=== PATIENT | male | born 1950 | race Caucasian/White ===

== ENCOUNTER 2016-07-15 11:25 | Emergency (ER) | payer OTHER ==
[~2016-07-15] VITALS: Ht 175.3 cm; Wt 97.7 kg
[~2016-07-15 11:25] MED LIST: LEVO150T9 PO; MGNO400 PO; MRLP17X PO; RANI150T3 PO
[2016-07-15 11:27] VITALS: TEMP 36.5; Ht 175.3 cm; Wt 97.7 kg
[2016-07-15] MEDS ORDERED: MoRPHine SULFATE 4 MG/ML 1 ML CARP\\VIAL IV STA (11:46)
[2016-07-15] MEDS ORDERED: ONDANSETRON INJ 2 MG/ML 2 ML VIAL IV STA (11:46)
[2016-07-15 12:10] LABS: BASO % 0.4 %; BASO ABS # 0.02 K/uL (0-0.2); COMPLETE YES; EOS % 1.4 %; HEMATOCRIT 49.3 % (42-52); IG% 0.2 %; LYMPH % 17.8 %; MEAN CELL VOLUME 82.9 fL (80-100); MEAN CORPUSCULAR HEMOGLOBIN 28.4 pg (25-34); MEAN CORPUSCULAR HGB CONC 34.3 g/dl (32-36); MEAN PLATELET VOLUME 8.9 fL (7.4-10.4); MONO % 12.7 %; NEUT % 67.5 %; PLATELET COUNT 142 K/uL (130-400); RED BLOOD COUNT 5.95 M/uL (4.7-6.1); WHITE BLOOD COUNT 5.05 K/uL (4.8-10.8)
[2016-07-15 12:19] LABS: URINE APPEARANCE CLEAR (CLEAR); URINE BILIRUBIN NEG (NEG); URINE COLOR YELLOW; URINE NITRITE NEG (NEG); URINE PH 5.5 (4.5-7.5); UROBILINOGEN NEG (NEG)
[2016-07-15 12:23] LABS: MANUAL MICROSCOPIC REQUIRED? NO; REVIEW REQ? NO
[2016-07-15 12:30] LABS: BUN/CREATININE RATIO 14.4 (10-20); CALCIUM 9.1 mg/dl (8.5-10.1); CREATININE 1.1 mg/dl (0.60-1.40); POTASSIUM 4.3 mmol/L (3.5-5.1)
--- NOTE | 2016-07-15 12:34 | DIAGNOSTIC IMAGING REPORT ---
ABDOMEN AND PELVIS CT WITHOUT CONTRAST CT DOSE: 1056.49 mGycm HISTORY: Flank pain right flask pain eval for stone TECHNIQUE: Multiaxial CT images of the abdomen and pelvis were performed without the use of intravenous and oral contrast according to the standard department stone protocol. COMPARISON STUDY: 05/22/2015 FINDINGS: Mild bibasilar dependent atelectatic change several left renal cysts as well as several calcifications. These are nonobstructive. Several right renal cysts. Moderate right renal hydronephrosis and hydroureter. 5 mm obstructing calculus mid right ureter. This appears to been present on the prior study within the lower pole right kidney. Liver spleen and pancreas are unremarkable. Pancreas is fatty replaced. Chronic sigmoid and to a lesser extent pain colonic diverticulosis unchanged in the prior study. Several prostatic calcifications. Bowel pattern again is nonobstructive. IMPRESSION: 1. 5 mm obstructing calculus mid right ureter.. 2. Right hydroureteronephrosis considered moderate. 3. Multiple bilateral renal cysts stable from the prior study. 4. Chronic colonic diverticulosis with no evidence for acute diverticulitis. Electronically signed by: Rahul Mckeon M.D. 07/15/2016 12:33 PM Dictated Date/Time: 07/15/2016 12:27 PM
--- NOTE | 2016-07-15 13:04 | DIAGNOSTIC IMAGING REPORT ---
LEFT KNEE 2 VIEWS CLINICAL HISTORY: Left knee pain. FINDINGS: AP and crosstable lateral views of the left knee are obtained. No prior studies are available for comparison at the time of dictation. The skeletal structures are osteopenic. There is moderate tricompartmental degenerative joint space narrowing. This is greatest in the medial and patellofemoral compartments. There is near complete loss of the medial joint space with associated bony sclerosis. There are marginal osteophytes and patellar enthesophytes. No joint effusion is identified. The overlying soft tissues are within normal limits. IMPRESSION: Osteopenia and arthritic change as above. No acute bony abnormality is identified. Electronically signed by: Shaan Tamayo M.D. 07/15/2016 1:03 PM Dictated Date/Time: 07/15/2016 1:02 PM
[2016-07-15] MEDS ORDERED: OXYC1TAB3 PO (13:23)
[2016-07-15 13:44] VITALS: BP 94/68; PULSE 62; O2SAT 91
--- NOTE | 2016-07-15 14:36 | EMERGENCY ROOM VISIT NOTE ---
History Report prepared by Enmanuel: Jaime Lawson Under the Supervision of: Dr. Manpreet Ravi M.D. First contact with patient: 11:38 Chief Complaint: FLANK PAIN Stated Complaint: KIDNEY STONE, RIGHT SIDED PAIN History of Present Illness The patient is a 66 year old male who presents to the Emergency Room with complaints of constant pain in the right flank that began at 0900 this morning, 3 hours prior to arrival. The patient describes the pain as "excruciating." He is feeling nauseous secondary to the pain, but has not had any vomiting episodes yet today. The patient went to a Walk-in clinic in [place] where he was told he had a temperature of 99.5 degrees. The patient has had "many" kidney stones in the past and states that these symptoms are similar to those he has experienced previously. 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 A total of 10 systems reviewed and were otherwise negative. Past Medical & Surgical Medical Problems: (1) Diverticulosis (2) H/O hemorrhoids (3) Hypothyroid (4) Irritable bowel syndrome (IBS) (5) Prediabetes Surgical Problems: (1) H/O colonoscopy (2) H/O esophagogastroduodenoscopy (3) H/O hernia repair Family History FH: CAD (coronary artery disease) FATHER ( at 56 ) MOTHER FH: cancer BROTHER FHx: diabetes mellitus MOTHER BROTHER Hypertension BROTHER Kidney disease BROTHER Social History Smoking Status: Never Smoker Alcohol Use: none Drug Use: none Marital Status: Housing Status: lives with family Occupation Status: retired Current/Historical Medications Scheduled Levothyroxine Sodium (Levothyroxine Sodium), 1 TAB PO DAILY Scheduled PRN Oxycodone Ir (Roxicodone Ir), 5 MG PO Q4H PRN for Pain Allergies Coded Allergies: No Known Allergies (Unverified , 07/15/16) Physical Exam Vital Signs Date Time Temp Pulse Resp B/P Pulse Ox O2 Delivery O2 Flow Rate FiO2 07/15/16 13:44 62 16 94/68 91 Room Air 07/15/16 12:22 60 16 114/72 95 Room Air 07/15/16 11:27 36.5 68 20 139/75 97 Room Air Physical Exam Constitutional: Vital signs reviewed. Eyes: Pupils are equal round reactive to light. Conjunctiva are noninjected. ENT: Pharynx is clear without erythema or exudate. Mucous membranes are moist. Neck supple without meningeal signs. Respiratory: Clear to auscultation bilaterally. Breath sounds are equal bilaterally. Cardiovascular: Regular rate and rhythm. No rubs or gallops. GI: Soft, nondistended and nontender. Bowel sounds are present. Musculoskeletal: No peripheral edema. No CVA tenderness. Integumentary: No cyanosis. Neurological: The patient is awake and alert. No focal deficits. Psychiatric: Normal affect. Medical Decision & Procedures ER Provider Diagnostic Interpretation: X-ray results as stated below per interpretation by me and the radiologist: LEFT KNEE 2 VIEWS CLINICAL HISTORY: Left knee pain. FINDINGS: AP and crosstable lateral views of the left knee are obtained. No prior studies are available for comparison at the time of dictation. The skeletal structures are osteopenic. There is moderate tricompartmental degenerative joint space narrowing. This is greatest in the medial and patellofemoral compartments. There is near complete loss of the medial joint space with associated bony sclerosis. There are marginal osteophytes and patellar enthesophytes. No joint effusion is identified. The overlying soft tissues are within normal limits. IMPRESSION: Osteopenia and arthritic change as above. No acute bony abnormality is identified. Electronically signed by: Shaan Tamayo M.D. 07/15/2016 1:03 PM Dictated Date/Time: 07/15/2016 1:02 PM Other radiology results as stated below per my review and the radiologist's interpretation: ABDOMEN AND PELVIS CT WITHOUT CONTRAST CT DOSE: 1056.49 mGycm HISTORY: Flank pain right flask pain eval for stone TECHNIQUE: Multiaxial CT images of the abdomen and pelvis were performed without the use of intravenous and oral contrast according to the standard department stone protocol. COMPARISON STUDY: 05/22/2015 FINDINGS: Mild bibasilar dependent atelectatic change several left renal cysts as well as several calcifications. These are nonobstructive. Several right renal cysts. Moderate right renal hydronephrosis and hydroureter. 5 mm obstructing calculus mid right ureter. This appears to been present on the prior study within the lower pole right kidney. Liver spleen and pancreas are unremarkable. Pancreas is fatty replaced. Chronic sigmoid and to a lesser extent pain colonic diverticulosis unchanged in the prior study. Several prostatic calcifications. Bowel pattern again is nonobstructive. IMPRESSION: 1. 5 mm obstructing calculus mid right ureter.. 2. Right hydroureteronephrosis considered moderate. 3. Multiple bilateral renal cysts stable from the prior study. 4. Chronic colonic diverticulosis with no evidence for acute diverticulitis. Electronically signed by: Rahul Mckeon M.D. 07/15/2016 12:33 PM Dictated Date/Time: 07/15/2016 12:27 PM Laboratory Results 07/15/16 11:58 Red Blood Count 5.95, Mean Corpuscular Volume 82.9, Mean Corpuscular Hemoglobin 28.4, Mean Corpuscular Hemoglobin Concent 34.3, Mean Platelet Volume 8.9, Neutrophils (%) (Auto) 67.5, Lymphocytes (%) (Auto) 17.8, Monocytes (%) (Auto) 12.7, Eosinophils (%) (Auto) 1.4, Basophils (%) (Auto) 0.4, Neutrophils # (Auto ) 3.41, Lymphocytes # (Auto) 0.90, Monocytes # (Auto) 0.64, Eosinophils # (Auto ) 0.07, Basophils # (Auto) 0.02 07/15/16 11:58 Test 07/15/16 11:50 07/15/16 11:58 Urine Color YELLOW Urine Appearance CLEAR (CLEAR) Urine pH 5.5 (4.5-7.5) Urine Specific [place] 1.020 (1.000-1.030) Urine Protein NEG (NEG) Urine Glucose (UA) NEG (NEG) Urine Ketones NEG (NEG) Urine Occult Blood 2+ (NEG) Urine Nitrite NEG (NEG) Urine Bilirubin NEG (NEG) Urine Urobilinogen NEG (NEG) Urine Leukocyte Esterase NEG (NEG) Urine WBC (Auto) 1-5 /hpf (0-5) Urine RBC (Auto) 10-30 /hpf (0-4) Urine Hyaline Casts (Auto) 1-5 /lpf (0-5) Urine Epithelial Cells (Auto) 5-10 /lpf (0-5) Urine Bacteria (Auto) NEG (NEG) White Blood Count 5.05 K/uL (4.8-10.8) Red Blood Count 5.95 M/uL (4.7-6.1) Hemoglobin 16.9 g/dL (14.0-18.0) Hematocrit 49.3 % (42-52) Mean Corpuscular Volume 82.9 fL (80-100) Mean Corpuscular Hemoglobin 28.4 pg (25-34) Mean Corpuscular Hemoglobin Concent 34.3 g/dl (32-36) Platelet Count 142 K/uL (130-400) Mean Platelet Volume 8.9 fL (7.4-10.4) Neutrophils (%) (Auto) 67.5 % Lymphocytes (%) (Auto) 17.8 % Monocytes (%) (Auto) 12.7 % Eosinophils (%) (Auto) 1.4 % Basophils (%) (Auto) 0.4 % Neutrophils # (Auto) 3.41 K/uL (1.4-6.5) Lymphocytes # (Auto) 0.90 K/uL (1.2-3.4) Monocytes # (Auto) 0.64 K/uL (0.11-0.59) Eosinophils # (Auto) 0.07 K/uL (0-0.5) Basophils # (Auto) 0.02 K/uL (0-0.2) RDW Standard Deviation 40.0 fL (36.4-46.3) RDW Coefficient of Variation 13.2 % (11.5-14.5) Immature Granulocyte % (Auto) 0.2 % Immature Granulocyte # (Auto) 0.01 K/uL (0.00-0.02) Anion Gap 7.0 mmol/L (3-11) Est Creatinine Clear Calc Drug Dose 74.1 ml/min Estimated GFR () 79.5 Estimated GFR (Non- 68.6 BUN/Creatinine Ratio 14.4 (10-20) Calcium Level 9.1 mg/dl (8.5-10.1) Total Bilirubin 0.6 mg/dl (0.2-1) Direct Bilirubin 0.2 mg/dl (0-0.2) Aspartate Amino Transf (AST/SGOT) 38 U/L (15-37) Alanine Aminotransferase (ALT/SGPT) 63 U/L (12-78) Alkaline Phosphatase 97 U/L (45-117) Total Protein 8.0 gm/dl (6.4-8.2) Albumin 3.7 gm/dl (3.4-5.0) Lipase 237 U/L (73-393) Laboratory results as reviewed by me. Medications Administered Medications (Trade) Dose Ordered Sig/Hema Route Start Time Stop Time Status Last Admin Dose Admin Morphine Sulfate (MoRPHine SULFATE INJ) 4 mg ONE STAT IV 07/15/16 11:46 07/15/16 11:51 DC 07/15/16 11:59 4 MG Ondansetron HCl (Zofran Inj) 4 mg NOW STAT IV 07/15/16 11:46 07/15/16 11:51 DC 07/15/16 11:59 4 MG ED Course 1142: The patient was evaluated in room B12. A complete history and physical exam was performed. 1146: Ordered Zofran 4 mg IV, Morphine Sulfate 4 mg IV. 1233: I checked on the patient at this time, he is feeling better and his pain is subsiding. 1322: I spoke about the test results with the patient at this time, he is feeling better and will follow up us urology. The patient will be discharged home at this time. Medical Decision This is a 66-year-old male presents with flank pain. Differential diagnosis includes renal colic, hydronephrosis, UTI, strain, appendicitis. I did perform a limited focused review of portions of the patient's old chart on the electronic medical record. The patient has had no recent pertinent visits to this hospital. I did evaluate the patient as noted above. The patient is presenting with right flank pain similar to his previous episodes of renal colic. IV access was established. I did treat the patient with IV morphine and Zofran. I did order and personally review the patient's urinalysis as described above. He does have hematuria. I did order and review the patient's blood work as noted in the electronic medical record. I did order a CT of the abdomen and pelvis. I did review the images myself as well as the radiology report as described above. He does have a right mid ureteral stone measuring 5 mm. The patient also complained of knee pain which is chronic. He stated that his doctor wanted an x-ray of the knee and so I did order an x-ray as described above. I did reassess patient. He is feeling better. He does feel well enough for discharge. I did discuss the test results with him. He was discharged with a prescription for OxyIR and advised follow up with Dr. Tomas of urology. He was given return instructions as outlined below. Impression Primary Impression: Renal colic Additional Impression: Chronic pain of left knee Scribe Attestation The scribe's documentation has been prepared under my direct and personally reviewed by me in its entirety. I confirm that the note above accurately reflects all work, treatment, procedures, and medical decision making performed by me. Departure Information Dispostion Home / Self-Care Prescriptions Oxycodone Ir (Roxicodone Ir) 5 Mg Tab 5 MG PO Q4H Y for Pain, #20 TAB Prov: Manpreet Ravi M.D. 07/15/16 Referrals Balwinder Duran D.OTimo (PCP) Forms HOME CARE DOCUMENTATION FORM, IMPORTANT VISIT INFORMATION Patient Instructions My [facility] Additional Instructions You have been examined and treated today on an emergency basis only. This is not a substitute for, or an effort to provide, complete comprehensive medical care. It is impossible to recognize and treat all injuries or illnesses in a single emergency department visit. It is therefore important that you follow up closely with your physician and Dr. Tomas of urology. Call as soon as possible for an appointment. Return for worsening symptoms or if you develop fever, vomiting, or any other concerning symptoms. Problem Qualifiers
== END 2016-07-15 13:51 | disposition home or self-care (01) ==
LOC: C.EDB 11:27
DX: N23 Unspecified renal colic (principal); G89.29 Other chronic pain; M25.562 Pain in left knee; N20.1 Calculus of ureter; E03.9 Hypothyroidism, unspecified; Z98.890 Other specified postprocedural states; Z82.49 Family history of ischemic heart disease and other diseases of the circulatory system; Z83.3 Family history of diabetes mellitus; Z79.899 Other long term (current) drug therapy

== ENCOUNTER → 2016-08-05 | Outpatient (CLI) | payer OTHER ==
[~2016-08-05] MED LIST changes: -MGNO400 PO; -MRLP17X PO; +OXYC1TAB3 PO; -RANI150T3 PO
[2016-08-05 13:52] LABS: PROSTATE SPECIFIC ANTIGEN 5.03 ng/ml (0.000-4.000); THYROID STIMULATING HORMONE 1.56 uIu/ml (0.300-4.500)
--- NOTE | 2016-08-12 06:48 | CODING QUERY MEDICAL NECESSITY ---
SUPPORTING DIAGNOSIS NEEDED A supporting diagnosis is required for the test/procedure performed on this patient in order for us to be reimbursed by the patient's insurance. Please provide a supporting diagnosis for the following test/procedure listed below next to the test name along with your signature. *If there is no additional diagnosis for this patient that would support the following test/procedure please document that below next to the test/procedure. Test(s)/Procedure(s) that require a supporting diagnosis: * VITAMIN D 25-HYDROXY DIAGNOSIS: * PSA DIAGNOSIS: * DOS: 08/05/16 Provider Signature: Date: Thank you Malissa Lynn Health Information Management Once completed, please kindly fax back to [phone] For questions please call [phone]
== END | disposition home or self-care (01) ==
LOC: C.LABPBG 10:36
PROVIDERS: ATTEND Neuromusculoskeletal Medicine & OMM
DX: Z00.00 Encounter for general adult medical examination without abnormal findings (principal); M19.90 Unspecified osteoarthritis, unspecified site; M25.562 Pain in left knee; M85.859 Other specified disorders of bone density and structure, unspecified thigh; R97.20 Elevated prostate specific antigen [PSA]

== ENCOUNTER → 2016-08-19 | Outpatient (CLI) | payer OTHER | END | disposition home or self-care (01) | LOC: C.MAMM 15:09 | PROVIDERS: ATTEND Neuromusculoskeletal Medicine & OMM | DX: M19.90 Unspecified osteoarthritis, unspecified site (principal); M25.562 Pain in left knee; M85.88 Other specified disorders of bone density and structure, other site ==

== ENCOUNTER 2017-01-26 16:19 | Emergency (ER) | payer OTHER ==
[~2017-01-26] VITALS: Ht 174 cm; Wt 102.0 kg
[~2017-01-26 16:19] MED LIST changes: -OXYC1TAB3 PO
[2017-01-26 16:28] VITALS: TEMP 36.4; Ht 174 cm; Wt 102.0 kg
[2017-01-26] MEDS ORDERED: SODIUM CHLORIDE 0.9% 1000ML 1,000 ML IV STA (17:15)
[2017-01-26] MEDS ORDERED: HYDROmorphone INJ 1 MG/ML SYR IV STA (17:15)
[2017-01-26] MEDS ORDERED: ONDANSETRON INJ 2 MG/ML 2 ML VIAL IV STA (17:15)
[2017-01-26] MEDS ORDERED: KETOROLAC TROMETHAMINE 30 MG/ML VIAL IV STA (17:15)
--- NOTE | 2017-01-26 17:22 | EMERGENCY ROOM VISIT NOTE ---
History Report prepared by Enmanuel: Ramana Vasquez Under the Supervision of: Dr. Shahid Norris M.D. First contact with patient: 17:14 Chief Complaint: KIDNEY STONE Stated Complaint: INTENSE PAIN ON LF SIDE History of Present Illness The patient is a 66 year old male who presents to the Emergency Room with complaints of left sided flank pain that began 3 hours ago. He rates his pain a 9/10 in severity. The patient has a history of a 5 mm kidney stone on the right side in July. He states that his symptoms feel like his previous kidney stone, just on the other side. He is nauseated and had one episode of vomiting. He denies any fevers. Source of History: patient Onset: 3 hours ago Position: other (left flank) Symptom Intensity: 9/10 Quality: sharp Timing: constant Associated Symptoms: + nausea, + vomiting, No fevers Review of Systems See HPI for pertinent positives & negatives. A total of 10 systems reviewed and were otherwise negative. Past Medical & Surgical Medical Problems: (1) Diverticulosis (2) H/O hemorrhoids (3) Hypothyroid (4) Irritable bowel syndrome (IBS) (5) Prediabetes Surgical Problems: (1) H/O colonoscopy (2) H/O esophagogastroduodenoscopy (3) H/O hernia repair Family History FH: CAD (coronary artery disease) FATHER ( at 56 ) MOTHER FH: cancer BROTHER FHx: diabetes mellitus MOTHER BROTHER Hypertension BROTHER Kidney disease BROTHER Social History Smoking Status: Never Smoker Alcohol Use: none Drug Use: none Marital Status: Housing Status: lives with family Occupation Status: retired Current/Historical Medications Scheduled Levothyroxine Sodium (Levothyroxine Sodium), 1 TAB PO DAILY Scheduled PRN Oxycodone Immediate Rel Tab (Roxicodone Ir), 1-2 TAB PO Q4H PRN for Severe Pain Allergies Coded Allergies: No Known Allergies (Unverified , 01/26/17) Physical Exam Vital Signs Date Time Temp Pulse Resp B/P (MAP) Pulse Ox O2 Delivery O2 Flow Rate FiO2 01/26/17 20:01 63 16 136/86 95 01/26/17 17:53 46 01/26/17 17:50 96 Nasal Cannula 3.0 01/26/17 17:36 50 24 162/83 97 Room Air 8/28/17 16:28 36.4 54 20 157/90 94 Room Air Physical Exam GENERAL: Patient is a healthy-appearing well-nourished male HEAD: Normocephalic atraumatic EYES: Ocular movements intact pupils equal and react to light OROPHARYNX mucous membranes are moist no exudates present no erythema or edema present NECK: Supple no nuchal rigidity CHEST: Good equal expansion LUNGS: Clear and equal to auscultation CARDIAC: Normal S1 and S2 ABDOMEN: Soft nontender no guarding BACK: No CVA tenderness EXTREMITIES: No pain upon palpation normal muscle strength in all groups no clubbing cyanosis or edema NEURO: Patient is following commands and answering questions appropriately. Alert and oriented x3 Cranial Nerves 2-12 grossly intact Medical Decision & Procedures ER Provider Diagnostic Interpretation: Radiology results as stated below per my review and radiologist interpretation: KUB CLINICAL HISTORY: Left flank pain. History of kidney stones. COMPARISON STUDY: KUB June 20, [address] of the abdomen and pelvis July 05, 2016. FINDINGS: A 3 mm left pelvic calcification likely reflects a distal left ureteral calculus. A right pelvic calcification represents a phlebolith. No additional urinary calculi are present. Bowel gas pattern is normal. IMPRESSION: 3 mm distal left ureteral calculus. Electronically signed by: Alan Russell M.D. 01/26/2017 7:13 PM Dictated Date/Time: 01/26/2017 6:58 PM RENAL ULTRASOUND CLINICAL HISTORY: Left flank pain. COMPARISON STUDY: CT of the abdomen and pelvis July 15, 2016. TECHNIQUE: Sonography of the kidneys and the urinary bladder was performed. FINDINGS: The right kidney measures 13.5 x 5.6 x 7.1 cm and the left measures 13.9 x 8 x 8.5 cm. Note is made of a 5.2 cm anechoic right renal lesion consistent with a cyst. 2 left renal cysts are noted. The larger cyst measures 6.5 cm. No hydronephrosis is identified. Study is mildly compromised by suboptimal penetration. Neither ureteral jet was identified. IMPRESSION: 1. No hydronephrosis. 2. Bilateral renal cysts. Electronically signed by: Alan Russell M.D. 01/26/2017 7:23 PM Dictated Date/Time: 01/26/2017 7:22 PM Laboratory Results 01/26/17 17:36 Red Blood Count 6.02, Mean Corpuscular Volume 81.4, Mean Corpuscular Hemoglobin 29.1, Mean Corpuscular Hemoglobin Concent 35.7, Mean Platelet Volume 9.0, Neutrophils (%) (Auto) 84.8, Lymphocytes (%) (Auto) 9.6, Monocytes (%) (Auto) 4.7, Eosinophils (%) (Auto) 0.3, Basophils (%) (Auto) 0.2, Neutrophils # (Auto) 10.02, Lymphocytes # (Auto) 1.13, Monocytes # (Auto) 0.56, Eosinophils # (Auto) 0.03, Basophils # (Auto) 0.02 01/26/17 17:36 Test 01/26/17 17:36 01/26/17 18:30 White Blood Count 11.81 K/uL (4.8-10.8) Red Blood Count 6.02 M/uL (4.7-6.1) Hemoglobin 17.5 g/dL (14.0-18.0) Hematocrit 49.0 % (42-52) Mean Corpuscular Volume 81.4 fL (80-100) Mean Corpuscular Hemoglobin 29.1 pg (25-34) Mean Corpuscular Hemoglobin Concent 35.7 g/dl (32-36) Platelet Count 202 K/uL (130-400) Mean Platelet Volume 9.0 fL (7.4-10.4) Neutrophils (%) (Auto) 84.8 % Lymphocytes (%) (Auto) 9.6 % Monocytes (%) (Auto) 4.7 % Eosinophils (%) (Auto) 0.3 % Basophils (%) (Auto) 0.2 % Neutrophils # (Auto) 10.02 K/uL (1.4-6.5) Lymphocytes # (Auto) 1.13 K/uL (1.2-3.4) Monocytes # (Auto) 0.56 K/uL (0.11-0.59) Eosinophils # (Auto) 0.03 K/uL (0-0.5) Basophils # (Auto) 0.02 K/uL (0-0.2) RDW Standard Deviation 38.4 fL (36.4-46.3) RDW Coefficient of Variation 12.9 % (11.5-14.5) Immature Granulocyte % (Auto) 0.4 % Immature Granulocyte # (Auto) 0.05 K/uL (0.00-0.02) Anion Gap 9.0 mmol/L (3-11) Est Creatinine Clear Calc Drug Dose 63.5 ml/min Estimated GFR () 65.0 Estimated GFR (Non- 56.1 BUN/Creatinine Ratio 14.4 (10-20) Calcium Level 9.8 mg/dl (8.5-10.1) Total Bilirubin 0.7 mg/dl (0.2-1) Direct Bilirubin 0.2 mg/dl (0-0.2) Aspartate Amino Transf (AST/SGOT) 33 U/L (15-37) Alanine Aminotransferase (ALT/SGPT) 42 U/L (12-78) Alkaline Phosphatase 105 U/L (45-117) Total Protein 8.0 gm/dl (6.4-8.2) Albumin 3.8 gm/dl (3.4-5.0) Lipase 200 U/L (73-393) Urine Color YELLOW Urine Appearance CLEAR (CLEAR) Urine pH >= 9.0 (4.5-7.5) Urine Specific [place] 1.018 (1.000-1.030) Urine Protein NEG (NEG) Urine Glucose (UA) NEG (NEG) Urine Ketones TRACE (NEG) Urine Occult Blood NEG (NEG) Urine Nitrite NEG (NEG) Urine Bilirubin NEG (NEG) Urine Urobilinogen NEG (NEG) Urine Leukocyte Esterase NEG (NEG) Labs reviewed by ED physician. Medications Administered Medications (Trade) Dose Ordered Sig/Hema Route Start Time Stop Time Status Last Admin Dose Admin Sodium Chloride 1,000 ml @ 999 mls/hr Q1H1M STAT IV 01/26/17 17:15 01/26/17 18:15 DC 01/26/17 17:39 999 MLS/HR Hydromorphone HCl (Dilaudid Inj) 1 mg NOW STAT IV 01/26/17 17:15 01/26/17 17:17 DC 01/26/17 17:41 1 MG Ketorolac Tromethamine (Toradol Inj) 30 mg NOW STAT IV 01/26/17 17:15 01/26/17 17:17 DC 01/26/17 17:40 30 MG Ondansetron HCl (Zofran Inj) 4 mg NOW STAT IV 01/26/17 17:15 01/26/17 17:17 DC 01/26/17 17:39 4 MG Oxycodone HCl (Roxicodone Immediate Rel 5MG Home Pack) 1 homepack UD ONCE PO 01/26/17 19:45 01/26/17 19:46 DC 01/26/17 19:53 1 HOMEPACK ED Course 1713: Past medical records reviewed. The patient was evaluated in room C1B. A complete history and physical examination was performed. 1714: Ordered Zofran Inj 4 mg IV, Toradol Inj 30 mg IV, Dilaudid Inj 1 mg IV, Sodium Chloride 1000 ml @ 999 mls/hr IV 1944: Ordered Oxycodone HCl 1 homepack PO 1999: Upon reexamination the patient is resting. I discussed results and treatment plan with the patient. He verbalizes agreement and understanding. The patient is ready for discharge. Medical Decision Differential diagnosis: Etiologies such as appendicitis, diverticulitis, PUD, biliary pathology, UTI, pancreatitis, obstruction, mesenteric ischemia, aortic pathology, infections, inflammatory bowel disease, renal colic, as well as others were entertained. This is a 58-year-old male who presents emergency department complaining was signed flank pain. I will note that the patient recently had a CAT scan performed in July. This was reviewed with the patient and old of that there were several stones present in the left kidney at that time. An IV was established, patient given normal saline bolus, Toradol, Dilaudid. Repeat examination revealed improvement patient's symptoms. Serial abdominal examinations were performed on the patient in the emergency department and at no tender the patient exhibited a surgical abdomen. I do feel that the patient as well as to be discharged home as he appears to have a 3 mm left kidney stone. The patient was pain-free at the time of discharge. He is afebrile here in the emergency department and does not have any evidence of infection and his urine. Patient will follow-up with his urologist or will return if he develops fevers or his pain is out of control. Patient was in agreement with the treatment plan. Medication Reconcilliation Current Medication List: was personally reviewed by me Blood Pressure Screening Patient's blood pressure: Elevated blood pressure Blood pressure disposition: Referred to PCP Impression Primary Impression: Kidney stone Scribe Attestation The scribe's documentation has been prepared under my direction and personally reviewed by me in its entirety. I confirm that the note above accurately reflects all work, treatment, procedures, and medical decision making performed by me. Departure Information Dispostion Home / Self-Care Prescriptions Oxycodone Immediate Rel Tab (ROXICODONE IR) 5 Mg Tab 1-2 TAB PO Q4H Y for Severe Pain, #24 TAB Prov: Shahid Norris MD 01/26/17 Referrals Balwinder Duran D.O. (PCP) Forms HOME CARE DOCUMENTATION FORM, IMPORTANT VISIT INFORMATION, School Instructions, Work Instructions Patient Instructions Kidney Stones Expectant Therapy, Kidney Stones Identify, Kidney Stones Prevent, Kidney Stones Risk, My [facility] [address] Additional Instructions Take 1000 mg Tylenol every 6 hours Take oxy IR for breakthrough pain Follow up with DR Jiang's office Return if pain is out of control or you develop fevers You were found to have an elevated blood pressure today (>120 sytolic or >90 diastolic). Per medicare guidelines, you need to follow up with this blood pressure screening with your Primary Care Physician (PCP). For a new PCP call [phone]. You received narcotic or benzodiazepene medication while in the emergency room today. This is an addictive medication that may cause drowziness as well as constipation. Do not drive, operate heavy machinery, or drink alcohol under the influence of this medication. You have been examined and treated today on an emergency basis only. This is not a substitute for, or an effort to provide, complete comprehensive medical care. It is impossible to recognize and treat all injuries or illnesses in a single emergency department visit. It is therefore important that you follow up closely with Dr Duran. Call as soon as possible for an appointment. Thank you for your time and consideration. I look forward to speaking with you again soon. Please don't hesitate to call us if you have any questions.
[2017-01-26 17:49] LABS: BASO % 0.2 %; BASO ABS # 0.02 K/uL (0-0.2); COMPLETE YES; EOS % 0.3 %; IG% 0.4 %; LYMPH % 9.6 %; LYMPH ABS # 1.13 K/uL (1.2-3.4); MEAN CELL VOLUME 81.4 fL (80-100); MEAN CORPUSCULAR HEMOGLOBIN 29.1 pg (25-34); MEAN CORPUSCULAR HGB CONC 35.7 g/dl (32-36); MONO % 4.7 %; NEUT % 84.8 %; PLATELET COUNT 202 K/uL (130-400); RED BLOOD COUNT 6.02 M/uL (4.7-6.1); WHITE BLOOD COUNT 11.81 K/uL (4.8-10.8)
[2017-01-26 17:50] VITALS: O2SAT 96
[2017-01-26 18:08] LABS: BUN/CREATININE RATIO 14.4 (10-20); CALCIUM 9.8 mg/dl (8.5-10.1); CREATININE 1.3 mg/dl (0.60-1.40)
[2017-01-26 18:51] LABS: URINE APPEARANCE CLEAR (CLEAR); URINE BILIRUBIN NEG (NEG); URINE COLOR YELLOW; URINE NITRITE NEG (NEG); URINE PH >= 9.0 (4.5-7.5); URINE SPECIFIC GRAVITY 1.018 (1.000-1.030); UROBILINOGEN NEG (NEG)
[2017-01-26 19:06] LABS: MANUAL MICROSCOPIC REQUIRED? NO; REVIEW REQ? NO
--- NOTE | 2017-01-26 19:14 | DIAGNOSTIC IMAGING REPORT ---
KUB CLINICAL HISTORY: Left flank pain. History of kidney stones. COMPARISON STUDY: KUB June 20, [address] of the abdomen and pelvis July 05, 2016. FINDINGS: A 3 mm left pelvic calcification likely reflects a distal left ureteral calculus. A right pelvic calcification represents a phlebolith. No additional urinary calculi are present. Bowel gas pattern is normal. IMPRESSION: 3 mm distal left ureteral calculus. Electronically signed by: Alan Russell M.D. 01/26/2017 7:13 PM Dictated Date/Time: 01/26/2017 6:58 PM
--- NOTE | 2017-01-26 19:24 | DIAGNOSTIC IMAGING REPORT ---
RENAL ULTRASOUND CLINICAL HISTORY: Left flank pain. COMPARISON STUDY: CT of the abdomen and pelvis July 15, 2016. TECHNIQUE: Sonography of the kidneys and the urinary bladder was performed. FINDINGS: The right kidney measures 13.5 x 5.6 x 7.1 cm and the left measures 13.9 x 8 x 8.5 cm. Note is made of a 5.2 cm anechoic right renal lesion consistent with a cyst. 2 left renal cysts are noted. The larger cyst measures 6.5 cm. No hydronephrosis is identified. Study is mildly compromised by suboptimal penetration. Neither ureteral jet was identified. IMPRESSION: 1. No hydronephrosis. 2. Bilateral renal cysts. Electronically signed by: Alan Russell M.D. 01/26/2017 7:23 PM Dictated Date/Time: 01/26/2017 7:22 PM
[2017-01-26] MEDS ORDERED: OXYC1TAB3 PO (19:37)
[2017-01-26] MEDS ORDERED: OXYCODONE IR HOME PACK PO ONE (19:45)
[2017-01-26 20:01] VITALS: BP 136/86; PULSE 63; O2SAT 95
== END 2017-01-26 20:02 | disposition home or self-care (01) ==
LOC: C.EDB 16:19 → C.EDC 20:02
DX: N20.0 Calculus of kidney (principal); K57.90 Diverticulosis of intestine, part unspecified, without perforation or abscess without bleeding; E03.9 Hypothyroidism, unspecified; K58.9 Irritable bowel syndrome, unspecified; R73.03 Prediabetes; Z87.442 Personal history of urinary calculi; Z82.49 Family history of ischemic heart disease and other diseases of the circulatory system; Z83.3 Family history of diabetes mellitus

== ENCOUNTER 2017-06-06 21:51 | Inpatient (IN) | payer OTHER ==
[~2017-06-06] VITALS: Ht 177.8 cm; Wt 103.0 kg
[~2017-06-06 21:51] MED LIST changes: +ESOM1CAP34 PO; +FLM4 PO
[2017-06-06] MEDS ORDERED: ZNTT/150 PO (22:04)
[2017-06-06] MEDS ORDERED: SODIUM CHLORIDE 0.9% 1000ML 1,000 ML IV STA (22:13)
[2017-06-06] MEDS ORDERED: ONDANSETRON INJ 2 MG/ML 2 ML VIAL IV STA (22:13)
[2017-06-06] MEDS ORDERED: MoRPHine SULFATE 4 MG/ML 1 ML CARP\\VIAL IV STA (22:41)
--- NOTE | 2017-06-06 22:43 | DIAGNOSTIC IMAGING REPORT ---
CT SCAN OF THE ABDOMEN AND PELVIS WITHOUT CONTRAST CLINICAL HISTORY: Analyzed abdominal pain, nausea, vomiting, dizziness. COMPARISON STUDY: 04/09/2017 TECHNIQUE: CT scan of the abdomen and pelvis was performed from the lung bases to the proximal femurs. Images are reviewed in the axial, sagittal, and coronal planes. IV contrast was not administered for this examination. A dose lowering technique was utilized adhering to the principles of ALARA. CT DOSE: 1480.05 mGy.cm FINDINGS: Lower chest: There are persistent bibasilar opacities, likely atelectatic. Liver: The unenhanced liver is normal in size, contour, and attenuation. There is no intrahepatic biliary ductal dilatation. Gallbladder: Unremarkable. Spleen: Normal in size and attenuation. Pancreas: Unremarkable. Adrenal glands: Unremarkable. Kidneys: No renal, ureteral, or bladder calculi are visualized. There are bilateral renal masses, likely representing cysts. The largest in the right measures 56 mm. The largest in the left 63 mm. Bowel: There is extensive colonic diverticulosis. No acute peridiverticular inflammatory changes are visualized. 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 There is no acute diverticulitis. There are mildly dilated fluid-filled small bowel loops with normal caliber distal ileum. There is a distal ileal transition zone occipital to a mildly thickened small bowel loop. The findings are consistent with a partial small bowel obstruction Peritoneum: There is no intraperitoneal free air or abdominal ascites. Vasculature: The abdominal aorta is normal in course and caliber. Adenopathy: There are mildly prominent ileocolic lymph nodes, likely reactive Pelvic viscera: There is mild prostamegaly there is a small fat-containing right inguinal hernia Skeletal structures: No destructive osseous lesions are seen. IMPRESSION: 1. Distal small bowel obstruction, likely secondary to a thick walled distal small bowel loop. This raises the possibility of a focal enteritis or inflammatory bowel disease. 2. Extensive colonic diverticulosis. No evidence of acute peridiverticular inflammatory change 3. 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 Bilateral renal cysts. No renal or ureteral calculi identified. Electronically signed by: Adams Owens M.D. 06/06/2017 10:42 PM Dictated Date/Time: 06/06/2017 10:32 PM
[2017-06-06 22:45] LABS: PTT PATIENT 23.2 SECONDS (21.0-31.0)
--- NOTE | 2017-06-06 22:56 | DIAGNOSTIC IMAGING REPORT ---
CHEST ONE VIEW PORTABLE CLINICAL HISTORY: Pain, radiating to the abdomen. Nausea, vomiting. COMPARISON STUDY: June 19, 2015 FINDINGS: The heart remains enlarged with aortic tortuosity/ectasia. There is no failure. There is no focal pulmonary consolidation. There are low lung volumes with mild basilar atelectatic change. There are no significant pleural effusions. There is no free intraperitoneal air.[ IMPRESSION: Mild cardiomegaly. Bibasilar atelectasis. No acute findings. Electronically signed by: Adams Owens M.D. 06/06/2017 10:55 PM Dictated Date/Time: 06/06/2017 10:54 PM
[2017-06-06 23:29] LABS: ISTAT CREATININE 1.3 mg/dl (0.6-1.3); ISTAT IONIZED CALCIUM 1.18 mmol/l (1.12-1.32); ISTAT POTASSIUM 3.9 mEq/L (3.3-5.0)
[2017-06-06 23:48] LABS: BASO % 0.3 %; BASO ABS # 0.04 K/uL (0-0.2); EOS % 0.7 %; EOS ABS # 0.09 K/uL (0-0.5); HEMATOCRIT 52.1 % (42-52); HEMOGLOBIN 18.6 g/dL (14.0-18.0); IG# 0.03 K/uL (0.00-0.02); LYMPH % 13.9 %; LYMPH ABS # 1.87 K/uL (1.2-3.4); MEAN CELL VOLUME 84.4 fL (80-100); MEAN CORPUSCULAR HEMOGLOBIN 30.1 pg (25-34); MEAN CORPUSCULAR HGB CONC 35.7 g/dl (32-36); MEAN PLATELET VOLUME 9.4 fL (7.4-10.4); MONO % 6.3 %; MONO ABS # 0.84 K/uL (0.11-0.59); NEUT % 78.6 %; NEUT ABS # 10.57 K/uL (1.4-6.5); PLATELET COUNT 228 K/uL (130-400); RED CELL DISTRIBUTION WIDTH CV 13.1 % (11.5-14.5); RED CELL DISTRIBUTION WIDTH SD 39.8 fL (36.4-46.3); WHITE BLOOD COUNT 13.44 K/uL (4.8-10.8)
[2017-06-06 23:49] LABS: ALT/SGPT 46 U/L (12-78); BLOOD UREA NITROGEN 17 mg/dl (7-18); CALCIUM 9.5 mg/dl (8.5-10.1); CARBON DIOXIDE 24 mmol/L (21-32); CREATININE 1.37 mg/dl (0.60-1.40); GLUCOSE 124 mg/dl (70-99); LIPASE 224 U/L (73-393); POTASSIUM 3.9 mmol/L (3.5-5.1); SODIUM 137 mmol/L (136-145)
[2017-06-06 23:52] LABS: ALKALINE PHOSPHATASE 107 U/L (45-117); AST/SGOT 33 U/L (15-37); TOTAL PROTEIN 8.6 gm/dl (6.4-8.2)
[2017-06-07] VITALS (8 sets, daily range): BP systolic 104–128; BP diastolic 67–80; PULSE 63–87; TEMP 36.4–36.8; O2SAT 89–94; Ht 177.8 cm; Wt 103.0 kg
[2017-06-07] MEDS ORDERED: KETOROLAC TROMETHAMINE 30 MG/ML VIAL IV STA (00:21)
[2017-06-07] MEDS ORDERED: PROCHLORPERAZINE 5 MG/ML 2 ML VIAL IV STA (00:25)
--- NOTE | 2017-06-07 00:33 | EMERGENCY ROOM VISIT NOTE ---
History Report prepared by Herbertibtabitha: Manpreet De Jesus Under the Supervision of: Dr. Shahid Ramos D.O. First contact with patient: 22:00 Chief Complaint: ABDOMINAL PAIN Stated Complaint: SEVERE STOMACH PAIN, DIZZY, NAUSEA, VOMITING History of Present Illness The patient is a 67 year old male who presents to the Emergency Room with complaints of waxing and waning abdominal pain that began 10 hours ago. He is present with his [id number] and . Patient describes the pain as "intense " but varying in its intensity. Patient states that the pain does not go into his back. He has associated symptoms of vomiting, dizziness, and nausea. He denies having chest pain or shortness of breath. He states he had similar symptoms 2 months ago for a bowel infection. Patient's [id number] states he has a history of chronic stomach problems. He denies having a history of cardiac problems or abdominal surgeries. Patient adds he was able to eat and drink today. Source of History: patient Onset: 10 hours ago Position: abdomen Symptom Intensity: Intense Timing: waxes/wanes Associated Symptoms: + nausea, + vomiting, No chest pain Note: Patient has dizziness. He denies trouble breathing. Review of Systems See HPI for pertinent positives & negatives. A total of 10 systems reviewed and were otherwise negative. Past Medical & Surgical Medical Problems: (1) Diverticulosis (2) H/O hemorrhoids (3) Hypothyroid (4) Irritable bowel syndrome (IBS) (5) Prediabetes (6) SBO (small bowel obstruction) Surgical Problems: (1) H/O colonoscopy (2) H/O esophagogastroduodenoscopy (3) H/O hernia repair Family History FH: CAD (coronary artery disease) FATHER ( at 56 ) MOTHER FH: cancer BROTHER FHx: diabetes mellitus MOTHER BROTHER Hypertension BROTHER Kidney disease BROTHER Social History Smoking Status: Never Smoker Alcohol Use: none Drug Use: none Marital Status: Housing Status: lives with family Occupation Status: retired Current/Historical Medications Scheduled Levothyroxine Sodium (Levothyroxine Sodium), 150 MCG PO QAM Ranitidine (Zantac), 150 MG PO BID Tamsulosin HCl (Tamsulosin HCl), 0.4 MG PO HS Allergies Coded Allergies: No Known Allergies (Unverified , 06/06/17) Physical Exam Vital Signs Date Time Temp Pulse Resp B/P (MAP) Pulse Ox O2 Delivery O2 Flow Rate FiO2 06/07/17 00:46 89 20 92 06/07/17 00:41 124/84 06/07/17 00:36 87 22 06/07/17 00:31 126/79 06/07/17 00:26 86 20 92 06/07/17 00:21 129/85 06/07/17 00:16 85 16 94 06/07/17 00:11 145/85 06/07/17 00:01 125/86 06/07/17 00:00 82 18 94 06/06/17 23:51 142/82 06/06/17 23:45 86 39 94 06/06/17 23:42 104 20 105/65 94 Room Air 06/06/17 23:37 121/87 06/06/17 23:31 88/62 06/06/17 23:30 71 18 90 06/06/17 23:23 67 20 79/60 94 Nasal Cannula 2.0 06/06/17 23:21 85/59 06/06/17 23:15 78 17 94 06/06/17 23:11 108/72 06/06/17 23:01 114/72 06/06/17 23:00 75 15 96 06/06/17 22:43 36.5 06/06/17 22:15 79 24 107/69 92 Nasal Cannula 2.0 06/06/17 22:10 91 Room Air 2.0 06/06/17 22:07 77 06/06/17 21:55 69 22 54/42 89 Room Air Physical Exam CONSTITUTIONAL/VITAL SIGNS: Reviewed / noted above. GENERAL: Non-toxic in appearance. INTEGUMENTARY: Skin is warm, dry, and pale. HEAD: Normocephalic. EYES: without scleral icterus or trauma. ENT/OROPHARYNX: clear and moist. LYMPHADENOPATHY/NECK: Is supple without lymphadenopathy or meningismus. RESPIRATORY: Lungs clear and equal. CARDIOVASCULAR: Regular rate and rhythm. GI/ABDOMEN: Tenderness to palpitation in the upper abdomen greater than the mid upper abdomen. EXTREMITIES: Warm and well perfused. BACK: No CVA tenderness. NEUROLOGICAL: Intact without focal deficits. PSYCHIATRIC: normal affect. MUSCULOSKELETAL: Normally developed with good muscle tone. Medical Decision & Procedures ER Provider Diagnostic Interpretation: Radiology results as stated below per my review and radiologist interpretation: CT SCAN OF THE ABDOMEN AND PELVIS WITHOUT CONTRAST CLINICAL HISTORY: Analyzed abdominal pain, nausea, vomiting, dizziness. COMPARISON STUDY: 04/09/2017 TECHNIQUE: CT scan of the abdomen and pelvis was performed from the lung bases to the proximal femurs. Images are reviewed in the axial, sagittal, and coronal planes. IV contrast was not administered for this examination. A dose lowering technique was utilized adhering to the principles of ALARA. CT DOSE: 1480.05 mGy.cm FINDINGS: Lower chest: There are persistent bibasilar opacities, likely atelectatic. Liver: The unenhanced liver is normal in size, contour, and attenuation. There is no intrahepatic biliary ductal dilatation. Gallbladder: Unremarkable. Spleen: Normal in size and attenuation. Pancreas: Unremarkable. Adrenal glands: Unremarkable. Kidneys: No renal, ureteral, or bladder calculi are visualized. There are bilateral renal masses, likely representing cysts. The largest in the right measures 56 mm. The largest in the left 63 mm. Bowel: There is extensive colonic diverticulosis. No acute peridiverticular inflammatory changes are visualized. 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 There is no acute diverticulitis. There are mildly dilated fluid-filled small bowel loops with normal caliber distal ileum. There is a distal ileal transition zone occipital to a mildly thickened small bowel loop. The findings are consistent with a partial small bowel obstruction Peritoneum: There is no intraperitoneal free air or abdominal ascites. Vasculature: The abdominal aorta is normal in course and caliber. Adenopathy: There are mildly prominent ileocolic lymph nodes, likely reactive Pelvic viscera: There is mild prostamegaly there is a small fat-containing right inguinal hernia Skeletal structures: No destructive osseous lesions are seen. IMPRESSION: 1. Distal small bowel obstruction, likely secondary to a thick walled distal small bowel loop. This raises the possibility of a focal enteritis or inflammatory bowel disease. 2. Extensive colonic diverticulosis. No evidence of acute peridiverticular inflammatory change 3. 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 Bilateral renal cysts. No renal or ureteral calculi identified. Electronically signed by: Adams Owens M.D. 06/06/2017 10:42 PM CHEST ONE VIEW PORTABLE CLINICAL HISTORY: Pain, radiating to the abdomen. Nausea, vomiting. COMPARISON STUDY: June 19, 2015 FINDINGS: The heart remains enlarged with aortic tortuosity/ectasia. There is no failure. There is no focal pulmonary consolidation. There are low lung volumes with mild basilar atelectatic change. There are no significant pleural effusions. There is no free intraperitoneal air.[ IMPRESSION: Mild cardiomegaly. Bibasilar atelectasis. No acute findings. Electronically signed by: Adams Owens M.D. 06/06/2017 10:55 PM Laboratory Results 06/06/17 22:10 Red Blood Count 6.17, Mean Corpuscular Volume 84.4, Mean Corpuscular Hemoglobin 30.1, Mean Corpuscular Hemoglobin Concent 35.7, Mean Platelet Volume 9.4, Neutrophils (%) (Auto) 78.6, Lymphocytes (%) (Auto) 13.9, Monocytes (%) (Auto) 6.3, Eosinophils (%) (Auto) 0.7, Basophils (%) (Auto) 0.3, Neutrophils # (Auto) 10.57, Lymphocytes # (Auto) 1.87, Monocytes # (Auto) 0.84, Eosinophils # (Auto) 0.09, Basophils # (Auto) 0.04 06/06/17 22:10 Test 06/06/17 21:58 06/06/17 22:10 06/06/17 22:17 06/06/17 22:23 Bedside Glucose 106 mg/dl (70-99) White Blood Count 13.44 K/uL (4.8-10.8) Red Blood Count 6.17 M/uL (4.7-6.1) Hemoglobin 18.6 g/dL (14.0-18.0) Hematocrit 52.1 % (42-52) Mean Corpuscular Volume 84.4 fL (80-100) Mean Corpuscular Hemoglobin 30.1 pg (25-34) Mean Corpuscular Hemoglobin Concent 35.7 g/dl (32-36) Platelet Count 228 K/uL (130-400) Mean Platelet Volume 9.4 fL (7.4-10.4) Neutrophils (%) (Auto) 78.6 % Lymphocytes (%) (Auto) 13.9 % Monocytes (%) (Auto) 6.3 % Eosinophils (%) (Auto) 0.7 % Basophils (%) (Auto) 0.3 % Neutrophils # (Auto) 10.57 K/uL (1.4-6.5) Lymphocytes # (Auto) 1.87 K/uL (1.2-3.4) Monocytes # (Auto) 0.84 K/uL (0.11-0.59) Eosinophils # (Auto) 0.09 K/uL (0-0.5) Basophils # (Auto) 0.04 K/uL (0-0.2) RDW Standard Deviation 39.8 fL (36.4-46.3) RDW Coefficient of Variation 13.1 % (11.5-14.5) Immature Granulocyte % (Auto) 0.2 % Immature Granulocyte # (Auto) 0.03 K/uL (0.00-0.02) Prothrombin Time 10.4 SECONDS (9.0-12.0) Prothromb Time International Ratio 1.0 (0.9-1.1) Activated Partial Thromboplast Time 23.2 SECONDS (21.0-31.0) Partial Thromboplastin Ratio 0.9 Estimated GFR () 60.6 Estimated GFR (Non- 52.3 BUN/Creatinine Ratio 12.6 (10-20) Calcium Level 9.5 mg/dl (8.5-10.1) Total Bilirubin 0.6 mg/dl (0.2-1) Direct Bilirubin 0.1 mg/dl (0-0.2) Aspartate Amino Transf (AST/SGOT) 33 U/L (15-37) Alanine Aminotransferase (ALT/SGPT) 46 U/L (12-78) Alkaline Phosphatase 107 U/L (45-117) Total Protein 8.6 gm/dl (6.4-8.2) Albumin 4.0 gm/dl (3.4-5.0) Lipase 224 U/L (73-393) Bedside Lactic Acid Venous 3.16 mmol/L (0.90-1.70) Bedside Hemoglobin 18.0 g/dl (14.0-18.0) Bedside Hematocrit 53 % (42-52) Bedside Sodium 142 mEq/L (135-144) Bedside Potassium 3.9 mEq/L (3.3-5.0) Bedside Chloride 106 mEq/L (101-112) Bedside Total CO2 23 mEq/l (24-31) Anion Gap 18.0 mmol/L (16-25) Bedside Blood Urea Nitrogen 18 mg/dl (7-18) Bedside Creatinine 1.3 mg/dl (0.6-1.3) Bedside Glucose (other) 124 mg/dl (70-99) Bedside Ionized Calcium (Pedro) 1.18 mmol/l (1.12-1.32) Test 06/07/17 00:10 Urine Color DK YELLOW Urine Appearance CLOUDY (CLEAR) Urine pH 5.0 (4.5-7.5) Urine Specific [place] 1.019 (1.000-1.030) Urine Protein 1+ (NEG) Urine Glucose (UA) NEG (NEG) Urine Ketones TRACE (NEG) Urine Occult Blood NEG (NEG) Urine Nitrite NEG (NEG) Urine Bilirubin NEG (NEG) Urine Urobilinogen NEG (NEG) Urine Leukocyte Esterase NEG (NEG) Urine WBC (Auto) 1-5 /hpf (0-5) Urine RBC (Auto) 0-4 /hpf (0-4) Urine Hyaline Casts (Auto) 10-30 /lpf (0-5) Urine Epithelial Cells (Auto) >30 /lpf (0-5) Urine Bacteria (Auto) NEG (NEG) Urine Renal Epithelial Cells /lpf (0-5) Urine Pathogenic Casts 5-10 GRANULAR CASTS /lpf (0) Laboratory results as stated above per my review. Medications Administered Medications (Trade) Dose Ordered Sig/Hema Route Start Time Stop Time Status Last Admin Dose Admin Sodium Chloride 1,000 ml @ 999 mls/hr Q1H1M STAT IV 06/06/17 22:13 06/06/17 23:13 DC 06/06/17 22:38 999 MLS/HR Ondansetron HCl (Zofran Inj) 4 mg NOW STAT IV 06/06/17 22:13 06/06/17 22:16 DC 06/06/17 22:37 4 MG Morphine Sulfate (MoRPHine SULFATE INJ) 4 mg NOW STAT IV 06/06/17 22:41 06/06/17 22:42 DC 06/06/17 22:41 4 MG Ketorolac Tromethamine (Toradol Inj) 30 mg NOW STAT IV 06/07/17 00:21 06/07/17 00:22 DC 06/07/17 00:28 30 MG Prochlorperazine Edisylate (Compazine Inj) 10 mg NOW STAT IV 06/07/17 00:25 06/07/17 00:26 DC 06/07/17 00:34 10 MG ECG Indication: abdominal pain Rate (beats per minute): 80 Rhythm: normal sinus Findings: no acute ischemic change, no ectopy ED Course 2199: Previous medical records were reviewed. The patient was evaluated in room B1. A complete history and physical examination was performed. 2213: Zofran Inj 4mg IV, Sodium Chloride 1000 ml @ 999 mls/hr IV 2241: Morphine Sulfate 4mg IV 2320: I reassessed the patient who is resting comfortably. 0021: Toradol Inj 30mg IV 0025: Compazine Inj 10mg IV 0100: On reevaluation, the patient will be further evaluated. I discussed the results and findings with him. He verbalized agreement of the treatment plan. I spoke with Dr. Sarah of the [facility] Hospitalist Service. The patient will be evaluated for further management and care. Medical Decision Differential considered: pancreatitis, hepatitis, or acute cholecystitis, AAA, UTI, pyelonephritis, kidney stones, appendicitis, diverticulitis, shingles, bowel obstruction mesenteric ischemia, intussusception,hernia, testicular torsion. This is a 67-year-old male who presents to the ED with a chief complaint of abdominal pain. He came through triage and was found to be hypotensive. The patient reports a rather continuous abdominal pain that waxes and wanes at times. It started earlier today. The patient reports some associated vomiting. He states that he has had similar symptoms about 3 months ago when he was told that he had a bowel obstruction. Denies any chest pains or shortness of breath. His initial blood pressure was low. A bedside ultrasound was performed by myself to evaluate for ruptured AAA because of his hypotension. Aorta did not appear to be enlarged. His physical exam revealed some tenderness diffusely but more so in the upper midabdomen. A CT scan of the abdomen and pelvis reveals a distal small bowel obstruction with some thickened wall in the distal small bowel that could be related to a focal enteritis. Chest x-ray did not show acute process. White blood cell count was 13. Hemoglobin is 18. Lipase was negative. Urine did not show infection. The patient was given 2 L normal saline IV as he was somewhat hypotensive. He was reassessed numerous times. I spoke with his family about the results of the tests and his condition. He was given IV morphine and IV Zofran as well as IV Toradol and IV Compazine. An NG tube was also placed. I spoke with the hospitalist, who will see the patient for further evaluation and care. Medication Reconcilliation Current Medication List: was personally reviewed by me Blood Pressure Screening Patient's blood pressure: Elevated blood pressure Blood pressure disposition: Referred to PCP Consults Time Called: 44 Consulting Physician: Dr. Keara SHEA Hospitalist Returned Call: [phone] Discussed the patient's case. The patient will be evaluated for further treatment and disposition. Impression Primary Impression: Small bowel obstruction Critical Care I have personally spent 30 minutes of critical care time in the direct management of this patient. This includes bedside care, interpretation of diagnostic studies, and testing, discussion with consultants, patient, and family members, and other required patient management activities. This 30 minutes is in excess of all separately billable procedures. Scribe Attestation The scribe's documentation has been prepared under my direction and personally reviewed by me in its entirety. I confirm that the note above accurately reflects all work, treatment, procedures, and medical decision making performed by me. Departure Information Dispostion Being Evaluated By Hospitalist Referrals No Doctor, Assigned (PCP) Forms Call Back Authorization, HOME CARE DOCUMENTATION FORM, IMPORTANT VISIT INFORMATION Patient Instructions [facility]
[2017-06-07] MEDS ORDERED: HEPARIN SOD 5000 UNIT/0.5 ML CARP SQ SCH (00:45)
[2017-06-07] MEDS ORDERED: ONDANSETRON INJ 2 MG/ML 2 ML VIAL IV PRN (00:45)
[2017-06-07] MEDS ORDERED: HYDROmorphone INJ 1 MG/ML SYR IV PRN (01:00)
[2017-06-07] MEDS ORDERED: SODIUM CHLORIDE 0.9% 1000ML 1,000 ML IV ONE (01:05)
[2017-06-07] MEDS ORDERED: NURSING VERBAL MED ORDER ONE ×2 (01:15→20:30)
--- NOTE | 2017-06-07 02:29 | History and Physical ---
History & Physical Date & Time of Service: Jun 07, 2017 at 02:13 Chief Complaint: SBO Primary Care Physician: No Doctor, Assigned History of Present Illness Source: patient 67 y/o M Hx SBO, ileal ulcers, BPH, GERD, hypothyroidism. The pt developed abdominal pain, nausea and vomiting which has persisted throughout the day. On arrival to the ER a CT of the abdomen was consistent with an SBO. The pt had similar symptoms in 2016. Review of records state that the presumed diagnosis when he left the hospital was an ileus. He reports that he then followed up at [facility] for persistent symptoms and it was discovered that he had ulcers in his ileum, leading to inflammation and obstruction. This was attributed to NSAID use at the time. 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 5) Hypothyroidism 6) BPH 7) GERD Family History FH: CAD (coronary artery disease) FATHER ( at 56 ) MOTHER FH: cancer BROTHER FHx: diabetes mellitus MOTHER BROTHER Hypertension BROTHER Kidney disease BROTHER Social History Smoking Status: Never Smoker Drug Use: none Marital Status: Housing status: lives with family Occupational Status: retired Allergies Coded Allergies: No Known Allergies (Unverified , 06/06/17) Home Medications Scheduled Levothyroxine Sodium (Levothyroxine Sodium), 150 MCG PO QAM Ranitidine (Zantac), 150 MG PO BID Tamsulosin HCl (Tamsulosin HCl), 0.4 MG PO HS Review of Systems Constitutional: No fever, No chills, No sweats Eyes: No worsening of vision ENT: No hearing loss, No unusual epistaxis, No nasal symptoms Respiratory: No cough, No sputum, No wheezing Cardiovascular: No chest pain, No orthopnea, No PND Abdomen: + pain, + nausea, + vomiting Musculoskeletal: No joint pain Genitourinary - Male: No hematuria, No dysuria, No urinary frequency Neurologic: No memory loss, No paralysis, No weakness Psychiatric: No depression symptoms Endocrine: No fatigue Hematologic / Lymphatic: No abnormal bleeding/bruising Integumentary: No rash Allergic / Immunologic: No environmental allergies Physical Exam Vital Signs Date Time Temp Pulse Resp B/P (MAP) Pulse Ox O2 Delivery O2 Flow Rate FiO2 06/07/17 01:41 89 18 108/81 91 06/07/17 01:31 90 21 107/79 91 06/07/17 01:26 93 17 90 06/07/17 01:24 Nasal Cannula 3.0 06/07/17 01:21 117/83 06/07/17 01:16 91 17 91 06/07/17 01:11 101/77 06/07/17 01:06 92 17 91 Nasal Cannula 2.0 06/07/17 01:01 115/82 06/07/17 00:56 100 24 89 Room Air 06/07/17 00:51 114/77 06/07/17 00:46 89 20 92 06/07/17 00:41 124/84 06/07/17 00:36 87 22 06/07/17 00:31 126/79 06/07/17 00:26 86 20 92 06/07/17 00:21 129/85 06/07/17 00:16 85 16 94 06/07/17 00:11 145/85 06/07/17 00:01 125/86 06/07/17 00:00 82 18 94 06/06/17 23:51 142/82 06/06/17 23:45 86 39 94 06/06/17 23:42 104 20 105/65 94 Room Air 06/06/17 23:37 121/87 06/06/17 23:31 88/62 06/06/17 23:30 71 18 90 06/06/17 23:23 67 20 79/60 94 Nasal Cannula 2.0 06/06/17 23:21 85/59 06/06/17 23:15 78 17 94 06/06/17 23:11 108/72 06/06/17 23:01 114/72 06/06/17 23:00 75 15 96 06/06/17 22:43 36.5 06/06/17 22:15 79 24 107/69 92 Nasal Cannula 2.0 06/06/17 22:10 91 Room Air 2.0 06/06/17 22:07 77 06/06/17 21:55 69 22 54/42 89 Room Air General Appearance: WD/WN, no apparent distress Head: normocephalic Eyes: normal inspection ENT: normal ENT inspection, pharynx normal Neck: supple, no JVD Respiratory/Chest: chest non-tender, lungs clear, normal breath sounds Cardiovascular: regular rate, rhythm, no edema, no gallop Abdomen/GI: + pertinent finding (Abdomen is distended - no tenderness to palpation, hypoactive bowel sounds) Back: normal inspection, no CVA tenderness Extremities/Musculoskelatal: normal inspection, no calf tenderness, normal capillary refill 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, no motor/sensory deficits, alert, normal mood/affect, oriented x 3 Skin: normal color, warm/dry, no rash Diagnostics Laboratory Results Results Past 24 Hours Test 06/06/17 21:58 06/06/17 22:10 06/06/17 22:17 06/06/17 22:23 Range/Units Bedside Glucose 106 70-99 mg/dl White Blood Count 13.44 4.8-10.8 K/uL Red Blood Count 6.17 4.7-6.1 M/uL Hemoglobin 18.6 14.0-18.0 g/dL Hematocrit 52.1 42-52 % Mean Corpuscular Volume 84.4 80-100 fL Mean Corpuscular Hemoglobin 30.1 25-34 pg Mean Corpuscular Hemoglobin Concent 35.7 32-36 g/dl Platelet Count 228 130-400 K/uL Mean Platelet Volume 9.4 7.4-10.4 fL Neutrophils (%) (Auto) 78.6 % Lymphocytes (%) (Auto) 13.9 % Monocytes (%) (Auto) 6.3 % Eosinophils (%) (Auto) 0.7 % Basophils (%) (Auto) 0.3 % Neutrophils # (Auto) 10.57 1.4-6.5 K/uL Lymphocytes # (Auto) 1.87 1.2-3.4 K/uL Monocytes # (Auto) 0.84 0.11-0.59 K/uL Eosinophils # (Auto) 0.09 0-0.5 K/uL Basophils # (Auto) 0.04 0-0.2 K/uL RDW Standard Deviation 39.8 36.4-46.3 fL RDW Coefficient of Variation 13.1 11.5-14.5 % Immature Granulocyte % (Auto) 0.2 % Immature Granulocyte # (Auto) 0.03 0.00-0.02 K/uL Prothrombin Time 10.4 9.0-12.0 SECONDS Prothromb Time International Ratio 1.0 0.9-1.1 Activated Partial Thromboplast Time 23.2 21.0-31.0 SECONDS Partial Thromboplastin Ratio 0.9 Sodium Level 137 136-145 mmol/L Potassium Level 3.9 3.5-5.1 mmol/L Chloride Level 104 98-107 mmol/L Carbon Dioxide Level 24 21-32 mmol/L Anion Gap 9.0 18.0 16-25 mmol/L Blood Urea Nitrogen 17 7-18 mg/dl Creatinine 1.37 0.60-1.40 mg/dl Estimated GFR () 60.6 Estimated GFR (Non- 52.3 BUN/Creatinine Ratio 12.6 10-20 Random Glucose 124 70-99 mg/dl Calcium Level 9.5 8.5-10.1 mg/dl Total Bilirubin 0.6 0.2-1 mg/dl Direct Bilirubin 0.1 0-0.2 mg/dl Aspartate Amino Transf (AST/SGOT) 33 15-37 U/L Alanine Aminotransferase (ALT/SGPT) 46 12-78 U/L Alkaline Phosphatase 107 45-117 U/L Total Protein 8.6 6.4-8.2 gm/dl Albumin 4.0 3.4-5.0 gm/dl Lipase 224 73-393 U/L Bedside Lactic Acid Venous 3.16 0.90-1.70 mmol/L Bedside Hemoglobin 18.0 14.0-18.0 g/dl Bedside Hematocrit 53 42-52 % Bedside Sodium 142 135-144 mEq/L Bedside Potassium 3.9 3.3-5.0 mEq/L Bedside Chloride 106 101-112 mEq/L Bedside Total CO2 23 24-31 mEq/l Bedside Blood Urea Nitrogen 18 7-18 mg/dl Bedside Creatinine 1.3 0.6-1.3 mg/dl Bedside Glucose (other) 124 70-99 mg/dl Bedside Ionized Calcium (Pedro) 1.18 1.12-1.32 mmol/l Test 06/07/17 00:10 06/07/17 01:18 Range/Units Urine Color DK YELLOW Urine Appearance CLOUDY CLEAR Urine pH 5.0 4.5-7.5 Urine Specific [place] 1.019 1.000-1.030 Urine Protein 1+ NEG Urine Glucose (UA) NEG NEG Urine Ketones TRACE NEG Urine Occult Blood NEG NEG Urine Nitrite NEG NEG Urine Bilirubin NEG NEG Urine Urobilinogen NEG NEG Urine Leukocyte Esterase NEG NEG Urine WBC (Auto) 1-5 0-5 /hpf Urine RBC (Auto) 0-4 0-4 /hpf Urine Hyaline Casts (Auto) 10-30 0-5 /lpf Urine Epithelial Cells (Auto) >30 0-5 /lpf Urine Bacteria (Auto) NEG NEG Urine Renal Epithelial Cells 0-5 /lpf Urine Pathogenic Casts 5-10 GRANULAR CASTS 0 /lpf Lactic Acid Level 1.8 0.4-2.0 mmol/L Impression Assessment and Plan 67 y/o M Hx SBO, ileal ulcers, BPH, GERD, hypothyroidism. The pt developed abdominal pain, nausea and vomiting which has persisted throughout the day. On arrival to the ER a CT of the abdomen was consistent with an SBO. The pt had similar symptoms in 2016. Review of records state that the presumed diagnosis when he left the hospital was an ileus. He reports that he then followed up at [facility] for persistent symptoms and it was discovered that he had ulcers in his ileum, leading to inflammation and obstruction. This was attributed to NSAID use at the time. 1) SBO - NGT placed, IVF, pain control, antiemetics as needed - GI and surgery consults requested. We may need to contact his MD at [facility] to obtain more detail regarding his underlying condition. 2) Hypothyroidism - cont Synthroid - converted to IV 3) BPH - resume Flomax when tolerating PO Full code - SCDs due to history of ulcers Total time fot this admit including review of labs, meds, imaging, records - discussion with pt and ER attending - 36 min Level of Care Med/Surg Advanced Directives Existing Living Will: Yes Existing Power of Aoc Director Intelligence Officer: Yes Resuscitation Status FULL RESUSCITATION VTE Prophylaxis VTE Risk Assessment Done? Y/N: Yes Risk Level: Low Given or contraindicated: SCD's
[2017-06-07] MEDS ORDERED: LORAZEPAM INJ 0.5 MG in SYRINGE 0.25 ML IV PRN (02:30)
[2017-06-07] MEDS: D5NSS + 20MEQ KCL 1,000 ML IV SCH ×3 (02:56→20:39)
[2017-06-07 05:38] LABS: HEMATOCRIT 51.7 % (42-52); HEMOGLOBIN 17.7 g/dL (14.0-18.0); MEAN CELL VOLUME 85.2 fL (80-100); MEAN CORPUSCULAR HEMOGLOBIN 29.2 pg (25-34); MEAN CORPUSCULAR HGB CONC 34.2 g/dl (32-36); MEAN PLATELET VOLUME 9.1 fL (7.4-10.4); PLATELET COUNT 180 K/uL (130-400); RED CELL DISTRIBUTION WIDTH CV 13.3 % (11.5-14.5); RED CELL DISTRIBUTION WIDTH SD 40.9 fL (36.4-46.3); WHITE BLOOD COUNT 6.49 K/uL (4.8-10.8)
[2017-06-07 06:13] LABS: CALCIUM 9.1 mg/dl (8.5-10.1); CREATININE 1.23 mg/dl (0.60-1.40); POTASSIUM 4.7 mmol/L (3.5-5.1)
--- NOTE | 2017-06-07 06:43 | Medical Consult ---
Consultation Date of Consultation: Jun 07, 2017. Attending Physician: Ruddy Sarah M.D. Reason for Consultation: Partial SBO History of Present Illness Patient presented to the ED yesterday afternoon due to persistent abdominal pain , nausea and vomiting. States he was able to eat some food yesterday and he did have a good BM before he came to the ED. CT abd/pelvis revealed a partial SBO with possible focal enteritis or IBD. Patient states that he has had 4 SBO in the past with his most recent being May 2016. States his symptoms feel similar to his other episodes in the past. Patient also has diagnosed ulcers in his ileum which were found due to persistent symptoms. His last colonoscopy was in 2015 where they found these ulcers per patient. PMH significant for GERD, Diverticulosis. Past Medical/Surgical History Medical Problems: (1) Abdominal pain Status: Acute (2) Epigastric abdominal pain Status: Acute (3) Kidney stone Status: Acute (4) Partial small bowel obstruction Status: Acute (5) Small bowel obstruction Status: Acute (6) Terminal ileitis Status: Acute Family History FH: CAD (coronary artery disease) FATHER ( at 56 ) MOTHER FH: cancer BROTHER FHx: diabetes mellitus MOTHER BROTHER Hypertension BROTHER Kidney disease BROTHER Social History Smoking Status: Never Smoker Drug Use: none Marital Status: Housing Status: lives with family Occupation Status: retired Allergies Coded Allergies: No Known Allergies (Unverified , 06/06/17) Current Inpatient Medications Current Inpatient Medications Medications (Trade) Dose Ordered Sig/Hema Route Start Time Stop Time Status Last Admin Dose Admin Ondansetron HCl (Zofran Inj) 4 mg Q6H PRN IV 06/07/17 00:45 07/07/17 00:44 Potassium Chloride/Dextrose/ Sod Cl 1,000 ml @ 125 mls/hr Q8H IV 06/07/17 02:45 06/07/17 18:44 06/07/17 02:56 125 MLS/HR Levothyroxine Sodium 75 mcg/ Syringe 3.75 ml @ 2 mls/min DAILY@09 IV 06/07/17 09:00 07/07/17 08:59 Famotidine 20 mg/ Dextrose 102 ml @ 200 mls/hr HS IV 06/07/17 21:00 07/07/17 20:59 Hydromorphone HCl (Dilaudid Inj) 0.5 mg Q3H PRN IV 06/07/17 01:00 06/21/17 00:59 Lorazepam 0.5 mg/ Syringe 0.5 ml @ 0.5 mls/min HS PRN IV 06/07/17 02:30 07/07/17 02:29 Review of Systems Constitutional: No fever, No chills Respiratory: No shortness of breath Abdomen: + pain, + nausea (not since NGT), + problem reported (Denies blood in stool), No vomiting (not since NGT), No diarrhea, No constipation Physical Exam Date Time Temp Pulse Resp B/P (MAP) Pulse Ox O2 Delivery O2 Flow Rate FiO2 06/07/17 01:50 93 Nasal Cannula 3.0 06/07/17 01:41 89 18 108/81 91 06/07/17 01:31 90 21 107/79 91 06/07/17 01:26 93 17 90 06/07/17 01:24 36.8 87 16 123/76 93 Nasal Cannula 3.0 06/07/17 01:21 117/83 06/07/17 01:16 91 17 91 06/07/17 01:11 101/77 06/07/17 01:06 92 17 91 Nasal Cannula 2.0 06/07/17 01:01 115/82 06/07/17 00:56 100 24 89 Room Air 06/07/17 00:51 114/77 06/07/17 00:46 89 20 92 06/07/17 00:41 124/84 06/07/17 00:36 87 22 06/07/17 00:31 126/79 06/07/17 00:26 86 20 92 06/07/17 00:21 129/85 06/07/17 00:16 85 16 94 06/07/17 00:11 145/85 06/07/17 00:01 125/86 06/07/17 00:00 82 18 94 06/06/17 23:51 142/82 06/06/17 23:45 86 39 94 06/06/17 23:42 104 20 105/65 94 Room Air 06/06/17 23:37 121/87 06/06/17 23:31 88/62 06/06/17 23:30 71 18 90 06/06/17 23:23 67 20 79/60 94 Nasal Cannula 2.0 06/06/17 23:21 85/59 06/06/17 23:15 78 17 94 06/06/17 23:11 108/72 06/06/17 23:01 114/72 06/06/17 23:00 75 15 96 06/06/17 22:43 36.5 06/06/17 22:15 79 24 107/69 92 Nasal Cannula 2.0 06/06/17 22:10 91 Room Air 2.0 06/06/17 22:07 77 06/06/17 21:55 69 22 54/42 89 Room Air General Appearance: WD/WN, no apparent distress Head: normocephalic, atraumatic ENT: + nasal drainage (NGT in place, 1400ml drainage so far this AM) Respiratory/Chest: no respiratory distress, no accessory muscle use Abdomen/GI: non tender, soft, no organomegaly, no pulsatile mass, + abnormal bowel sounds (Hyperactive) Neurologic/Psych: alert, oriented x 3 Skin: normal color, warm/dry, no rash Laboratory Results Last 24 Hours Test 06/06/17 21:58 06/06/17 22:10 06/06/17 22:17 06/06/17 22:23 Bedside Glucose 106 mg/dl White Blood Count 13.44 K/uL Red Blood Count 6.17 M/uL Hemoglobin 18.6 g/dL Hematocrit 52.1 % Mean Corpuscular Volume 84.4 fL Mean Corpuscular Hemoglobin 30.1 pg Mean Corpuscular Hemoglobin Concent 35.7 g/dl Platelet Count 228 K/uL Mean Platelet Volume 9.4 fL Neutrophils (%) (Auto) 78.6 % Lymphocytes (%) (Auto) 13.9 % Monocytes (%) (Auto) 6.3 % Eosinophils (%) (Auto) 0.7 % Basophils (%) (Auto) 0.3 % Neutrophils # (Auto) 10.57 K/uL Lymphocytes # (Auto) 1.87 K/uL Monocytes # (Auto) 0.84 K/uL Eosinophils # (Auto) 0.09 K/uL Basophils # (Auto) 0.04 K/uL RDW Standard Deviation 39.8 fL RDW Coefficient of Variation 13.1 % Immature Granulocyte % (Auto) 0.2 % Immature Granulocyte # (Auto) 0.03 K/uL Prothrombin Time 10.4 SECONDS Prothromb Time International Ratio 1.0 Activated Partial Thromboplast Time 23.2 SECONDS Partial Thromboplastin Ratio 0.9 Sodium Level 137 mmol/L Potassium Level 3.9 mmol/L Chloride Level 104 mmol/L Carbon Dioxide Level 24 mmol/L Anion Gap 9.0 mmol/L 18.0 mmol/L Blood Urea Nitrogen 17 mg/dl Creatinine 1.37 mg/dl Estimated GFR () 60.6 Estimated GFR (Non- 52.3 BUN/Creatinine Ratio 12.6 Random Glucose 124 mg/dl Calcium Level 9.5 mg/dl Total Bilirubin 0.6 mg/dl Direct Bilirubin 0.1 mg/dl Aspartate Amino Transf (AST/SGOT) 33 U/L Alanine Aminotransferase (ALT/SGPT) 46 U/L Alkaline Phosphatase 107 U/L Total Protein 8.6 gm/dl Albumin 4.0 gm/dl Lipase 224 U/L Bedside Lactic Acid Venous 3.16 mmol/L Bedside Hemoglobin 18.0 g/dl Bedside Hematocrit 53 % Bedside Sodium 142 mEq/L Bedside Potassium 3.9 mEq/L Bedside Chloride 106 mEq/L Bedside Total CO2 23 mEq/l Bedside Blood Urea Nitrogen 18 mg/dl Bedside Creatinine 1.3 mg/dl Bedside Glucose (other) 124 mg/dl Bedside Ionized Calcium (Pedro) 1.18 mmol/l Test 06/07/17 00:10 06/07/17 01:18 06/07/17 05:29 Urine Color DK YELLOW Urine Appearance CLOUDY Urine pH 5.0 Urine Specific [place] 1.019 Urine Protein 1+ Urine Glucose (UA) NEG Urine Ketones TRACE Urine Occult Blood NEG Urine Nitrite NEG Urine Bilirubin NEG Urine Urobilinogen NEG Urine Leukocyte Esterase NEG Urine WBC (Auto) 1-5 /hpf Urine RBC (Auto) 0-4 /hpf Urine Hyaline Casts (Auto) 10-30 /lpf Urine Epithelial Cells (Auto) >30 /lpf Urine Bacteria (Auto) NEG Urine Renal Epithelial Cells /lpf Urine Pathogenic Casts 5-10 GRANULAR CASTS /lpf Lactic Acid Level 1.8 mmol/L 2.1 mmol/L White Blood Count 6.49 K/uL Red Blood Count 6.07 M/uL Hemoglobin 17.7 g/dL Hematocrit 51.7 % Mean Corpuscular Volume 85.2 fL Mean Corpuscular Hemoglobin 29.2 pg Mean Corpuscular Hemoglobin Concent 34.2 g/dl RDW Standard Deviation 40.9 fL RDW Coefficient of Variation 13.3 % Platelet Count 180 K/uL Mean Platelet Volume 9.1 fL Sodium Level 138 mmol/L Potassium Level 4.7 mmol/L Chloride Level 108 mmol/L Carbon Dioxide Level 25 mmol/L Anion Gap 5.0 mmol/L Blood Urea Nitrogen 21 mg/dl Creatinine 1.23 mg/dl Est Creatinine Clear Calc Drug Dose 68.1 ml/min Estimated GFR () 69.0 Estimated GFR (Non- 59.5 BUN/Creatinine Ratio 17.2 Random Glucose 153 mg/dl Calcium Level 9.1 mg/dl Magnesium Level 2.1 mg/dl Assessment & Plan Partial small bowel obstruction Pain controlled, No N/V, No BM yet, +flatus. NPO, NGT in place 1400ml this AM -keep for now. Continue conservative SBO management per medicine. Lactic Acid 2.1 - up from 1.[address] showed thickened distal small bowel loop concerning for inflammatory process vs enteritis with history of ulcers in ileum - GI consulted, appreciate recommendations. Will discuss findings with Dr. Mendez. Will continue to follow. Please contact with questions or concerns.
[2017-06-07] MEDS: LEVOTHYROXINE SODIUM INJ 75 MCG in SYRINGE 0 ML IV SCH (09:00)
--- NOTE | 2017-06-07 11:19 | GASTROINTESTINAL CONSULTATION ---
DATE OF CONSULTATION: 06/07/2017 REASON FOR EVALUATION: Small-bowel obstruction. HISTORY OF PRESENT ILLNESS: The patient is a 67-year-old with about 4 episodes over the last 2 years of bowel obstructive symptoms. The patient had a colonoscopy in March of 2015 and was found to have a lipoma at the hepatic flexure and some diverticulosis, but no other signs of inflammatory bowel disease or other pathology. The terminal ileum was not entered at that time. He was here in April and had a CAT scan of the abdomen for abdominal pain and at that point, the report was read as no signs of bowel obstruction; however, in reviewing the films, it appears that he does have some thickening of the terminal ileum. During this hospitalization, he presented with a 1-day history of abdominal pain. CAT scan reveals about a 30-cm segment of significantly narrowed terminal ileum. NG tube has been placed and the patient has been placed on bowel rest. GI consultation has been requested. PAST MEDICAL HISTORY: Remarkable for episodes of bowel obstruction, diverticulosis, hepatic lipoma, hypothyroidism, benign prostatic hypertrophy, and esophageal reflux. MEDICATIONS: Levothyroxine, ranitidine and tamsulosin. ALLERGIES: None. FAMILY HISTORY: Father of coronary artery disease. Brother with cancer. Mother and brother both had diabetes. Brother has hypertension. Brother has kidney disease. SOCIAL HISTORY: The patient is and lives with his family. He does not smoke. He is retired. REVIEW OF SYSTEMS: Positive for some nausea and discomfort from the nasogastric tube. Otherwise, his review of systems is negative. PHYSICAL EXAMINATION: GENERAL: The patient appears in no acute distress. VITAL SIGNS: Normal. He is afebrile. ABDOMEN: Slightly distended and tympanitic. Abdomen is actually soft. There are no masses or tenderness localized. Liver and spleen were normal. HEART: Showed normal S1 and S2, regular rate and rhythm without murmurs, rubs, or gallops. LUNGS: Clear. LABORATORY DATA: Shows a white count of 13.44, hemoglobin of 18.6, platelets 228,000. BUN 17, creatinine 1.37. Liver profile is normal. Albumin is normal at 4. IMPRESSION: The patient has symptoms of partial small-bowel obstruction with a CT scan showing a long segment of distal ileal narrowing. This is highly suggestive of Crohn's disease and in retrospect, this may have been present for at least the past 2 years. The patient has never been diagnosed with Crohn's or treated for Crohn's. At this point, I plan on starting him on some IV Solu-Medrol 20 mg 3 times a day. I am concerned that due to the chronicity that this may not respond. It may actually need to be resected, but we will try him on steroids first. We will get a sedimentation rate and CRP and get anti-Saccharomyces cerevisiae antibodies. If these are positive, that would help establish a diagnosis of Crohn's disease, but not rule it out if it is negative. We will continue to follow the patient during his hospital stay.
--- NOTE | 2017-06-07 12:26 | Progress Note ---
Subjective Date of Service: Jun 07, 2017. Subjective Pt evaluation today including: conversation w/ patient, physical exam, chart review, lab review, review of studies, review of inpatient medication list Resting in bed comfortably NGT in place and actively draining No abd pain at this time No issues overnight Problem List Medical Problems: (1) Abdominal pain Status: Acute (2) Epigastric abdominal pain Status: Acute (3) Kidney stone Status: Acute (4) Partial small bowel obstruction Status: Acute (5) Small bowel obstruction Status: Acute (6) Terminal ileitis Status: Acute Review of Systems Constitutional: No fever, No chills, No sweats, No weight loss, No weakness Eyes: No worsening of vision, No eye pain, No redness, No discharge Respiratory: No cough, No sputum, No wheezing, No shortness of breath, No dyspnea on exertion Cardiac: No chest pain, No orthopnea, No PND, No edema, No claudication Abdomen: No pain, No nausea, No vomiting, No diarrhea, No constipation Musculoskeletal: No joint pain, No muscle pain, No swelling, No calf pain Male : No dysuria, No urinary frequency, No incontinence, No slowing stream Neurologic: No memory loss, No paralysis, No weakness, No numbness/tingling Psychiatric: No depression symptoms, No anhedonism, No anxiety, No insomnia Skin: No rash, No itch Objective Vital Signs Date Time Temp Pulse Resp B/P (MAP) Pulse Ox O2 Delivery O2 Flow Rate FiO2 06/07/17 08:20 Room Air 06/07/17 07:13 36.7 77 16 104/67 (79) 93 Nasal Cannula 2.0 06/07/17 01:50 93 Nasal Cannula 3.0 06/07/17 01:41 89 18 108/81 91 06/07/17 01:31 90 21 107/79 91 06/07/17 01:26 93 17 90 06/07/17 01:24 36.8 87 16 123/76 93 Nasal Cannula 3.0 06/07/17 01:21 117/83 06/07/17 01:16 91 17 91 06/07/17 01:11 101/77 06/07/17 01:06 92 17 91 Nasal Cannula 2.0 06/07/17 01:01 115/82 06/07/17 00:56 100 24 89 Room Air 06/07/17 00:51 114/77 06/07/17 00:46 89 20 92 06/07/17 00:41 124/84 06/07/17 00:36 87 22 06/07/17 00:31 126/79 06/07/17 00:26 86 20 92 06/07/17 00:21 129/85 06/07/17 00:16 85 16 94 06/07/17 00:11 145/85 06/07/17 00:01 125/86 06/07/17 00:00 82 18 94 06/06/17 23:51 142/82 06/06/17 23:45 86 39 94 06/06/17 23:42 104 20 105/65 94 Room Air 06/06/17 23:37 121/87 06/06/17 23:31 88/62 06/06/17 23:30 71 18 90 06/06/17 23:23 67 20 79/60 94 Nasal Cannula 2.0 06/06/17 23:21 85/59 06/06/17 23:15 78 17 94 06/06/17 23:11 108/72 06/06/17 23:01 114/72 06/06/17 23:00 75 15 96 06/06/17 22:43 36.5 06/06/17 22:15 79 24 107/69 92 Nasal Cannula 2.0 06/06/17 22:10 91 Room Air 2.0 06/06/17 22:07 77 06/06/17 21:55 69 22 54/42 89 Room Air Physical Exam General Appearance: WD/WN, no apparent distress Eyes: normal inspection, PERRL, EOMI Neck: supple, no adenopathy, thyroid normal, no JVD Respiratory/Chest: chest non-tender, lungs clear, normal breath sounds, no respiratory distress Cardiovascular: regular rate, rhythm, no edema, no gallop, no JVD Abdomen: normal bowel sounds, non tender, soft, no organomegaly Extremities: normal range of motion, non-tender, normal inspection, no pedal edema Neurologic/Psychiatric: no motor/sensory deficits, alert, normal mood/affect, oriented x 3 Skin: normal color, warm/dry, no rash Lymphatic: no adenopathy Laboratory Results Last 24 Hours Test 06/06/17 21:58 06/06/17 22:10 1/6/18 22:17 06/06/17 22:23 Bedside Glucose 106 mg/dl White Blood Count 13.44 K/uL Red Blood Count 6.17 M/uL Hemoglobin 18.6 g/dL Hematocrit 52.1 % Mean Corpuscular Volume 84.4 fL Mean Corpuscular Hemoglobin 30.1 pg Mean Corpuscular Hemoglobin Concent 35.7 g/dl Platelet Count 228 K/uL Mean Platelet Volume 9.4 fL Neutrophils (%) (Auto) 78.6 % Lymphocytes (%) (Auto) 13.9 % Monocytes (%) (Auto) 6.3 % Eosinophils (%) (Auto) 0.7 % Basophils (%) (Auto) 0.3 % Neutrophils # (Auto) 10.57 K/uL Lymphocytes # (Auto) 1.87 K/uL Monocytes # (Auto) 0.84 K/uL Eosinophils # (Auto) 0.09 K/uL Basophils # (Auto) 0.04 K/uL RDW Standard Deviation 39.8 fL RDW Coefficient of Variation 13.1 % Immature Granulocyte % (Auto) 0.2 % Immature Granulocyte # (Auto) 0.03 K/uL Prothrombin Time 10.4 SECONDS Prothromb Time International Ratio 1.0 Activated Partial Thromboplast Time 23.2 SECONDS Partial Thromboplastin Ratio 0.9 Sodium Level 137 mmol/L Potassium Level 3.9 mmol/L Chloride Level 104 mmol/L Carbon Dioxide Level 24 mmol/L Anion Gap 9.0 mmol/L 18.0 mmol/L Blood Urea Nitrogen 17 mg/dl Creatinine 1.37 mg/dl Estimated GFR () 60.6 Estimated GFR (Non- 52.3 BUN/Creatinine Ratio 12.6 Random Glucose 124 mg/dl Calcium Level 9.5 mg/dl Total Bilirubin 0.6 mg/dl Direct Bilirubin 0.1 mg/dl Aspartate Amino Transf (AST/SGOT) 33 U/L Alanine Aminotransferase (ALT/SGPT) 46 U/L Alkaline Phosphatase 107 U/L Total Protein 8.6 gm/dl Albumin 4.0 gm/dl Lipase 224 U/L Bedside Lactic Acid Venous 3.16 mmol/L Bedside Hemoglobin 18.0 g/dl Bedside Hematocrit 53 % Bedside Sodium 142 mEq/L Bedside Potassium 3.9 mEq/L Bedside Chloride 106 mEq/L Bedside Total CO2 23 mEq/l Bedside Blood Urea Nitrogen 18 mg/dl Bedside Creatinine 1.3 mg/dl Bedside Glucose (other) 124 mg/dl Bedside Ionized Calcium (Pedro) 1.18 mmol/l Test 06/07/17 00:10 06/07/17 01:18 06/07/17 05:29 06/07/17 09:11 Urine Color DK YELLOW Urine Appearance CLOUDY Urine pH 5.0 Urine Specific [place] 1.019 Urine Protein 1+ Urine Glucose (UA) NEG Urine Ketones TRACE Urine Occult Blood NEG Urine Nitrite NEG Urine Bilirubin NEG Urine Urobilinogen NEG Urine Leukocyte Esterase NEG Urine WBC (Auto) 1-5 /hpf Urine RBC (Auto) 0-4 /hpf Urine Hyaline Casts (Auto) 10-30 /lpf Urine Epithelial Cells (Auto) >30 /lpf Urine Bacteria (Auto) NEG Urine Renal Epithelial Cells /lpf Urine Pathogenic Casts 5-10 GRANULAR CASTS /lpf Lactic Acid Level 1.8 mmol/L 2.1 mmol/L 1.7 mmol/L White Blood Count 6.49 K/uL Red Blood Count 6.07 M/uL Hemoglobin 17.7 g/dL Hematocrit 51.7 % Mean Corpuscular Volume 85.2 fL Mean Corpuscular Hemoglobin 29.2 pg Mean Corpuscular Hemoglobin Concent 34.2 g/dl RDW Standard Deviation 40.9 fL RDW Coefficient of Variation 13.3 % Platelet Count 180 K/uL Mean Platelet Volume 9.1 fL Sodium Level 138 mmol/L Potassium Level 4.7 mmol/L Chloride Level 108 mmol/L Carbon Dioxide Level 25 mmol/L Anion Gap 5.0 mmol/L Blood Urea Nitrogen 21 mg/dl Creatinine 1.23 mg/dl Est Creatinine Clear Calc Drug Dose 68.1 ml/min Estimated GFR () 69.0 Estimated GFR (Non- 59.5 BUN/Creatinine Ratio 17.2 Random Glucose 153 mg/dl Calcium Level 9.1 mg/dl Magnesium Level 2.1 mg/dl Test 06/07/17 10:48 Erythrocyte Sedimentation Rate 27 mm/hr C-Reactive Protein 6.12 mg/dl Assessment and Plan 67 y/o M Hx SBO, ileal ulcers, BPH, GERD, hypothyroidism. The pt developed abdominal pain, nausea and vomiting which has persisted throughout the day. On arrival to the ER a CT of the abdomen was consistent with an SBO. The pt had similar symptoms in 2015. Review of records state that the presumed diagnosis when he left the hospital was an ileus. He reports that he then followed up at [place] for persistent symptoms and it was discovered that he had ulcers in his ileum, leading to inflammation and obstruction. This was attributed to NSAID use at the time. SBO - NGT placed and draining actively, pt reports no pain at this time General surgery recommends conservative measures at this time GI consulted, noted distal ileal narrowing on CT suggestive of Crohn's. Started on solu medrol 20 mg IV TID, will also obtain a ESR, CRP, and anti-Saccharomyces cerevisiae antibodies. Hypothyroidism - cont Synthroid - converted to IV BPH - resume Flomax when tolerating PO Full code - SCDs due to history of ulcers Pt is FULL
[2017-06-07] MEDS: METHYLPREDNISOLONE IV 20 MG in SYRINGE 0 ML IV SCH ×2 (13:10→20:33)
[2017-06-07] MEDS: METRONIDAZOLE / NSS 500 MG in PREMIXED NSS 100 ML IV SCH (18:13)
[2017-06-07] MEDS ORDERED: FAMOTIDINE IV INJ 20 MG in DEXTROSE 5% 100ML 100 ML IV SCH (21:00)
[2017-06-07] MEDS ORDERED: FAMOTIDINE IV INJ 20 MG in SYRINGE 3 ML IV SCH (21:00)
[2017-06-08] MEDS: METRONIDAZOLE / NSS 500 MG in PREMIXED NSS 100 ML IV SCH ×3 (01:28→18:00)
[2017-06-08] MEDS: D5NSS + 20MEQ KCL 1,000 ML IV SCH ×2 (03:58→12:32)
[2017-06-08] MEDS: METHYLPREDNISOLONE IV 20 MG in SYRINGE 0 ML IV SCH ×3 (03:58→20:10)
[2017-06-08 07:37] VITALS: BP 120/76; PULSE 60; TEMP 36.4; O2SAT 94
[2017-06-08 07:53] VITALS: O2SAT 94
[2017-06-08] MEDS: LEVOTHYROXINE SODIUM INJ 75 MCG in SYRINGE 0 ML IV SCH (09:07)
--- NOTE | 2017-06-08 10:53 | Surgery Progress Note ---
Surgery Progress Note Date of Service Jun 08, 2017. Subjective + feeling well, + ambulating, + bowel movement, + flatus, + pain controlled, No nausea, No vomiting +C. diff Objective Vital Signs: Date Time Temp Pulse Resp B/P (MAP) Pulse Ox O2 Delivery O2 Flow Rate FiO2 06/08/17 07:53 94 Room Air 06/08/17 07:37 36.4 60 18 120/76 (91) 94 Room Air 06/08/17 07:15 Room Air 06/07/17 23:30 92 Room Air 06/07/17 23:15 36.5 63 16 128/80 (96) 94 Nasal Cannula 2.0 06/07/17 15:50 Nasal Cannula 2.0 06/07/17 15:04 36.4 70 16 116/73 (87) 92 Nasal Cannula 2.0 06/07/17 13:13 94 Nasal Cannula 2.0 06/07/17 12:30 89 Room Air General Appearance: WD/WN, no apparent distress Abdomen: soft, + pertinent finding (mild, generalized tenderness in abdomen. ) Laboratory Results: Results Past 24 Hours Test 06/07/17 10:48 Range/Units Erythrocyte Sedimentation Rate 27 0-14 mm/hr C-Reactive Protein 6.12 0-0.29 mg/dl Microbiology Results 06/07/17 C.difficile Toxin B Gene (PCR) - Final, Complete Assessment & Plan 06/08/2017 Partial Small Bowel Obstruction? Ileus? Patient seen and examined with Dr. Mendez. Reviewed GI consultation- questioning Crohn's Disease, appropriate labs drawn , started on Solu-Medrol. +C. diff, second infection in last 2 months- management per hospitalist team. NG tube in place- will clamp for 4 hours- call with residual amount. Can hopefully remove NG and start on clears later today. Will continue to follow. 06/07/2017 Partial small bowel obstruction Pain controlled, No N/V, No BM yet, +flatus. NPO, NGT in place 1400ml this AM -keep for now. Continue conservative SBO management per medicine. Lactic Acid 2.1 - up from 1.[address] showed thickened distal small bowel loop concerning for inflammatory process vs enteritis with history of ulcers in ileum - GI consulted, appreciate recommendations. Will discuss findings with Dr. Mendez. Will continue to follow. Please contact with questions or concerns.
[2017-06-08 12:31] VITALS: BP 137/82; PULSE 56; TEMP 36.4; O2SAT 93
--- NOTE | 2017-06-08 12:37 | Hospitalist Progress Note ---
Hospitalist Progress Note Date of Service Jun 08, 2017. (Lisa Ivey ., PA-C) Subjective Pt evaluation today including: conversation w/ patient, conversation w/ family (brother at bedside), physical exam, lab review, review of studies, review of inpatient medication list Voiding: no voiding problems Patient resting in bed. Denies any complaints. Currently NPO. +flatus/BMs. BMs loose. NG tube in place- possible removal today w/ advancement in diet as per surgery. Patient denies any fever, chills, sweats, lightheadedness, dizziness, vision changes, CP, palpitations, edema, SOB, wheezing, cough, abdominal pain, nausea, vomiting, urinary symptoms, melena, numbness/tingling, weakness, muscle/joint pain, anxiety/depression, active bleeding, or new skin discoloration/changes. (Lisa Ivey ., PA-C) Medications Current Inpatient Medications Medications (Trade) Dose Ordered Sig/Hema Route Start Time Stop Time Status Last Admin Dose Admin Ondansetron HCl (Zofran Inj) 4 mg Q6H PRN IV 06/07/17 00:45 07/07/17 00:44 Levothyroxine Sodium 75 mcg/ Syringe 3.75 ml @ 2 mls/min DAILY@09 IV 06/07/17 09:00 07/07/17 08:59 06/08/17 09:07 2 MLS/MIN Hydromorphone HCl (Dilaudid Inj) 0.5 mg Q3H PRN IV 06/07/17 01:00 06/21/17 00:59 Lorazepam 0.5 mg/ Syringe 0.5 ml @ 0.5 mls/min HS PRN IV 06/07/17 02:30 07/07/17 02:29 Methylprednisolone Sodium Succinate 20 mg/Syringe 0.32 ml @ 1.5 mls/min Q8H IV 06/07/17 12:00 07/07/17 11:59 06/08/17 03:58 1.5 MLS/MIN Famotidine 20 mg/ Syringe 5 ml @ 2.5 mls/min HS IV 06/07/17 21:00 07/07/17 20:59 06/07/17 20:40 2.5 MLS/MIN Metronidazole 500 mg/Prmx 100 ml @ 100 mls/hr Q8H IV 06/07/17 18:00 06/21/17 17:59 06/08/17 09:07 100 MLS/HR Potassium Chloride/Dextrose/ Sod Cl 1,000 ml @ 125 mls/hr Q8H IV 06/07/17 20:30 07/07/17 20:29 06/08/17 03:58 125 MLS/HR (Lisa Ivey ., PA-C) Objective Vital Signs Date Time Temp Pulse Resp B/P (MAP) Pulse Ox O2 Delivery O2 Flow Rate FiO2 06/08/17 07:53 94 Room Air 06/08/17 07:37 36.4 60 18 120/76 (91) 94 Room Air 06/08/17 07:15 Room Air 06/07/17 23:30 92 Room Air 06/07/17 23:15 36.5 63 16 128/80 (96) 94 Nasal Cannula 2.0 06/07/17 15:50 Nasal Cannula 2.0 06/07/17 15:04 36.4 70 16 116/73 (87) 92 Nasal Cannula 2.0 06/07/17 13:13 94 Nasal Cannula 2.0 06/07/17 12:30 89 Room Air (Lisa Ivey ., PA-C) Physical Exam General Appearance: no apparent distress Eyes: normal inspection, PERRL ENT: hearing grossly normal, + pertinent finding (NGT) Neck: supple Respiratory/Chest: lungs clear, no respiratory distress, no accessory muscle use Cardiovascular: regular rate, rhythm Abdomen: normal bowel sounds, non tender, soft Extremities: no pedal edema, no calf tenderness Neurologic/Psychiatric: alert, normal mood/affect, oriented x 3 Skin: normal color, warm/dry, no rash (Lisa Ivey ., PA-C) Assessment and Plan 67 y/o M Hx SBO, ileal ulcers, BPH, GERD, hypothyroidism. The pt developed abdominal pain, nausea and vomiting which has persisted throughout the day. On arrival to the ER a CT of the abdomen was consistent with an SBO. The pt had similar symptoms in 2016. Review of records state that the presumed diagnosis when he left the hospital was an ileus. He reports that he then followed up at [facility] for persistent symptoms and it was discovered that he had ulcers in his ileum, leading to inflammation and obstruction. This was attributed to NSAID use at the time. ?Partial SBO vs ileus, +c.diff, ?Crohn's disease: - Admitted to med/surg - NGT placed- management as per general surgery - Currently NPO- advancement as per surgery/GI - IV Flagyl TID- started on 06/07 - IVF + KCL supplement @ 125 ml/hr while NPO - IV Dilaudid PRN for pain management - Lactic acidosis- RESOLVED - GI consulted -- CT w/ distal ileal narrowing suggestive of Crohn's disease- IV Solu- Medrol 20 mg TID -- Elevated ESR/CRP, anti-saccharomyces cerevisiae antibodies pending - General surgery following Hypothyroidism: Synthroid 150 mcg PO converted to IV 75 mcg daily while NPO BPH: Will resume Flomax 0.4 mg daily when tolerating PO GI prophylaxis: IV Pepcid DVT prophylaxis: SCDs; chemical anticoagulation held due to h/o ulcers Code Status: LEVEL I, FULL Dispo: Discharge to home once medically stable (Lisa Ivey, DEAN) Reviewed: Pt Seen/Exam by Me (Mechelle Metcalf MD) 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 Discussed with PRASAD Ivey and agree with findings and plan as documented in the note. Any exceptions or clarifications are listed here: Pt feeling better. NGT removed and tolerated clears for dinner. No abd pain, no N/V. He had 4-5 loose BMs today, nonbloody. No heartburn. Discussed case with Dr. Lopez of GI. No CP or SOB Vitals reviewed NAD AAOx3 RRR no mgr Abd +BS, soft, ND NT Ext no edema 67 yo male with a h/o hypothyroidism, ileum ulcers, here with SBO, possible Crohn's disease. -continue IV Solu Medrol for now, but GI today suggested possibly Entocort for less systemic side effects given ongoing C. diff infection. WIll d/w Dr. 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 diff infection with antacids and pt denies any problems with GERD, had normal EGD recently. -restart po Flomax -dc IVFs as is gracy po -advance diet as tolerated in AM to low residue and remain on low residue diet upon discharge due to severe TI stricture -DIspo-likely to home tomorrow Documented By: Mechelle Metcalf (Mechelle Metcalf MD)
[2017-06-08 15:18] VITALS: BP 132/78; PULSE 55; TEMP 36.3; O2SAT 92
--- NOTE | 2017-06-08 17:28 | GASTROENTEROLOGY PROGRESS NOTE ---
DATE: 06/08/2017 Chart reviewed, patient examined. Mr. Johnson is a 67-year-old male with features of inflammatory changes in the distal ileum. The patient has had intermittent episodes of partial small bowel obstructions since 2014, requiring either fluids in the ER or hospitalization with gastric decompression and maintenance of a low residue diet. The patient has used NSAIDs and aspirin in the past, although does not currently take any of these. The patient described a history of evaluation at [facility] at Dr. Navarro's request for a retrograde balloon-assisted endoscopy, for which patient reports that ulcerations and narrowing was encountered. The details of this are not known, or whether biopsies were taken. The patient has not had any surgery for this or balloon dilation. The patient's NG tube was removed today. The patient was started on IV steroids yesterday and is on 20 mg every 8 hours IV along with Flagyl, famotidine, potassium supplements, Ativan, Dilaudid p.r.n., Zofran, and levothyroxine. The patient's imaging were reviewed. REVIEW OF SYSTEMS: Otherwise noncontributory based on 13-point exam.. PHYSICAL EXAMINATION: VITAL SIGNS: Today, he is currently afebrile 36.3, heart rate 55, respirations 18, blood pressure 132/78, room air 92%. The patient denies any weight loss, night sweats. GENERAL: The patient is accompanied by a friend in the room. HEENT: Sclerae anicteric. Conjunctivae moist. Oral mucosa moist. HEART: Normal S1, S2. LUNGS: Clear to auscultation. ABDOMEN: Soft, flat, nontender, nondistended with positive bowel sounds. There is no rebound or guarding. EXTREMITIES: Without clubbing, cyanosis or edema. RECTAL: Deferred. ABDOMEN: There is no evidence of ascites, distended abdomen or significant tympany. LABORATORY STUDIES: Reviewed and reveal a hemoglobin that was 18.6 on admission with a white count of 13.4. Yesterday his hemoglobin was 17.7. White count down to 6.49, sed rate is 27 and elevated. CRP is elevated at 6.12. Lactate level was initially normal and then had a slight rebound yesterday. Liver tests are normal on admission including total bilirubin, alkaline phosphatase, transaminases. BUN and creatinine 17 and 1.37. ASCA antibodies are pending at this time. IMPRESSION AND PLAN: The patient with a 2-year history features of intermittent bowel obstruction with changes seen on prior evaluation of small bowel thickening, possible ulceration and narrowing. No therapeutic intervention or surgery was performed on the area. The most likely cause of this is Crohn disease of the small bowel. However, NSAID-induced chronic inflammation and ulceration may be a culprit. The absence of weight loss, other constitutional symptoms, sweating would make a small bowel lymphoma less likely. I made the following recommendations: The patient's NG tube is out, he is continuing clear liquids and would continue the IV steroids as you are doing. This may be converted to prednsione or perhaps Entocort 9 mg daily x 4 weeks with taper afterwards. At some point therapy aimed at maintenance will be needed and this can be arranged as an outpatient. Additionally, once the obstruction is resolving and patient could tolerate bowel preparation, it may be reasonable to repeat this with intubation of the TI sampling any areas in question and assess for features consistent with small bowel Crohn. We will follow with you. If patient is discharged before tomorrow afternoon, then we would ask for patient to have an outpatient followup visit with Dr. Navarro who has seen patient previously for this issue. PAULINO
[2017-06-08] MEDS: RASPBERRY SYRUP 5 ML UDP PO SCH ×2 (20:09→23:44)
[2017-06-08] MEDS: VANCOMYCIN HCL 125 MG/2.5ML SOLN PO SCH ×2 (20:10→23:44)
[2017-06-08] MEDS ORDERED: TAMSULOSIN HCL 0.4 MG CAP PO SCH (21:00)
[2017-06-08 23:40] VITALS: BP 136/79; PULSE 57; TEMP 36.6; O2SAT 91
[2017-06-09] MEDS: METHYLPREDNISOLONE IV 20 MG in SYRINGE 0 ML IV SCH ×2 (03:27→11:35)
[2017-06-09] MEDS: VANCOMYCIN HCL 125 MG/2.5ML SOLN PO SCH ×2 (05:44→11:35)
[2017-06-09] MEDS: RASPBERRY SYRUP 5 ML UDP PO SCH ×2 (05:44→11:35)
[2017-06-09] MEDS ORDERED: LEVOTHYROXINE 150 MCG TAB PO SCH (06:00)
[2017-06-09 07:27] VITALS: BP 149/80; PULSE 59; TEMP 36.6; O2SAT 91
[2017-06-09 07:37] LABS: CALCIUM 9.5 mg/dl (8.5-10.1); CREATININE 0.89 mg/dl (0.60-1.40); POTASSIUM 4.1 mmol/L (3.5-5.1)
--- NOTE | 2017-06-09 11:54 | Surgery Progress Note ---
Surgery Progress Note Date of Service Jun 09, 2017. Subjective + feeling well, + bowel movement, + diet (regular breakfast), No nausea Objective Vital Signs: Date Time Temp Pulse Resp B/P (MAP) Pulse Ox O2 Delivery O2 Flow Rate FiO2 06/09/17 07:27 36.6 59 16 149/80 (103) 91 Room Air 06/09/17 07:25 Room Air 06/08/17 23:45 Room Air 06/08/17 23:40 36.6 57 18 136/79 (98) 91 Room Air 06/08/17 16:15 Room Air 06/08/17 15:18 36.3 55 18 132/78 (96) 92 Room Air 06/08/17 12:31 36.4 56 19 137/82 (100) 93 Room Air Abdomen: non tender, non distended, soft Laboratory Results: Results Past 24 Hours Test 06/09/17 05:58 Range/Units Sodium Level 138 136-145 mmol/L Potassium Level 4.1 3.5-5.1 mmol/L Chloride Level 106 98-107 mmol/L Carbon Dioxide Level 24 21-32 mmol/L Anion Gap 8.0 3-11 mmol/L Blood Urea Nitrogen 16 7-18 mg/dl Creatinine 0.89 0.60-1.40 mg/dl Est Creatinine Clear Calc Drug Dose 94.2 ml/min Estimated GFR () 101.1 Estimated GFR (Non- 87.2 BUN/Creatinine Ratio 18.2 10-20 Random Glucose 116 70-99 mg/dl Calcium Level 9.5 8.5-10.1 mg/dl Assessment & Plan PSBO resolved on po vanco for c. diff on IV steroid for possible IBD no acute surgical issues, will sign off
--- NOTE | 2017-06-09 12:04 | PROGRESS NOTE ---
DATE: 06/09/2017 The patient reports that he had a low fiber diet for breakfast and is tolerating it well. He has moved his bowels earlier this morning, it was kind of semi-formed but no obvious blood. He is not having any abdominal pain. He remains afebrile. Laboratory anderson, his white count has dropped down to 6.49. His hemoglobin 17.7, platelet count 180,000. His sed rate is elevated at 27 and a C-reactive protein also elevated at 6.12. The SC antibodies for Crohn's disease are pending at this time. IMPRESSION: The patient appears to have ileal Crohn's disease at least this is working diagnosis. He is tolerating solid food and I think we can probably discharge him on 40 mg of prednisone and a low fiber diet with outpatient followup in my office in the next 1-2 weeks. We will continue to follow patient as an outpatient.
[2017-06-09] MEDS ORDERED: VANC5CAP PO ×2 (13:22→14:44)
[2017-06-09] MEDS ORDERED: PRD20 PO (13:22)
--- NOTE | 2017-06-09 14:14 | Discharge Summary ---
Discharge Summary Date of Service Jun 09, 2017. Discharge Summary Admission Date: Jun 07, 2017 at 00:46 Discharge Date: Jun 09, 2017 Discharge Disposition: Home Principal Diagnosis: Partial SBO Problems/Secondary Diagnoses: Clostridium difficile diarrhea Suspected ileum Crohn's disease Lactic acidosis Hypothyroidism BPH GERD h/o ileum ulcers due NSAID use diverticulosis hepatic lipoma Bilateral renal cysts Procedures: CT SCAN OF THE ABDOMEN AND PELVIS WITHOUT CONTRAST CLINICAL HISTORY: Analyzed abdominal pain, nausea, vomiting, dizziness. COMPARISON STUDY: 04/09/2017 TECHNIQUE: CT scan of the abdomen and pelvis was performed from the lung bases to the proximal femurs. Images are reviewed in the axial, sagittal, and coronal planes. IV contrast was not administered for this examination. A dose lowering technique was utilized adhering to the principles of ALARA. CT DOSE: 1480.05 mGy.cm FINDINGS: Lower chest: There are persistent bibasilar opacities, likely atelectatic. Liver: The unenhanced liver is normal in size, contour, and attenuation. There is no intrahepatic biliary ductal dilatation. Gallbladder: Unremarkable. Spleen: Normal in size and attenuation. Pancreas: Unremarkable. Adrenal glands: Unremarkable. Kidneys: No renal, ureteral, or bladder calculi are visualized. There are bilateral renal masses, likely representing cysts. The largest in the right measures 56 mm. The largest in the left 63 mm. Bowel: There is extensive colonic diverticulosis. No acute peridiverticular inflammatory changes are visualized. 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 There is no acute diverticulitis. There are mildly dilated fluid-filled small bowel loops with normal caliber distal ileum. There is a distal ileal transition zone occipital to a mildly thickened small bowel loop. The findings are consistent with a partial small bowel obstruction Peritoneum: There is no intraperitoneal free air or abdominal ascites. Vasculature: The abdominal aorta is normal in course and caliber. Adenopathy: There are mildly prominent ileocolic lymph nodes, likely reactive Pelvic viscera: There is mild prostamegaly there is a small fat-containing right inguinal hernia Skeletal structures: No destructive osseous lesions are seen. IMPRESSION: 1. Distal small bowel obstruction, likely secondary to a thick walled distal small bowel loop. This raises the possibility of a focal enteritis or inflammatory bowel disease. 2. Extensive colonic diverticulosis. No evidence of acute peridiverticular inflammatory change 3. 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 Bilateral renal cysts. No renal or ureteral calculi identified. Electronically signed by: Adams Owens M.D. 06/06/2017 10:42 PM Dictated Date/Time: 06/06/2017 10:32 PM The status of this report is Signed. Draft = Not yet reviewed or approved by Radiologist. Signed = Reviewed and approved by Radiologist. CHEST ONE VIEW PORTABLE CLINICAL HISTORY: Pain, radiating to the abdomen. Nausea, vomiting. COMPARISON STUDY: June 19, 2015 FINDINGS: The heart remains enlarged with aortic tortuosity/ectasia. There is no failure. There is no focal pulmonary consolidation. There are low lung volumes with mild basilar atelectatic change. There are no significant pleural effusions. There is no free intraperitoneal air.[ IMPRESSION: Mild cardiomegaly. Bibasilar atelectasis. No acute findings. Electronically signed by: Adams Owens M.D. 06/06/2017 10:55 PM Dictated Date/Time: 06/06/2017 10:54 PM The status of this report is Signed. Draft = Not yet reviewed or approved by Radiologist. Signed = Reviewed and approved by Radiologist. Consultations: General surgery GI Medication Reconciliation New Medications: Prednisone (Prednisone) 20 Mg Tab 40 MG PO DAILY for 14 Days, #28 TAB Vancomycin Hcl (Vancomycin) 125 Mg Cap 125 MG PO UD for 30 Days QID x2 weeks, TID x1 week, BID x1 week Continued Medications: Levothyroxine Sodium (Levothyroxine Sodium) 150 Mcg Tab 150 MCG PO QAM, TAB Tamsulosin HCl (Tamsulosin HCl) 0.4 Mg Cap 0.4 MG PO HS Discontinued Medications: Ranitidine (Zantac) 150 Mg Tab 150 MG PO BID, TAB Discharge Exam Review of Systems: Constitutional: No fever, No chills, No sweats, No weakness, No fatigue Eyes: No worsening of vision ENT: No hearing loss Respiratory: No cough, No shortness of breath, No hemoptysis Cardiovascular: No chest pain, No edema, No palpitations Abdomen: + diarrhea, No pain, No nausea, No vomiting, No constipation, No GI bleeding Musculoskeletal: No joint pain, No muscle pain, No swelling, No calf pain Genitourinary - Male: No hematuria, No dysuria Neurologic: No weakness Psychiatric: No depression symptoms, No anxiety Endocrine: No fatigue Hematologic / Lymphatic: No abnormal bleeding/bruising Integumentary: No rash, No itch, No new/changing skin lesions Physical Exam: General Appearance: no apparent distress Eyes: normal inspection, PERRL ENT: hearing grossly normal Neck: supple Respiratory/Chest: lungs clear, no respiratory distress, no accessory muscle use Cardiovascular: regular rate, rhythm Abdomen / GI: normal bowel sounds, non tender, soft Extremities: no calf tenderness, no pedal edema Neurologic/Psychiatric: alert, normal mood/affect, oriented x 3 Skin: normal color, warm/dry, no rash Hospital Course Admission H&P: 67 y/o M Hx SBO, ileal ulcers, BPH, GERD, hypothyroidism. The pt developed abdominal pain, nausea and vomiting which has persisted throughout the day. On arrival to the ER a CT of the abdomen was consistent with an SBO. The pt had similar symptoms in 2016. Review of records state that the presumed diagnosis when he left the hospital was an ileus. He reports that he then followed up at [facility] for persistent symptoms and it was discovered that he had ulcers in his ileum, leading to inflammation and obstruction. This was attributed to NSAID use at the time. Physical Exam Vital Signs Date Time Temp Pulse Resp B/P (MAP) Pulse Ox O2 Delivery O2 Flow Rate FiO2 06/07/17 01:41 89 18 108/81 91 06/07/17 01:31 90 21 107/79 91 06/07/17 01:26 93 17 90 06/07/17 01:24 Nasal Cannula 3.0 06/07/17 01:21 117/83 06/07/17 01:16 91 17 91 06/07/17 01:11 101/77 06/07/17 01:06 92 17 91 Nasal Cannula 2.0 06/07/17 01:01 115/82 06/07/17 00:56 100 24 89 Room Air 06/07/17 00:51 114/77 06/07/17 00:46 89 20 92 06/07/17 00:41 124/84 06/07/17 00:36 87 22 06/07/17 00:31 126/79 06/07/17 00:26 86 20 92 06/07/17 00:21 129/85 06/07/17 00:16 85 16 94 06/07/17 00:11 145/85 06/07/17 00:01 125/86 06/07/17 00:00 82 18 94 06/06/17 23:51 142/82 06/06/17 23:45 86 39 94 06/06/17 23:42 104 20 105/65 94 Room Air 06/06/17 23:37 121/87 06/06/17 23:31 88/62 06/06/17 23:30 71 18 90 06/06/17 23:23 67 20 79/60 94 Nasal Cannula 2.0 06/06/17 23:21 85/59 06/06/17 23:15 78 17 94 06/06/17 23:11 108/72 06/06/17 23:01 114/72 06/06/17 23:00 75 15 96 06/06/17 22:43 36.5 06/06/17 22:15 79 24 107/69 92 Nasal Cannula 2.0 06/06/17 22:10 91 Room Air 2.0 06/06/17 22:07 77 06/06/17 21:55 69 22 54/42 89 Room Air General Appearance: WD/WN, no apparent distress Head: normocephalic Eyes: normal inspection ENT: normal ENT inspection, pharynx normal Neck: supple, no JVD Respiratory/Chest: chest non-tender, lungs clear, normal breath sounds Cardiovascular: regular rate, rhythm, no edema, no gallop Abdomen/GI: + pertinent finding (Abdomen is distended - no tenderness to palpation, hypoactive bowel sounds) Back: normal inspection, no CVA tenderness Extremities/Musculoskelatal: normal inspection, no calf tenderness, normal capillary refill Neurologic/Psych: coil placer II-XII nml as tested, no motor/sensory deficits, alert, normal mood/affect, oriented x 3 Skin: normal color, warm/dry, no rash Hospital Course: ?Partial SBO vs ileus, +c.diff, ?Crohn's disease: - Admitted to med/surg - NGT placed and removed on 06/08 - Advanced diet to low fiber- tolerating well - IV Flagyl TID- started on 06/07- transition to PO Vancomycin on 06/08 -- Due to reoccurrence, will do 30 day taper and further treatment can be determined by Dr. Navarro - IVF + KCL supplement @ 125 ml/hr while NPO - IV Dilaudid PRN for pain management - Lactic acidosis- RESOLVED - GI consulted -- CT w/ distal ileal narrowing suggestive of Crohn's disease- IV Solu- Medrol 20 mg TID- transition to PO Prednisone 40 mg daily at discharge -- Elevated ESR/CRP, anti-saccharomyces cerevisiae antibodies pending -- f/u scheduled for - General surgery following Hypothyroidism: Synthroid 150 mcg PO converted to IV 75 mcg daily while NPO BPH: Flomax 0.4 mg daily held while NPO- resumed GI prophylaxis: IV Pepcid d/c'ed due to c.diff- instructed to stop Zantac at discharge DVT prophylaxis: SCDs; chemical anticoagulation held due to h/o ulcers Code Status: LEVEL I, FULL Dispo: Discharge to home Total Time Spent: Greater than 30 minutes This includes examination of the patient, discharge planning, medication reconciliation, and communication with other providers. Discharge Instructions Please refer to the electronic Patient Visit Report (Discharge Instructions) for additional information. Follow-Up Please follow-up with your PCP within 5-7 days Please follow-up with GI, Dr. Navarro as scheduled for Please follow-up/keep all of your subspecialty appointments Additional Copies To Fly Navarro M.D.; Balwindre Duran D.O. 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 Discussed with PRASAD Ivey and agree with findings and plan as documented in the note. Any exceptions or clarifications are listed here: Doing very well today. Only had 1 BM this AM that was semi-formed, nonbloody. No abdominal pain. Ate low fiber diet for breakfast and lunch, no N/V. Vitals reviewed NAD AAOx3 RRR no mgr Abd +BS, soft, ND NT Ext no edema 67 yo male with a h/o hypothyroidism, ileum ulcers, BPH, here with PSBO, possible Crohn's disease, recurrent C. diff diarrhea -received IV Solu Medrol and will switch to prednisone 40mg daily until seen by GI as outpatient -continue po Vanco and give prolonged course and taper down over one month given recurrence of infection and will be on steroids for IBD -likely needs colonoscopy in near future to further evaluate the distal ileum -dc H2 yohannes given increased incidence of C. diff infection with antacids and pt denies any problems with GERD, had normal EGD recently. -Stable for dc to home Documented By: Mechelle Metcalf
--- NOTE | 2017-06-09 14:14 | Discharge Instructions ---
Discharge Instructions Date of Service Jun 09, 2017. Admission Reason for Admission: SBO Discharge Discharge Diagnosis / Problem: partial small bowel obstruction; c.diff; questionable Crohn's disease Discharge Goals Goal(s): Decrease discomfort, Improve function, Increase independence, Improve disease control, Learn about illness, Diagnostic testing, Therapeutic intervention, Prevent Disease Progression Activity Recommendations Activity Limitations: resume your previous activity . Instructions / Follow-Up Instructions / Follow-Up C.diff Vancomycin 125 mg by mouth 4 times daily x2 weeks, then three times daily x1 week, then two times daily x1 week Further antibiotic course after completion of above will be determined by Dr. Navarro STOP Zantac- heartburn drugs can increase risk of reoccurrence with c.diff- resuming medication can be discussed with Dr. Navarro at follow-up Possible Crohn's disease: Prednisone 40 mg daily Further workup/management will be discussed with Dr. Navarro at follow-up Resume all other regular home medications FOLLOW-UPS: Please follow-up with your PCP within 5-7 days Please follow-up with GI, Dr. Navarro as scheduled on June 12 Please follow-up/keep all of your subspecialty appointments Current Hospital Diet Patient's current hospital diet: Low Fiber Diet Discharge Diet Recommended Diet: Low Fiber Diet Pending Studies Studies pending at discharge: yes List of pending studies: anti-saccharomyces cerevisiae antibodies Medical Emergencies . Who to Call and When: Medical Emergencies: If at any time you feel your situation is an emergency, please call 911 immediately. . Non-Emergent Contact Non-Emergency issues call your: Primary Care Provider, Food Consultant Call Non-Emergent contact if: you have a fever, your pain is not controlled, your pain is worsening, your pain is unusual for you, your pain is concerning you, you have any medication questions . . "Provider Documentation" section prepared by Lisa Ivey. . VTE Core Measure Inpt VTE Proph given/why not?: SCD's
[2017-06-09 14:17] VITALS: BP 149/80; PULSE 59; TEMP 36.6; O2SAT 91
== END 2017-06-09 16:00 | disposition home or self-care (01) | DRG 389 ==
LOC: C.EDB 21:53 → C.3E 06-07 00:46 → ENRESERV 06-07 01:08
PROVIDERS: ADMIT Internal Medicine; ATTEND Family Medicine
DX: K56.600 Partial intestinal obstruction, unspecified as to cause (principal); K50.00 Crohn's disease of small intestine without complications; A04.72 Enterocolitis due to Clostridium difficile, not specified as recurrent; E87.2 Acidosis; Z82.49 Family history of ischemic heart disease and other diseases of the circulatory system; Z83.3 Family history of diabetes mellitus; E03.9 Hypothyroidism, unspecified; N40.0 Benign prostatic hyperplasia without lower urinary tract symptoms; K21.9 Gastro-esophageal reflux disease without esophagitis; D17.5 Benign lipomatous neoplasm of intra-abdominal organs; N28.1 Cyst of kidney, acquired

== ENCOUNTER 2018-08-17 17:55 | Inpatient (IN) ==
[2018-08-17] MEDS ORDERED: ONDANSETRON INJ 2 MG/ML 2 ML VIAL IV STA (18:20)
[2018-08-17] MEDS ORDERED: MoRPHine SULFATE 4 MG/ML 1 ML CARP\\VIAL IV STA (18:20)
[2018-08-17] MEDS ORDERED: SODIUM CHLORIDE 0.9% 1000ML 1,000 ML IV SCH ×2 (18:30→20:30)
[2018-08-17 18:32] LABS: Basophils # (auto) 0.03 K/uL (0-0.2); Basophils % (auto) 0.2 %; Eosinophils # (auto) 0.13 K/uL (0-0.5); Eosinophils % (auto) 1.1 %; Hematocrit (blood only) 52.4 % (42-52); Hemoglobin 18.4 g/dL (14.0-18.0); Immature Granulocytes # (auto) 0.04 K/uL (0.00-0.02); Immature Granulocytes % (auto) 0.3 %; Lymphocytes # (auto) 1.61 K/uL (1.2-3.4); Lymphocytes % (auto) 13.3 %; Mean Corpuscular Hgb Conc 35.1 g/dL (32-36); Mean Corpuscular Volume 84.5 fL (80-100); Mean Platelet Volume 9.3 fL (7.4-10.4); Monocytes # (auto) 0.75 K/uL (0.11-0.59); Monocytes % (auto) 6.2 %; Neutrophils # (auto) 9.53 K/uL (1.4-6.5); Neutrophils % (auto) 78.9 %; Platelet Count 190 K/uL (130-400); RDW Standard Deviation 39.8 fL (36.4-46.3); White Blood Count 12.09 K/uL (4.8-10.8)
[2018-08-17 18:42] LABS: Prothrombin Time 10.6 Seconds (9.0-12.0)
[2018-08-17 18:50] LABS: Alanine Aminotransferase 47 U/L (12-78); Albumin Level 4.1 gm/dl (3.4-5.0); Aspartate Aminotransferase 26 U/L (15-37); BUN Creatinine Ratio 15.7 (10-20); Blood Urea Nitrogen 18 mg/dl (7-18); Calcium 9.7 mg/dl (8.5-10.1); Carbon Dioxide 29 mmol/L (21-32); Chloride 106 mmol/L (98-107); Creatinine Clr Calc Pharmacy 72.2 ml/min; Est GFR (African American) 76.7; Est GFR (Non-African American) 66.2; Glucose 90 mg/dl (70-99); Potassium 3.8 mmol/L (3.5-5.1); Sodium 140 mmol/L (136-145)
[2018-08-17 18:53] LABS: Alkaline Phosphatase 112 U/L (45-117); Bilirubin,Total 0.8 mg/dl (0.2-1); Globulin 4.1 gm/dl (2.5-4.0); Total Protein 8.2 gm/dl (6.4-8.2)
[2018-08-17 19:06] LABS: Troponin I < 0.015 ng/ml (0-0.045)
[2018-08-17 19:54] LABS: Appearance Urine Clear (Clear); Bilirubin Urine Negative (Negative); Blood Urine Negative (Negative); Color Urine Yellow; Glucose Urine UA Negative (Negative); Ketones Urine 1+ (Negative); Leukocyte Esterase Urine Negative (Negative); Nitrite Urine Negative (Negative); Protein Urine Negative (Negative); Specific Gravity Urine 1.022 (1.000-1.030); Urobilinogen Urine Negative (Negative); pH Urine 6.5 (4.5-7.5)
[2018-08-17] MEDS ORDERED: IOVERSOL 100ml IV PRN (19:56)
--- NOTE | 2018-08-17 20:15 | CT Scan Report ---
CT SCAN OF THE ABDOMEN AND PELVIS WITH IV CONTRAST CLINICAL HISTORY: Generalized abdominal pain. COMPARISON STUDY: Abdominal CT dated 06/06/2017. TECHNIQUE: Following the IV administration of 91 cc of Optiray 320, CT scan of the abdomen and pelvi s is performed from the lung bases to the proximal femora. Images are reviewed in the axial, sagittal , and coronal planes. IV contrast was administered without complication. A dose lowering technique wa s utilized adhering to the principles of ALARA. CT DOSE: 1184.76 mGy.cm FINDINGS: Lung bases: The heart is normal in size and without pericardial effusion. There are coronary artery c alcifications. A tiny hiatal hernia is noted. Emphysematous change is suspected. There is dependent a telectasis. No airspace consolidation or pleural effusion is identified. A calcified granuloma is see n at the left lung base. Liver: The contrast-enhanced liver is normal in size, contour, and attenuation. There is no intrahepa tic biliary ductal dilatation. The hepatic veins and portal veins are patent. Gallbladder: Unremarkable. Spleen: Normal in size and attenuation. Pancreas: Unremarkable. Adrenal glands: Unremarkable. Kidneys: The contrast enhanced kidneys demonstrate cortical atrophy and are without hydronephrosis. T he kidneys enhance symmetrically. Bilateral renal cysts measure up to 6.5 cm. Additional subcentimete r cortical hypodensities also likely represent cysts but are too small for definitive characterizatio n. Abdominal vasculature: The abdominal aorta is normal in course and caliber noting mild atheroscleroti c calcification. Bowel: The proximal small bowel loops are distended and fluid-filled, measuring up to 4.[address] There is focal wall thickening and hyperemia identified involving the distal ileum on image #361 , and the ileum distal to this site in the colon are decompressed. This is the transition point for s mall bowel obstruction. There is no pneumatosis intestinalis or portal venous gas. There is advanced colonic diverticulosis without CT evidence of acute diverticulitis. A lipoma is incidentally noted in the ascending colon image #213. The appendix is well-visualized and normal. Peritoneum: There is no intraperitoneal free air. Trace free fluid is seen in the pelvis. Lymphadenopathy: None. Pelvic viscera: The prostate gland is enlarged and heterogeneous, measuring 5.7 cm in transverse diam eter. The bladder is normal as imaged. Skeletal structures: The skeletal structures are osteopenic. There is mild lumbar sacral spondylosis and scoliosis. No lytic or blastic lesions are seen. IMPRESSION: 1. Findings are consistent with a small bowel obstruction. The transition point is located in the dis willie ileum in the right lower quadrant. 2. There is focal wall thickening and hyperemia identified involving the distal ileum at the transiti on point. This may related to inflammatory bowel disease and mucosal edema or possibly stricture. Thi s was also likely the transition point seen on the 06/06/2017 examination. Clinical correlation will be required. 3. No intraperitoneal free air is seen. There is no pneumatosis intestinalis or portal venous gas. 4. Trace free fluid is seen in the pelvis. 5. Advanced colonic diverticulosis without CT evidence of acute diverticulitis. 6. Additional findings as above. Electronically signed by: Shaan Tamayo M.D. 08/17/2018 8:13 PM
[2018-08-17] MEDS ORDERED: ONDANSETRON INJ 2 MG/ML 2 ML VIAL IV PRN (20:44)
[2018-08-17] MEDS ORDERED: PIPERACILL/TAZOBAC CONSULT ACTIVE PRN (20:44)
[2018-08-17] MEDS ORDERED: MoRPHine SULFATE 4 MG/ML 1 ML CARP\\VIAL IV PRN (20:44)
[2018-08-17] MEDS ORDERED: PIPERACILLIN/TAZOBACTAM 4.5 GM in DEXTROSE 5% 100 ML IV STA (20:44)
[2018-08-17] MEDS ORDERED: ONDANSETRON INJ 2 MG/ML 2 ML VIAL ONE (20:46)
--- NOTE | 2018-08-17 20:46 | History & Physical Report ---
Date of Service August 17, 2018 Assessment & Plan (1) Admitted to intensive care unit: Septic shock/recurrent small bowel obstruction/admission to ICU-- Patient's blood pressure did acutely drop to the low 60s, and at the same time became hypoxic, lethargic and altered mentation briefly. The patient had received 1 L of normal saline prior to this acute event. He was given 2 L of normal saline wide open, and systolic blood pressure ultimately returned to 100-110 range, and his mentation did improve. ABG did show a PO2 of 72. Will place on Xopenex and Atrovent nebulizers. Stat chest x-ray showed atelectasis, decreased lung volumes, with no signs of aspiration. Patient did have improvement with 6-8 L oxygen mask, which will be continued. He will be monitored closely in the ICU for signs of aspiration, CHF, and hypotension. Continue IV fluid replacement with NSS + KCl 20 mEq at 100 mils per hour. Present on Admission?: Yes (2) Septic shock: As above. Present on Admission?: Yes (3) Small bowel obstruction: Discussed with patient the likelihood that he would heal more quickly and without surgery by having NG tube placed, which he agreed to. NG tube to low intermittent suction. Zosyn 4.5 g IV every 8 hours. Pantoprazole 40 mg IV every 12 hours. Add Flagyl 500 mg IV every 8 hours for history of C. difficile. Morphine sulfate 4 mg IV every 4 hours as needed. Zofran 4 mg IV every 6 hours as needed. Patient will be followed by general surgery Dr. Monty Hoyos. Present on Admission?: Yes (4) GERD (gastroesophageal reflux disease): On ranitidine 150 mg p.o. twice daily as outpatient. Place on pantoprazole 40 mg IV every 12 hours. Present on Admission?: Yes (5) BPH (benign prostatic hyperplasia): With a Mejia catheter in place to monitor I/O's closely. Present on Admission?: Yes (6) History of Clostridium difficile colitis: Monitor stools closely. Add Flagyl 500 mg IV every 8 hours. Present on Admission?: Yes (7) Hypothyroid: Change levothyroxine from 150 mcg p.o. daily to 75 mcg IV daily Present on Admission?: Yes History of Present Illness Chief Complaint: The patient presented to the emergency department with abdominal pain, nausea and vomiting. Primary Care Provider: MOSSE Reyes The patient is a 68-year-old male who presented to the emergency department with abdominal pain, nausea and vomiting similar to his last presentation of small bowel obstruction that required admission from 06/07-06/09/17. CT scan of the abdomen and pelvis this time again suggested a small bowel obstruction with transition point in the distal ileum of the right lower quadrant, in the same area as 06/06/17. While in the ED, the patient became acutely hypotensive and hypoxic, systolic blood pressure into the low 60s, they did respond to aggressive fluid hydration of 2 L of normal saline wide open. The patient is being admitted to the ICU with diagnosis of small bowel obstruction and septic shock. Allergies Allergy/AdvReac Type Severity Reaction Status Date / Time No Known Allergies Allergy Unverified 07/22/18 09:05 Home Medications Home Medications Medication Instructions Recorded Confirmed Type levothyroxine [Synthroid] 150 mcg PO DAILY 08/17/18 08/17/18 History multivitamin 1 tab PO DAILY 08/17/18 08/17/18 History ranitidine HCl 150 mg PO UD 08/17/18 08/17/18 History tamsulosin [Flomax] 0.4 mg PO DAILY 08/17/18 08/17/18 History Past Med/Surg History Medical History Irritable bowel syndrome (IBS) (Chronic) Diabetes (Acute) SBO (small bowel obstruction) Arthritis (Acute) Asthma (Acute) GERD (gastroesophageal reflux disease) (Acute) H/O nephrolithotomy with removal of calculi (Acute) Hx of Clostridium difficile infection (Acute) Hx of gastric ulcer (Acute) Hx of renal calculi (Acute) Hx of small bowel obstruction (Acute) Hypothyroidism (Acute) Low back pain (Acute) Malignant neoplasm of prostate (Acute) Right nephrolithiasis (Acute) Surgical History H/O hernia repair (Chronic) History of left inguinal hernia repair (Acute) Family History Father , afe 56 Heart attack Mother , age 76 Heart attack Brother , [place] at age 60 Prostate cancer Brother Age: 72 No problems noted. Daughter Age: 46 No problems noted. Uncle , of prostate cancer at 78. Diagnosed at 70. Had a seed implant. No problems noted. Social History Preferred Language: Lithuanian Communication Ability: Effective Claims Coordinator Required: No Beliefs That Will Affect Care: None Current Living Situation: Spouse Other Information That Helps Us Care for You: No Feels Safe at Home: Yes Safety Concerns: Feels Safe At This Time Smoking Status: Never smoker Hx Alcohol Use: No Hx Substance Use: No Review of Systems The patient denies chest pain, palpitations, shortness of breath, dyspnea on exertion, cough, lower extremity swelling, sore throat, blood in urine or stool, dysuria, urinary frequency or urgency, headache, memory loss, loss of consciousness, rash, abnormal bruising or bleeding, imbalance, focal or generalized weakness, numbness or tingling in arms or legs, generalized arthralgias or myalgias, back or neck pain, or night sweats. The review of systems is otherwise negative other than for that already noted above, and at least 10 systems have been reviewed. Physical Exam Vital Signs (Past 24 Hours): Last Vital Signs Temp 36.7 C 08/17/18 17:56 Pulse 93 H 08/17/18 20:28 Resp 14 08/17/18 20:28 BP 108/93 08/17/18 20:28 Pulse Ox 91 08/17/18 20:28 Physical Exam: The patient is awake, alert and oriented �3, normocephalic and atraumatic, lying in bed and developed acute distress with rigors, shortness of breath and hypoxia HEENT--PERRL, EOMI, mucous membranes and oropharynx dry. Neck--supple. No JVD. No bruits. Thyroid normal, trachea midline, no adenopathy. Heart--normal S1 and S2. No murmurs, rubs or gallops. Lungs--diminished throughout Abdomen--decreased bowel sounds. Soft, generalized tenderness, nondistended. Extremities--no cyanosis or clubbing. No edema. There are good distal pulses b/l. Dermatologic--normal skin turgor, normal color, no abnormal lymph nodes, no rash. Neurologic--cranial nerves II through XII grossly intact. Rheumatologic--normal range of motion. Psychiatric--normal affect. Results & Data Laboratory Results Laboratory Results WBC 12.09 K/uL (4.8-10.8) H 08/17/18 18:23 RBC 6.20 M/uL (4.7-6.1) H 08/17/18 18:23 Hgb 18.4 g/dL (14.0-18.0) H 08/17/18 18: Hct 52.4 % (42-52) H 08/17/18 18: MCV 84.5 fL (80-100) 08/17/18 18: MCH 29.7 pg (25-34) 08/17/18 18: MCHC 35.1 g/dL (32-36) 08/17/18 18: RDW Std Deviation 39.8 fL (36.4-46.3) 08/17/18 18: RDW Coeff of Bryan 13.0 % (11.5-14.5) 08/17/18 18: Plt Count 190 K/uL (130-400) 08/17/18 18: MPV 9.3 fL (7.4-10.4) 08/17/18 18: Immature Gran % (Auto) 0.3 % 08/17/18 18: Neut % (Auto) 78.9 % 08/17/18 18: Lymph % (Auto) 13.3 % 08/17/18 18: Fannin % (Auto) 6.2 % 08/17/18 18: Eos % (Auto) 1.1 % 08/17/18 18: Baso % (Auto) 0.2 % 08/17/18 18: Immature Gran # (Auto) 0.04 K/uL (0.00-0.02) H 08/17/18 18:23 Neut # (Auto) 9.53 K/uL (1.4-6.5) H 08/17/18 18: Lymph # (Auto) 1.61 K/uL (1.2-3.4) 08/17/18 18:23 Fannin # (Auto) 0.75 K/uL (0.11-0.59) H 08/17/18 18:23 Eos # (Auto) 0.13 K/uL (0-0.5) 08/17/18 18: Baso # (Auto) 0.03 K/uL (0-0.2) 08/17/18 18: PT 10.6 Seconds (9.0-12.0) 08/17/18 18: INR 1.0 (0.9-1.1) 08/17/18 18:23 POC pH 7.38 (7.35-7.45) 08/17/18 21:11 POC pCO2 35 mmHg (35-46) 08/17/18 21:11 POC pO2 74 mmHg (80-95) L 08/17/18 21:11 POC HCO3 21 haylee/L (19-24) 08/17/18 21:11 POC Total CO2 22 mEq/l (24-31) L 08/17/18 21:11 POC Base Excess -4.0 haylee/L (-9-1.8) 08/17/18 21:11 POC ABG O2 Sat 94.0 % (90-95) 08/17/18 21:11 Sodium 140 mmol/L (136-145) 08/17/18 18:23 Potassium 3.8 mmol/L (3.5-5.1) 08/17/18 18:23 Chloride 106 mmol/L (98-107) 08/17/18 18:23 Carbon Dioxide 29 mmol/L (21-32) 08/17/18 18:23 Anion Gap 5.0 (3-11) 08/17/18 18:23 BUN 18 mg/dl (7-18) 08/17/18 18:23 Creatinine 1.12 mg/dl (0.6-1.4) 08/17/18 18:23 Est Cr Clr Drug Dosing 72.2 ml/min 08/17/18 18:23 Est GFR ( Amer) 76.7 08/17/18 18:23 Est GFR (Non-Af Amer) 66.2 08/17/18 18:23 BUN/Creatinine Ratio 15.7 (10-20) 08/17/18 18:23 Glucose 90 mg/dl (70-99) 08/17/18 18:23 POC Glucose 121 (70-99) H 08/18/18 00:10 Calcium 9.7 mg/dl (8.5-10.1) 08/17/18 18:23 Total Bilirubin 0.8 mg/dl (0.2-1) 08/17/18 18:23 AST 26 U/L (15-37) 08/17/18 18:23 ALT 47 U/L (12-78) 08/17/18 18:23 Alkaline Phosphatase 112 U/L (45-117) 08/17/18 18:23 Troponin I < 0.015 ng/ml (0-0.045) 08/17/18 18:23 Total Protein 8.2 gm/dl (6.4-8.2) 08/17/18 18:23 Albumin 4.1 gm/dl (3.4-5.0) 08/17/18 18:23 Globulin 4.1 gm/dl (2.5-4.0) H 08/17/18 18:23 Albumin/Globulin Ratio 1.0 (0.9-2) 08/17/18 18:23 Lipase 180 U/L (73-393) 08/17/18 18:23 Urine Color Yellow 08/17/18 19:40 Urine Appearance Clear (Clear) 08/17/18 19:40 Urine pH 6.5 (4.5-7.5) 08/17/18 19:40 Ur Specific Sun 1.022 (1.000-1.030) 08/17/18 19:40 Urine Protein Negative (Negative) 08/17/18 19:40 Urine Glucose (UA) Negative (Negative) 08/17/18 19:40 Urine Ketones 1+ (Negative) H 08/17/18 19:40 Urine Blood Negative (Negative) 08/17/18 19:40 Urine Nitrite Negative (Negative) 08/17/18 19:40 Urine Bilirubin Negative (Negative) 08/17/18 19:40 Urine Urobilinogen Negative (Negative) 08/17/18 19:40 Ur Leukocyte Esterase Negative (Negative) 08/17/18 19:40 Nasal Screen MRSA (PCR) Negative (Negative) 08/17/18 21:45 Stl C. diff Tox B Gene Negative Cdiff Gene (Neg) 08/17/18 Unknown Diagnostic Findings [place], [place] [phone] CT Scan Report [facility]: 08[facility]17[facility]18 MR#: [id number]: [address] [facility] Acct ID:[id number]: Date: 1950City Zip: [place] [address] Age: 68Location: ED Sex: M Room/Bed: Att Phy: Diagnosis: ABDOMINAL PAIN AND VOMITING Belinda Phy: Robin Cazares CRNPService Date: 08/17/18 Fam Phy: Fly Navarro M.D.Interpreting Phy: Shaan Tamayo MD Admit Phy: Ordering Phy: Darrell Brice M.D. cc: ~ CT SCAN OF THE ABDOMEN AND PELVIS WITH IV CONTRAST CLINICAL HISTORY: Generalized abdominal pain. COMPARISON STUDY: Abdominal CT dated 06/06/2017. TECHNIQUE: Following the IV administration of 91 cc of Optiray 320, CT scan of the abdomen and pelvis is performed from the lung bases to the proximal femora. Images are reviewed in the axial, sagittal, and coronal planes. IV contrast was administered without complication. A dose lowering technique was utilized adhering to the principles of ALARA. CT DOSE: 1184.76 mGy.cm FINDINGS: Lung bases: The heart is normal in size and without pericardial effusion. There are coronary artery calcifications. A tiny hiatal hernia is noted. Emphysematous change is suspected. There is dependent atelectasis. No airspace consolidation or pleural effusion is identified. A calcified granuloma is seen at the left lung base. Liver: The contrast-enhanced liver is normal in size, contour, and attenuation. There is no intrahepatic biliary ductal dilatation. The hepatic veins and portal veins are patent. Gallbladder: Unremarkable. Spleen: Normal in size and attenuation. Pancreas: Unremarkable. Adrenal glands: Unremarkable. Kidneys: The contrast enhanced kidneys demonstrate cortical atrophy and are without hydronephrosis. The kidneys enhance symmetrically. Bilateral renal cysts measure up to 6.5 cm. Additional subcentimeter cortical hypodensities also likely represent cysts but are too small for definitive characterization. Abdominal vasculature: The abdominal aorta is normal in course and caliber noting mild atherosclerotic calcification. Bowel: The proximal small bowel loops are distended and fluid-filled, measuring up to 4.3 cm in diameter. There is focal wall thickening and hyperemia identified involving the distal ileum on image #361, and the ileum distal to this site in the colon are decompressed. This is the transition point for small bowel obstruction. There is no pneumatosis intestinalis or portal venous gas. There is advanced colonic diverticulosis without CT evidence of acute diverticulitis. A lipoma is incidentally noted in the ascending colon image #213. The appendix is well-visualized and normal. Peritoneum: There is no intraperitoneal free air. Trace free fluid is seen in the pelvis. Lymphadenopathy: None. Pelvic viscera: The prostate gland is enlarged and heterogeneous, measuring 5.7 cm in transverse diameter. The bladder is normal as imaged. Skeletal structures: The skeletal structures are osteopenic. There is mild lumbar sacral spondylosis and scoliosis. No lytic or blastic lesions are seen. IMPRESSION: 1. Findings are consistent with a small bowel obstruction. The transition point is located in the distal ileum in the right lower quadrant. 2. There is focal wall thickening and hyperemia identified involving the distal ileum at the transition point. This may related to inflammatory bowel disease and mucosal edema or possibly stricture. This was also likely the transition point seen on the 06/06/2017 examination. Clinical correlation will be required. 3. No intraperitoneal free air is seen. There is no pneumatosis intestinalis or portal venous gas. 4. Trace free fluid is seen in the pelvis. 5. Advanced colonic diverticulosis without CT evidence of acute diverticulitis. 6. Additional findings as above. Electronically signed by: Shaan Tamayo M.D. 08/17/2018 8:13 PM Dictated: 08/17/182002 Transcribed: 08/17/[address] [place] [address] XRay Report Patient: FRANCISCO VALENCIA Date: 08/17/18 MR#: [id number]: [address] [place] [address] Acct ID:[id number]: Date: 1950[facility] Zip: [place] [address] Age: 68Location: ED Sex: M Room/Bed: Att Phy: Diagnosis: ABDOMINAL PAIN AND VOMITING Belinda Phy: Robin Cazares CRNPService Date: 08/17/18 Fam Phy: Fly Navarro M.D.Interpreting Phy: Shaan Tamayo MD Admit Phy: Ordering Phy: Migel Florez M.D. cc: ~ SINGLE VIEW CHEST CLINICAL HISTORY: Hypoxia. FINDINGS: An AP, portable, upright chest radiograph is compared to study dated 06/06/2017. The examination is degraded by portable technique and patient rotation. The heart is top normal for projection. There is prominence of the pulmonary vasculature. There are low lung volumes with bibasilar atelectasis. No airspace consolidation or large pleural effusion is identified. No pneumothorax is seen. The skeletal structures are osteopenic. The bony thorax is grossly intact. IMPRESSION: 1. There is prominence of the central pulmonary vasculature. Correlate clinically for evidence of mild congestive failure. 2. Low lung volumes and bibasilar atelectasis. Electronically signed by: Shaan Tamayo M.D. 08/17/2018 9:32 PM Dictated: 08/17/182129 Transcribed: 08/17/182129 ECG Additional Comments: FRANCISCO VALENCIA ID:[id number] 17-AUG-2018 18:25:43 [facility] Normal sinus rhythm Left axis deviation Inferior infarct (cited on or before 06-JUN-2017) Abnormal ECG When compared with ECG of 06-JUN-2017 22:03, No significant change was found Confirmed by BELLE RAMIRES ([id number]) on 08/17/2018 10:17:24 PM 25mm/s 10mm/mV 150Hz 8.0 SP2 12SL 241 PADILLA: 13 Referred by: Confirmed By: BELLE RAMIRES Vent. rate 76 BPM VA interval 202 ms QRS duration 94 ms QT/QTc 370/416 ms P-R-T axes 7 -78 9 1950 (68 yr) Male 6in 1lb Room: Loc:15 Payroll Specialist:Maritza Alegre Code Status & VTE Plan Code Status Full code VTE Prophylaxis Plan VTE Prophylaxis will be ordered: Yes Critical Care Time Total critical care time was 50 minutes Critical Care Time: Yes Total Critical Care Time: 50
--- NOTE | 2018-08-17 20:53 | Surgery Consultation ---
Date of Consultation August 17, 2018 Assessment & Plan (1) SBO (small bowel obstruction): Patient will be admitted with partial small bowel obstruction possibly in the area of the ileum. Because he is now vomiting I have ordered an NG tube to low intermittent suction. I do not think he requires urgent surgical intervention and this may resolve with medical management. We will continue to monitor him closely. History of Present Illness Reason for Consultation: Small bowel obstruction History of Present Illness Patient is 68-year-old male presenting the emergency room with abdominal pain bloating and nausea which she has had in the past associated with partial small bowel obstruction. He had not had any vomiting until he came to the emergency room and is currently throwing up a small amount of normal gastric contents. It does not appear bilious or feculent. His CAT scan does show some mildly dilated small bowel with transition in the ileum to more decompressed bowel. There may be some thickening of the ileum. He has had this before on a CAT scan in June 2017 which showed a long segment of narrowed ileum. He was see him back then by gastroenterology and was treated for possible Crohn's disease but this has since been ruled out. He has not been in the hospital since 06/2017 His white blood cell count is 12,000 electrolytes are normal his pulse is normal Allergies Allergy/AdvReac Type Severity Reaction Status Date / Time No Known Allergies Allergy Unverified 07/22/18 09:05 Home Medications Home Medications Medication Instructions Recorded Confirmed Type LEVOTHYROXINE SODIUM 150 mcg PO QAM #0 tab 04/19/15 07/22/18 History Tamsulosin HCl 0.4 mg PO HS #0 04/09/17 07/22/18 History acetaminophen 325 mg tablet 325 mg PO Q6H PRN 07/22/18 07/22/18 History multivitamin tablet 1 tab PO DAILY 07/22/18 07/22/18 History Patient History Medical History Irritable bowel syndrome (IBS) (Chronic) Diabetes (Acute) SBO (small bowel obstruction) Arthritis (Acute) Asthma (Acute) GERD (gastroesophageal reflux disease) (Acute) H/O nephrolithotomy with removal of calculi (Acute) Hx of Clostridium difficile infection (Acute) Hx of gastric ulcer (Acute) Hx of renal calculi (Acute) Hx of small bowel obstruction (Acute) Hypothyroidism (Acute) Low back pain (Acute) Malignant neoplasm of prostate (Acute) Right nephrolithiasis (Acute) Surgical History H/O hernia repair (Chronic) History of left inguinal hernia repair (Acute) Family History Father , afe 56 Heart attack Mother , age 76 Heart attack Brother , [place] at age 60 Prostate cancer Brother Age: 72 No problems noted. Daughter Age: 46 No problems noted. Uncle , of prostate cancer at 78. Diagnosed at 70. Had a seed implant. No problems noted. Social History Preferred Language: [place] Beliefs That Will Affect Care: None Feels Safe at Home: Yes Smoking Status: Never smoker Review of Systems See HPI for positive review of systems other systems negative Physical Exam Vital Signs (Past 24 Hours): Last Vital Signs Temp 36.7 C 08/17/18 17:56 Pulse 93 H 08/17/18 20:28 Resp 14 08/17/18 20:28 BP 108/93 08/17/18 20:28 Pulse Ox 91 08/17/18 20:28 Results & Data Diagnostic Findings I have reviewed his CAT scan
[2018-08-17 21:23] LABS: iSTAT Arterial Blood Gas HCO3 21 meg/L (19-24); iSTAT Arterial Blood Gas pCO2 35 mmHg (35-46); iSTAT Arterial Blood Gas pH 7.38 (7.35-7.45); iSTAT Carbon Dioxide 22 mEq/l (24-31)
--- NOTE | 2018-08-17 21:33 | XRay Report ---
SINGLE VIEW CHEST CLINICAL HISTORY: Hypoxia. FINDINGS: An AP, portable, upright chest radiograph is compared to study dated 06/06/2017. The examinat ion is degraded by portable technique and patient rotation. The heart is top normal for projection. There is prominence of the pulmonary vasculature. There are low lung volumes with bibasilar atelectas is. No airspace consolidation or large pleural effusion is identified. No pneumothorax is seen. The s keletal structures are osteopenic. The bony thorax is grossly intact. IMPRESSION: 1. There is prominence of the central pulmonary vasculature. Correlate clinically for evidence of mil d congestive failure. 2. Low lung volumes and bibasilar atelectasis. Electronically signed by: Shaan Tamayo M.D. 08/17/2018 9:32 PM
[2018-08-17] MEDS ORDERED: ACETAMINOPHEN 1,000 MG/100 ML VIAL IV PRN (22:22)
[2018-08-17] MEDS ORDERED: ICU PROTOCOL FOR HYPERGLYCEMIA PRN (22:22)
[2018-08-17] MEDS ORDERED: LEVALBUTEROL HCL 0.63 MG/3 ML NEB INH PRN (22:22)
[2018-08-17] MEDS ORDERED: IPRATROPIUM BROMIDE NEB SOLN 0.02% 2.5 ML VIAL INH PRN (22:22)
[2018-08-17] MEDS: PANTOprazole 40 MG in SYRINGE 0 ML IV SCH (22:30)
[2018-08-17] MEDS: NSS + 20MEQ KCL 20 MEQ/1,000 ML BAG IV SCH (23:10)
--- NOTE | 2018-08-18 00:56 | Emergency Department Note ---
Entered by Ratna Gary acting as a scribe for Darrell Brice MD History of Present Illness General Chief complaint: Abdominal Pain Stated complaint: ABDOMINAL PAIN AND VOMITING Time Seen by Provider: 08/17/18 18:00 Source: patient History of Present Illness Onset (ago): hour(s) 6 Location: abdomen Severity: similar to prior episodes Pain Consistency: + other (persistent) Maximum Pain Intensity: 9 Relieved By: + none Exacerbated By: + none Associated symptoms: + nausea/vomiting (positive nausea; negative vomiting) and + other (positive increased burping; negative blood in urine or stool); no chest pain, no fever/chills and no shortness of breath Treatments prior to arrival: other (antacids) The patient is a 68 year old white male w/ PMHx of SBO, Hypertension, Diabetes, Prostate Cancer, and a hernia repair who presents to the ED w/ CC of persistent abdominal pain beginning at 12 this morning, 6 hours prior to arrival. The patient states that this is similar to prior episodes. He states that nothing relieves or exacerbates his pain. The patient states that he has been nauseous and has had increased burping during this time. The patient denies fevers, chills, blood in urine or stool, chest pain, and shortness of breath. The patient states that he took antacids prior to arrival, but states that they did not relieve his symptoms. The patient states that he has not received treatment for his prostate cancer yet, and states that this cancer is in the early stages. Home Medications Home Medications Medication Instructions Recorded Confirmed Type levothyroxine [Synthroid] 150 mcg PO DAILY 08/17/18 08/17/18 History multivitamin 1 tab PO DAILY 08/17/18 08/17/18 History ranitidine HCl 150 mg PO UD 08/17/18 08/17/18 History tamsulosin [Flomax] 0.4 mg PO DAILY 08/17/18 08/17/18 History Allergies Allergy/AdvReac Type Severity Reaction Status Date / Time No Known Allergies Allergy Unverified 07/22/18 09:05 Past Med/Surg History Medical History Irritable bowel syndrome (IBS) (Chronic) Diabetes (Acute) SBO (small bowel obstruction) Arthritis (Acute) Asthma (Acute) GERD (gastroesophageal reflux disease) (Acute) H/O nephrolithotomy with removal of calculi (Acute) Hx of Clostridium difficile infection (Acute) Hx of gastric ulcer (Acute) Hx of renal calculi (Acute) Hx of small bowel obstruction (Acute) Hypothyroidism (Acute) Low back pain (Acute) Malignant neoplasm of prostate (Acute) Right nephrolithiasis (Acute) Surgical History H/O hernia repair (Chronic) History of left inguinal hernia repair (Acute) Family History Father , afe 56 Heart attack Mother , age 76 Heart attack Brother , [place] at age 60 Prostate cancer Brother Age: 72 No problems noted. Daughter Age: 46 No problems noted. Uncle , of prostate cancer at 78. Diagnosed at 70. Had a seed implant. No problems noted. Social History Preferred Language: Malawian Communication Ability: Effective Supply Tech Required: No Beliefs That Will Affect Care: None Current Living Situation: Spouse Other Information That Helps Us Care for You: No Feels Safe at Home: Yes Safety Concerns: Feels Safe At This Time Smoking Status: Never smoker Hx Alcohol Use: No Hx Substance Use: No Review of Systems See HPI for pertinent positives & negatives. and A total of 10 systems reviewed and were otherwise negative Physical Exam Vital Signs Vital Signs - 24 hr 08/17/18 17:56 08/17/18 18:48 08/17/18 18:50 Temperature 36.7 C Temperature Source Oral Sepsis Recent Fever Within 48 Hours No Sepsis New/Unexplained Change in Mental Status No Sepsis Action Taken by Nursing No Action Required Pulse Rate 78 66 71 Pulse Rate [Finger] Pulse Rate from SpO2 Sensor Pulse Rhythm [Finger] Pulse Strength [Finger] Respiratory Rate 19 15 16 Respiratory Effort / Characteristics Non-Labored Respiratory Depth Normal Respiratory Pattern Regular Blood Pressure 176/97 H Blood Pressure [Right Arm] Blood Pressure Mean 123 Blood Pressure Mean [Right Arm] Blood Pressure Position Sitting Blood Pressure Position [Right Arm] Pulse Oximetry 95 Oxygen Delivery Method Room Air Oxygen Flow Rate 08/17/18 19:00 08/17/18 19:10 08/17/18 19:20 Temperature Temperature Source Sepsis Recent Fever Within 48 Hours Sepsis New/Unexplained Change in Mental Status Sepsis Action Taken by Nursing Pulse Rate 74 78 80 Pulse Rate [Finger] Pulse Rate from SpO2 Sensor Pulse Rhythm [Finger] Pulse Strength [Finger] Respiratory Rate 11 L 21 12 Respiratory Effort / Characteristics Respiratory Depth Respiratory Pattern Blood Pressure Blood Pressure [Right Arm] Blood Pressure Mean Blood Pressure Mean [Right Arm] Blood Pressure Position Blood Pressure Position [Right Arm] Pulse Oximetry Oxygen Delivery Method Oxygen Flow Rate 08/17/18 19:30 08/17/18 20:01 08/17/18 20:10 Temperature Temperature Source Sepsis Recent Fever Within 48 Hours Sepsis New/Unexplained Change in Mental Status Sepsis Action Taken by Nursing Pulse Rate 83 90 92 H Pulse Rate [Finger] Pulse Rate from SpO2 Sensor 92 H Pulse Rhythm [Finger] Pulse Strength [Finger] Respiratory Rate 18 19 Respiratory Effort / Characteristics Respiratory Depth Respiratory Pattern Blood Pressure Blood Pressure [Right Arm] Blood Pressure Mean Blood Pressure Mean [Right Arm] Blood Pressure Position Blood Pressure Position [Right Arm] Pulse Oximetry 91 Oxygen Delivery Method Oxygen Flow Rate 08/17/18 20:20 08/17/18 20:28 08/17/18 20:30 Temperature Temperature Source Sepsis Recent Fever Within 48 Hours Sepsis New/Unexplained Change in Mental Status Sepsis Action Taken by Nursing Pulse Rate 96 H 95 H 92 H Pulse Rate [Finger] 93 H Pulse Rate from SpO2 Sensor 96 H 95 H 93 H Pulse Rhythm [Finger] Pulse Strength [Finger] Respiratory Rate 21 18 21 Respiratory Effort / Characteristics Respiratory Depth Respiratory Pattern Blood Pressure 108/93 Blood Pressure [Right Arm] 108/93 Blood Pressure Mean 98 Blood Pressure Mean [Right Arm] 98 Blood Pressure Position Blood Pressure Position [Right Arm] Pulse Oximetry 89 L 91 90 Oxygen Delivery Method Room Air Oxygen Flow Rate 08/17/18 20:31 08/17/18 20:40 08/17/18 20:50 Temperature Temperature Source Sepsis Recent Fever Within 48 Hours Sepsis New/Unexplained Change in Mental Status Sepsis Action Taken by Nursing Pulse Rate 90 66 63 Pulse Rate [Finger] Pulse Rate from SpO2 Sensor 93 H 66 Pulse Rhythm [Finger] Pulse Strength [Finger] Respiratory Rate 28 H 19 17 Respiratory Effort / Characteristics Respiratory Depth Respiratory Pattern Blood Pressure 110/90 Blood Pressure [Right Arm] Blood Pressure Mean 96 Blood Pressure Mean [Right Arm] Blood Pressure Position Blood Pressure Position [Right Arm] Pulse Oximetry 90 85 L Oxygen Delivery Method Oxygen Flow Rate 08/17/18 20:51 08/17/18 20:54 08/17/18 20:55 Temperature Temperature Source Sepsis Recent Fever Within 48 Hours Sepsis New/Unexplained Change in Mental Status Sepsis Action Taken by Nursing Pulse Rate 62 66 68 Pulse Rate [Finger] Pulse Rate from SpO2 Sensor 63 66 69 Pulse Rhythm [Finger] Pulse Strength [Finger] Respiratory Rate 19 26 H 16 Respiratory Effort / Characteristics Respiratory Depth Respiratory Pattern Blood Pressure 68/46 L 75/52 L 82/57 L Blood Pressure [Right Arm] Blood Pressure Mean 53 59 65 Blood Pressure Mean [Right Arm] Blood Pressure Position Blood Pressure Position [Right Arm] Pulse Oximetry 89 L 89 L 88 L Oxygen Delivery Method Oxygen Flow Rate 08/17/18 20:56 08/17/18 20:58 08/17/18 21:00 Temperature Temperature Source Sepsis Recent Fever Within 48 Hours Sepsis New/Unexplained Change in Mental Status Sepsis Action Taken by Nursing Pulse Rate 71 75 83 Pulse Rate [Finger] Pulse Rate from SpO2 Sensor 70 75 86 Pulse Rhythm [Finger] Pulse Strength [Finger] Respiratory Rate 24 21 31 H Respiratory Effort / Characteristics Respiratory Depth Respiratory Pattern Blood Pressure 85/62 L 111/69 Blood Pressure [Right Arm] Blood Pressure Mean 69 83 Blood Pressure Mean [Right Arm] Blood Pressure Position Blood Pressure Position [Right Arm] Pulse Oximetry 86 L 95 97 Oxygen Delivery Method Oxygen Flow Rate 08/17/18 21:01 08/17/18 21:06 08/17/18 21:07 Temperature 36.7 C Temperature Source Oral Sepsis Recent Fever Within 48 Hours Sepsis New/Unexplained Change in Mental Status Sepsis Action Taken by Nursing Pulse Rate 90 92 H Pulse Rate [Finger] Pulse Rate from SpO2 Sensor 91 H 92 H Pulse Rhythm [Finger] Pulse Strength [Finger] Respiratory Rate 39 H 30 H Respiratory Effort / Characteristics Respiratory Depth Respiratory Pattern Blood Pressure 128/85 129/81 Blood Pressure [Right Arm] Blood Pressure Mean 99 97 Blood Pressure Mean [Right Arm] Blood Pressure Position Blood Pressure Position [Right Arm] Pulse Oximetry 96 98 Oxygen Delivery Method Oxygen Flow Rate 08/17/18 21:08 08/17/18 21:10 08/17/18 21:11 Temperature Temperature Source Sepsis Recent Fever Within 48 Hours Sepsis New/Unexplained Change in Mental Status Sepsis Action Taken by Nursing Pulse Rate 80 82 Pulse Rate [Finger] 82 Pulse Rate from SpO2 Sensor 80 82 Pulse Rhythm [Finger] Pulse Strength [Finger] Respiratory Rate 25 H 24 24 Respiratory Effort / Characteristics Respiratory Depth Respiratory Pattern Blood Pressure 128/86 Blood Pressure [Right Arm] 129/81 Blood Pressure Mean 100 Blood Pressure Mean [Right Arm] 97 Blood Pressure Position Blood Pressure Position [Right Arm] Pulse Oximetry 97 99 98 Oxygen Delivery Method Oxymask Oxygen Flow Rate 8 08/17/18 21:15 08/17/18 21:29 08/17/18 21:40 Temperature 36.7 C Temperature Source Oral Sepsis Recent Fever Within 48 Hours Sepsis New/Unexplained Change in Mental Status Sepsis Action Taken by Nursing Pulse Rate 84 84 Pulse Rate [Finger] 95 H Pulse Rate from SpO2 Sensor 83 Pulse Rhythm [Finger] Regular Pulse Strength [Finger] Normal Respiratory Rate 22 22 22 Respiratory Effort / Characteristics Non-Labored Spontaneous Respiratory Depth Normal Respiratory Pattern Regular Blood Pressure 139/96 139/96 Blood Pressure [Right Arm] 139/88 Blood Pressure Mean 110 Blood Pressure Mean [Right Arm] 105 Blood Pressure Position Blood Pressure Position [Right Arm] Lying Pulse Oximetry 96 96 94 Oxygen Delivery Method Nasal Cannula Oxymask Oxygen Flow Rate 4 8 08/17/18 21:45 08/17/18 22:00 08/17/18 22:01 Temperature 36.7 C Temperature Source Sepsis Recent Fever Within 48 Hours Sepsis New/Unexplained Change in Mental Status Sepsis Action Taken by Nursing Pulse Rate 95 H 103 H 101 H Pulse Rate [Finger] Pulse Rate from SpO2 Sensor 94 H 101 H 102 H Pulse Rhythm [Finger] Pulse Strength [Finger] Respiratory Rate 19 18 17 Respiratory Effort / Characteristics Respiratory Depth Respiratory Pattern Blood Pressure 139/88 137/92 Blood Pressure [Right Arm] Blood Pressure Mean 105 107 Blood Pressure Mean [Right Arm] Blood Pressure Position Blood Pressure Position [Right Arm] Pulse Oximetry 93 93 95 Oxygen Delivery Method Oxygen Flow Rate 08/17/18 23:00 08/18/18 00:00 08/18/18 00:02 Temperature 36.7 C Temperature Source Sepsis Recent Fever Within 48 Hours Sepsis New/Unexplained Change in Mental Status Sepsis Action Taken by Nursing Pulse Rate 97 H 79 79 Pulse Rate [Finger] Pulse Rate from SpO2 Sensor 97 H 79 79 Pulse Rhythm [Finger] Pulse Strength [Finger] Respiratory Rate 18 17 16 Respiratory Effort / Characteristics Respiratory Depth Respiratory Pattern Blood Pressure 113/76 104/68 104/68 Blood Pressure [Right Arm] Blood Pressure Mean 88 80 80 Blood Pressure Mean [Right Arm] Blood Pressure Position Blood Pressure Position [Right Arm] Pulse Oximetry 89 L 96 96 Oxygen Delivery Method Oxygen Flow Rate 08/18/18 00:30 Temperature Temperature Source Sepsis Recent Fever Within 48 Hours Sepsis New/Unexplained Change in Mental Status Sepsis Action Taken by Nursing Pulse Rate 77 Pulse Rate [Finger] Pulse Rate from SpO2 Sensor 77 Pulse Rhythm [Finger] Pulse Strength [Finger] Respiratory Rate 16 Respiratory Effort / Characteristics Respiratory Depth Respiratory Pattern Blood Pressure 109/70 Blood Pressure [Right Arm] Blood Pressure Mean 83 Blood Pressure Mean [Right Arm] Blood Pressure Position Blood Pressure Position [Right Arm] Pulse Oximetry 96 Oxygen Delivery Method Oxygen Flow Rate GENERAL: Non-toxic. Mildly uncomfortable in appearance. EYE EXAM: Normal conjunctiva. PERRL, no anisocoria and EOM's grossly intact w/o pain. OROPHARYNX: Moist MM. NECK: Supple, no nuchal rigidity, no adenopathy, non-tender. No signs of meningismus. LUNGS: Clear to auscultation. Normal chest wall mechanics. HEART: NSR, no MRG. ABDOMEN: Abdomen soft, normo-active bowel sounds, no masses, no rebound or guarding. Mild diffuse abdominal pain, worse in epigastrium. Negative Obturator and Psoas sign. BACK: No CVA TTP. SKIN: No rashes and no bruising. UPPER EXTREMITIES: Upper extremities are grossly normal. LOWER EXTREMITIES: No pitting edema. No calf pain. NEURO EXAM: A and O x3. GCS 15. Moves all 4 extremities on command w/o issue. Course 1802: Past medical records reviewed. The patient was evaluated in room C3, and a complete history and physical examination were performed. 1928: I checked on and updated the patient. He states that he is feeling better. 2019: I [facility] who will further evaluate the patient. 2025: I checked on and updated the patient. 2058: I checked on the patient. He is currently on an oxygen mask. There is 2L normal saline hanging. The patient's blood pressure has approved, and he is not tachycardic. The patient has rigors. The hospitalist is ordering antibiotics and putting in additional orders for the patient. The patient will go to the ICU. Consultations Consultation #1: I discussed the [facility] who will further evaluate the patient. Time: 20:19 Administered Medications Pantoprazole Sodium 40 mg/ (Syringe) 10 mls @ 5 mls/min IV BID KAREEM Stop: 09/16/18 21:14 Last Admin: 08/17/18 22:30 Dose: 5 mls/min Documented by: [id number] Potassium Chloride/Sodium Chloride (Normal Saline W/20 Meq Kcl) 20 meq in 1,000 mls @ 100 mls/hr IV .Q10H KAREEM Stop: 09/16/18 22:21 Last Admin: 08/17/18 23:10 Dose: 100 mls/hr Documented by: [id number] Ioversol (Optiray 320 100ml) 91 ml IV ONCE PRN PRN Reason: Interaction Checking Stop: 08/21/18 19:55 Last Admin: 08/17/18 19:57 Dose: 91 ml Documented by: [id number] Discontinued Medications Sodium Chloride (Nss 1000ml) 1,000 mls @ 999 mls/hr IV .Q1H1M KAREEM Stop: 08/17/18 19:30 Last Infusion: 08/17/18 19:39 Dose: 0 mls/hr Documented by: [id number] Admin: 08/17/18 18:30 Dose: 999 mls/hr Documented by: [id number] Sodium Chloride (Nss 1000ml) 1,000 mls @ 125 mls/hr IV .Q8H KAREEM Stop: 09/16/18 20:29 Last Admin: 08/17/18 23:52 Dose: Not Given Documented by: [id number] Piperacillin Sod/Tazobactam (Sod 4.5 gm/ Dextrose) 120 mls @ 30 mls/hr IV Q8H STA Stop: 08/18/18 00:43 Last Admin: 08/17/18 21:20 Dose: 30 mls/hr Documented by: [id number] Morphine Sulfate (Morphine Sulfate) 4 mg IV NOW STA Stop: 08/17/18 18:21 Last Admin: 08/17/18 18:30 Dose: 4 mg Documented by: [id number] Ondansetron HCl (Zofran) 4 mg IV NOW STA Stop: 08/17/18 18:21 Last Admin: 08/17/18 18:30 Dose: 4 mg Documented by: [id number] Ondansetron HCl (Zofran) Confirm Administered Dose 4 mg .ROUTE .STK-MED ONE Stop: 08/17/18 20:47 Last Admin: 08/17/18 23:52 Dose: Not Given Documented by: [id number] Medical Decision Making Medical Records Attestation: I reviewed the patient's medical records. Home Medications Current Medication List: was personally reviewed by me Laboratory Data Attestation: I reviewed the patient's lab results. Result diagrams: 08/17/18 18:23 08/17/18 18:23 Lab Results 08/17/18 08/17/18 08/17/18 Range/Units 18:23 18:23 18:23 WBC 12.09 H (4.8-10.8) K/uL RBC 6.20 H (4.7-6.1) M/uL Hgb 18.4 H (14.0-18.0) g/dL Hct 52.4 H (42-52) % MCV 84.5 (80-100) fL MCH 29.7 (25-34) pg MCHC 35.1 (32-36) g/dL RDW Std Deviation 39.8 (36.4-46.3) fL RDW Coeff of Bryan 13.0 (11.5-14.5) % Plt Count 190 (130-400) K/uL MPV 9.3 (7.4-10.4) fL Immature Gran % (Auto) 0.3 % Neut % (Auto) 78.9 % Lymph % (Auto) 13.3 % [place] % (Auto) 6.2 % Eos % (Auto) 1.1 % Baso % (Auto) 0.2 % Immature Gran # (Auto) 0.04 H (0.00-0.02) K/uL Neut # (Auto) 9.53 H (1.4-6.5) K/uL Lymph # (Auto) 1.61 (1.2-3.4) K/uL Montgomery # (Auto) 0.75 H (0.11-0.59) K/uL Eos # (Auto) 0.13 (0-0.5) K/uL Baso # (Auto) 0.03 (0-0.2) K/uL PT 10.6 (9.0-12.0) Seconds INR 1.0 (0.9-1.1) POC pH (7.35-7.45) POC pCO2 (35-46) mmHg POC pO2 (80-95) mmHg POC HCO3 (19-24) haylee/L POC Total CO2 (24-31) mEq/l POC Base Excess (-9-1.8) haylee/L POC ABG O2 Sat (90-95) % Sodium (136-145) mmol/L Potassium (3.5-5.1) mmol/L Chloride (98-107) mmol/L Carbon Dioxide (21-32) mmol/L Anion Gap (3-11) BUN (7-18) mg/dl Creatinine (0.6-1.4) mg/dl Est Cr Clr Drug Dosing ml/min Est GFR ( Amer) Est GFR (Non-Af Amer) BUN/Creatinine Ratio (10-20) Glucose (70-99) mg/dl POC Glucose (70-99) Calcium (8.5-10.1) mg/dl Total Bilirubin (0.2-1) mg/dl AST (15-37) U/L ALT (12-78) U/L Alkaline Phosphatase (45-117) U/L Troponin I Cancelled Total Protein (6.4-8.2) gm/dl Albumin (3.4-5.0) gm/dl Globulin (2.5-4.0) gm/dl Albumin/Globulin Ratio (0.9-2) Lipase (73-393) U/L Urine Color Urine Appearance (Clear) Urine pH (4.5-7.5) Ur Specific [place] (1.000-1.030) Urine Protein (Negative) Urine Glucose (UA) (Negative) Urine Ketones (Negative) Urine Blood (Negative) Urine Nitrite (Negative) Urine Bilirubin (Negative) Urine Urobilinogen (Negative) Ur Leukocyte Esterase (Negative) Nasal Screen MRSA (PCR) (Negative) Stl C. diff Tox B Gene (Neg) 08/17/18 08/17/18 08/17/18 Range/Units 18:23 19:40 21:11 WBC (4.8-10.8) K/uL RBC (4.7-6.1) M/uL Hgb (14.0-18.0) g/dL Hct (42-52) % MCV (80-100) fL MCH (25-34) pg MCHC (32-36) g/dL RDW Std Deviation (36.4-46.3) fL RDW Coeff of Bryan (11.5-14.5) % Plt Count (130-400) K/uL MPV (7.4-10.4) fL Immature Gran % (Auto) % Neut % (Auto) % Lymph % (Auto) % [place] % (Auto) % Eos % (Auto) % Baso % (Auto) % Immature Gran # (Auto) (0.00-0.02) K/uL Neut # (Auto) (1.4-6.5) K/uL Lymph # (Auto) (1.2-3.4) K/uL [place] # (Auto) (0.11-0.59) K/uL Eos # (Auto) (0-0.5) K/uL Baso # (Auto) (0-0.2) K/uL PT (9.0-12.0) Seconds INR (0.9-1.1) POC pH 7.38 (7.35-7.45) POC pCO2 35 (35-46) mmHg POC pO2 74 L (80-95) mmHg POC HCO3 21 (19-24) haylee/L POC Total CO2 22 L (24-31) mEq/l POC Base Excess -4.0 (-9-1.8) haylee/L POC ABG O2 Sat 94.0 (90-95) % Sodium 140 (136-145) mmol/L Potassium 3.8 (3.5-5.1) mmol/L Chloride 106 (98-107) mmol/L Carbon Dioxide 29 (21-32) mmol/L Anion Gap 5.0 (3-11) BUN 18 (7-18) mg/dl Creatinine 1.12 (0.6-1.4) mg/dl Est Cr Clr Drug Dosing 72.2 ml/min Est GFR ( Amer) 76.7 Est GFR (Non-Af Amer) 66.2 BUN/Creatinine Ratio 15.7 (10-20) Glucose 90 (70-99) mg/dl POC Glucose (70-99) Calcium 9.7 (8.5-10.1) mg/dl Total Bilirubin 0.8 (0.2-1) mg/dl AST 26 (15-37) U/L ALT 47 (12-78) U/L Alkaline Phosphatase 112 (45-117) U/L Troponin I < 0.015 Total Protein 8.2 (6.4-8.2) gm/dl Albumin 4.1 (3.4-5.0) gm/dl Globulin 4.1 H (2.5-4.0) gm/dl Albumin/Globulin Ratio 1.0 (0.9-2) Lipase 180 (73-393) U/L Urine Color Yellow Urine Appearance Clear (Clear) Urine pH 6.5 (4.5-7.5) Ur Specific [place] 1.022 (1.000-1.030) Urine Protein Negative (Negative) Urine Glucose (UA) Negative (Negative) Urine Ketones 1+ H (Negative) Urine Blood Negative (Negative) Urine Nitrite Negative (Negative) Urine Bilirubin Negative (Negative) Urine Urobilinogen Negative (Negative) Ur Leukocyte Esterase Negative (Negative) Nasal Screen MRSA (PCR) (Negative) Stl C. diff Tox B Gene (Neg) 08/17/18 08/17/18 08/18/18 Range/Units 21:45 Unknown 00:10 WBC (4.8-10.8) K/uL RBC (4.7-6.1) M/uL Hgb (14.0-18.0) g/dL Hct (42-52) % MCV (80-100) fL MCH (25-34) pg MCHC (32-36) g/dL RDW Std Deviation (36.4-46.3) fL RDW Coeff of Bryan (11.5-14.5) % Plt Count (130-400) K/uL MPV (7.4-10.4) fL Immature Gran % (Auto) % Neut % (Auto) % Lymph % (Auto) % [place] % (Auto) % Eos % (Auto) % Baso % (Auto) % Immature Gran # (Auto) (0.00-0.02) K/uL Neut # (Auto) (1.4-6.5) K/uL Lymph # (Auto) (1.2-3.4) K/uL [place] # (Auto) (0.11-0.59) K/uL Eos # (Auto) (0-0.5) K/uL Baso # (Auto) (0-0.2) K/uL PT (9.0-12.0) Seconds INR (0.9-1.1) POC pH (7.35-7.45) POC pCO2 (35-46) mmHg POC pO2 (80-95) mmHg POC HCO3 (19-24) haylee/L POC Total CO2 (24-31) mEq/l POC Base Excess (-9-1.8) haylee/L POC ABG O2 Sat (90-95) % Sodium (136-145) mmol/L Potassium (3.5-5.1) mmol/L Chloride (98-107) mmol/L Carbon Dioxide (21-32) mmol/L Anion Gap (3-11) BUN (7-18) mg/dl Creatinine (0.6-1.4) mg/dl Est Cr Clr Drug Dosing ml/min Est GFR ( Amer) Est GFR (Non-Af Amer) BUN/Creatinine Ratio (10-20) Glucose (70-99) mg/dl POC Glucose 121 H (70-99) Calcium (8.5-10.1) mg/dl Total Bilirubin (0.2-1) mg/dl AST (15-37) U/L ALT (12-78) U/L Alkaline Phosphatase (45-117) U/L Troponin I Total Protein (6.4-8.2) gm/dl Albumin (3.4-5.0) gm/dl Globulin (2.5-4.0) gm/dl Albumin/Globulin Ratio (0.9-2) Lipase (73-393) U/L Urine Color Urine Appearance (Clear) Urine pH (4.5-7.5) Ur Specific [place] (1.000-1.030) Urine Protein (Negative) Urine Glucose (UA) (Negative) Urine Ketones (Negative) Urine Blood (Negative) Urine Nitrite (Negative) Urine Bilirubin (Negative) Urine Urobilinogen (Negative) Ur Leukocyte Esterase (Negative) Nasal Screen MRSA (PCR) Negative (Negative) Stl C. diff Tox B Gene Negative Cdiff Gene (Neg) Imaging Data Radiologist's Impression: Radiology results as stated below per my review and the radiologist's interpretation: CT SCAN OF THE ABDOMEN AND PELVIS WITH IV CONTRAST CLINICAL HISTORY: Generalized abdominal pain. COMPARISON STUDY: Abdominal CT dated 06/06/2017. TECHNIQUE: Following the IV administration of 91 cc of Optiray 320, CT scan of the abdomen and pelvis is performed from the lung bases to the proximal femora. Images are reviewed in the axial, sagittal, and coronal planes. IV contrast was administered without complication. A dose lowering technique was utilized adhering to the principles of ALARA. CT DOSE: 1184.76 mGy.cm FINDINGS: Lung bases: The heart is normal in size and without pericardial effusion. There are coronary artery calcifications. A tiny hiatal hernia is noted. Emphysematous change is suspected. There is dependent atelectasis. No airspace consolidation or pleural effusion is identified. A calcified granuloma is seen at the left lung base. Liver: The contrast-enhanced liver is normal in size, contour, and attenuation. There is no intrahepatic biliary ductal dilatation. The hepatic veins and portal veins are patent. Gallbladder: Unremarkable. Spleen: Normal in size and attenuation. Pancreas: Unremarkable. Adrenal glands: Unremarkable. Kidneys: The contrast enhanced kidneys demonstrate cortical atrophy and are without hydronephrosis. The kidneys enhance symmetrically. Bilateral renal cysts measure up to 6.5 cm. Additional subcentimeter cortical hypodensities also likely represent cysts but are too small for definitive characterization. Abdominal vasculature: The abdominal aorta is normal in course and caliber noting mild atherosclerotic calcification. Bowel: The proximal small bowel loops are distended and fluid-filled, measuring up to 4.3 cm in diameter. There is focal wall thickening and hyperemia identified involving the distal ileum on image #361, and the ileum distal to this site in the colon are decompressed. This is the transition point for small bowel obstruction. There is no pneumatosis intestinalis or portal venous gas. There is advanced colonic diverticulosis without CT evidence of acute diverticulitis. A lipoma is incidentally noted in the ascending colon image #213. The appendix is well-visualized and normal. Peritoneum: There is no intraperitoneal free air. Trace free fluid is seen in the pelvis. Lymphadenopathy: None. Pelvic viscera: The prostate gland is enlarged and heterogeneous, measuring 5.7 cm in transverse diameter. The bladder is normal as imaged. Skeletal structures: The skeletal structures are osteopenic. There is mild lumbar sacral spondylosis and scoliosis. No lytic or blastic lesions are seen. IMPRESSION: 1. Findings are consistent with a small bowel obstruction. The transition point is located in the distal ileum in the right lower quadrant. 2. There is focal wall thickening and hyperemia identified involving the distal ileum at the transition point. This may related to inflammatory bowel disease and mucosal edema or possibly stricture. This was also likely the transition point seen on the 06/06/2017 examination. Clinical correlation will be required. 3. No intraperitoneal free air is seen. There is no pneumatosis intestinalis or portal venous gas. 4. Trace free fluid is seen in the pelvis. 5. Advanced colonic diverticulosis without CT evidence of acute diverticulitis. 6. Additional findings as above. Electronically signed by: Shaan Tamayo M.D. 08/17/2018 8:13 PM ECG Data Indication: abdominal pain Rate (beats per minute): 76 Rhythm: sinus rhythm Findings: + other (normal QRS duration), + 1st degree AV block, + Q waves (inferiorly), + T-wave inversion (lead III) and + left axis deviation Comparison ECG Date: from (06/06/2017) Change: no significant change (Q waves and TWI are not new findings) Blood Pressure Blood Pressure Findings: Normal blood pressure MDM Narrative The patient is a 68 year old white male w/ PMHx of SBO, Hypertension, Diabetes, Prostate Cancer, and a hernia repair who presents to the ED w/ CC of persistent abdominal pain beginning at 12 this morning, 6 hours prior to arrival. Differential diagnosis: Etiologies such as biliary colic, cholecystitis, hepatitis, pancreatitis, cardiac disease, pancreatitis, gastritis, peptic ulcer disease, appendicitis, cystitis, diverticulitis, mesenteric ischemia, inflammatory bowel disease, ileus, bowel obstruction, testicular torsion, aortic pathology, shingles, as well as others were considered. Patient was seen and evaluated the bedside. The patient does have a known history of hypertension as well as small bowel obstruction the patient does have abdominal pain that he feels consistent with his prior bowel obstruction's. Patient does have nausea but no vomiting. The patient had a bowel movement that was small this morning. Patient did a blood work completed along with EKG troponin CT of the abdomen pelvis. Patient was also given medications to help improve his symptoms. Patient blood work showed a mild white count of 12. The patient's kidney function was unremarkable. LFTs and lipase within normal limits. Urinalysis shows no evidence of blood or infection. Patient CT does show a likely small bowel obstruction with a transition point mild hyperemia of the bowel. I did speak with the on-call surgeon who recommended conservative management no NG tube at this time. I did speak with on-call hospice agreed to further evaluate treat the patient. Prior to the patient's leaving the patient did have an episode of hypotension and concern for cyanosis. The patient was placed on an oxygen mask and 2 L of fluid were hung. The patient likely developed some rigors. After repeat discussion the patient was feeling somewhat improved with the fluids. The patient is maintaining his airway and does not require acute intervention with BiPAP or intubation at this time. Additional blood work and antibiotics were added by the hospitalist and the patient was pending admission to the ICU. The patient was subsequently taken to the ICU. Impression & Plan Small bowel obstruction, Abdominal pain Discharge Plan Visit Data *Final* Discharge Date/Time: 08/17/18 21:29 Chief Complaint: Abdominal Pain Stated Complaint: ABDOMINAL PAIN AND VOMITING ED Provider: Darrell Brice Discharge Problem: Small bowel obstruction, Abdominal pain Patient Disposition: Admitted As Inpatient Discharge Instructions Interventions: ED Discharge Assessment Last Done: 08/17/18 21:29 Discharge Problem: Abdominal pain Qualifiers: Abdominal location: generalized Qualified Code(s): R10.84 - Generalized abdominal pain The scribe's documentation has been prepared under my direction and personally reviewed by me in its entirety. I confirm that the note above accurately reflects all work, treatment, procedures, and medical decision making performed by me.
[2018-08-18] MEDS ORDERED: metroNIDAZOLE 500 MG/100 ML BAG IV SCH (04:00)
[2018-08-18 05:11] LABS: Basophils # (auto) 0.02 K/uL (0-0.2); Basophils % (auto) 0.2 %; Eosinophils # (auto) 0.01 K/uL (0-0.5); Eosinophils % (auto) 0.1 %; Hematocrit (blood only) 47.1 % (42-52); Hemoglobin 16.2 g/dL (14.0-18.0); Immature Granulocytes # (auto) 0.01 K/uL (0.00-0.02); Immature Granulocytes % (auto) 0.1 %; Lymphocytes % (auto) 5.9 %; Mean Corpuscular Hgb Conc 34.4 g/dL (32-36); Mean Corpuscular Volume 85.3 fL (80-100); Mean Platelet Volume 9.6 fL (7.4-10.4); Monocytes # (auto) 0.76 K/uL (0.11-0.59); Neutrophils # (auto) 7.16 K/uL (1.4-6.5); Neutrophils % (auto) 84.7 %; Platelet Count 171 K/uL (130-400); RDW Standard Deviation 40.2 fL (36.4-46.3); Red Blood Count 5.52 M/uL (4.7-6.1); White Blood Count 8.46 K/uL (4.8-10.8)
[2018-08-18 05:21] LABS: INR 1.1 (0.9-1.1); Prothrombin Time 10.9 Seconds (9.0-12.0)
[2018-08-18 06:01] LABS: Albumin Level 3.2 gm/dl (3.4-5.0); BUN Creatinine Ratio 17.9 (10-20); Bilirubin Direct 0.3 mg/dl (0-0.2); Bilirubin,Total 1.1 mg/dl (0.2-1); Calcium 7.9 mg/dl (8.5-10.1); Est GFR (Non-African American) 75.9; Magnesium 1.8 mg/dl (1.8-2.4); Potassium 4.1 mmol/L (3.5-5.1); Total Protein 6.7 gm/dl (6.4-8.2)
--- NOTE | 2018-08-18 06:11 | Progress Note ---
Date of Service August 18, 2018 Assessment & Plan (1) Small bowel obstruction: adm with partial sbo- acute decreased O2 sat and BP in ER last pm responded to IV fluid and O2- dehydration partially responsible. does not require urgent surgical intervention- will monitor progress may consider CT with contrast via NG- assess transit Subjective awake, alert , vitals stable- no abd pain had 850 from NG last pm then none since, had multiple loose bms last pm Physical Exam Vital Signs (Past 24 Hours): Last Vital Signs Temp 36.7 C 08/18/18 00:00 Pulse 76 08/18/18 03:01 Resp 25 H 08/18/18 03:01 BP 104/66 08/18/18 03:01 Pulse Ox 95 08/18/18 03:01 awake, alert, abd soft, nontender, has some bowel sounds
[2018-08-18] MEDS ORDERED: PIPERACILLIN/TAZOBACTAM 3.375 GM in DEXTROSE 5% 100 ML IV ONE (07:30)
--- NOTE | 2018-08-18 08:05 | Hospitalist Progress Note ---
Date of Service August 18, 2018 Assessment & Plan (1) Admitted to intensive care unit: Septic shock/recurrent small bowel obstruction/admission to ICU-- hypotension, hypoxia and altered mentation transiently was volume resusitated with 3 Liters of crystaloid (2) Septic shock: concern source from bowel, responded to fluids (3) Small bowel obstruction: NG tube to low intermittent suction. Zosyn 4.5 g IV every 8 hours. Pantoprazole 40 mg IV every 12 hours. Add Flagyl 500 mg IV every 8 hours for history of C. difficile. Morphine sulfate 4 mg IV every 4 hours as needed. Zofran 4 mg IV every 6 hours as needed. consulted general surgery Dr. Monty Hoyos. (4) GERD (gastroesophageal reflux disease): pantoprazole 40 mg IV every 12 hours. (5) BPH (benign prostatic hyperplasia): With a Mejia catheter in place to monitor I/O's closely. (6) History of Clostridium difficile colitis: Monitor stools closely. Add Flagyl 500 mg IV every 8 hours. (7) Hypothyroid: Changed levothyroxine from 150 mcg p.o. daily to 75 mcg IV daily Subjective Patient is in mild to moderate distress he is most uncomfortable with his NG tube he still having moderate abdominal pain he did have 3 bowel movements last p.m. but none since. He has had no flatus since. He has had some belching. He claims this is a 6 bowel obstruction in 3 years. 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 Navarro is aware of this. Dr. Navarro will see the patient on the hospital. His family and brothers are at the bedside and were updated Review of Systems ROS: well nourished well developed. No double vision blurry vision No problems with speech or swallowing No palpitations, chest pain or pressure No Wheezing or breathing issues Patient has centralized dull abdominal pain he has had no nausea or vomiting since the NG tube was placed the NG tube is put at least 850 overnight No burning urine urine frequency or changes in color No focal joint pain or muscle pain No skin rashes or oral lesions No unusual bruising or bleeding No focused back pain or numbness or loss of strength No changes in memory or confusion Physical Exam Vital Signs (Past 24 Hours): Last Vital Signs Temp 36.8 C 08/18/18 04:00 Pulse 67 08/18/18 06:31 Resp 14 08/18/18 06:31 BP 83/45 L 08/18/18 06:31 Pulse Ox 94 08/18/18 06:31 The patient appeared well nourished and normally developed. Vital signs as documented. Head exam is unremarkable. normocephalic, atraumatic Neck is without jugular venous distension, thyromegaly, or lymphademopathy Lungs are clear to auscultation and percussion. Cardiac exam reveals Rhythm is regular. First and second heart sounds normal. Abdominal exam reveals hypoactive bowel sounds soft mildly tender no masses, no organomegaly Extremities are nonedematous and both pedal pulses are present Neurologic exam is A&Ox3, no focal deficits, strength is equal bilateral Psychologically seems neither anxious or depressed Skin is warm Dry without bruises or lesions
[2018-08-18] MEDS: NSS + 20MEQ KCL 20 MEQ/1,000 ML BAG IV SCH ×2 (08:18→18:02)
[2018-08-18] MEDS: PANTOprazole 40 MG in SYRINGE 0 ML IV SCH (08:18)
[2018-08-18] MEDS: LEVOTHYROXINE SODIUM 75 MCG in SYRINGE 0 ML IV SCH (09:34)
--- NOTE | 2018-08-18 12:16 | Critical Care Consultation ---
Date of Consultation August 18, 2018 Assessment & Plan (1) Small bowel obstruction: Impression: 1. Hypovolemic shock rather than septic shock. Patient responded only to IV fluid. Distal ileum appeared to be inflamed. Etiology is unknown. 2. Small bowel obstruction, abdomen is soft, after placement of NG tube, clinically he is improving. 3. History of IBS, possible adhesions based on previous workup including ex lap at [facility] according to the patient. Plan: 1. I would continue the antibiotics for only 1 more day. 2. Discontinue Flagyl. 3. Appreciate surgical input. 4. The patient has a history of C. difficile colitis, not chronic or ongoing. No need for Flagyl. 5. Continue with PPI. 6. Glucose control. 7. Discussed with the staff on rounds and details. 8. Transfer the patient to regular floor. Critical care time spent with the patient was 35 minutes. History of Present Illness Reason for Consultation: Sepsis Requesting Physician: Dr. Esposito Attending Physician: Manpreet Esposito MD History of Present Illness Dear Dr. Esposito: Thank you for the kind referral of Mr. Johnson to critical care service. This is 68-year-old gentleman with history of recurrence of partial small bowel obstruction, history of diverticulosis in the past, has been evaluated with GI in the past and underwent colonoscopy, he was also evaluated by [facility] with ex lap, found to have adhesions but did not require lysis at that time according to him. The patient presented to the hospital with left upper quadrant pain accompanied also with hypertension and has to be placed on aggressive IV fluid. Initial diagnosis was sepsis and treated the. Workup including abdominal CT showed small bowel obstruction, at the distal ileum with right lower quadrant. With wall thickening in that area. No free air, free fluid in the pelvis only, no pneumobilia. The patient was admitted to the ICU, and kept n.p.o., NG tube was placed with 800 mL of gastric fluid was removed, the patient today in the morning is feeling better, the pain has subsided, denies any nausea or vomiting although he did vomit once before coming to the hospital. He has been feeling sick for 3 days prior to his presentation. He denies any constipation but he did have diarrhea x6 times for the past 24 hours. No fever but he had chills. No swelling in his lower extremities, denies any dizziness or loss of consciousness, no palpitation, no chest pain, no shortness of breath. The rest of his review of system otherwise was unremarkable. The patient was started on antibiotics thought of sepsis as well. Allergies Allergy/AdvReac Type Severity Reaction Status Date / Time No Known Allergies Allergy Unverified 07/22/18 09:05 Home Medications Home Medications Medication Instructions Recorded Confirmed Type levothyroxine [Synthroid] 150 mcg PO DAILY 08/17/18 08/17/18 History multivitamin 1 tab PO DAILY 08/17/18 08/17/18 History ranitidine HCl 150 mg PO UD 08/17/18 08/17/18 History tamsulosin [Flomax] 0.4 mg PO DAILY 08/17/18 08/17/18 History Patient History Medical History Irritable bowel syndrome (IBS) (Chronic) Diabetes (Acute) SBO (small bowel obstruction) Arthritis (Acute) Asthma (Acute) GERD (gastroesophageal reflux disease) (Acute) H/O nephrolithotomy with removal of calculi (Acute) Hx of Clostridium difficile infection (Acute) Hx of gastric ulcer (Acute) Hx of renal calculi (Acute) Hx of small bowel obstruction (Acute) Hypothyroidism (Acute) Low back pain (Acute) Malignant neoplasm of prostate (Acute) Right nephrolithiasis (Acute) Surgical History H/O hernia repair (Chronic) History of left inguinal hernia repair (Acute) Family History Father , afe 56 Heart attack Mother , age 76 Heart attack Brother , [place] at age 60 Prostate cancer Brother Age: 72 No problems noted. Daughter Age: 46 No problems noted. Uncle , of prostate cancer at 78. Diagnosed at 70. Had a seed implant. No problems noted. Social History Communication Ability: Effective Beliefs That Will Affect Care: None Current Living Situation: Spouse Other Information That Helps Us Care for You: No Feels Safe at Home: Yes Safety Concerns: Feels Safe At This Time Smoking Status: Never smoker Hx Alcohol Use: No Hx Substance Use: No Review of Systems Review of system otherwise was unremarkable except for the above. Physical Exam Vital Signs (Past 24 Hours): Last Vital Signs Temp 36.5 C 08/18/18 08:00 Pulse 65 08/18/18 11:01 Resp 16 08/18/18 11:01 BP 125/77 08/18/18 11:01 Pulse Ox 94 08/18/18 11:01 Physical Exam: Vital signs are stable, the patient is not hypotensive today, map is 76, blood pressure 108/66, heart rate is 67, no JVD, S1-S2 regular rate and rhythm, distant breath sounds, abdomen is benign, nontender, no rebound, soft, bowel sounds are positive, no edema, neurologically he is intact, no oral lesions. Results & Data Laboratory Results Labs showed normal CBC, normal ABG, and normal BMP, other labs are within normal limits. Diagnostic Findings CAT scan of the abdomen was noted as mentioned above, distal ileum wall thickening, free fluid in the pelvis, no free air, no pneumobilia.
[2018-08-18] MEDS: PIPERACILLIN/TAZOBACTAM 3.375 GM in DEXTROSE 5% 100 ML IV SCH ×2 (12:31→20:27)
--- NOTE | 2018-08-18 16:03 | Consultation Report ---
DATE OF CONSULTATION: 08/18/2018 GI CONSULT NOTE REASON FOR EVALUATION: Small-bowel obstruction. HISTORY OF PRESENT ILLNESS: The patient is a 68-year-old male who has had intermittent bowel obstructions over the last few years. He reports having up to 6 of these episodes. He has had a colonoscopy at [place] by Dr. Stan Christina and was noted to have some ulcerations in the ileum. It is not clear whether these were related to nonsteroidal medication or possibly Crohn's disease. He is currently not on any medication for Crohn's and for 5 hours prior to coming to the hospital, he was reporting increasing abdominal pain. In the ER, he had an x-ray, a CT scan that showed distal small bowel narrowing with small-bowel obstruction with a transition point in the terminal ileum. He has had a nasogastric tube placed and he is being decompressed at this time. He was a little bit hypotensive when he presented, but it was probably from volume depletion. He did have what he describes as a slushy bowel movement just before coming to the hospital yesterday evening. Since being hospitalized, he has been started on Zosyn and Flagyl and pantoprazole. PAST MEDICAL HISTORY: Remarkable for acid reflux, benign prostatic hypertrophy, recurrent small bowel obstructions and hypothyroidism. MEDICATIONS: Synthroid, multiple vitamin, ranitidine and Flomax. ALLERGIES: None. FAMILY HISTORY: Father of heart attack at 56. Mother at 76 with heart attack. Brother of heart attack at 60, also had prostate cancer. Another brother, 72, living. Daughter, 46, healthy. SOCIAL HISTORY: The patient lives with his spouse. Does not smoke, does not use alcohol. REVIEW OF SYSTEMS: Negative for anything other than what was just described. PHYSICAL EXAMINATION: GENERAL: The patient appears in no acute distress, lying in bed with a nasogastric tube in, draining bilious material. VITAL SIGNS: Blood pressure is 108/93, pulse 93. He is afebrile. Room air saturation is 91%. ABDOMEN: Shows left inguinal scar from a previous hernia repair. Bowel sounds are hypoactive. There is some mild central abdominal tenderness. No mass or rebound. There is some tympany in the upper abdomen. LABORATORY DATA: Show white count of 12.09, hemoglobin 18.4, platelets are 190,000. IMPRESSION: The patient appears to have recurrent distal small-bowel obstruction of unclear etiology. The patient is currently being treated with nasogastric decompression and fluid support. If he does not recover, then obviously he will need to have some kind of surgical intervention, but if he does recover, we will probably try to clean him out and do a colonoscopy either later in this hospital stay or as an outpatient to try to get a more definitive diagnosis. We will continue to follow the patient during his hospital stay.
--- NOTE | 2018-08-18 16:07 | Medical Student Progress Note ---
Date of Service August 18, 2018 Assessment & Plan (1) Small bowel obstruction: 68yo M w/ PMHx of SBO (x6 in past 3 yrs), Hypertension, DM2 (diet controlled), Prostate Cancer (recent low grade dx), and a hernia repair who was admitted for SBO and potential spetic shock (after presenting with abd pain for much of the day consistent with previous pain experienced during SBOs). Pt became acutely hypotensive (sys BP 60s) and hypoxic (O2 sat mid to high 80s), but responded to 2 L of IV fluids and vitals stabilized. Improving partial or complete SBO-- unclear as pt had 3 loose BM yesterday evening. CT abd/pelvis supports SBO. Minimal nausea, no emesis. Initially 850mL of NG suction output, minimal since then. Improving pain. While pt did have a WBC of 12 on 08/17, was 8 on 08/18. Afebrile since arrival. While septic shock was of concern when pt became acutely hypotensive and hy poxic, he responded well to IV fluids. Empiric abx of zosyn was started to cover gram neg and anaerobes (potential GI source given SBO); flagyl was also started for c. diff concern, which has since been d/c (as pt was neg for c. diff). Blood cultures 2/2 show no growth to date. Set Up Machinist believes pt was just volume depleted Subjective 68yo M w/ PMHx of SBO (x6 in past 3 yrs), Hypertension, DM2 (diet controlled), Prostate Cancer (recent low grade dx), and a hernia repair who was admitted for SBO and potential spetic shock (after presenting with abd pain for much of the day consistent with previous pain experienced during SBOs). Pt became acutely hypotensive (sys BP 60s) and hypoxic (O2 sat mid to high 80s), but responded to 2 L of IV fluids and vitals stabilized. mild pain left mid-abd 3 loose BM yesterday evening (6 in past 24hrs) no flatulence 850mL output from NG tube suction; minimal output this AM no n/v/f/c/sob/cp pt is seen by GI (Dr. Navarro)-- there is a stricture in the distal ileum; potentially a result of ulceration from chronic NSAID use. Physical Exam Vital Signs (Past 24 Hours): Last Vital Signs Temp 36.5 C 08/18/18 08:00 Pulse 63 08/18/18 14:01 Resp 15 08/18/18 14:01 BP 126/71 08/18/18 14:01 Pulse Ox 93 08/18/18 14:01 Physical Exam: GENERAL: WD/WN, alter, cooperative, no acute distress HEENT: Head: Atraumatic, normocephalic. Eyes: EOMI Nose: No nasal congestion. Mouth: Moist mucous membranes, no lesions. Neck: Supple, no JVD, Nervous System: Mental status: Alert and oriented x 3 Cranial nerves II�XII grossly intact. Motor: Strength 5/5 in all muscle groups. Chest/Lung: Clear to auscultation bilaterally. No rales, rhonchi, wheezing, or rubs. Heart: Regular rate and rhythm. Normal S1, S2. No murmurs, rubs, or gallops. Abdomen: Soft, tender left mid-abd, hypoactive BS, tympanic, slight distention Extremities: No clubbing, cyanosis, or edema.
[2018-08-19] MEDS: PIPERACILLIN/TAZOBACTAM 3.375 GM in DEXTROSE 5% 100 ML IV SCH ×3 (04:12→19:54)
[2018-08-19 04:29] LABS: Basophils # (auto) 0.03 K/uL (0-0.2); Basophils % (auto) 0.4 %; Eosinophils % (auto) 2.7 %; Hematocrit (blood only) 46.3 % (42-52); Hemoglobin 15.6 g/dL (14.0-18.0); Immature Granulocytes # (auto) 0.01 K/uL (0.00-0.02); Immature Granulocytes % (auto) 0.1 %; Lymphocytes # (auto) 1.54 K/uL (1.2-3.4); Lymphocytes % (auto) 20.6 %; Mean Corpuscular Hgb Conc 33.7 g/dL (32-36); Mean Corpuscular Volume 87.5 fL (80-100); Mean Platelet Volume 9.2 fL (7.4-10.4); Monocytes # (auto) 0.73 K/uL (0.11-0.59); Monocytes % (auto) 9.8 %; Neutrophils # (auto) 4.96 K/uL (1.4-6.5); Neutrophils % (auto) 66.4 %; Platelet Count 148 K/uL (130-400); RDW Coefficient of Variation 13.3 % (11.5-14.5); RDW Standard Deviation 42.3 fL (36.4-46.3); Red Blood Count 5.29 M/uL (4.7-6.1); White Blood Count 7.47 K/uL (4.8-10.8)
[2018-08-19 04:47] LABS: Albumin Level 2.9 gm/dl (3.4-5.0); BUN Creatinine Ratio 15.1 (10-20); Bilirubin Direct 0.3 mg/dl (0-0.2); Calcium 7.9 mg/dl (8.5-10.1); Creatinine Clr Calc Pharmacy 83.3 ml/min; Est GFR (African American) 90.2; Est GFR (Non-African American) 77.8; Magnesium 1.9 mg/dl (1.8-2.4)
[2018-08-19 04:49] LABS: INR 1.1 (0.9-1.1); Partial Thromboplastin Time 26.5 Seconds (21.0-31.0); Prothrombin Time 10.8 Seconds (9.0-12.0)
[2018-08-19 04:50] LABS: Bilirubin,Total 0.8 mg/dl (0.2-1); Total Protein 6.6 gm/dl (6.4-8.2)
--- NOTE | 2018-08-19 08:46 | Surgery Progress Note ---
Date of Service August 19, 2018 Assessment & Plan (1) Small bowel obstruction: 08/19/2018 Pt seen and examined with Dr. Salmeron. Pt doing well, denies abdominal pain. multiple bowel movements, passing flatus. NG tube still in place- will order abdominal series with possible NG tube remova l pending results. Pt to be transferred to 2nd floor. 08/18/2018 adm with partial sbo- acute decreased O2 sat and BP in ER last pm responded to IV fluid and O2- dehydration partially responsible. does not require urgent surgical intervention- will monitor progress may consider CT with contrast via NG- assess transit Subjective no abdominal pain reports multiple bowel movements, passing flatus. NG tube still in place - output 100 cc overnight. Physical Exam Vital Signs (Past 24 Hours): Last Vital Signs Temp 36.5 C 08/19/18 04:00 Pulse 52 L 08/19/18 07:00 Resp 14 08/19/18 07:00 BP 131/78 08/19/18 07:00 Pulse Ox 97 08/19/18 07:00 Gastrointestinal (Abdomen): Inspection/Auscultation: + abdomen distended (distention is improved since admission. ) Percussion/Palpation: abdomen soft; abdomen nontender
[2018-08-19] MEDS: NSS + 20MEQ KCL 20 MEQ/1,000 ML BAG IV SCH ×3 (08:47→23:58)
--- NOTE | 2018-08-19 08:47 | XRay Report ---
XR abdomen min 2V HISTORY: 68 years-old Male eval sbo acute generalized abdominal pain. Follow up study in a patient w ith small bowel obstruction COMPARISON: CT abdomen and pelvis 08/17/2018 TECHNIQUE: 2 views of the abdomen FINDINGS: Enteric tube distal tip projects over the abdominal left upper quadrant within the region of the victor hugo emre cardia. Mildly dilated air-filled loop of small bowel is noted about the abdominal left upper handy drant measuring up to 3.7 cm. Decreased small bowel distention from comparison. Gas-filled large carmen l is noted with right hemicolon air-fluid levels. No pneumatosis or pneumoperitoneum. No urolith iden tified. Right hemidiaphragm elevation with right basilar opacities. Degenerative changes of the spine, pelvis and hips. Infectious scoliosis of the lumbar spine. IMPRESSION: 1. Decreased small bowel distention suggests resolving small bowel obstruction. 2. No pneumatosis or pneumoperitoneum. 3. Enteric tube distal tip projects in the spectrum region of the gastric cardia. 4. Air-fluid levels about the right hemicolon are suggestive of diarrheal illness. The above report was generated using voice recognition software. It may contain grammatical, syntax o r spelling errors. Electronically signed by: Marko Pierre M.D. 08/19/2018 8:45 AM
[2018-08-19] MEDS: PANTOprazole 40 MG in SYRINGE 0 ML IV SCH (09:40)
[2018-08-19] MEDS: LEVOTHYROXINE SODIUM 75 MCG in SYRINGE 0 ML IV SCH (09:40)
--- NOTE | 2018-08-19 13:39 | Medical Student Progress Note ---
Date of Service August 19, 2018 Assessment & Plan (1) Small bowel obstruction: 68yo M w/ PMHx of SBO (x6 in past 3 yrs), Hypertension, DM2 (diet controlled), Prostate Cancer (recent low grade dx), and a hernia repair who was admitted for SBO and potential spetic shock (after presenting with abd pain for much of the day consistent with previous pain experienced during SBOs). Pt became acutely hypotensive (sys BP 60s) and hypoxic (O2 sat mid to high 80s), but responded to 2 L of IV fluids and vitals stabilized. 3-4 loose BM in past 24hrs. No abd pain, just diffuse tenderness. Minimal NG output. KUB on 08/19 shows decreased SB distension suggesting resolving SBO; air fluid levels in right hemicolon suggest diarrheal illness. While pt did have a WBC of 12 on 08/17, was 8 on 08/18. Afebrile since arrival. SBO resolving-- can remove NG tube and advance to clear liquid then soft diet. d/c abx. Diarrhea started once pt was in the ED-- related to Abx or his hx of IBS? Subjective 68yo M w/ PMHx of SBO (x6 in past 3 yrs), Hypertension, DM2 (diet controlled), Prostate Cancer (recent low grade dx), and a hernia repair who was admitted for SBO and potential spetic shock (after presenting with abd pain for much of the day consistent with previous pain experienced during SBOs). Pt became acutely hypotensive (sys BP 60s) and hypoxic (O2 sat mid to high 80s), but responded to 2 L of IV fluids and vitals stabilized. 3-4 loose BM in past 24hr (6 in previous 24hr) no abd pain passing gas no n/v/f/c minimal output from NG this AM; 100mL overnight Physical Exam Vital Signs (Past 24 Hours): Last Vital Signs Temp 36.9 C 08/19/18 09:00 Pulse 60 08/19/18 09:00 Resp 18 08/19/18 09:00 BP 159/89 H 08/19/18 09:00 Pulse Ox 91 08/19/18 09:00 Physical Exam: GENERAL: WD/WN, alter, cooperative, no acute distress HEENT: Head: Atraumatic, normocephalic. Eyes: EOMI Nose: No nasal congestion. Mouth: Moist mucous membranes, no lesions. Neck: Supple, no JVD, Nervous System: Mental status: Alert and oriented x 3 Cranial nerves II�XII grossly intact. Motor: Strength 5/5 in all muscle groups. Chest/Lung: Clear to auscultation bilaterally. No rales, rhonchi, wheezing, or rubs. Heart: Regular rate and rhythm. Normal S1, S2. No murmurs, rubs, or gallops. Abdomen: Soft, diffusely tender, normoactive BS, dullness to percussion, less distended Extremities: No clubbing, cyanosis, or edema. Results & Data Diagnostic Findings XR abdomen min 2V HISTORY: 68 years-old Male eval sbo acute generalized abdominal pain. Follow up study in a patient with small bowel obstruction COMPARISON: CT abdomen and pelvis 08/17/2018 TECHNIQUE: 2 views of the abdomen FINDINGS: Enteric tube distal tip projects over the abdominal left upper quadrant within the region of the gastric cardia. Mildly dilated air-filled loop of small bowel is noted about the abdominal left upper quadrant measuring up to 3.7 cm. Decreased small bowel distention from comparison. Gas-filled large bowel is noted with right hemicolon air-fluid levels. No pneumatosis or pneumoperitoneum. No urolith identified. Right hemidiaphragm elevation with right basilar opacities. Degenerative changes of the spine, pelvis and hips. Infectious scoliosis of the lumbar spine. IMPRESSION: 1. Decreased small bowel distention suggests resolving small bowel obstruction. 2. No pneumatosis or pneumoperitoneum. 3. Enteric tube distal tip projects in the spectrum region of the gastric cardia. 4. Air-fluid levels about the right hemicolon are suggestive of diarrheal illness. The above report was generated using voice recognition software. It may contain grammatical, syntax or spelling errors. Electronically signed by: Marko Pierre M.D. 08/19/2018 8:45 AM
--- NOTE | 2018-08-19 16:09 | Hospitalist Progress Note ---
Date of Service August 19, 2018 Assessment & Plan (1) Admitted to intensive care unit: Septic shock/recurrent small bowel obstruction, initial admission to ICU--transitions to medical floor 08/19 hypotension, hypoxia and altered mentation now resolved was volume resusitated with 3 Liters of crystaloid (2) Septic shock: concern source from bowel, responded to fluids is maintained on Zosyn therapy (3) Small bowel obstruction: NG tube removed 08/19 clear liquid diet initiated Zosyn 4.5 g IV every 8 hours. Pantoprazole 40 mg IV every 12 hours. Add Flagyl 500 mg IV every 8 hours for history of C. difficile. Morphine sulfate 4 mg IV every 4 hours as needed. Zofran 4 mg IV every 6 hours as needed. consulted general surgery Dr. Monty Hoyos. (4) GERD (gastroesophageal reflux disease): pantoprazole 40 mg IV every 12 hours. (5) BPH (benign prostatic hyperplasia): With a Mejia catheter in place to monitor I/O's closely. (6) History of Clostridium difficile colitis: Monitor stools closely. C. difficile negative Flagyl was stopped (7) Hypothyroid: Changed levothyroxine from 150 mcg p.o. daily to 75 mcg IV daily transition back to p.o. when taking p.o. effectively Subjective Feels better today had multiple bowel movements however his x-ray still shows a ileus.. The patient is encouraged to have his NG tube removed and will begin clear liquid diet today Review of Systems ROS: well nourished well developed. No double vision blurry vision No problems with speech or swallowing No palpitations, chest pain or pressure No Wheezing or breathing issues Mild diffuse abdominal pain with no nausea vomiting did have some diarrhea No burning urine urine frequency or changes in color No focal joint pain or muscle pain No skin rashes or oral lesions No unusual bruising or bleeding No focused back pain or numbness or loss of strength No changes in memory or confusion Physical Exam Vital Signs (Past 24 Hours): Last Vital Signs Temp 36.6 C 08/19/18 15:43 Pulse 62 08/19/18 15:43 Resp 18 08/19/18 15:43 BP 150/90 H 08/19/18 15:43 Pulse Ox 91 08/19/18 15:43 The patient appeared well nourished and normally developed. Vital signs as documented. Head exam is unremarkable. normocephalic, atraumatic Neck is without jugular venous distension, thyromegaly, or lymphademopathy Lungs are clear to auscultation and percussion. Cardiac exam reveals Rhythm is regular. First and second heart sounds normal. Abdominal exam soft, hypoactive bowel sounds, no masses, no organomegaly Extremities are nonedematous and both pedal pulses are present Neurologic exam is A&Ox3, no focal deficits, strength is equal bilateral Psychologically seems neither anxious or depressed Skin is warm Dry without bruises or lesions
--- NOTE | 2018-08-19 22:34 | Progress Note ---
DATE: 08/19/2018 SUBJECTIVE: The patient has improved and starting to pass gas and stools as nasogastric tube has been removed and he has been started on liquids, which he is tolerating. PHYSICAL EXAMINATION: GENERAL: The patient appears in no acute distress. ABDOMEN: Less distended than previously. IMPRESSION: The patient is having small-bowel obstruction, which appears to have resolved. The area in question appears to be in the distal ileum. I would recommend that as an outpatient, we arrange for him to come as an outpatient to get a colonoscopy hopefully to include the terminal ileum, so we can try to get a better idea of what is causing the stenosis. Differential diagnosis includes adhesions, lymphoma, Crohn's disease, nonsteroidal-induced ulcerations or extrinsic compression. We will try to arrange for a colonoscopy at [facility] so that if a balloon dilation needs to be performed, it can be done at the same time that this be arranged as an outpatient once the patient is discharged.
[2018-08-20] MEDS: PIPERACILLIN/TAZOBACTAM 3.375 GM in DEXTROSE 5% 100 ML IV SCH ×2 (03:43→11:43)
[2018-08-20 07:32] LABS: Basophils # (auto) 0.02 K/uL (0-0.2); Basophils % (auto) 0.3 %; Eosinophils # (auto) 0.22 K/uL (0-0.5); Eosinophils % (auto) 3.4 %; Hematocrit (blood only) 44.9 % (42-52); Hemoglobin 15.6 g/dL (14.0-18.0); Immature Granulocytes # (auto) 0.01 K/uL (0.00-0.02); Immature Granulocytes % (auto) 0.2 %; Lymphocytes % (auto) 21.7 %; Mean Corpuscular Hgb Conc 34.7 g/dL (32-36); Mean Corpuscular Volume 84.7 fL (80-100); Mean Platelet Volume 9.1 fL (7.4-10.4); Monocytes # (auto) 0.55 K/uL (0.11-0.59); Monocytes % (auto) 8.5 %; Neutrophils # (auto) 4.24 K/uL (1.4-6.5); Neutrophils % (auto) 65.9 %; Platelet Count 157 K/uL (130-400); RDW Coefficient of Variation 12.9 % (11.5-14.5); RDW Standard Deviation 39.2 fL (36.4-46.3); White Blood Count 6.44 K/uL (4.8-10.8)
[2018-08-20 07:44] LABS: INR 1.1 (0.9-1.1); Partial Thromboplastin Time 26.9 Seconds (21.0-31.0)
--- NOTE | 2018-08-20 08:05 | Surgery Progress Note ---
Date of Service August 20, 2018 Assessment & Plan (1) Small bowel obstruction: advance diet as gracy to low fiber, home when tolerating diet seen with Dr. Salmeron outpatient GI f/u Subjective feeling better, no nausea, tolerating liquids Physical Exam Vital Signs (Past 24 Hours): Last Vital Signs Temp 36.8 C 08/20/18 07:26 Pulse 74 08/20/18 07:26 Resp 16 08/20/18 07:26 BP 155/89 H 08/20/18 07:26 Pulse Ox 96 08/20/18 07:26 Gastrointestinal (Abdomen): Inspection/Auscultation: abdomen not distended Percussion/Palpation: abdomen soft; abdomen nontender
[2018-08-20 08:10] LABS: Albumin Level 3.1 gm/dl (3.4-5.0); Bilirubin Direct 0.3 mg/dl (0-0.2); Bilirubin,Total 0.9 mg/dl (0.2-1); Calcium 8.6 mg/dl (8.5-10.1); Creatinine Clr Calc Pharmacy 89.3 ml/min; Est GFR (African American) 98.6; Est GFR (Non-African American) 85.1; Magnesium 1.8 mg/dl (1.8-2.4); Potassium 3.9 mmol/L (3.5-5.1); Total Protein 6.6 gm/dl (6.4-8.2)
[2018-08-20] MEDS: LEVOTHYROXINE SODIUM 75 MCG in SYRINGE 0 ML IV SCH (09:17)
[2018-08-20] MEDS: PANTOprazole 40 MG in SYRINGE 0 ML IV SCH (09:17)
[2018-08-20] MEDS: NSS + 20MEQ KCL 20 MEQ/1,000 ML BAG IV SCH (10:17)
--- NOTE | 2018-08-20 13:20 | Medical Student Progress Note ---
Date of Service August 20, 2018 Assessment & Plan (1) Small bowel obstruction: 68yo M w/ PMHx of SBO (x6 in past 3 yrs), Hypertension, DM2 (diet controlled), Prostate Cancer (recent low grade dx), and a hernia repair who was admitted for SBO and potential spetic shock (after presenting with abd pain for much of the day consistent with previous pain experienced during SBOs). Pt became acutely hypotensive (sys BP 60s) and hypoxic (O2 sat mid to high 80s), but responded to 2 L of IV fluids and vitals stabilized. 08/19 3-4 loose BM in past 24hrs. No abd pain, just diffuse tenderness. Minimal NG output. KUB on 08/19 shows decreased SB distension suggesting resolving SBO; air fluid levels in right hemicolon suggest diarrheal illness. While pt did have a WBC of 12 on 08/17, was 8 on 08/18. Afebrile since arrival. SBO resolving-- can remove NG tube and advance to clear liquid then soft diet. Diarrhea started once pt was in the ED-- related to Abx or his hx of IBS? 08/20 resolving SBO. surgery recommends advancing to low fiber diet. day 4 of pip/tazo in context of initial concern for sepsis; if pt tolerates diet-- transition to po abx, perhaps augmentin for an additional 5-7d for suspected colitis. persistent loose BM. negative for c. diff. may be due to abx, colitis, IBS (in context of stressful hospitalization). pt will f/u with Dr. Navarro to discuss work-up for stenotic distal ileum and treatment options (dilation, ressection). d/c for late today pending how pt tolerates diet or early tomorrow. Subjective 68yo M w/ PMHx of SBO (x6 in past 3 yrs), Hypertension, DM2 (diet controlled), Prostate Cancer (recent low grade dx), and a hernia repair who was admitted for SBO and potential spetic shock (after presenting with abd pain for much of the day consistent with previous pain experienced during SBOs). Pt became acutely hypotensive (sys BP 60s) and hypoxic (O2 sat mid to high 80s), but responded to 2 L of IV fluids and vitals stabilized. NG tube removed on 08/19 continues to have loose BMs (unsure how many in past 24hrs) some abd discomfort with eating passing gas no n/v/f/c Physical Exam Vital Signs (Past 24 Hours): Last Vital Signs Temp 36.8 C 08/20/18 07:26 Pulse 74 08/20/18 07:26 Resp 16 08/20/18 07:26 BP 155/89 H 08/20/18 07:26 Pulse Ox 96 08/20/18 07:26 Physical Exam: GENERAL: WD/WN, alter, cooperative, no acute distress HEENT: Head: Atraumatic, normocephalic. Eyes: EOMI Nose: No nasal congestion. Mouth: Moist mucous membranes, no lesions. Neck: Supple, no JVD, Nervous System: Mental status: Alert and oriented x 3 Cranial nerves II�XII grossly intact. Motor: Strength 5/5 in all muscle groups. Chest/Lung: Clear to auscultation bilaterally. No rales, rhonchi, wheezing, or rubs. Heart: Regular rate and rhythm. Normal S1, S2. No murmurs, rubs, or gallops. Abdomen: Soft, more distended than on 08/19, normoactive BS, resonant to percussion, midline tenderness Extremities: No clubbing, cyanosis, or edema.
--- NOTE | 2018-08-20 16:28 | Discharge Summary ---
Date of Service August 20, 2018 Admission HPI Per Admitting Provider The patient is a 68-year-old male who presented to the emergency department with abdominal pain, nausea and vomiting similar to his last presentation of small bowel obstruction that required admission from 06/07-06/09/17. CT scan of the abdomen and pelvis this time again suggested a small bowel obstruction with transition point in the distal ileum of the right lower quadrant, in the same area as 06/06/17. While in the ED, the patient became acutely hypotensive and hypoxic, systolic blood pressure into the low 60s, they did respond to aggressive fluid hydration of 2 L of normal saline wide open. The patient is being admitted to the ICU with diagnosis of small bowel obstruction and septic shock. Principal Diagnosis small bowel obstruction distal ileum, resolved Discharge Exam Constitutional well developed and average body habitus Eyes no conjunctival abnormality and no scleral abnormality Neck normal visual inspection and trachea midline Respiratory normal respiratory effort; no respiratory distress Auscultation: lungs clear to auscultation bilaterally Cardiovascular RRR, no murmur, no edema Gastrointestinal (Abdomen) normal bowel sounds, soft, nontender, no hepatosplenomegaly Musculoskeletal no cyanosis or clubbing, extremities motor strength 5/5 Discharge Data Allergies Allergy/AdvReac Type Severity Reaction Status Date / Time No Known Allergies Allergy Unverified 07/22/18 09:05 Consultations 08/17/18 20:22 ED Decision to Admit Stat 08/17/18 22:22 Consult Case Management - Discharge Planning Routine Consult Case Management - Discharge Planning Routine Consult General Surgery Routine Consult Transportation Inspector Routine Ordered Studies 08/17/18 18:20 CT abd pelvis IV con only Stat Hospital Course (1) Admitted to intensive care unit: Septic shock/recurrent small bowel obstruction, initial admission to ICU-- transitions to medical floor 08/19--> cultures are negative will be home on 3 additional days of antibiotics, suspect source to be from bowel hypotension, hypoxia and altered mentation resolved was volume resusitated with 3 Liters of crystaloid (2) Septic shock: concern source from bowel, responded to fluids (3) Small bowel obstruction: NG tube removed 08/19 advancing diet tolerated, will have follow up with Dr Navarro for repeat colonoscopy to try to evaluate terminal ileum (4) GERD (gastroesophageal reflux disease): zantac (5) BPH (benign prostatic hyperplasia): no symptoms (6) History of Clostridium difficile colitis: Monitor stools closely. C. difficile negative Flagyl was stopped (7) Hypothyroid: levothyroxine from 150 mcg p.o. daily Total Time Total Time Spent Total Time Spent (In Minutes): greater than 30 minutes were required to prepare discharge Discharge Plan Discharge Items Patient Disposition: Home - Self-Care Reason For Visit: ABDOMINAL PAIN AND VOMITING Discharge Diagnosis: small bowel obstruction Discharge Goals: Decrease discomfort and Diagnostic testing Activity: Resume your previous activity Non-emergency contact: Primary Care Provider Call non-emergency contact if: you have any medication questions Follow-up/Referrals: Robin Cazares CRNP [Primary Care Provider] - 08/30/18 10:20 am (Please, follow up with Robin LOEPS on ThursdayAugust 30 at 10:20 am. *If you need to change this appointment, call the office at [phone].) Fly Navarro [Family Provider] - (Please, follow up at [facility] with Dr. Navarro. *His nurse will call you with the appointment details. This office is located at [address] [place] [address]. If you have any questions, call the office at [phone].) Diet: Regular Addtl Provider Instructions: slowly advance diet Prescriptions: New amoxicillin-pot clavulanate [Augmentin] 875-125 mg tablet 1 tab PO BID Qty: 6 RF: 0 Continued multivitamin Tablet 1 tab PO DAILY RF: 0 tamsulosin [Flomax] 0.4 mg capsule 0.4 mg PO DAILY RF: 0 ranitidine HCl 150 mg Tablet 150 mg PO UD RF: 0 levothyroxine [Synthroid] 150 mcg tablet 150 mcg PO DAILY RF: 0 Stand-Alone Forms: Call Back Authorization, [facility] Discharge Orders: Discharge Order (Routine); Ordered 08/20/18 Ordered By: Manpreet Esposito Admission Data Admit Date/Time: 08/17/18 21:14 Attending Provider: Manpreet Esposito Admit Provider: Migel Florez Primary Care Provider: Robin Cazares Other Providers: Migel Florez ; Monty Hoyos ; Aaron Roldan Service: Medical Other Interventions: Discharge Summary Assessment (RN) Last Done: 08/20/18 13:36 DC Date/Time DO NOT enter until pt leaves facility: 08/20/18 14:29
--- NOTE | 2018-08-24 10:32 | Coding Query ---
To promote full compliance with coding requirements relating to patient care, provider participation is requested in all cases of shear scrapman uncertainty. Please assist us with the question(s) below: Coding Question(s): The diagnosis below was listed in the Progress Notes but there is conflicting documentation in the record. Please indicate if it is still a possible diagnosis or ruled out. Thanks so much for your help! SEPSIS ( xxxx ) Sepsis, POA ( ) Sepsis, ruled out ( ) Other (please specify) MTDD
== END 2018-08-20 14:29 | disposition home or self-care (01) | DRG 871 ==
LOC: ED 17:55 → SUATTDRO 21:14 → 1E 21:14 → 2W 08-19 08:06

== ENCOUNTER 2019-01-27 09:33 | Inpatient (IN) ==
[2019-01-27 10:04] LABS: Basophils # (auto) 0.02 K/uL (0-0.2); Basophils % (auto) 0.2 %; Eosinophils # (auto) 0.04 K/uL (0-0.5); Eosinophils % (auto) 0.3 %; Hematocrit (blood only) 47.2 % (42-52); Hemoglobin 16.4 g/dL (14.0-18.0); Immature Granulocytes # (auto) 0.04 K/uL (0.00-0.02); Immature Granulocytes % (auto) 0.3 %; Lymphocytes # (auto) 0.97 K/uL (1.2-3.4); Lymphocytes % (auto) 8.1 %; Mean Corpuscular Hemoglobin 29.7 pg (25-34); Mean Corpuscular Hgb Conc 34.7 g/dL (32-36); Mean Corpuscular Volume 85.4 fL (80-100); Mean Platelet Volume 9.5 fL (7.4-10.4); Monocytes # (auto) 0.99 K/uL (0.11-0.59); Monocytes % (auto) 8.3 %; Neutrophils # (auto) 9.86 K/uL (1.4-6.5); Neutrophils % (auto) 82.8 %; Platelet Count 143 K/uL (130-400); RDW Coefficient of Variation 13.3 % (11.5-14.5); RDW Standard Deviation 41.7 fL (36.4-46.3); Red Blood Count 5.53 M/uL (4.7-6.1); White Blood Count 11.92 K/uL (4.8-10.8)
[2019-01-27 10:15] LABS: Partial Thromboplastin Ratio 0.9; Partial Thromboplastin Time 23.4 Seconds (21.0-31.0); Prothrombin Time 10.6 Seconds (9.0-12.0)
[2019-01-27 10:20] LABS: Alanine Aminotransferase 39 U/L (12-78); Albumin Level 3.4 gm/dl (3.4-5.0); Aspartate Aminotransferase 19 U/L (15-37); BUN Creatinine Ratio 14.5 (10-20); Blood Urea Nitrogen 17 mg/dl (7-18); C Reactive Protein 2.46 mg/dl (0-0.29); Calcium 8.8 mg/dl (8.5-10.1); Carbon Dioxide 27 mmol/L (21-32); Chloride 107 mmol/L (98-107); Creatinine Clr Calc Pharmacy 71.6 ml/min; Est GFR (Non-African American) 62.2; Glucose 110 mg/dl (70-99); Magnesium 1.8 mg/dl (1.8-2.4); Potassium 3.5 mmol/L (3.5-5.1); Sodium 140 mmol/L (136-145)
[2019-01-27 10:23] LABS: Alkaline Phosphatase 82 U/L (45-117); Globulin 3.4 gm/dl (2.5-4.0); Total Protein 6.8 gm/dl (6.4-8.2); Troponin I < 0.015 ng/ml (0-0.045)
--- NOTE | 2019-01-27 10:35 | XRay Report ---
XR chest 1V portable HISTORY: 68 years-old Male Sepsis acute sepsis COMPARISON: Chest radiograph 08/17/2018 TECHNIQUE: Portable AP view of the chest FINDINGS: Cardiac silhouette is mildly enlarged, unchanged. Calcified plaque of the thoracic aortic arch. No ov ert pulmonary edema. Ill-defined bibasilar opacities with blunting of the left costophrenic angle. No pneumothorax or large pleural effusion. Bones of the chest appear grossly intact. IMPRESSION: 1. Mild cardiomegaly without overt pulmonary edema. 2. Bibasilar opacities suggest probable atelectasis with pneumonitis considered less likely. The above report was generated using voice recognition software. It may contain grammatical, syntax o r spelling errors. Electronically signed by: Marko Pierre M.D. 01/27/2019 10:33 AM
[2019-01-27] MEDS ORDERED: OPTIRAY 320 125ml IV PRN (11:51)
[2019-01-27 12:00] LABS: Appearance Urine Cloudy (Clear); Bacteria Urine Automated 4+ (Negative); Bilirubin Urine Negative (Negative); Blood Urine 2+ (Negative); Color Urine Dark Yellow; Epithelial Cell Urine Auto 0-5 /lpf (0-5); Glucose Urine UA Negative (Negative); Ketones Urine Negative (Negative); Leukocyte Esterase Urine 2+ (Negative); Nitrite Urine Positive (Negative); Protein Urine Trace (Negative); Specific Gravity Urine 1.029 (1.000-1.030); Urobilinogen Urine Negative (Negative); WBC Urine Automated >30 /hpf (0-5)
[2019-01-27 12:09] LABS: Cast Urine Automated >30 /lpf (0-5)
--- NOTE | 2019-01-27 12:11 | CT Scan Report ---
CT abd pelvis IV con only CT DOSE: 1717.14 mGy.cm HISTORY: Pain recent rotstat e biposy TECHNIQUE: Multiaxial CT images of the abdomen and pelvis were performed following the use of intrave nous contrast. A dose lowering technique was utilized adhering to the principles of ALARA. COMPARISON STUDY: 08/17/2018 FINDINGS: Bibasilar parenchymal infiltrative and atelectatic change. The liver spleen and pancreas ap pear unremarkable. Bilateral renal cysts are stable. No evidence for hydronephrosis. Nonobstructive bowel pattern. Findings of chronic distal descending colon as well as proximal to mid sigmoid chronic diverticular-type change. No evidence for acute diverticulitis. No evidence for abscess collection or obstruction. No free flui d within the pelvic cul-de-sac. Prosthetic enlargement. IMPRESSION: 1. No acute process in the abdomen or pelvis. 2. Chronic descending and sigmoid colonic diverticulosis. 3. No evidence for acute diverticulitis. 4. Unchanged bilateral renal cysts. 5. Bibasilar parenchymal infiltrative/atelectatic change. The above report was generated using voice recognition software. It may contain grammatical, syntax or spelling errors. Electronically signed by: Rahul Mckeon M.D. 01/27/2019 12:10 PM
--- NOTE | 2019-01-27 12:24 | CT Scan Report ---
CHEST CTA for PULMONARY ARTERIES CT DOSE: HISTORY: Atypical chest pain. Shortness of breath. TECHNIQUE: Multiaxial CT images of the chest were performed following the intravenous administration of contrast to evaluate the pulmonary arteries. Maximal intensity projection images were also obtaine d. A dose lowering technique was utilized adhering to the principles of ALARA. COMPARISON STUDY: None. FINDINGS: Normal caliber thoracic aorta with no evidence for dissection. No filling defects within th e pulmonary arteries to suggest pulmonary embolus. The heart is normal in size. Low-density nodule al daniele the left side of the proximal trachea which measures 4.6 x 4.6 cm. This favors subsegmental exten robert of a left thyroid nodule/goiter. This results in right deviation of the proximal trachea. No sig nificant tracheal narrowing. No mediastinal or hilar lymphadenopathy. Normal esophagus. The visualize d liver and spleen are unremarkable. Trace bilateral pleural effusions and a trace pericardial effusi on. Old, healed right anterior rib fracture. No suspicious lytic or blastic osseous lesions. No pneum othorax. The central airways are patent. Small biapical blebs are noted. Mild emphysema. Patchy areas of consolidation within the lower lobes posteriorly. IMPRESSION: 1. No evidence for pulmonary embolus. 2. Patchy areas of consolidation within the bilateral lower lobes posteriorly. This may represent a p neumonia. Superimposed atelectasis could also have a similar appearance. 3. Trace pleural effusions and a trace pericardial effusion. 4. A 4.6 x 4.6 cm low density upper left paratracheal nodule. This favors substernal extension of a l eft thyroid nodule/goiter. This results in mild right tracheal deviation. Electronically signed by: Jeff Ching M.D. 01/27/2019 12:23 PM
[2019-01-27] MEDS ORDERED: PIPERACILL/TAZOBAC CONSULT ACTIVE PRN ×2 (12:26→14:45)
[2019-01-27] MEDS ORDERED: SODIUM CHLORIDE 0.9% 1000ML 1,000 ML IV ONE (12:26)
[2019-01-27] MEDS ORDERED: PIPERACILLIN/TAZOBACTAM 4.5 GM/120 ML BAG IV ONE (12:26)
--- NOTE | 2019-01-27 12:46 | History & Physical Report ---
Date of Service January 27, 2019 Assessment & Plan (1) Pneumonia: with hypoxia at rest on RA No hx of other pulm issues Noted on CTA Zosyn started in the ED, will continue Monitor CBC, elevated in the ED (2) Acute UTI: UA noted in the setting of recent bx Cx pending Has been on cipro proph s/p recent prostate bx Will c/s Dr. Jiang given recent bx and now with infection despite cipro use Monitor with zosyn (3) Hypothyroidism: continue home meds (4) GERD (gastroesophageal reflux disease): continue home meds (5) Prostate cancer: As noted above (6) Chronic steroid use: States this is prescribed by Dr. Navarro for inflammation in the ileum that was thought to be the cause of recurrent SBO (6 episodes) Could be cause of elevated WBC Pt with immunosuppression given chronic use (7) Clostridioides difficile infection: Over a year ago with hospitalization for SBO Diarrhea x1 episode last medical officer give cipro use, but no need to check at this time (8) DVT prophylaxis: SCDs History of Present Illness Primary Care Provider: MOSES Reyes 68 y/o M c/o fever, n/d. Pt states he was sleeping and this woke him up last night. He felt lightheaded as well. This continued throughout the night and he was never really able to return to sleep. Pt also had a bit of substernal chest pressure. No SOB. He was having increased urinary frequency last night, but no pain. Pt denies abd pain, v/c, LE pain or swelling. Diarrhea was a single episode in the night, none since. Pt was seen at [facility] in clinic yesterday after an accident with a drill causing a L hand laceration. He had glue applied to a deep laceration and it was wrapped. He was told to return if he felt unwell, so he went there first this AM thinking it might be related to his hand. He states his hand has pain, but it is better than yesterday. He was seen there today and states his hand was unwrapped and it looked improving to them. Pt had a prostate bx this week with Dr Turcios. He was put on cipro prophylactically. He felt fine from this standpoint until he noted increased frequency last night. Allergies Allergy/AdvReac Type Severity Reaction Status Date / Time No Known Drug Allergies Allergy Verified 01/27/19 10:53 Home Medications Home Medications Medication Instructions Recorded Confirmed Type multivitamin 1 tab PO QAM 08/17/18 01/27/19 History ranitidine HCl 150 mg PO HS 08/17/18 01/27/19 History tamsulosin [Flomax] 0.4 mg PO HS 08/17/18 01/27/19 History prednisone 10 mg PO QAM 11/08/18 01/27/19 History levothyroxine 150 mcg tablet 150 mcg PO QAM #90 tab 12/27/18 01/27/19 Rx acetaminophen [Tylenol Extra 500 mg PO Q6H PRN 01/27/19 01/27/19 History Strength] ciprofloxacin HCl 500 mg PO BID 01/27/19 01/27/19 History Past Med/Surg History Medical History Renal insufficiency (Chronic) Arthritis (Chronic) Hypothyroidism (Chronic) GERD (gastroesophageal reflux disease) (Chronic) Prostate cancer (Chronic) diagnosed 06/2018--per pt just monitoring for now History of asthma (Chronic) History of kidney disease (Chronic) Benign prostatic hyperplasia with urinary obstruction (Chronic) Dysmetabolic syndrome X (Chronic) Irritable bowel syndrome (IBS) (Chronic) Diverticulosis (Chronic) Chronic steroid use (Chronic) History of colon polyps (Chronic) Hx of renal calculi (Chronic) Hx of small bowel obstruction (Chronic) Low back pain (Chronic) Acute pain of right foot (Resolved) History of gastric ulcer (Resolved) History of hyperthyroidism (Resolved) History of viral infection (Resolved) Hx of Clostridium difficile infection (Resolved) Ileum ulcer (Resolved) Nausea and vomiting after administration of anesthetic agent (Resolved) Right nephrolithiasis (Resolved) History of gastrointestinal ulcer Need for hepatitis C screening test Surgical History History of colonoscopy History of esophagogastroduodenoscopy (EGD) History of hernia repair 1988 History of left inguinal hernia repair History of lithotripsy x2 History of prostate biopsy x2--1 benign and now 2nd malignant History of tooth extraction Family History Father , afe 56 Myocardial infarction Cardiac disorder Diabetes FHx: cholecystectomy Hypertension Mother , age 76 Family history of diabetes mellitus Cardiac disorder Diabetes FHx: cholecystectomy Brother , CT at age 60 Family history of diabetes mellitus Family hx colonic polyps Cardiac disorder Diabetes Brother Age: 72 FHx: cholecystectomy Hypertension Myocardial infarction Daughter Age: 47 No problems noted. Uncle , of prostate cancer at 78. Diagnosed at 70. Had a seed implant. Prostate cancer Other No family history of adverse response to anesthesia Social History Preferred Language: Pashto Communication Ability: Effective Visual Impairment: No Limitations Hearing Ability: Hard of Hearing Editor Required: No Beliefs That Will Affect Care: None marital status: Current Living Situation: Spouse current occupational status: retired Feels Safe at Home: Yes Smoking Status: Never smoker Second Hand Exposure: Yes (parents smoked) ; Hx Alcohol Use: No Hx Substance Use: No caffeine: Yes Dental Care, Regularly: Yes Physical Activity Frequency Comment: LIMITED BY PHYSICAL CONDITION Seatbelt Use: always Review of Systems Review of Systems: Pertinent positives and negatives reviewed in HPI--all others negative Physical Exam Constitutional: WD/WN, vitals as above Eyes: normal visual vasquez by confrontation and + anicteric sclerae Neck: normal visual inspection and trachea midline Respiratory: normal respiratory effort; no respiratory distress Auscultation: + crackles; no wheezes Cardiovascular: Rate/Rhythm: regular rate and regular rhythm Gastrointestinal (Abdomen): Inspection/Auscultation: abdomen not distended Percussion/Palpation: abdomen soft; abdomen nontender Musculoskeletal: Head/Neck/Chest: normocephalic and head atraumatic negative for edema, peripheral pulses intact Skin: no rashes, warm and dry L hand with bandages that are clean and dry Neurologic: awake; not confused Speech / Cognition: normal speech Psychiatric: A+Ox3, euthymic affect Results & Data Vital Signs (Past 12 Hours) Vital Signs Temp Pulse Pulse Resp BP BP Pulse Ox 01/27/19 12:30 66 19 127/77 89 L 01/27/19 12:04 67 20 117/73 96 01/27/19 11:30 72 20 111/73 96 01/27/19 11:15 73 20 117/74 96 01/27/19 11:00 71 20 101/60 94 01/27/19 10:45 75 16 116/69 90 01/27/19 10:30 74 19 97/67 L 01/27/19 10:15 75 15 97/59 L 91 01/27/19 10:00 72 13 100/65 91 01/27/19 09:53 75 20 107/63 91 01/27/19 09:45 76 19 93 01/27/19 09:43 36.9 C 76 19 115/67 93 Diagnostic Findings CXR: atelectesis vs PNA CTA: 1. No evidence for pulmonary embolus. 2. Patchy areas of consolidation within the bilateral lower lobes posteriorly. This may represent a pneumonia. Superimposed atelectasis could also have a similar appearance. 3. Trace pleural effusions and a trace pericardial effusion. 4. A 4.6 x 4.6 cm low density upper left paratracheal nodule. This favors substernal extension of a left thyroid nodule/goiter. This results in mild right tracheal deviation. CTAP: neg for acute Code Status & VTE Plan Code Status Full code VTE Prophylaxis Plan VTE Prophylaxis will be ordered: Yes PG Care Time/CCT Total # of Minutes Spent Total Time Spent with Patient: Total time spent is greater than 50% in coordination of care (as documented) at patient's floor/unit and/or counseling patient: (1) Pneumonia Laterality: bilateral Lung location: lower lobe of lung Pneumonia type: due to unspecified organism Qualified Code(s): J18.1 - Lobar pneumonia, unspecified organism
--- NOTE | 2019-01-27 12:49 | Emergency Department Note ---
Entered by Monty Ward acting as a scribe for History of Present Illness General Chief complaint: Illness Time Seen by Provider: 01/27/19 09:34 Source: patient and EMS History of Present Illness Provider complaint: Chest pain Onset (ago): hour(s) 6 Location: chest Radiation: non-radiation Pain Consistency: + now resolved Relieved By: + none Exacerbated By: + none Associated symptoms: + fever/chills and + nausea/vomiting (No vomiting); no co ugh and no shortness of breath The patient is a 68 year old male who presents to the Emergency Room with complaints of central chest pain that started about 6 hours ago but has since resolved. Per EMS, the patient woke up at 03:00 with cold sweats, chest discomfort and nausea. The patient also had a headache at this time. He notes that yesterday he was running a fever of 101F yesterday and took Tylenol prior to going to bed. Per EMS the patient's oxygen saturation was 91% on RA but after being put on 4L it increased to 96%. EMS also mentioned that his BSG was 145. En route the patient received 4mg of Zofran, 4 baby Aspirin, and 500mL of fluid. The patient did note that the Zofran he received helped his nausea. Additionally, the patient had a transrectal prostate biopsy done 2 days ago because he had elevated PSA levels and suspicious findings on past evaluations. After the biopsy the patient was put on Cipro and has one day left of the course. The patient notes that after the biopsy he had some hematuria but that has since resolved. The patient does not have a history of heart issues or blood clots but he does have a history of small bowel obstructions. Home Medications Home Medications Medication Instructions Recorded Confirmed Type multivitamin 1 tab PO QAM 08/17/18 01/27/19 History ranitidine HCl 150 mg PO HS 08/17/18 01/27/19 History tamsulosin [Flomax] 0.4 mg PO HS 08/17/18 01/27/19 History prednisone 10 mg PO QAM 11/08/18 01/27/19 History levothyroxine 150 mcg tablet 150 mcg PO QAM #90 tab 12/27/18 01/27/19 Rx acetaminophen [Tylenol Extra 500 mg PO Q6H PRN 01/27/19 01/27/19 History Strength] ciprofloxacin HCl 500 mg PO BID 01/27/19 01/27/19 History Allergies Allergy/AdvReac Type Severity Reaction Status Date / Time No Known Drug Allergies Allergy Verified 01/27/19 10:53 Past Med/Surg History Medical History Renal insufficiency (Chronic) Arthritis (Chronic) Hypothyroidism (Chronic) GERD (gastroesophageal reflux disease) (Chronic) Prostate cancer (Chronic) diagnosed 06/2018--per pt just monitoring for now History of asthma (Chronic) History of kidney disease (Chronic) Benign prostatic hyperplasia with urinary obstruction (Chronic) Dysmetabolic syndrome X (Chronic) Irritable bowel syndrome (IBS) (Chronic) Diverticulosis (Chronic) Chronic steroid use (Chronic) History of colon polyps (Chronic) Hx of renal calculi (Chronic) Hx of small bowel obstruction (Chronic) Low back pain (Chronic) Acute pain of right foot (Resolved) History of gastric ulcer (Resolved) History of hyperthyroidism (Resolved) History of viral infection (Resolved) Hx of Clostridium difficile infection (Resolved) Ileum ulcer (Resolved) Nausea and vomiting after administration of anesthetic agent (Resolved) Right nephrolithiasis (Resolved) History of gastrointestinal ulcer Need for hepatitis C screening test Surgical History History of colonoscopy History of esophagogastroduodenoscopy (EGD) History of hernia repair 1988 History of left inguinal hernia repair History of lithotripsy x2 History of prostate biopsy x2--1 benign and now 2nd malignant History of tooth extraction Family History Father , afe 56 Myocardial infarction Cardiac disorder Diabetes FHx: cholecystectomy Hypertension Mother , age 76 Family history of diabetes mellitus Cardiac disorder Diabetes FHx: cholecystectomy Brother , [place] at age 60 Family history of diabetes mellitus Family hx colonic polyps Cardiac disorder Diabetes Brother Age: 72 FHx: cholecystectomy Hypertension Myocardial infarction Daughter Age: 47 No problems noted. Uncle , of prostate cancer at 78. Diagnosed at 70. Had a seed implant. Prostate cancer Other No family history of adverse response to anesthesia Social History Preferred Language: Ukrainian Communication Ability: Effective Visual Impairment: No Limitations Hearing Ability: Hard of Hearing Detector Car Operator Required: No Beliefs That Will Affect Care: None marital status: Current Living Situation: Spouse current occupational status: retired Other Information That Helps Us Care for You: No Feels Safe at Home: Yes Safety Concerns: Feels Safe At This Time Smoking Status: Never smoker Second Hand Exposure: Yes (parents smoked) ; Hx Alcohol Use: No Hx Substance Use: No caffeine: Yes Dental Care, Regularly: Yes Physical Activity Frequency Comment: LIMITED BY PHYSICAL CONDITION Seatbelt Use: always Review of Systems See HPI for pertinent positives & negatives. and A total of 10 systems reviewed and were otherwise negative Physical Exam Vital Signs Vital Signs - 24 hr 01/27/19 09:43 01/27/19 09:45 01/27/19 09:53 Temperature 36.9 C Temperature Source Oral Sepsis Recent Fever Within 48 Hours Yes Sepsis New/Unexplained Change in Mental Status No Sepsis Action Taken by Nursing No Action Required Pulse Rate 76 76 Pulse Rate [Apical] 75 Pulse Rhythm Regular Regular Pulse Rhythm [Apical] Pulse Strength Normal Pulse Strength [Apical] Respiratory Rate 19 19 20 Respiratory Effort / Characteristics Non-Labored Non-Labored Respiratory Depth Normal Normal Respiratory Pattern Regular Regular Blood Pressure 115/67 Blood Pressure [Right Arm] 107/63 Blood Pressure Mean 83 Blood Pressure Mean [Right Arm] 77 Blood Pressure Position Lying Blood Pressure Position [Right Arm] Sitting Pulse Oximetry 93 93 91 Oxygen Delivery Method Nasal Cannula Nasal Cannula Nasal Cannula Oxygen Flow Rate 2 2 01/27/19 10:00 01/27/19 10:15 01/27/19 10:30 Temperature Temperature Source Sepsis Recent Fever Within 48 Hours Sepsis New/Unexplained Change in Mental Status Sepsis Action Taken by Nursing Pulse Rate Pulse Rate [Apical] 72 75 74 Pulse Rhythm Pulse Rhythm [Apical] Regular Regular Pulse Strength Pulse Strength [Apical] Normal Normal Respiratory Rate 13 15 19 Respiratory Effort / Characteristics Non-Labored Non-Labored Spontaneous Non-Labored Respiratory Depth Normal Normal Normal Respiratory Pattern Regular Regular Regular Blood Pressure Blood Pressure [Right Arm] 100/65 97/59 L 97/67 L Blood Pressure Mean Blood Pressure Mean [Right Arm] 76 71 77 Blood Pressure Position Blood Pressure Position [Right Arm] Sitting Lying Sitting Pulse Oximetry 91 91 Oxygen Delivery Method Nasal Cannula Room Air Oxygen Flow Rate 2 3 01/27/19 10:45 01/27/19 11:00 01/27/19 11:15 Temperature Temperature Source Sepsis Recent Fever Within 48 Hours Sepsis New/Unexplained Change in Mental Status Sepsis Action Taken by Nursing Pulse Rate Pulse Rate [Apical] 75 71 73 Pulse Rhythm Pulse Rhythm [Apical] Regular Regular Regular Pulse Strength Pulse Strength [Apical] Normal Respiratory Rate 16 20 20 Respiratory Effort / Characteristics Non-Labored Non-Labored Spontaneous Respiratory Depth Normal Normal Respiratory Pattern Blood Pressure Blood Pressure [Right Arm] 116/69 101/60 117/74 Blood Pressure Mean Blood Pressure Mean [Right Arm] 84 73 88 Blood Pressure Position Blood Pressure Position [Right Arm] Pulse Oximetry 90 94 96 Oxygen Delivery Method Room Air Nasal Cannula Nasal Cannula Oxygen Flow Rate 3 6 6 01/27/19 11:30 01/27/19 12:04 01/27/19 12:30 Temperature Temperature Source Sepsis Recent Fever Within 48 Hours Sepsis New/Unexplained Change in Mental Status Sepsis Action Taken by Nursing Pulse Rate Pulse Rate [Apical] 72 67 66 Pulse Rhythm Pulse Rhythm [Apical] Regular Regular Regular Pulse Strength Pulse Strength [Apical] Respiratory Rate 20 20 19 Respiratory Effort / Characteristics Spontaneous Respiratory Depth Respiratory Pattern Regular Regular Blood Pressure Blood Pressure [Right Arm] 111/73 117/73 127/77 Blood Pressure Mean Blood Pressure Mean [Right Arm] 85 87 93 Blood Pressure Position Blood Pressure Position [Right Arm] Pulse Oximetry 96 96 89 L Oxygen Delivery Method Nasal Cannula Nasal Cannula Room Air Oxygen Flow Rate 6 6 GENERAL: Patient is awake, alert, and in no acute distress.Patient is resting comfortably and showing no signs of anxiety EYES: The conjunctivae are clear. The pupils are round and reactive. EARS, NOSE, MOUTH AND THROAT: The nose is without any evidence of any deformity. Mucous membranes are moist.Tongue is midline NECK: The neck is nontender and supple. RESPIRATORY: Diminished breath sounds at the left base. Faint rales noted at the right base. No tachypnea or conversational dyspnea. Normal respiratory effort is noted. There is no evidence of wheezing rhonchi to auscultation. CARDIOVASCULAR: Regular rate and rhythm noted. There no murmurs rubs or gallops normal S1 normal S2 GASTROINTESTINAL: The abdomen is soft. Bowel sounds are present in all quadrants. Abdomen is nontender. MUSCULOSKELETAL/EXTREMITIES: There is no evidence of gross deformity. Full range of motion is noted in the hips and shoulders. SKIN: There is no obvious evidence of any rash. There are no petechiae, pallor or cyanosis noted. NEUROLOGIC: Patient is awake alert and oriented x3. Course 0936: Past medical records reviewed. The patient was evaluated in room B09, and a complete history and physical examination were performed. 1225: I reevaluated the patient and updated him on results. We discussed the treatment plan and the patient fully understands and is agreeable with the plan. 1242: I spoke to Dr. Gregorio Mcguire [facility] Hospitalist about the patient's case. She is going to accept the patient for further evaluation. Consultations Consultation #1: I spoke to Dr. Gregorio Mcguire [facility] Hospitalist about the patient's case. She is going to accept the patient for further evaluation. Time: 12:42 Administered Medications Piperacillin Sod/Tazobactam (Sod 4.5 gm/ Dextrose) 120 mls @ 30 mls/hr IV Q8H [facility]; Protocol Stop: 02/03/19 17:59 Last Admin: 01/27/19 17:11 Dose: 30 mls/hr Documented by: [id number] Ioversol (Optiray 320 125ml) 117 ml IV ONCE PRN PRN Reason: Interaction Checking Stop: 01/31/19 11:50 Last Admin: 01/27/19 11:51 Dose: 117 ml Documented by: [id number] Discontinued Medications Sodium Chloride (Nss 1000ml) 1,000 mls @ 999 mls/hr IV .Q1H1M ONE Stop: 01/27/19 13:26 Last Infusion: 01/27/19 14:14 Dose: 0 mls/hr Documented by: [id number] Admin: 01/27/19 12:39 Dose: 999 mls/hr Documented by: [id number] Piperacillin Sod/Tazobactam Sod (Zosyn) 4.5 gm in 120 mls @ 240 mls/hr IV NOW ONE Stop: 01/27/19 12:55 Last Infusion: 01/27/19 14:14 Dose: 0 mls/hr Documented by: [id number] Admin: 01/27/19 12:39 Dose: 240 mls/hr Documented by: [id number] Medical Decision Making Differential Diagnosis Differential diagnoses includes but is not limited to acute coronary syndrome, myocardial infarction, pericarditis, pulmonary embolus, aortic dissection, pneumonia, pneumothorax, musculoskeletal, shingles, esophageal. Medical Records Attestation: I reviewed the patient's medical records. Home Medications Current Medication List: was personally reviewed by md Laboratory Data Attestation: I reviewed the patient's lab results. Result diagrams: 01/27/19 09:09 01/27/19 09:09 Lab Results 01/27/19 01/27/19 01/27/19 Range/Units 09:09 09:09 09:09 WBC 11.92 H (4.8-10.8) K/uL RBC 5.53 (4.7-6.1) M/uL Hgb 16.4 (14.0-18.0) g/dL Hct 47.2 (42-52) % MCV 85.4 (80-100) fL MCH 29.7 (25-34) pg MCHC 34.7 (32-36) g/dL RDW Std Deviation 41.7 (36.4-46.3) fL RDW Coeff of [place] 13.3 (11.5-14.5) % Plt Count 143 (130-400) K/uL MPV 9.5 (7.4-10.4) fL Immature Gran % (Auto) 0.3 % Neut % (Auto) 82.8 % Lymph % (Auto) 8.1 % [place] % (Auto) 8.3 % Eos % (Auto) 0.3 % Baso % (Auto) 0.2 % Immature Gran # (Auto) 0.04 H (0.00-0.02) K/uL Neut # (Auto) 9.86 H (1.4-6.5) K/uL Lymph # (Auto) 0.97 L (1.2-3.4) K/uL [place] # (Auto) 0.99 H (0.11-0.59) K/uL Eos # (Auto) 0.04 (0-0.5) K/uL Baso # (Auto) 0.02 (0-0.2) K/uL ESR (0-14) mm/hr PT 10.6 (9.0-12.0) Seconds INR 1.0 (0.9-1.1) APTT 23.4 (21.0-31.0) Seconds PTT Ratio 0.9 Sodium 140 (136-145) mmol/L Potassium 3.5 (3.5-5.1) mmol/L Chloride 107 (98-107) mmol/L Carbon Dioxide 27 (21-32) mmol/L Anion Gap 6.0 (3-11) BUN 17 (7-18) mg/dl Creatinine 1.18 (0.6-1.4) mg/dl Est Cr Clr Drug Dosing 71.6 ml/min Est GFR ( Amer) 72.0 Est GFR (Non-Af Amer) 62.2 BUN/Creatinine Ratio 14.5 (10-20) Glucose 110 H (70-99) mg/dl Lactate (0.4-2.0) mmol/L Calcium 8.8 (8.5-10.1) mg/dl Magnesium 1.8 (1.8-2.4) mg/dl Total Bilirubin 1.0 (0.2-1) mg/dl AST 19 (15-37) U/L ALT 39 (12-78) U/L Alkaline Phosphatase 82 (45-117) U/L Troponin I < 0.015 (0-0.045) ng/ml C-Reactive Protein 2.46 H (0-0.29) mg/dl Total Protein 6.8 (6.4-8.2) gm/dl Albumin 3.4 (3.4-5.0) gm/dl Globulin 3.4 (2.5-4.0) gm/dl Albumin/Globulin Ratio 1.0 (0.9-2) Procalcitonin (0-0.5) ng/ml Urine Color Urine Appearance (Clear) Urine pH (4.5-7.5) Ur Specific [place] (1.000-1.030) Urine Protein (Negative) Urine Glucose (UA) (Negative) Urine Ketones (Negative) Urine Blood (Negative) Urine Nitrite (Negative) Urine Bilirubin (Negative) Urine Urobilinogen (Negative) Ur Leukocyte Esterase (Negative) Urine WBC (Auto) (0-5) /hpf Urine RBC (Auto) (0-4) /hpf U Hyaline Cast (Auto) (0-5) /lpf U Epithel Cells (Auto) (0-5) /lpf Urine Bacteria (Auto) (Negative) 01/27/19 01/27/19 01/27/19 Range/Units 09:09 09:09 10:16 WBC (4.8-10.8) K/uL RBC (4.7-6.1) M/uL Hgb (14.0-18.0) g/dL Hct (42-52) % MCV (80-100) fL MCH (25-34) pg MCHC (32-36) g/dL RDW Std Deviation (36.4-46.3) fL RDW Coeff of Bryan (11.5-14.5) % Plt Count (130-400) K/uL MPV (7.4-10.4) fL Immature Gran % (Auto) % Neut % (Auto) % Lymph % (Auto) % [place] % (Auto) % Eos % (Auto) % Baso % (Auto) % Immature Gran # (Auto) (0.00-0.02) K/uL Neut # (Auto) (1.4-6.5) K/uL Lymph # (Auto) (1.2-3.4) K/uL [place] # (Auto) (0.11-0.59) K/uL Eos # (Auto) (0-0.5) K/uL Baso # (Auto) (0-0.2) K/uL ESR 25 H (0-14) mm/hr PT (9.0-12.0) Seconds INR (0.9-1.1) APTT (21.0-31.0) Seconds PTT Ratio Sodium (136-145) mmol/L Potassium (3.5-5.1) mmol/L Chloride (98-107) mmol/L Carbon Dioxide (21-32) mmol/L Anion Gap (3-11) BUN (7-18) mg/dl Creatinine (0.6-1.4) mg/dl Est Cr Clr Drug Dosing ml/min Est GFR ( Amer) Est GFR (Non-Af Amer) BUN/Creatinine Ratio (10-20) Glucose (70-99) mg/dl Lactate 1.6 (0.4-2.0) mmol/L Calcium (8.5-10.1) mg/dl Magnesium (1.8-2.4) mg/dl Total Bilirubin (0.2-1) mg/dl AST (15-37) U/L ALT (12-78) U/L Alkaline Phosphatase (45-117) U/L Troponin I (0-0.045) ng/ml C-Reactive Protein (0-0.29) mg/dl Total Protein (6.4-8.2) gm/dl Albumin (3.4-5.0) gm/dl Globulin (2.5-4.0) gm/dl Albumin/Globulin Ratio (0.9-2) Procalcitonin 0.33 (0-0.5) ng/ml Urine Color Urine Appearance (Clear) Urine pH (4.5-7.5) Ur Specific [place] (1.000-1.030) Urine Protein (Negative) Urine Glucose (UA) (Negative) Urine Ketones (Negative) Urine Blood (Negative) Urine Nitrite (Negative) Urine Bilirubin (Negative) Urine Urobilinogen (Negative) Ur Leukocyte Esterase (Negative) Urine WBC (Auto) (0-5) /hpf Urine RBC (Auto) (0-4) /hpf U Hyaline Cast (Auto) (0-5) /lpf U Epithel Cells (Auto) (0-5) /lpf Urine Bacteria (Auto) (Negative) 01/27/19 Range/Units 11:45 WBC (4.8-10.8) K/uL RBC (4.7-6.1) M/uL Hgb (14.0-18.0) g/dL Hct (42-52) % MCV (80-100) fL MCH (25-34) pg MCHC (32-36) g/dL RDW Std Deviation (36.4-46.3) fL RDW Coeff of Bryan (11.5-14.5) % Plt Count (130-400) K/uL MPV (7.4-10.4) fL Immature Gran % (Auto) % Neut % (Auto) % Lymph % (Auto) % [place] % (Auto) % Eos % (Auto) % Baso % (Auto) % Immature Gran # (Auto) (0.00-0.02) K/uL Neut # (Auto) (1.4-6.5) K/uL Lymph # (Auto) (1.2-3.4) K/uL [place] # (Auto) (0.11-0.59) K/uL Eos # (Auto) (0-0.5) K/uL Baso # (Auto) (0-0.2) K/uL ESR (0-14) mm/hr PT (9.0-12.0) Seconds INR (0.9-1.1) APTT (21.0-31.0) Seconds PTT Ratio Sodium (136-145) mmol/L Potassium (3.5-5.1) mmol/L Chloride (98-107) mmol/L Carbon Dioxide (21-32) mmol/L Anion Gap (3-11) BUN (7-18) mg/dl Creatinine (0.6-1.4) mg/dl Est Cr Clr Drug Dosing ml/min Est GFR ( Amer) Est GFR (Non-Af Amer) BUN/Creatinine Ratio (10-20) Glucose (70-99) mg/dl Lactate (0.4-2.0) mmol/L Calcium (8.5-10.1) mg/dl Magnesium (1.8-2.4) mg/dl Total Bilirubin (0.2-1) mg/dl AST (15-37) U/L ALT (12-78) U/L Alkaline Phosphatase (45-117) U/L Troponin I (0-0.045) ng/ml C-Reactive Protein (0-0.29) mg/dl Total Protein (6.4-8.2) gm/dl Albumin (3.4-5.0) gm/dl Globulin (2.5-4.0) gm/dl Albumin/Globulin Ratio (0.9-2) Procalcitonin (0-0.5) ng/ml Urine Color Dark Yellow Urine Appearance Cloudy A (Clear) Urine pH 5.0 (4.5-7.5) Ur Specific [place] 1.029 (1.000-1.030) Urine Protein Trace H (Negative) Urine Glucose (UA) Negative (Negative) Urine Ketones Negative (Negative) Urine Blood 2+ H (Negative) Urine Nitrite Positive A (Negative) Urine Bilirubin Negative (Negative) Urine Urobilinogen Negative (Negative) Ur Leukocyte Esterase 2+ H (Negative) Urine WBC (Auto) >30 H (0-5) /hpf Urine RBC (Auto) 10-30 H (0-4) /hpf U Hyaline Cast (Auto) >30 H (0-5) /lpf U Epithel Cells (Auto) 0-5 (0-5) /lpf Urine Bacteria (Auto) 4+ H (Negative) Imaging Data Radiologist's Impression: Radiology results as stated below per my review and the radiologist's interpretation: XR chest 1V portable HISTORY: 68 years-old Male Sepsis acute sepsis COMPARISON: Chest radiograph 08/17/2018 TECHNIQUE: Portable AP view of the chest FINDINGS: Cardiac silhouette is mildly enlarged, unchanged. Calcified plaque of the thoracic aortic arch. No overt pulmonary edema. Ill-defined bibasilar opacities with blunting of the left costophrenic angle. No pneumothorax or large pleural effusion. Bones of the chest appear grossly intact. IMPRESSION: 1. Mild cardiomegaly without overt pulmonary edema. 2. Bibasilar opacities suggest probable atelectasis with pneumonitis considered less likely. The above report was generated using voice recognition software. It may contain grammatical, syntax or spelling errors. Electronically signed by: Marko Pierre M.D. 01/27/2019 10:33 AM CHEST CTA for PULMONARY ARTERIES CT DOSE: HISTORY: Atypical chest pain. Shortness of breath. TECHNIQUE: Multiaxial CT images of the chest were performed following the intravenous administration of contrast to evaluate the pulmonary arteries. Maximal intensity projection images were also obtained. A dose lowering technique was utilized adhering to the principles of ALARA. COMPARISON STUDY: None. FINDINGS: Normal caliber thoracic aorta with no evidence for dissection. No filling defects within the pulmonary arteries to suggest pulmonary embolus. The heart is normal in size. Low-density nodule along the left side of the proximal trachea which measures 4.6 x 4.6 cm. This favors subsegmental extension of a left thyroid nodule/goiter. This results in right deviation of the proximal trachea. No significant tracheal narrowing. No mediastinal or hilar lymphadenopathy. Normal esophagus. The visualized liver and spleen are unremarkable. Trace bilateral pleural effusions and a trace pericardial effusion. Old, healed right anterior rib fracture. No suspicious lytic or blastic osseous lesions. No pneumothorax. The central airways are patent. Small biapical blebs are noted. Mild emphysema. Patchy areas of consolidation within the lower lobes posteriorly. IMPRESSION: 1. No evidence for pulmonary embolus. 2. Patchy areas of consolidation within the bilateral lower lobes posteriorly. This may represent a pneumonia. Superimposed atelectasis could also have a similar appearance. 3. Trace pleural effusions and a trace pericardial effusion. 4. A 4.6 x 4.6 cm low density upper left paratracheal nodule. This favors substernal extension of a left thyroid nodule/goiter. This results in mild right tracheal deviation. Electronically signed by: Jeff Ching M.D. 01/27/2019 12:[address] abd pelvis IV con only CT DOSE: 1717.14 mGy.cm HISTORY: Pain recent rotstat e biposy TECHNIQUE: Multiaxial CT images of the abdomen and pelvis were performed following the use of intravenous contrast. A dose lowering technique was utilized adhering to the principles of ALARA. COMPARISON STUDY: 08/17/2018 FINDINGS: Bibasilar parenchymal infiltrative and atelectatic change. The liver spleen and pancreas appear unremarkable. Bilateral renal cysts are stable. No evidence for hydronephrosis. Nonobstructive bowel pattern. Findings of chronic distal descending colon as well as proximal to mid sigmoid chronic diverticular-type change. No evidence for acute diverticulitis. No evidence for abscess collection or o bstruction. No free fluid within the pelvic cul-de-sac. Prosthetic enlargement. IMPRESSION: 1. No acute process in the abdomen or pelvis. 2. Chronic descending and sigmoid colonic diverticulosis. 3. No evidence for acute diverticulitis. 4. Unchanged bilateral renal cysts. 5. Bibasilar parenchymal infiltrative/atelectatic change. The above report was generated using voice recognition software. It may contain grammatical, syntax or spelling errors. Electronically signed by: Rahul Mckeon M.D. 01/27/2019 12:10 PM ECG Data Attestation: I personally reviewed and interpreted this ECG as follows: Indication: chest pain Rate (beats per minute): 70 Rhythm: sinus rhythm Findings: + 1st degree AV block; no nonspecific-ST abn, no PAC, no PVC and no ectopy Comparison ECG Date: from (08/17/18) Change: no significant change Blood Pressure Blood Pressure Findings: Elevated blood pressure Blood Pressure Disposition: further management by hospitalist RIAZ Narrative The patient is a 68-year-old male who presented to the emergency department by ambulance for an evaluation of chest pain. The patient is status post transrectal biopsy of his prostate. He reports a fever yesterday. The patient had hypotension on a few readings today. He was also noted to be hypoxic in the emergency department. His laboratory and radiographic studies appear to be co nsistent with an infection. His chest x-ray was not conclusive and given his recent biopsy I was concerned about venous thromboembolic disease or possibly an intra-abdominal process causing his fever and presentation. For this reason CT the chest abdomen and pelvis were obtained. The patient was found no signs of pneumonia on chest x-ray and also has signs of urinary tract infection on urinalysis. He was given IV fluids as well as Zosyn in the emergency department. He was placed on supplement oxygen. He was reevaluated multiple times. I discussed the patient's laboratory and radiographic studies with him. I also discussed his case with the on-call [facility] hospitalist. They have agreed to evaluate the patient in the emergency department for further management disposition. Impression & Plan Pneumonia, Hypoxia, Chest pain, Acute UTI Discharge Plan Visit Data *Final* Discharge Date/Time: 01/27/19 14:18 Chief Complaint: Illness ED Provider: Matthew Hook Discharge Problem: Pneumonia, Hypoxia, Chest pain, Acute UTI Patient Disposition: Admitted As Inpatient Discharge Instructions Interventions: ED Discharge Assessment Last Done: 01/27/19 14:18 Discharge Problem: Pneumonia Qualifiers: Pneumonia type: due to unspecified organism Laterality: bilateral Lung location: lower lobe of lung Qualified Code(s): J18.1 - Lobar pneumonia, unspecified organism Chest pain Qualifiers: Chest pain type: unspecified Qualified Code(s): R07.9 - Chest pain, unspecified The scribe's documentation has been prepared under my direction and personally reviewed by me in its entirety. I confirm that the note above accurately reflects all work, treatment, procedures, and medical decision making performed by me.
[2019-01-27] MEDS ORDERED: ACETAMINOPHEN 500 MG TAB PO PRN (14:45)
[2019-01-27] MEDS ORDERED: ONDANSETRON INJ 2 MG/ML 2 ML VIAL IV PRN (14:45)
[2019-01-27] MEDS ORDERED: MAGNESIUM HYDROXIDE SUSP 30 ML UDC PO PRN (14:45)
[2019-01-27] MEDS ORDERED: ACETAMINOPHEN 325 MG TAB PO PRN (14:45)
[2019-01-27] MEDS: PIPERACILLIN/TAZOBACTAM 4.5 GM in DEXTROSE 5% 100 ML IV SCH (17:11)
[2019-01-27] MEDS: TAMSULOSIN HCL 0.4 MG CAP PO SCH (20:00)
[2019-01-27 22:44] LABS: Cdiff Antigen Positive; Cdiff Toxin A+B Negative Cdiff Toxin (Negative)
[2019-01-28] MEDS: PIPERACILLIN/TAZOBACTAM 4.5 GM in DEXTROSE 5% 100 ML IV SCH ×3 (01:15→18:35)
[2019-01-28] MEDS: LEVOTHYROXINE SODIUM 150 MCG TABLET PO SCH (05:42)
[2019-01-28 07:05] LABS: Basophils # (auto) 0.02 K/uL (0-0.2); Basophils % (auto) 0.2 %; Eosinophils # (auto) 0.05 K/uL (0-0.5); Eosinophils % (auto) 0.6 %; Hematocrit (blood only) 44.7 % (42-52); Hemoglobin 14.9 g/dL (14.0-18.0); Immature Granulocytes # (auto) 0.02 K/uL (0.00-0.02); Immature Granulocytes % (auto) 0.2 %; Lymphocytes # (auto) 0.69 K/uL (1.2-3.4); Lymphocytes % (auto) 7.7 %; Mean Corpuscular Hemoglobin 28.8 pg (25-34); Mean Corpuscular Hgb Conc 33.3 g/dL (32-36); Mean Corpuscular Volume 86.5 fL (80-100); Mean Platelet Volume 9.2 fL (7.4-10.4); Monocytes # (auto) 0.57 K/uL (0.11-0.59); Monocytes % (auto) 6.4 %; Neutrophils # (auto) 7.61 K/uL (1.4-6.5); Neutrophils % (auto) 84.9 %; Platelet Count 105 K/uL (130-400); RDW Coefficient of Variation 13.5 % (11.5-14.5); RDW Standard Deviation 42.6 fL (36.4-46.3); Red Blood Count 5.17 M/uL (4.7-6.1); White Blood Count 8.96 K/uL (4.8-10.8)
--- NOTE | 2019-01-28 07:49 | Urology Consultation ---
Date of Consultation January 28, 2019 Assessment & Plan (1) Acute UTI: (2) Prostate cancer: 68yo M admitted with fever, n/d, urinary urgency s/p prostate biopsy on 01/25 Suspected UTI/prostatitis s/p prostate biopsy and pneumonia, no evidence of prostatic abscess or fluid collection on CT Prelim UC&S gram neg bacilli. Continue IV zosyn while awaiting sensitivities. No need for surgical intervention at this time. We will add bladder scans qshift x24 hours to ensure adequate emptying than can discontinue per order as long as no issues arise. Thank you for allowing us to participate in the acute care of Mr. Johnson. We will continue to follow with primary team. History of Present Illness Reason for Consultation: UTI s/p prostate biopsy, febrile illness Attending Physician: Tram Perkins, History of Present Illness 68yo M admitted through [facility] with c/o fever, nausea, diarrhea, and lighthe adedness. Also acknowledges some substernal chest pressure, and urinary frequency, slight hematuria. Of note, pt is now s/p in office prostate biopsy with Dr. Jiang x3 days (procedure date 01/25), which patient tolerated well. He continued on ciprofloxacin as ordered. Additionally, he suffered a small laceration to left hand on with drill yesterday, which was evaluated by [facility] clinic. CT imaging reveals bilateral parenchymal infiltrates. No sign of prostatic abscess or fluid collection. UA nitrite positive, +2 leuks - consistent with UTI. UC&S and BCx pending Cr 1.18 Mild leukocytosis at 11.9, improved to 8.9 this AM Tmax 38.2 last evening[address] Spoke to dr perkins yesterday. Consult ordered as STAT in error, intended to be routine. Pt alert and oriented, in no distress on evaluation. He denies any LUTS, hematuria resolving. He denies any pelvic, rectal or suprapubic pressure or pain. He also denies cough or congestion. Allergies Allergy/AdvReac Type Severity Reaction Status Date / Time No Known Drug Allergies Allergy Verified 01/27/19 10:53 Home Medications Home Medications Medication Instructions Recorded Confirmed Type multivitamin 1 tab PO QAM 08/17/18 01/27/19 History ranitidine HCl 150 mg PO HS 08/17/18 01/27/19 History tamsulosin [Flomax] 0.4 mg PO HS 08/17/18 01/27/19 History prednisone 10 mg PO QAM 11/08/18 01/27/19 History levothyroxine 150 mcg tablet 150 mcg PO QAM #90 tab 12/27/18 01/27/19 Rx acetaminophen [Tylenol Extra 500 mg PO Q6H PRN 01/27/19 01/27/19 History Strength] ciprofloxacin HCl 500 mg PO BID 01/27/19 01/27/19 History Patient History Medical History Renal insufficiency (Chronic) Arthritis (Chronic) Hypothyroidism (Chronic) GERD (gastroesophageal reflux disease) (Chronic) Prostate cancer (Chronic) diagnosed 06/2018--per pt just monitoring for now History of asthma (Chronic) History of kidney disease (Chronic) Benign prostatic hyperplasia with urinary obstruction (Chronic) Dysmetabolic syndrome X (Chronic) Irritable bowel syndrome (IBS) (Chronic) Diverticulosis (Chronic) Chronic steroid use (Chronic) History of colon polyps (Chronic) Hx of renal calculi (Chronic) Hx of small bowel obstruction (Chronic) Low back pain (Chronic) Acute pain of right foot (Resolved) History of gastric ulcer (Resolved) History of hyperthyroidism (Resolved) History of viral infection (Resolved) Hx of Clostridium difficile infection (Resolved) Ileum ulcer (Resolved) Nausea and vomiting after administration of anesthetic agent (Resolved) Right nephrolithiasis (Resolved) History of gastrointestinal ulcer Need for hepatitis C screening test Surgical History History of colonoscopy History of esophagogastroduodenoscopy (EGD) History of hernia repair 1988 History of left inguinal hernia repair History of lithotripsy x2 History of prostate biopsy x2--1 benign and now 2nd malignant History of tooth extraction Family History Father , afe 56 Myocardial infarction Cardiac disorder Diabetes FHx: cholecystectomy Hypertension Mother , age 76 Family history of diabetes mellitus Cardiac disorder Diabetes FHx: cholecystectomy Brother , [place] at age 60 Family history of diabetes mellitus Family hx colonic polyps Cardiac disorder Diabetes Brother Age: 72 FHx: cholecystectomy Hypertension Myocardial infarction Daughter Age: 47 No problems noted. Uncle , of prostate cancer at 78. Diagnosed at 70. Had a seed implant. Prostate cancer Other No family history of adverse response to anesthesia Social History Preferred Language: Romansh Communication Ability: Effective Visual Impairment: No Limitations Hearing Ability: Hard of Hearing Development Coach Required: No Beliefs That Will Affect Care: None marital status: Current Living Situation: Spouse current occupational status: retired Other Information That Helps Us Care for You: No Feels Safe at Home: Yes Safety Concerns: Feels Safe At This Time Smoking Status: Never smoker Second Hand Exposure: Yes (parents smoked) ; Hx Alcohol Use: No Hx Substance Use: No caffeine: Yes Dental Care, Regularly: Yes Physical Activity Frequency Comment: LIMITED BY PHYSICAL CONDITION Seatbelt Use: always Review of Systems Review of Systems: Constitutional: Denies fever, chills, sweats, malaise Eyes: Denies problem reported ENMT: Denies dizziness Resp: Denies cough, Denies shortness of breath CV: Denies JVD GI: Denies nausea/vomiting : see HPI MS: Denies swelling, stiffness Integ: Denies rash, erythema Neuro: Denies falls, weakness Psych: Denies behavior change Endo: Denies polyphagia, polydipsia Heme: Denies easy bleeding Physical Exam Constitutional: no acute distress and not ill appearing Eyes: no nystagmus ENMT: Ears: no hearing impairment Neck: trachea midline Respiratory: no respiratory distress and no cough Cardiovascular: Vessels: no JVD Chest (Breasts): Chest: normal inspection of chest Gastrointestinal (Abdomen): Inspection/Auscultation: abdomen not distended and no abdominal edema Percussion/Palpation: abdomen soft; abdomen nontender abdomen soft Musculoskeletal: Head/Neck/Chest: normocephalic and head atraumatic Skin: no rashes, warm and dry Neurologic: awake; not confused and not obtunded Psychiatric: Orientation: alert and oriented x 3 Eye Contact: good eye contact Affect: no depressed affect Genitourinary: bladder normal to inspection; no CVA tenderness Lymphatic: no lymphadenopathy and no lymphedema Results & Data Vital Signs (Past 12 Hours) Vital Signs Temp Pulse Pulse Resp BP Pulse Ox 01/28/19 07:13 63 01/28/19 07:02 37.2 C 74 18 130/77 90 01/28/19 03:00 37.1 C 66 20 102/58 L 91 01/28/19 00:29 81 01/27/19 23:00 38.2 C H 76 18 116/63 90 01/27/19 21:01 37.1 C
[2019-01-28] MEDS: predniSONE 10 MG TABLET PO SCH (08:21)
[2019-01-28] MEDS: MULTIVITAMIN TAB PO SCH (08:21)
[2019-01-28 11:51] LABS: Influenza A virus by PCR Neg for Influ A (Neg); Influenza B virus by PCR Neg for Influ B (Neg)
[2019-01-28] MEDS: DOXYCYCLINE HYCLATE 100 MG in DEXTROSE 5% 100 ML IV SCH ×2 (12:04→20:20)
--- NOTE | 2019-01-28 17:09 | Hospitalist Progress Note ---
Date of Service January 28, 2019 Assessment & Plan (1) Pneumonia: - Chest CTA showed patchy areas of consolidation within bilat lower lobes posteriorly, trace pleural effusions and trace pericardial effusion. - Leukocytosis on admission, now improved; low grade fevers now resolved. - Continue Zosyn IV; also added Doxycycline for atypical coverage. - No indication for nebs, etc. (2) Acute UTI: - Suspected UTI/prostatitis s/p prostate biopsy on 01/25/19. On Cipro ppx as outpatient, developed infection on PO abx. - UC positive for gram negative bacilli, will follow sensitivities. - Continue Zosyn for empiric coverage. (3) Hypothyroidism: - Continue home Levothyroxine 150 mcg daily. - TSH was 1.2 in Jun 2018. (4) GERD (gastroesophageal reflux disease): - Zantac 150 mg qhs. (5) Prostate cancer: - S/p prostate biopsy as noted above. Continue Flomax. - Follows with Dr. Jiang. - Bladder scan q24hr to monitor for retention; urology consulted as inpt, appreciate recs. No indication for intervention. (6) Chronic steroid use: - On Prednisone 10 mg daily; pt. reports this was prescribed by Dr. 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 - Immunosuppressed d/t chronic steroid use. - No indication for stress dose steroids -- has been normotensive. (7) Clostridioides difficile infection: - Over a year ago with hospitalization for SBO - C. diff gene positive, toxin negative. (8) DVT prophylaxis: - SCDs; hold pharmacologic ppx and encourage ambulation. Dispo: Med/surg with tele; discharge pending improvement in PNA and UTI. Supervising Physician Co-Signing Physician Notes PA Supervision Note: I did not personally see or examine the patient today, but I verified all hamlin points of PRASAD Diego's assessment and plan with the following exceptions/additions: None Subjective Pt. is doing well overall. He states urinary frequency and hematuria now improving. Denies fever/chills, SOB, cough, chest pain. Diarrhea also now resolved, denies abd pain, N/V. Review of Systems Review of Systems: All systems reviewed & are unremarkable except as noted in HPI & below Constitutional: no fever, no chills, no fatigue, no weakness and no anorexia Respiratory: no cough, no dyspnea, no dyspnea on exertion and no wheezing Cardiovascular: no chest pain, no palpitations and no edema Gastrointestinal: no abdominal pain, no nausea, no vomiting and no diarrhea/loose stools Genitourinary: no dysuria, no difficulty urinating, no urinary frequency and no hematuria Musculoskeletal: no back pain and no joint pain Integumentary: no non-healing lesions Physical Exam Physical Exam: General: Resting comfortably HEENT: NC/AT; PERRLA with EOMI; [place]ane conjunctiva, MMM. No erythema of posterior pharynx Neck: Supple and nontender Cardiac: RRR Lungs: CTA bilaterally Abdomen: Bowel normoactive X 4; Nontender to palpation Extremities: Warm. No edema present Neuro: No focal weakness Skin: No rash Results & Data Vital Signs (Past 12 Hours) Vital Signs Temp Pulse Pulse Resp BP BP Pulse Ox 01/28/19 15:22 68 01/28/19 15:02 36.8 C 68 18 113/72 91 01/28/19 11:26 36.8 C 71 18 121/76 92 01/28/19 07:13 63 01/28/19 07:02 37.2 C 74 18 130/77 90 Laboratory Results 01/28/19 01/28/19 01/27/19 Range/Units 10:50 06:30 21:00 WBC 8.96 (4.8-10.8) K/uL RBC 5.17 (4.7-6.1) M/uL Hgb 14.9 (14.0-18.0) g/dL Hct 44.7 (42-52) % MCV 86.5 (80-100) fL MCH 28.8 (25-34) pg MCHC 33.3 (32-36) g/dL RDW Std Deviation 42.6 (36.4-46.3) fL RDW Coeff of Bryan 13.5 (11.5-14.5) % Plt Count 105 L (130-400) K/uL MPV 9.2 (7.4-10.4) fL Immature Gran % (Auto) 0.2 % Neut % (Auto) 84.9 % Lymph % (Auto) 7.7 % Petroleum % (Auto) 6.4 % Eos % (Auto) 0.6 % Baso % (Auto) 0.2 % Immature Gran # (Auto) 0.02 (0.00-0.02) K/uL Neut # (Auto) 7.61 H (1.4-6.5) K/uL Lymph # (Auto) 0.69 L (1.2-3.4) K/uL Petroleum # (Auto) 0.57 (0.11-0.59) K/uL Eos # (Auto) 0.05 (0-0.5) K/uL Baso # (Auto) 0.02 (0-0.2) K/uL Stl C. diff Tox B Gene Positive Cdiff Gene H (Neg) Stl C.difficile Tox A&B Negative Cdiff Toxin (Negative) Influenza Type A (PCR) Neg for Influ A (Neg) Influenza Type B (PCR) Neg for Influ B (Neg) PG Care Time/CCT Total # of Minutes Spent Total Time Spent with Patient: Total time spent is greater than 50% in coordination of care (as documented) at patient's floor/unit and/or counseling patient: (1) Pneumonia Laterality: bilateral Lung location: lower lobe of lung Pneumonia type: due to unspecified organism Qualified Code(s): J18.1 - Lobar pneumonia, unspecified organism
[2019-01-28] MEDS: TAMSULOSIN HCL 0.4 MG CAP PO SCH (20:09)
[2019-01-29] MEDS: PIPERACILLIN/TAZOBACTAM 4.5 GM in DEXTROSE 5% 100 ML IV SCH ×2 (00:53→10:06)
[2019-01-29] MEDS: LEVOTHYROXINE SODIUM 150 MCG TABLET PO SCH (05:38)
[2019-01-29 06:55] LABS: Calcium 8.8 mg/dl (8.5-10.1); Creatinine Clr Calc Pharmacy 71.8 ml/min; Est GFR (African American) 74.3; Est GFR (Non-African American) 64.1; Potassium 3.7 mmol/L (3.5-5.1)
[2019-01-29] MEDS: predniSONE 10 MG TABLET PO SCH (08:32)
[2019-01-29] MEDS: MULTIVITAMIN TAB PO SCH (08:32)
[2019-01-29] MEDS: DOXYCYCLINE HYCLATE 100 MG in DEXTROSE 5% 100 ML IV SCH (10:06)
--- NOTE | 2019-01-29 11:18 | Urology Progress Note ---
Date of Service January 29, 2019 Assessment & Plan (1) Acute UTI: A/P 68 yo male with prostate cancer, post biopsy UTI. Improving. Complete antibiotics per primary service. DC home today per plan. OP f/u in place with Dr. Jiang to review biopsy results - one core of [place] 3+3 CAP noted. Subjective 68 yo male POD#4 s/p PBx with post procedure UTI and pneumonia. His culture is noted - E. Coli resistant to Bactrim, Gent and Cipro (provided for procedure). Patient reports he is doing better, CT images reviewed, pending DC home today with doxycyline and cephalosporins. He denies ongoing hematuria or bothersome LUTS. Chart reviewed. Review of Systems Eyes: no diplopia Ear, Nose, Mouth, Throat: no ear trauma Respiratory: no hemoptysis Cardiovascular: no chest pain Integumentary: no acne and no boil Neurologic: no paralysis Psychiatric: no hopelessness Allergy / Immunological: no tongue swelling Physical Exam Constitutional: + obese; not ill appearing Eyes: eyes not dysmorphic ENMT: Ears: no external ear abnormality Neck: trachea midline; no anterior neck swelling Respiratory: no respiratory distress and does not use accessory muscles Cardiovascular: Vessels: radial pulses present Gastrointestinal (Abdomen): Inspection/Auscultation: abdomen not distended Percussion/Palpation: abdomen soft; abdomen nontender Musculoskeletal: Head/Neck/Chest: normocephalic and neck supple Skin: normal turgor Neurologic: awake; not obtunded Psychiatric: Orientation: oriented x 3 Lymphatic: no lymphadenopathy Results & Data Vital Signs (Past 12 Hours) Vital Signs Temp Pulse Pulse Pulse Resp BP BP 01/29/19 11:09 37.2 C 66 72 18 116/75 106/62 01/29/19 07:35 73 01/29/19 07:00 37.2 C 72 18 116/75 01/29/19 03:37 37.8 C H 65 20 106/62 Pulse Ox 01/29/19 11:09 91 01/29/19 07:35 01/29/19 07:00 91 01/29/19 03:37 92 Laboratory Results Laboratory Results - last 48 hr 01/27/19 01/27/19 01/28/19 11:45 21:00 06:30 WBC 8.96 RBC 5.17 Hgb 14.9 Hct 44.7 MCV 86.5 MCH 28.8 MCHC 33.3 RDW Std Deviation 42.6 RDW Coeff of Bryan 13.5 Plt Count 105 L MPV 9.2 Immature Gran % (Auto) 0.2 Neut % (Auto) 84.9 Lymph % (Auto) 7.7 Casey % (Auto) 6.4 Eos % (Auto) 0.6 Baso % (Auto) 0.2 Immature Gran # (Auto) 0.02 Neut # (Auto) 7.61 H Lymph # (Auto) 0.69 L Casey # (Auto) 0.57 Eos # (Auto) 0.05 Baso # (Auto) 0.02 Sodium Potassium Chloride Carbon Dioxide Anion Gap BUN Creatinine Est Cr Clr Drug Dosing Est GFR ( Amer) Est GFR (Non-Af Amer) BUN/Creatinine Ratio Glucose Calcium Urine Color Dark Yellow Urine Appearance Cloudy A Urine pH 5.0 Ur Specific [place] 1.029 Urine Protein Trace H Urine Glucose (UA) Negative Urine Ketones Negative Urine Blood 2+ H Urine Nitrite Positive A Urine Bilirubin Negative Urine Urobilinogen Negative Ur Leukocyte Esterase 2+ H Urine WBC (Auto) >30 H Urine RBC (Auto) 10-30 H U Hyaline Cast (Auto) >30 H U Epithel Cells (Auto) 0-5 Urine Bacteria (Auto) 4+ H Stl C. diff Tox B Gene Positive Cdiff Gene H Stl C.difficile Tox A&B Negative Cdiff Toxin Influenza Type A (PCR) Influenza Type B (PCR) 01/28/19 01/29/19 10:50 06:02 WBC RBC Hgb Hct MCV MCH MCHC RDW Std Deviation RDW Coeff of Bryan Plt Count MPV Immature Gran % (Auto) Neut % (Auto) Lymph % (Auto) Casey % (Auto) Eos % (Auto) Baso % (Auto) Immature Gran # (Auto) Neut # (Auto) Lymph # (Auto) Casey # (Auto) Eos # (Auto) Baso # (Auto) Sodium 137 Potassium 3.7 Chloride 103 Carbon Dioxide 28 Anion Gap 6.0 BUN 14 Creatinine 1.15 Est Cr Clr Drug Dosing 71.8 Est GFR ( Amer) 74.3 Est GFR (Non-Af Amer) 64.1 BUN/Creatinine Ratio 12.0 Glucose 98 Calcium 8.8 Urine Color Urine Appearance Urine pH Ur Specific [place] Urine Protein Urine Glucose (UA) Urine Ketones Urine Blood Urine Nitrite Urine Bilirubin Urine Urobilinogen Ur Leukocyte Esterase Urine WBC (Auto) Urine RBC (Auto) U Hyaline Cast (Auto) U Epithel Cells (Auto) Urine Bacteria (Auto) Stl C. diff Tox B Gene Stl C.difficile Tox A&B Influenza Type A (PCR) Neg for Influ A Influenza Type B (PCR) Neg for Influ B PG Care Time/CCT Total # of Minutes Spent Total Time Spent with Patient: Total time spent is greater than 50% in coordination of care (as documented) at patient's floor/unit and/or counseling patient:
--- NOTE | 2019-01-29 13:54 | Discharge Summary ---
Date of Service January 29, 2019 Admission HPI Per Admitting Provider 68 y/o M c/o fever, n/d. Pt states he was sleeping and this woke him up last night. He felt lightheaded as well. This continued throughout the night and he was never really able to return to sleep. Pt also had a bit of substernal chest pressure. No SOB. He was having increased urinary frequency last night, but no pain. Pt denies abd pain, v/c, LE pain or swelling. Diarrhea was a single episode in the night, none since. Pt was seen at [facility] in clinic yesterday after an accident with a drill causing a L hand laceration. He had glue applied to a deep laceration and it was wrapped. He was told to return if he felt unwell, so he went there first this AM thinking it might be related to his hand. He states his hand has pain, but it is better than yesterday. He was seen there today and states his hand was unwrapped and it looked improving to them. Pt had a prostate bx this week with Dr Turcios. He was put on cipro prophylactically. He felt fine from this standpoint until he noted increased frequency last night. Admission Exam Per Admitting Provider Constitutional: WD/WN, vitals as above Eyes: normal visual vasquez by confrontation and + anicteric sclerae Neck: normal visual inspection and trachea midline Respiratory: normal respiratory effort; no respiratory distress Auscultation: + crackles; no wheezes Cardiovascular: Rate/Rhythm: regular rate and regular rhythm Gastrointestinal (Abdomen): Inspection/Auscultation: abdomen not distended Percussion/Palpation: abdomen soft; abdomen nontender Musculoskeletal: Head/Neck/Chest: normocephalic and head atraumatic negative for edema, peripheral pulses intact Skin: no rashes, warm and dry L hand with bandages that are clean and dry Neurologic: awake; not confused Speech / Cognition: normal speech Psychiatric: A+Ox3, euthymic affect Principal Diagnosis PNA/UTI Discharge Exam General: Resting comfortably HEENT: NC/AT; PERRLA with EOMI; [place] conjunctiva, MMM. No erythema of posterior pharynx Neck: Supple and nontender Cardiac: RRR Lungs: CTA bilaterally Abdomen: Bowel normoactive X 4; Nontender to palpation Extremities: Warm. No edema present Neuro: No focal weakness Skin: No rash Discharge Data Allergies Allergy/AdvReac Type Severity Reaction Status Date / Time No Known Drug Allergies Allergy Verified 01/30/19 14:06 Consultations 01/27/19 12:44 ED Decision to Admit Stat 01/27/19 14:45 Consult Case Management - Discharge Planning Routine Consult Urology Stat Ordered Studies 01/27/19 11:23 CT abd pelvis IV con only Stat CT angio chest PE protocol Stat CXR Hospital Course (1) Pneumonia: Chest CTA showed patchy areas of consolidation within bilat lower lobes posteriorly, trace pleural effusions and trace pericardial effusion. Leukocytosis on admission, now WNL. Low grade fevers also resolved. Received Zosyn and Doxycycline; will convert to PO Doxy and Cefdnir at discharge. (2) Acute UTI: Suspected UTI/prostatitis s/p prostate biopsy on 01/25/19. On Cipro ppx as outpatient, developed infection on PO abx. UC positive for E coli, resistant to FQ. Converted Zosyn to Cefdinir at discharge, will need to complete 10 day course and f/u with urology. (3) Hypothyroidism: Continued home Levothyroxine 150 mcg daily. - TSH was 1.2 in Jun 2018. (4) GERD (gastroesophageal reflux disease): Zantac 150 mg qhs. (5) Prostate cancer: S/p prostate biopsy as noted above. Continue Flomax. Follows with Dr. Jiang. Urology consulted as inpt, appreciate recs. No indication for intervention. (6) Chronic steroid use: On Prednisone 10 mg daily; pt. reports this was prescribed by Dr. 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 Immunosuppressed d/t chronic steroid use. No indication for stress dose steroids. (7) Clostridioides difficile infection: Over a year ago with hospitalization for SBO C. diff gene positive, toxin negative. (8) DVT prophylaxis: SCDs; no pharmacologic ppx and encouraged ambulation. Discharged to home on 01/29/19. Total Time Total Time Spent Total Time Spent (In Minutes): >30 minutes Total Time Includes: Examination of the Patient, Discharge Planning, Medication Reconciliation, Communication With Other Providers and Other Discharge Plan Discharge Items Patient Disposition: Home - Self-Care Reason For Visit: PNA WITH HYPOXIA Discharge Diagnosis: Pneumonia, UTI Condition: Good Discharge Goals: Decrease discomfort, Improve disease control, Improve function, Increase independence, Improve nutritional status and Prevent disease Activity: As commented below Exercise/Sports: Gradually increase as tolerated Non-emergency contact: Primary Care Provider and Urologist Call non-emergency contact if: you have any medication questions, your symptoms worsen, your pain is not controlled, your pain is worsening, your pain is unusual for you, your pain is concerning for you and you have a fever Follow-up/Referrals: Robin Cazares CRNP [Primary Care Provider] - Diet: Regular Addtl Provider Instructions: 1. Pneumonia * Please take cefdinir x 10 days and Doxycycline x 5 days to complete a course of treatment. * Please follow up with your family doctor in 7-10 days to discuss this admission. 2. Acute Urinary Tract Infection * Urine culture was positive for Enterobacter. * Please take cefdinir x 10 days. * Follow up with urology as scheduled following prostate biopsy. Prescriptions: New cefdinir 300 mg capsule 300 mg PO BID 10 Days Qty: 20 RF: 0 doxycycline hyclate 100 mg capsule 100 mg PO BID 5 Days Qty: 10 RF: 0 Continued levothyroxine [Synthroid] 150 mcg tablet 150 mcg PO QAM Qty: 90 RF: 3 multivitamin Tablet 1 tab PO QAM RF: 0 tamsulosin [Flomax] 0.4 mg capsule 0.4 mg PO HS RF: 0 ranitidine HCl 150 mg Tablet 150 mg PO HS RF: 0 prednisone 10 mg Tablet 10 mg PO QAM RF: 0 acetaminophen [Tylenol Extra Strength] 500 mg Tablet 500 mg PO Q6H PRN (Reason: Pain) RF: 0 Discontinued ciprofloxacin HCl 500 mg tablet 500 mg PO BID RF: 0 Stand-Alone Forms: [facility] Discharge Orders: Discharge Order (Routine); Ordered 01/29/19 Ordered By: Mechelle Metcalf Admission Data Admit Date/Time: 01/27/19 13:21 Attending Provider: Mechelle Metcalf Admit Provider: Tram Perkins Primary Care Provider: Robin Cazares Other Providers: Tram Perkins ; Marky Jiang Service: Telemetry Medical Other Interventions: Discharge Summary Assessment (RN) Last Done: 01/29/19 11:09 Pending Studies at Discharge: Yes (Final Blood Cultures-no growth to date) DC Date/Time DO NOT enter until pt leaves facility: 01/29/19 11:25 Supervising Physician Co-Signing Physician Notes PA Supervision Note: I personally saw and examined the patient. I verified all hamlin points and agree with PRASAD Diego with the following exceptions and/or additions: Patient feeling much improved. He did have one low-grade temperature earlier this morning but no fever since then, no chills. No abdominal pain or diarrhea, no cough or shortness of breath. He is on room air with good pulse ox. Vitals reviewed Gen: AAOx3, NAD HEENT: Anicteric sclerae, EOMI CV: RRR no mgr nl S1S2 Pulm: CTAB no wcr Abd: +BS soft NT ND no masses or hernias Ext: No edema, 2+ DP pulses Skin: No rashes, warm/dry Neuro: Full strength throughout 68-year-old male here with febrile illness and UTI as well as pneumonia. He is not symptomatic from his pneumonia at all except for mild hypoxia upon admission which is now improved. With recent prostate biopsy and Enterobacter resistant to the ciprofloxacin he was on for prophylaxis-converting to Omnicef on discharge to cover for the prostatitis and continue doxycycline which will also cover for atypicals for pneumonia coverage -Stable for discharge Blood cultures will need to be followed after discharge but they are no growth today at the 48-hour porfirio upon discharge He will follow-up with urology as an outpatient
[2019-01-29] MEDS ORDERED: PIPERACILLIN/TAZOBACTAM 3.375 GM in DEXTROSE 5% 100 ML IV SCH (18:00)
--- NOTE | 2019-02-03 11:49 | Coding Query ---
CODING QUERY To promote full compliance with coding requirements relating to patient care, provider participation is requested in all cases of precision instrument maker and repairer uncertainty. Please assist us with the question(s) below: Coding Question(s): There is documentation of Acute UTI/Prostatitis s/p prostate biopsy on 01/25/19. On Cipro ppx as outpatient, developed infection on PO abx. Please clarify below, regarding the Acute UTI/Prostatitis. ( x ) Acute UTI/Prostatitis is likely a postprocedural complication ( ) Acute UTI/Prostatitis is Not a postprocedural complication Physician's Response(s): Thank you Karina Brunner Principal Diagnosis: "that condition established after study, to be chiefly responsible for occasioning the admission of the patient to the hospital for care." Co-Existing Principal Diagnosis: "when two or more diagnoses equally meet the criteria for principal diagnosis as determined by the circumstances of admission, diagnostic work up, and/or therapy provided, and the Alphabetic Index, Tabular List, or another coding guideline does not provide sequencing direction, any one of the diagnoses may be sequenced first." "When the physician has documented what appears to be a current diagnosis in the body of the record, but has not included the diagnosis in the final diagnostic statement, the physician should be asked whether the diagnosis should be added." (Source [facility]oding [facility] 2 QTR90. p3-4) PAULINO
== END 2019-01-29 11:25 | disposition home or self-care (01) | DRG 862 ==
LOC: ED 09:33 → 2W 13:21 → SUATTDRO 13:21 → 2W 14:18

== ENCOUNTER 2020-06-13 21:08 | Inpatient (IN) ==
[2020-06-13 21:37] LABS: iSTAT Creatinine 1.1 mg/dl (0.6-1.3); iSTAT Hemoglobin 17.7 g/dl (14.0-18.0); iSTAT Ionized Calcium 1.22 mmol/l (1.12-1.32); iSTAT Potassium 3.6 mmol/L (3.3-5.0)
[2020-06-13 21:41] LABS: Basophils # (auto) 0.03 K/uL (0-0.2); Basophils % (auto) 0.2 %; Eosinophils # (auto) 0.08 K/uL (0-0.5); Eosinophils % (auto) 0.6 %; Hematocrit (blood only) 50.8 % (42-52); Hemoglobin 17.5 g/dL (14.0-18.0); Immature Granulocytes # (auto) 0.04 K/uL (0.00-0.02); Immature Granulocytes % (auto) 0.3 %; Lymphocytes # (auto) 1.36 K/uL (1.2-3.4); Lymphocytes % (auto) 10.6 %; Mean Corpuscular Hemoglobin 29.2 pg (25-34); Mean Corpuscular Hgb Conc 34.4 g/dL (32-36); Mean Corpuscular Volume 84.8 fL (80-100); Mean Platelet Volume 9.7 fL (7.4-10.4); Monocytes # (auto) 0.72 K/uL (0.11-0.59); Monocytes % (auto) 5.6 %; Neutrophils # (auto) 10.58 K/uL (1.4-6.5); Neutrophils % (auto) 82.7 %; Platelet Count 191 K/uL (130-400); RDW Coefficient of Variation 13.2 % (11.5-14.5); RDW Standard Deviation 40.5 fL (36.4-46.3); Red Blood Count 5.99 M/uL (4.7-6.1); White Blood Count 12.81 K/uL (4.8-10.8)
[2020-06-13 22:06] LABS: Bilirubin Direct 0.2 mg/dl (0-0.2); Calcium 9.9 mg/dl (8.5-10.1); Creatinine Clr Calc Pharmacy 66.5 ml/min; Est GFR (African American) 67.6; Est GFR (Non-African American) 58.3; Potassium 3.5 mmol/L (3.5-5.1)
[2020-06-13 22:09] LABS: Bilirubin,Total 0.8 mg/dl (0.2-1); Total Protein 7.8 gm/dl (6.4-8.2)
[2020-06-13] MEDS ORDERED: IOVERSOL 100ml IV ONE (22:11)
[2020-06-13] MEDS ORDERED: MoRPHine SULFATE 2 MG/ML CARP IV STA (23:01)
[2020-06-13] MEDS ORDERED: ONDANSETRON INJ 2 MG/ML 2 ML VIAL IV STA (23:01)
--- NOTE | 2020-06-13 23:30 | Emergency Department Note ---
History of Present Illness General Chief Complaint: Abdominal Pain Time Seen by Provider: 06/13/20 21:10 History of Present Illness Provider Complaint: abdominal pain Onset (ago): 2 day(s) Pain Consistency: constant Location: diffuse Severity: moderate Maximum Pain Intensity: 8 Current Pain Intensity: 8 Quality: + sharp Relieved By: + medication (Morphine by EMS) Exacerbated By: + nothing Context: + history of similar episodes (Feels like prior small bowel obst ructions.) Associated Symptoms: + nausea and + vomiting; no diarrhea, no fever, no constipation, no dysuria, no hematemesis, no hematochezia, no melena, no anorexia, no headache, no neck pain, no back pain, no chest pain and no breathing difficulty Treatments prior to arrival: EMS provided (Morphine 4 mg) Home Medications Medication Instructions Recorded Confirmed Type multivitamin 1 tab PO QAM 08/17/18 06/13/20 History famotidine 20 mg tablet 20 mg PO DAILY 12/12/19 06/13/20 History levothyroxine 150 mcg tablet 150 mcg PO QAM #90 tab 12/29/19 06/13/20 Rx dutasteride 0.5 mg capsule 0.5 mg PO DAILY #90 cap 05/23/20 06/13/20 Rx tamsulosin 0.4 mg capsule 0.4 mg PO HS #90 cap 05/23/20 06/13/20 Rx omeprazole 20 mg capsule,delayed 20 mg PO BID #60 cap 06/11/20 06/13/20 Rx release Allergies Allergy/AdvReac Type Severity Reaction Status Date / Time No Known Drug Allergies Allergy Verified 06/11/20 08:17 Past Med/Surg History Medical History (Updated 06/14/20 @ 00:23 by Juani Oliver DO) Acute pain of right foot Arthritis Benign prostatic hyperplasia with urinary obstruction Chronic steroid use Diverticulosis Dysmetabolic syndrome X GERD (gastroesophageal reflux disease) History of asthma History of colon polyps History of gastric ulcer History of gastrointestinal ulcer History of hyperthyroidism History of kidney disease History of viral infection Hx of Clostridium difficile infection Hx of renal calculi Hx of small bowel obstruction Hypothyroidism Ileum ulcer Irritable bowel syndrome (IBS) Low back pain Nausea and vomiting after administration of anesthetic agent Need for hepatitis C screening test Prostate cancer diagnosed 06/2018--per pt just monitoring for now Renal insufficiency Right nephrolithiasis Surgical History History of colonoscopy History of esophagogastroduodenoscopy (EGD) History of hernia repair 1988 History of left inguinal hernia repair History of lithotripsy x2 History of prostate biopsy x2--1 benign and now 2nd malignant History of tooth extraction Family History Father , afe 56 Myocardial infarction Cardiac disorder Diabetes FHx: cholecystectomy Hypertension Gallbladder disease Heart disease Mother , age 76 Family history of diabetes mellitus Cardiac disorder Diabetes FHx: cholecystectomy Gallbladder disease Heart disease Brother , [place] at age 60 Family history of diabetes mellitus Family hx colonic polyps Cardiac disorder Diabetes Gallbladder disease Cancer Brother Age: 74 FHx: cholecystectomy Hypertension Myocardial infarction Colonic polyp Stroke Heart disease Daughter Age: 48 No problems noted. Uncle , of prostate cancer at 78. Diagnosed at 70. Had a seed implant. Prostate cancer Other Hearing loss Denies family history of Ovarian cancer Coronary heart disease No family history of adverse response to anesthesia No family history of bleeding disorder Allergies Breast cancer Lung cancer Colorectal cancer Asthma Social History Smoking Status: Never smoker Second Hand Exposure: No; Hx Alcohol Use: No Hx Substance Use: No Preferred Language: Liberian Communication Ability: Effective Visual Impairment: Limited Hearing Ability: Hard of Hearing Fast Food Shift Lead Required: No Beliefs That Will Affect Care: None marital status: Current Living Situation: Spouse current occupational status: retired Feels Safe at Home: Yes Childhood Exposure to Second-Hand Smoke: Yes caffeine: Yes Dental Care, Regularly: Yes Physical Activity Frequency: Does not Exercise Physical Activity Frequency Comment: LIMITED BY PHYSICAL CONDITION Seatbelt Use: always Sunscreen Use: Yes Assistive Devices: None Review of Systems A total of 10 systems reviewed and were otherwise negative Physical Exam Vital Signs: Vital Signs - 24 hr 06/13/20 21:15 06/13/20 21:18 06/13/20 21:20 Temperature 36.8 C Temperature Source Oral Pulse Rate 64 Pulse Rate [Apical ] Respiratory Rate 10 L Respiratory Effort / Characteristics Non-Labored Sponta neous Respiratory Depth Shallow Blood Pressure 126/77 Blood Pressure [Ri ght Arm] Blood Pressure Adelina n 93 Blood Pressure Adelina n [Right Arm] Pulse Oximetry 82 L 92 85 L Oxygen Delivery Me thod Room Air Room Air Nasal Cannula Oxygen Flow Rate 2 Sepsis Recent Feve r Within 48 Hours No Sepsis New/Unexpla ined Change in Men willie Status No Sepsis Action Take n by Nursing No Action Required Oxygen Flow Rate - Titration 2 Fraction of Inspir ed Oxygen - Titrat ion 4 Pulse Oximetry Pos t Tiitration 85 L 86 L 06/13/20 21:25 06/13/20 21:28 06/13/20 21:36 Temperature Temperature Source Pulse Rate Pulse Rate [Apical ] Respiratory Rate Respiratory Effort / Characteristics Respiratory Depth Blood Pressure Blood Pressure [Ri ght Arm] Blood Pressure Adelina n Blood Pressure Adelina n [Right Arm] Pulse Oximetry 86 L 88 L 88 L Oxygen Delivery Me thod Nasal Cannula Nasal Cannula [place]ask Oxygen Flow Rate 4 6 7 Sepsis Recent Feve r Within 48 Hours Sepsis New/Unexpla ined Change in Men willie Status Sepsis Action Take n by Nursing Oxygen Flow Rate - Titration 6 7 Fraction of Inspir ed Oxygen - Titrat ion Pulse Oximetry Pos t Tiitration 88 L 88 L 06/13/20 22:42 06/14/20 00:24 Temperature Temperature Source Pulse Rate Pulse Rate [Apical ] 79 81 Respiratory Rate 18 20 Respiratory Effort / Characteristics Non-Labored Sponta neous Respiratory Depth Normal Blood Pressure Blood Pressure [Ri ght Arm] 156/83 H 111/87 Blood Pressure Adelina n Blood Pressure Adelina n [Right Arm] 107 95 Pulse Oximetry 95 91 Oxygen Delivery Me thod Oxymask Oxymask Oxygen Flow Rate 7 10 Sepsis Recent Feve r Within 48 Hours Sepsis New/Unexpla ined Change in Men willie Status Sepsis Action Take n by Nursing Oxygen Flow Rate - Titration Fraction of Inspir ed Oxygen - Titrat ion Pulse Oximetry Pos t Tiitration Physical Exam: Physical Exam GENERAL: Patient appears drowsy. HENT: Exam performed. - Head: Normocephalic and atraumatic. - Right Ear: External ear normal. No mastoid tenderness. - Left Ear: External ear normal. No mastoid tenderness. - Mouth/Throat: The oropharynx is clear and moist. No trismus in the jaw. No dental abscesses or uvula swelling. No oropharyngeal exudate or tonsillar abscesses. EYES: Conjunctivae and EOM are normal. 1 mm nonreactive. Right eye exhibits no discharge. Left eye exhibits no discharge. No scleral icterus. NECK: Normal range of motion. Neck supple. No JVD present. No spinous process tenderness present. No carotid bruit present. No rigidity. No tracheal deviation and normal range of motion present. No Brudzinski's sign and no Kernig's sign noted. CV: Normal rate, regular rhythm, normal heart sounds and intact distal pulses. There is no peripheral edema. Palpable radial pulses bue. PULM/CHEST: Effort normal and breath sounds normal. No respiratory distress. No stridor. He has no wheezes. He has no rales. - Chest Wall: He exhibits no tenderness. ABD: Diffuse pain on palpation of the abdomen MUSC/SKEL: Normal range of motion. There is no peripheral edema, tenderness or deformity. LYMPH: No cervical adenopathy. NEURO: Motor and sensation grossly intact. SKIN: Skin is warm and dry. He is not diaphoretic. Course Course 2109: The patient was evaluated in room A11. A complete history and physical exam was performed. Cardiac monitoring: An order was placed for continuous cardiac monitoring. The monitor shows a rate of 60 with sinus rhythm Patient was initially hypoxic on room air. Is thought that the patient's hypoxia, drowsiness, and nonreactive pupils are due to his morphine administrat ion. Patient was placed on supplemental oxygen and will continue to monitor patient. 2244: Vital signs stable. Imaging show a small bowel obstruction. Labs show leukocytosis of 12.8. Discussed the case with general surgery Dr. Hoyos who states to admit to medicine and he will be on consult. Dr. Oliver mount any hospitalist team notified. Administered Medications Discontinued Medications Benzocaine/Butamben/Tetracaine HCl (Benzocain/Tetraca/Butam [place] 200 Appln/20 Gm [place]) Confirm Administered Dose 1 appln EXT .STK-MED ONE Stop: 06/14/20 00:07 Last Admin: 06/14/20 00:17 Dose: 1 appln Documented by: [id number] Ioversol (Ioversol 100ml) 91 ml IV ONCE ONE Stop: 06/13/20 22:12 Last Admin: 06/13/20 22:11 Dose: 91 ml Documented by: [id number] Morphine Sulfate (Morphine Sulfate 2 Mg/Ml Carp) 2 mg IV NOW STA Stop: 06/13/20 23:02 Last Admin: 06/13/20 23:45 Dose: 2 mg Documented by: [id number] Ondansetron HCl (Ondansetron Inj 2 Mg/Ml 2 Ml Vial) 4 mg IV NOW STA Stop: 06/13/20 23:02 Last Admin: 06/13/20 23:46 Dose: 4 mg Documented by: [id number] Medical Decision Making Laboratory Data Result diagrams: 06/13/20 21:20 06/13/20 21:20 Lab Results 06/13/20 06/13/20 06/13/20 Range/Units 21:20 21:20 21:25 WBC 12.81 H (4.8-10.8) K/uL RBC 5.99 (4.7-6.1) M/uL Hgb 17.5 (14.0-18.0) g/dL POC Hgb 17.7 (14.0-18.0) g/dl Hct 50.8 (42-52) % POC Hct 52 (42-52) % MCV 84.8 (80-100) fL MCH 29.2 (25-34) pg MCHC 34.4 (32-36) g/dL RDW Std Deviation 40.5 (36.4-46.3) fL RDW Coeff of Bryan 13.2 (11.5-14.5) % Plt Count 191 (130-400) K/uL MPV 9.7 (7.4-10.4) fL Immature Gran % (Auto) 0.3 % Neut % (Auto) 82.7 % Lymph % (Auto) 10.6 % Rutherford % (Auto) 5.6 % Eos % (Auto) 0.6 % Baso % (Auto) 0.2 % Neut # (Auto) 10.58 H (1.4-6.5) K/uL Lymph # (Auto) 1.36 (1.2-3.4) K/uL [place] # (Auto) 0.72 H (0.11-0.59) K/uL Eos # (Auto) 0.08 (0-0.5) K/uL Baso # (Auto) 0.03 (0-0.2) K/uL Immature Gran # (Auto) 0.04 H (0.00-0.02) K/uL POC Sodium 139 (135-144) mmol/L Sodium 139 (136-145) mmol/L POC Potassium 3.6 (3.3-5.0) mmol/L Potassium 3.5 (3.5-5.1) mmol/L POC Chloride 107 (101-112) mmol/L Chloride 108 H (98-107) mmol/L Carbon Dioxide 23 (21-32) mmol/L POC Total CO2 23 L (24-31) mmol/L Anion Gap 9.0 (3-11) POC Anion Gap 14.0 L (16-25) mmol/L POC BUN 19 H (7-18) mg/dl BUN 17 (7-18) mg/dl Creatinine 1.23 (0.6-1.4) mg/dl POC Creatinine 1.1 (0.6-1.3) mg/dl Est Cr Clr Drug Dosing 66.5 ml/min Est GFR ( Amer) 67.6 Est GFR (Non-Af Amer) 58.3 BUN/Creatinine Ratio 14.0 (10-20) Glucose 123 H (70-99) mg/dl POC Glucose (other) 130 H (70-99) mg/dl Calcium 9.9 (8.5-10.1) mg/dl POC Ioniz Calcium Pedro 1.22 (1.12-1.32) mmol/l Total Bilirubin 0.8 (0.2-1) mg/dl Direct Bilirubin 0.2 (0-0.2) mg/dl AST 24 (15-37) U/L ALT 39 (12-78) U/L Alkaline Phosphatase 107 (45-117) U/L Total Protein 7.8 (6.4-8.2) gm/dl Albumin 4.0 (3.4-5.0) gm/dl Lipase 211 (73-393) U/L COVID-19 Eval Order SARS-CoV-2, RNA, NAAT (NEGATIVE) 06/13/20 06/13/20 Range/Units 23:15 23:15 WBC (4.8-10.8) K/uL RBC (4.7-6.1) M/uL Hgb (14.0-18.0) g/dL POC Hgb (14.0-18.0) g/dl Hct (42-52) % POC Hct (42-52) % MCV (80-100) fL MCH (25-34) pg MCHC (32-36) g/dL RDW Std Deviation (36.4-46.3) fL RDW Coeff of Bryan (11.5-14.5) % Plt Count (130-400) K/uL MPV (7.4-10.4) fL Immature Gran % (Auto) % Neut % (Auto) % Lymph % (Auto) % [place] % (Auto) % Eos % (Auto) % Baso % (Auto) % Neut # (Auto) (1.4-6.5) K/uL Lymph # (Auto) (1.2-3.4) K/uL [place] # (Auto) (0.11-0.59) K/uL Eos # (Auto) (0-0.5) K/uL Baso # (Auto) (0-0.2) K/uL Immature Gran # (Auto) (0.00-0.02) K/uL POC Sodium (135-144) mmol/L Sodium (136-145) mmol/L POC Potassium (3.3-5.0) mmol/L Potassium (3.5-5.1) mmol/L POC Chloride (101-112) mmol/L Chloride (98-107) mmol/L Carbon Dioxide (21-32) mmol/L POC Total CO2 (24-31) mmol/L Anion Gap (3-11) POC Anion Gap (16-25) mmol/L POC BUN (7-18) mg/dl BUN (7-18) mg/dl Creatinine (0.6-1.4) mg/dl POC Creatinine (0.6-1.3) mg/dl Est Cr Clr Drug Dosing ml/min Est GFR ( Amer) Est GFR (Non-Af Amer) BUN/Creatinine Ratio (10-20) Glucose (70-99) mg/dl POC Glucose (other) (70-99) mg/dl Calcium (8.5-10.1) mg/dl POC Ioniz Calcium Pedro (1.12-1.32) mmol/l Total Bilirubin (0.2-1) mg/dl Direct Bilirubin (0-0.2) mg/dl AST (15-37) U/L ALT (12-78) U/L Alkaline Phosphatase (45-117) U/L Total Protein (6.4-8.2) gm/dl Albumin (3.4-5.0) gm/dl Lipase (73-393) U/L COVID-19 Eval Order Covid19 IDNow [facility] SARS-CoV-2, RNA, NAAT NEGATIVE (NEGATIVE) Imaging Data Radiologist's Impression: Preliminary Findings Only See Final Report For Complete Findings CT ABDOMEN & PELVIS With Contrast: Comparison: CT abdomen and pelvis 01/27/19. Fluid distended stomach. Multiple dilated, fluid-filled loops of small bowel. Right lower quadrant transition point (series 2, images 73-78; series 300, images 21-25). Associated mild edema and trace fluid in the right lower quadrant mesentery. Findings suggest partial small bowel obstruction. Associated gastroenteritis is not excluded. No pneumatosis or free air. Appendix not visualized. Diverticulosis without diverticulitis. Opacities at the lung bases, most likely atelectasis. Liver, gallbladder, spleen, pancreas, adrenal glands are unremarkable. No hydronephrosis. Bilateral renal cysts, similar to prior. Normal urinary bladder. Prostate is normal in size. Fat-containing inguinal hernias. No acute osseous findings. Radiologist: Juana Carrillo M.D. Study ready at 22:26 and initial results transmitted at 22:38 MDM Narrative 0: The patient was evaluated in room A11. A complete history and physical exam was performed. Cardiac monitoring: An order was placed for continuous cardiac monitoring. The monitor shows a rate of 60 with sinus rhythm Patient was initially hypoxic on room air. Is thought that the patient's hypoxia, drowsiness, and nonreactive pupils are due to his morphine administration. Patient was placed on supplemental oxygen and will continue to monitor patient. 5: Vital signs stable. Imaging show a small bowel obstruction. Labs show leukocytosis of 12.8. Discussed the case with general surgery Dr. Hoyos who states to admit to medicine and he will be on consult. Dr. Benito du any hospitalist team notified. Impression & Plan Small bowel obstruction Discharge Plan Visit Data Chief Complaint: Abdominal Pain ED Provider: Edil Latham Discharge Problem: Small bowel obstruction Patient Disposition: Admitted As Inpatient Forms Stand Alone Forms: [facility] Prescriptions Prescriptions: No Action levothyroxine [Synthroid] 150 mcg tablet 150 mcg PO QAM Qty: 90 RF: 3 omeprazole 20 mg capsule,delayed release(DR/EC) 20 mg PO BID Qty: 60 RF: 3 tamsulosin [Flomax] 0.4 mg capsule 0.4 mg PO HS Qty: 90 RF: 3 dutasteride 0.5 mg capsule 0.5 mg PO DAILY Qty: 90 RF: 3 famotidine 20 mg tablet 20 mg PO DAILY RF: 0 Hold Instructions: replaced with ppi multivitamin Tablet 1 tab PO QAM RF: 0 Referrals Referrals: Robin Cazares CRNP [Primary Care Provider] -
--- NOTE | 2020-06-13 23:52 | Surgery Consultation ---
Date of Consultation June 13, 2020 Assessment & Plan (1) Small bowel obstruction: Patient to be admitted to the hospital with partial small bowel obstruction His small bowel is not significantly dilated His stomach is severely distended which is likely giving him most of his discomfort An NG tube should help this significantly I would suggest NG decompression and bowel rest, nonoperative management at this point History of Present Illness History of Present Illness 70-year-old male presenting to the emergency room with abdominal pain Found on CAT scan to have mildly dilated small bowel consistent with partial small bowel obstruction with a severely Distended stomach Apparently has had this before but never has had any operations There may be a transition point in the right lower quadrant Allergies Allergy/AdvReac Type Severity Reaction Status Date / Time No Known Drug Allergies Allergy Verified 06/11/20 08:17 Home Medications Medication Instructions Recorded Confirmed Type multivitamin 1 tab PO QAM 08/17/18 06/13/20 History famotidine 20 mg tablet 20 mg PO DAILY 12/12/19 06/13/20 History levothyroxine 150 mcg tablet 150 mcg PO QAM #90 tab 12/29/19 06/13/20 Rx dutasteride 0.5 mg capsule 0.5 mg PO DAILY #90 cap 05/23/20 06/13/20 Rx tamsulosin 0.4 mg capsule 0.4 mg PO HS #90 cap 05/23/20 06/13/20 Rx omeprazole 20 mg capsule,delayed 20 mg PO BID #60 cap 06/11/20 06/13/20 Rx release Patient History Medical History (Updated 06/13/20 @ 23:51 by Monty Hoyos MD, FACS) Acute pain of right foot Arthritis Benign prostatic hyperplasia with urinary obstruction Chronic steroid use Diverticulosis Dysmetabolic syndrome X GERD (gastroesophageal reflux disease) History of asthma History of colon polyps History of gastric ulcer History of gastrointestinal ulcer History of hyperthyroidism History of kidney disease History of viral infection Hx of Clostridium difficile infection Hx of renal calculi Hx of small bowel obstruction Hypothyroidism Ileum ulcer Irritable bowel syndrome (IBS) Low back pain Nausea and vomiting after administration of anesthetic agent Need for hepatitis C screening test Prostate cancer diagnosed 06/2018--per pt just monitoring for now Renal insufficiency Right nephrolithiasis Surgical History History of colonoscopy History of esophagogastroduodenoscopy (EGD) History of hernia repair 1988 History of left inguinal hernia repair History of lithotripsy x2 History of prostate biopsy x2--1 benign and now 2nd malignant History of tooth extraction Family History Father , afe 56 Myocardial infarction Cardiac disorder Diabetes FHx: cholecystectomy Hypertension Gallbladder disease Heart disease Mother , age 76 Family history of diabetes mellitus Cardiac disorder Diabetes FHx: cholecystectomy Gallbladder disease Heart disease Brother , [place] at age 60 Family history of diabetes mellitus Family hx colonic polyps Cardiac disorder Diabetes Gallbladder disease Cancer Brother Age: 74 FHx: cholecystectomy Hypertension Myocardial infarction Colonic polyp Stroke Heart disease Daughter Age: 48 No problems noted. Uncle , of prostate cancer at 78. Diagnosed at 70. Had a seed implant. Prostate cancer Other Hearing loss Denies family history of Ovarian cancer Coronary heart disease No family history of adverse response to anesthesia No family history of bleeding disorder Allergies Breast cancer Lung cancer Colorectal cancer Asthma Social History Smoking Status: Never smoker Second Hand Exposure: No; Hx Alcohol Use: No Hx Substance Use: No Preferred Language: Trinidadian Communication Ability: Effective Visual Impairment: Limited Hearing Ability: Hard of Hearing Background Check Coordinator Required: No Beliefs That Will Affect Care: None marital status: Current Living Situation: Spouse current occupational status: retired Feels Safe at Home: Yes Childhood Exposure to Second-Hand Smoke: Yes caffeine: Yes Dental Care, Regularly: Yes Physical Activity Frequency: Does not Exercise Physical Activity Frequency Comment: LIMITED BY PHYSICAL CONDITION Seatbelt Use: always Sunscreen Use: Yes Assistive Devices: None Review of Systems Review of Systems: All systems reviewed & are unremarkable except as noted in HPI & below Physical Exam Constitutional: well developed Mild distress from upper abdominal pain Eyes: + anicteric sclerae Respiratory: normal respiratory effort; no respiratory distress Cardiovascular: Rate/Rhythm: regular rate Gastrointestinal (Abdomen): Inspection/Auscultation: + abdomen distended Mild tenderness Musculoskeletal: Head/Neck/Chest: head atraumatic Skin: no rashes, warm and dry Neurologic: awake Psychiatric: Orientation: alert Results & Data ([facility]) Vital Signs (Past 12 Hours) Vital Signs Temp Pulse Pulse Resp BP BP Pulse Ox 06/13/20 22:42 79 18 156/83 H 95 06/13/20 21:36 88 L 06/13/20 21:28 88 L 06/13/20 21:25 86 L 06/13/20 21:20 85 L 06/13/20 21:18 36.8 C 64 10 L 126/77 92 06/13/20 21:15 82 L I did review his CAT scan PG Care Time/CCT Total # of Minutes Spent Total Time Spent with Patient: Total time spent is greater than 50% in coordination of care (as documented) at patient's floor/unit and/or counseling patient: Coding Level of Care Code 00042 Initial Inpt Care Lvl 3 Diagnoses Small bowel obstruction K56.609
[2020-06-14] MEDS ORDERED: BENZOCAIN/TETRACA/BUTAM SPRAY 200 APPLN/20 GM SPRY EXT ONE (00:06)
[2020-06-14] MEDS ORDERED: CANNULA ONE (00:06)
--- NOTE | 2020-06-14 00:25 | History & Physical Report ---
Date of Service June 14, 2020 Assessment & Plan (1) Small bowel obstruction: 70yo C male presenting with SBO. -Admit to medical -NGT to LIWS -Gentle hydration and electrolyte repletion as needed -Zofran PRN -Morphine PRN -General Surgery consultation appreciated -Aspiration precautions Present on Admission?: Yes (2) GERD (gastroesophageal reflux disease): Chronic -Continue Pepcid - changed to IV -PO Protonix Present on Admission?: Yes (3) Prostate cancer: On surveillance -Noted Present on Admission?: Yes (4) Hypothyroid: TSH 1.78 in November 2019 -Continue Synthroid Present on Admission?: Yes (5) BPH (benign prostatic hyperplasia): Chronic -Continue Flomax and Dutasteride F/E/N - Gentle fluids, electrolyte repletion, NPO Ppx - Lovenox Code - Full Dispo - Observation to medical Present on Admission?: Yes History of Present Illness Chief Complaint: abdominal pain Primary Care Provider: MOSSE Reyes Pawel Johnson is a 70yo C male with history of prior SBO presenting with nausea, vomiting, abdominal pain. Symptoms similar to prior SBO. No flatus. Small BM prior to arrival. Patient having NGT placed in ER. Allergies Allergy/AdvReac Type Severity Reaction Status Date / Time No Known Drug Allergies Allergy Verified 06/11/20 08:17 Home Medications Medication Instructions Recorded Confirmed Type multivitamin 1 tab PO QAM 08/17/18 06/13/20 History famotidine 20 mg tablet 20 mg PO DAILY 12/12/19 06/13/20 History levothyroxine 150 mcg tablet 150 mcg PO QAM #90 tab 12/29/19 06/13/20 Rx dutasteride 0.5 mg capsule 0.5 mg PO DAILY #90 cap 05/23/20 06/13/20 Rx tamsulosin 0.4 mg capsule 0.4 mg PO HS #90 cap 05/23/20 06/13/20 Rx omeprazole 20 mg capsule,delayed 20 mg PO BID #60 cap 06/11/20 06/13/20 Rx release Past Med/Surg History Medical History (Updated 06/14/20 @ 00:23 by Juani Oliver DO) Acute pain of right foot Arthritis Benign prostatic hyperplasia with urinary obstruction Chronic steroid use Diverticulosis Dysmetabolic syndrome X GERD (gastroesophageal reflux disease) History of asthma History of colon polyps History of gastric ulcer History of gastrointestinal ulcer History of hyperthyroidism History of kidney disease History of viral infection Hx of Clostridium difficile infection Hx of renal calculi Hx of small bowel obstruction Hypothyroidism Ileum ulcer Irritable bowel syndrome (IBS) Low back pain Nausea and vomiting after administration of anesthetic agent Need for hepatitis C screening test Prostate cancer diagnosed 06/2018--per pt just monitoring for now Renal insufficiency Right nephrolithiasis Surgical History History of colonoscopy History of esophagogastroduodenoscopy (EGD) History of hernia repair 1988 History of left inguinal hernia repair History of lithotripsy x2 History of prostate biopsy x2--1 benign and now 2nd malignant History of tooth extraction Family History Father , afe 56 Myocardial infarction Cardiac disorder Diabetes FHx: cholecystectomy Hypertension Gallbladder disease Heart disease Mother , age 76 Family history of diabetes mellitus Cardiac disorder Diabetes FHx: cholecystectomy Gallbladder disease Heart disease Brother , [place] at age 60 Family history of diabetes mellitus Family hx colonic polyps Cardiac disorder Diabetes Gallbladder disease Cancer Brother Age: 74 FHx: cholecystectomy Hypertension Myocardial infarction Colonic polyp Stroke Heart disease Daughter Age: 48 No problems noted. Uncle , of prostate cancer at 78. Diagnosed at 70. Had a seed implant. Prostate cancer Other Hearing loss Denies family history of Ovarian cancer Coronary heart disease No family history of adverse response to anesthesia No family history of bleeding disorder Allergies Breast cancer Lung cancer Colorectal cancer Asthma Social History Smoking Status: Never smoker Second Hand Exposure: No; Hx Alcohol Use: No Hx Substance Use: No Preferred Language: Bahamian Communication Ability: Effective Visual Impairment: Limited Hearing Ability: Hard of Hearing Manager Staffing Required: No Beliefs That Will Affect Care: None marital status: Current Living Situation: Spouse current occupational status: retired Other Information That Helps Us Care for You: No Feels Safe at Home: Yes Safety Concerns: Feels Safe At This Time Childhood Exposure to Second-Hand Smoke: Yes caffeine: Yes Dental Care, Regularly: Yes Physical Activity Frequency: Does not Exercise Physical Activity Frequency Comment: LIMITED BY PHYSICAL CONDITION Seatbelt Use: always Sunscreen Use: Yes Assistive Devices: None Review of Systems 2 Review of Systems: All systems reviewed & are unremarkable except as noted in HPI & below Physical Exam Physical Exam: General: patient resting comfortably, NAD, non-toxic in appearance, AA&O x 4 Skin: warm, dry, intact, no rashes or lesions HEENT: NC/AT, PERRL, EOMI, anicteric sclera, conjunctiva without injection, external ear normal to inspection and nontender, nares patent, moist mucus membranes, dentition intact, no oropharyngeal lesions, neck supple, trachea midline, no LAD, no thyromegaly, no JVD Heart: +S1/S2, regular, no m/r/g Lungs: equal air entry bilaterally, no rales/rhonchi/wheezes Abd: +BS diminished, soft, diffusely tender with some voluntary guarding, no r ebound, no masses/organomegaly/ascites Ext: warm, 2+ pulses in UE/LE bilaterally, no clubbing/cyanosis or edema Neuro: nonfocal, patient AA&O x 4, speech intact, no facial droop, moving all extremities on command with equal strength 5/5 Results & Data Results & Data ([facility]) Vital Signs (Past 12 Hours) Vital Signs Temp Pulse Pulse Resp BP BP Pulse Ox 06/13/20 22:42 79 18 156/83 H 95 06/13/20 21:36 88 L 06/13/20 21:28 88 L 06/13/20 21:25 86 L 06/13/20 21:20 85 L 06/13/20 21:18 36.8 C 64 10 L 126/77 92 06/13/20 21:15 82 L Laboratory Results Lab Results 06/13/20 06/13/20 06/13/20 Range/Units 21:20 21:20 21:25 WBC 12.81 H (4.8-10.8) K/uL RBC 5.99 (4.7-6.1) M/uL Hgb 17.5 (14.0-18.0) g/dL POC Hgb 17.7 (14.0-18.0) g/dl Hct 50.8 (42-52) % POC Hct 52 (42-52) % MCV 84.8 (80-100) fL MCH 29.2 (25-34) pg MCHC 34.4 (32-36) g/dL RDW Std Deviation 40.5 (36.4-46.3) fL RDW Coeff of Bryan 13.2 (11.5-14.5) % Plt Count 191 (130-400) K/uL MPV 9.7 (7.4-10.4) fL Immature Gran % (Auto) 0.3 % Neut % (Auto) 82.7 % Lymph % (Auto) 10.6 % [place] % (Auto) 5.6 % Eos % (Auto) 0.6 % Baso % (Auto) 0.2 % Neut # (Auto) 10.58 H (1.4-6.5) K/uL Lymph # (Auto) 1.36 (1.2-3.4) K/uL [place] # (Auto) 0.72 H (0.11-0.59) K/uL Eos # (Auto) 0.08 (0-0.5) K/uL Baso # (Auto) 0.03 (0-0.2) K/uL Immature Gran # (Auto) 0.04 H (0.00-0.02) K/uL POC Sodium 139 (135-144) mmol/L Sodium 139 (136-145) mmol/L POC Potassium 3.6 (3.3-5.0) mmol/L Potassium 3.5 (3.5-5.1) mmol/L POC Chloride 107 (101-112) mmol/L Chloride 108 H (98-107) mmol/L Carbon Dioxide 23 (21-32) mmol/L POC Total CO2 23 L (24-31) mmol/L Anion Gap 9.0 (3-11) POC Anion Gap 14.0 L (16-25) mmol/L POC BUN 19 H (7-18) mg/dl BUN 17 (7-18) mg/dl Creatinine 1.23 (0.6-1.4) mg/dl POC Creatinine 1.1 (0.6-1.3) mg/dl Est Cr Clr Drug Dosing 66.5 ml/min Est GFR ( Amer) 67.6 Est GFR (Non-Af Amer) 58.3 BUN/Creatinine Ratio 14.0 (10-20) Glucose 123 H (70-99) mg/dl POC Glucose (other) 130 H (70-99) mg/dl Calcium 9.9 (8.5-10.1) mg/dl POC Ioniz Calcium Pedro 1.22 (1.12-1.32) mmol/l Phosphorus 3.1 (2.5-4.9) mg/dl Magnesium 2.3 (1.8-2.4) mg/dl Total Bilirubin 0.8 (0.2-1) mg/dl Direct Bilirubin 0.2 (0-0.2) mg/dl AST 24 (15-37) U/L ALT 39 (12-78) U/L Alkaline Phosphatase 107 (45-117) U/L Total Protein 7.8 (6.4-8.2) gm/dl Albumin 4.0 (3.4-5.0) gm/dl Lipase 211 (73-393) U/L Stl C. diff Tox B Gene (Neg) COVID-19 Eval Order SARS-CoV-2, RNA, NAAT (NEGATIVE) 06/13/20 06/13/20 06/14/20 Range/Units 23:15 23:15 01:30 WBC (4.8-10.8) K/uL RBC (4.7-6.1) M/uL Hgb (14.0-18.0) g/dL POC Hgb (14.0-18.0) g/dl Hct (42-52) % POC Hct (42-52) % MCV (80-100) fL MCH (25-34) pg MCHC (32-36) g/dL RDW Std Deviation (36.4-46.3) fL RDW Coeff of Bryan (11.5-14.5) % Plt Count (130-400) K/uL MPV (7.4-10.4) fL Immature Gran % (Auto) % Neut % (Auto) % Lymph % (Auto) % [place] % (Auto) % Eos % (Auto) % Baso % (Auto) % Neut # (Auto) (1.4-6.5) K/uL Lymph # (Auto) (1.2-3.4) K/uL [place] # (Auto) (0.11-0.59) K/uL Eos # (Auto) (0-0.5) K/uL Baso # (Auto) (0-0.2) K/uL Immature Gran # (Auto) (0.00-0.02) K/uL POC Sodium (135-144) mmol/L Sodium (136-145) mmol/L POC Potassium (3.3-5.0) mmol/L Potassium (3.5-5.1) mmol/L POC Chloride (101-112) mmol/L Chloride (98-107) mmol/L Carbon Dioxide (21-32) mmol/L POC Total CO2 (24-31) mmol/L Anion Gap (3-11) POC Anion Gap (16-25) mmol/L POC BUN (7-18) mg/dl BUN (7-18) mg/dl Creatinine (0.6-1.4) mg/dl POC Creatinine (0.6-1.3) mg/dl Est Cr Clr Drug Dosing ml/min Est GFR ( Amer) Est GFR (Non-Af Amer) BUN/Creatinine Ratio (10-20) Glucose (70-99) mg/dl POC Glucose (other) (70-99) mg/dl Calcium (8.5-10.1) mg/dl POC Ioniz Calcium Pedro (1.12-1.32) mmol/l Phosphorus (2.5-4.9) mg/dl Magnesium (1.8-2.4) mg/dl Total Bilirubin (0.2-1) mg/dl Direct Bilirubin (0-0.2) mg/dl AST (15-37) U/L ALT (12-78) U/L Alkaline Phosphatase (45-117) U/L Total Protein (6.4-8.2) gm/dl Albumin (3.4-5.0) gm/dl Lipase (73-393) U/L Stl C. diff Tox B Gene Negative Cdiff Gene (Neg) COVID-19 Eval Order Covid19 [facility] SARS-CoV-2, RNA, NAAT NEGATIVE (NEGATIVE) Code Status & VTE Plan VTE Prophylaxis Plan VTE Prophylaxis will be ordered: Yes PG Care Time/CCT Total # of Minutes Spent Total Time Spent with Patient: Total time spent is greater than 50% in coordination of care (as documented) at patient's floor/unit and/or counseling patient: Coding Level of Care Code 34985 Initial Inpt Care Lvl 3 Diagnoses Small bowel obstruction K56.609 GERD (gastroesophageal reflux disease) K21.9 Esophagitis presence: esophagitis presence not specified Prostate cancer C61 Hypothyroid E03.9 Hypothyroidism type: unspecified BPH (benign prostatic hyperplasia) N40.0 Lower urinary tract symptom presence: unspecified whether lower urinary tract symptoms present (1) BPH (benign prostatic hyperplasia) Lower urinary tract symptom presence: unspecified whether lower urinary tract symptoms present Qualified Code(s): N40.0 - Benign prostatic hyperplasia without lower urinary tract symptoms (2) Hypothyroid Hypothyroidism type: unspecified Qualified Code(s): E03.9 - Hypothyroidism, unspecified (3) GERD (gastroesophageal reflux disease) Esophagitis presence: esophagitis presence not specified Qualified Code(s): K21.9 - Gastro-esophageal reflux disease without esophagitis
[2020-06-14] MEDS ORDERED: ONDANSETRON INJ 2 MG/ML 2 ML VIAL IV PRN (02:14)
[2020-06-14] MEDS ORDERED: MoRPHine SULFATE 2 MG/ML CARP IV PRN ×2 (02:14→18:55)
[2020-06-14 02:28] LABS: Magnesium 2.3 mg/dl (1.8-2.4); Phosphorus 3.1 mg/dl (2.5-4.9)
[2020-06-14] MEDS: LACTATED RINGER'S 1,000 ML IV SCH ×2 (02:33→12:15)
[2020-06-14] MEDS: LEVOTHYROXINE SODIUM 150 MCG TABLET PO SCH (05:55)
[2020-06-14] MEDS: ENOXAPARIN INJ 40 MG/0.4 ML SYR SQ SCH (05:56)
--- NOTE | 2020-06-14 06:32 | Surgery Progress Note ---
Date of Service June 14, 2020 Assessment & Plan (1) Small bowel obstruction: Patient appears to be more stable and more comfortable was in the ER Continue NG drainage, may have ice chips We will check with Dr. Navarro as the patient did have ileal stricture approximately a year and a half ago With dilation Check a.m. labs Admission and Anticipated Discharge Date Admission Date: June 14, 2020 Subjective Patient feels somewhat better with NG tube in place He had significant cloudy bilious brown fluid from his NG tube With significant gastric distention He describes colonoscopy by Dr. Navarro October 2018 where he had an ileal stricture dilated Review of Systems Review of Systems: All systems reviewed & are unremarkable except as noted in HPI & below Physical Exam Constitutional: well developed; no acute distress Eyes: + anicteric sclerae Respiratory: normal respiratory effort; no respiratory distress Cardiovascular: Rate/Rhythm: regular rate Gastrointestinal (Abdomen): Percussion/Palpation: abdomen soft Less tenderness Musculoskeletal: Head/Neck/Chest: head atraumatic Skin: no rashes, warm and dry Neurologic: awake Psychiatric: Orientation: alert Results & Data ([facility]) Vital Signs (Past 12 Hours) Vital Signs Temp Pulse Pulse Pulse Resp BP BP 06/14/20 06:05 06/14/20 04:11 06/14/20 03:15 06/14/20 02:37 06/14/20 02:31 06/14/20 02:00 36.6 C 84 14 107/76 06/14/20 01:33 78 18 111/87 06/14/20 00:24 81 20 06/13/20 22:42 79 18 06/13/20 21:36 06/13/20 21:28 06/13/20 21:25 06/13/20 21:20 06/13/20 21:18 36.8 C 64 10 L 126/77 06/13/20 21:15 BP Pulse Ox 06/14/20 06:05 91 06/14/20 04:11 93 06/14/20 03:15 94 06/14/20 02:37 94 06/14/20 02:31 95 06/14/20 02:00 92 06/14/20 01:33 95 06/14/20 00:24 111/87 91 06/13/20 22:42 156/83 H 95 06/13/20 21:36 88 L 06/13/20 21:28 88 L 06/13/20 21:25 86 L 06/13/20 21:20 85 L 06/13/20 21:18 92 06/13/20 21:15 82 L PG Care Time/CCT Total # of Minutes Spent Total Time Spent with Patient: Total time spent is greater than 50% in coordination of care (as documented) at patient's floor/unit and/or counseling patient: Coding Level of Care Code 75389 Inpt Consult Level 3 Diagnoses Small bowel obstruction K56.609
[2020-06-14] MEDS: PANTOprazole 40 MG TAB PO SCH (07:54)
[2020-06-14] MEDS: AVODART~ORDER AWAITING ACTION SCH ×3 (07:57→23:47)
--- NOTE | 2020-06-14 08:07 | CT Scan Report ---
ABDOMEN AND PELVIS CT WITH IV CONTRAST CT DOSE: 1403.53 mGy.cm HISTORY: Generalized abdominal pain. Evaluate small bowel obstruction. TECHNIQUE: Multiaxial CT images of the abdomen and pelvis were performed following the use of intrave nous contrast. A dose lowering technique was utilized adhering to the principles of ALARA. COMPARISON STUDY: Abdomen and pelvis CT 01/27/2019. FINDINGS: Patchy peripheral areas of consolidation within the lung bases most pronounced posteriorly. This favors atelectasis. A pneumonia could also have a similar appearance. No pneumoperitoneum. No p neumatosis. No suspicious lytic or blastic osseous lesions. Small amount of fluid within the esophagu s. Distended and fluid-filled small bowel with a transition point within the right lower quadrant at the distal ileum with the bowel appears slightly thickened. This is best seen on image 373. Mild mese nteric edema within the right lower quadrant. The distal ileum is decompressed but contains fluid. Th erefore, these findings are consistent with a partial small bowel obstruction is fluid within the col on. Extensive colonic diverticulosis. No evidence for acute diverticulitis. Normal appendix. The live r, pancreas, spleen, and adrenal glands are unremarkable. Bilateral renal hypodense lesions remain un changed. These likely represent cysts. No hydronephrosis. Bilateral cortical renal scarring, unchange d. No retroperitoneal lymphadenopathy. Normal caliber abdominal aorta. The main portal vein is patent . The bladder is unremarkable. Small fat-containing right inguinal hernia is again noted. Possible ch olelithiasis. IMPRESSION: 1. Dilated and fluid-filled loops of small bowel with a transition point within the right lower quadr ant at the distal ileum. This transition point appears to be due to a thickened loop of small bowel r aising the possibility of a mild ileitis. This results in the partial small bowel obstruction. 2. Patchy bibasilar densities which favor atelectasis. A pneumonia could also have a similar appearan ce. 3. Colonic diverticulosis. No evidence for acute diverticulosis. 4. Normal appendix. 5. Additional findings as described above. ACT 112: Negative or not required by law. Electronically signed by: Jeff Ching M.D. 06/14/2020 8:06 AM
[2020-06-14 09:16] LABS: Basophils # (auto) 0.01 K/uL (0-0.2); Basophils % (auto) 0.1 %; Hematocrit (blood only) 50.3 % (42-52); Hemoglobin 17.1 g/dL (14.0-18.0); Immature Granulocytes # (auto) 0.01 K/uL (0.00-0.02); Immature Granulocytes % (auto) 0.1 %; Lymphocytes # (auto) 0.98 K/uL (1.2-3.4); Lymphocytes % (auto) 12.4 %; Mean Corpuscular Hemoglobin 28.8 pg (25-34); Mean Corpuscular Volume 84.8 fL (80-100); Mean Platelet Volume 9.7 fL (7.4-10.4); Monocytes % (auto) 5.1 %; Neutrophils % (auto) 82.3 %; Platelet Count 198 K/uL (130-400); RDW Coefficient of Variation 13.6 % (11.5-14.5); RDW Standard Deviation 41.8 fL (36.4-46.3); Red Blood Count 5.93 M/uL (4.7-6.1)
[2020-06-14] MEDS: CHLORASEPTIC 1.4% SOLN 180 ML BTL MT PRN ×3 (09:44→16:49)
--- NOTE | 2020-06-14 09:50 | Gastrointestinal Consultation ---
Date of Consultation June 14, 2020 Assessment & Plan (1) Small bowel obstruction: Small bowel obstruction: The patient presented to the emergency department with symptoms consistent with prior small bowel obstruction. CT A/P demonstrated mildly dilated small bowel consistent with partial small bowel obstruction with severely distended stomach. A ? transition point in the right lower quadrant. This morning he is tolerating NG tube with drainage of yellow secretions. Reports significant improvement in abdominal discomfort. Denies further nausea or vomiting. Does report diarrhea since admission. Continue n.p.o., IV fluids, supportive measures. 10/2018 colonoscopy demonstrated mid ileum stricture requiring dilation. Recommend outpatient follow-up with Dr. Navarro for colonoscopy with possible repeat dilation if indicated. Please refer to supervising physician addendum for further recommendations. Supervising Physician Co-Signing Physician Notes I have seen and examined the patient. I agree with note above by MOSES Blackman except as noted below. HPI Pt denies abd pain at present. Per patient abdomen distension improved. Noted NG output 300 last shift with decreasing as time went on per nursing. Pt states moved his bowels today. PE Abdomen pos bs, soft, mildly distended and tympanitic, no guarding nor rebound. A/P SBO --most likely location if known ileal stricture. Continue supportive care and if resolves then f/u with DR Navarro as outpt to deterimine if to repeat colo and /or send to colorectal surgery for resection of ileal stricture. History of Present Illness Attending Physician: Elisa Pickett MD History of Present Illness The patient is a 70-year-old male with past medical history to include diverticulosis, disc metabolic syndrome, GERD, asthma, gastric ulcer, hyperthyroidism, kidney disease, C. difficile, multiple small bowel obstructions, ileum ulcer, irritable bowel syndrome, prostate cancer diagnosed 06/2018, right nephrolithiasis who presented to the emergency department 06/13/2020 due to abdominal pain, nausea, vomiting, syncope. Evaluated in the emergency department and subsequently admitted for small bowel obstruction. GI was consulted due to history of small bowel obstruction with stricture of the ileum requiring dilatation previously. 06/13/2020: CT A/P with IV contrast was obtained and demonstrated dilated and fluid-filled loops of small bowel with a transition point within the right lower quadrant at the distal ileum. Transition point appears to be due to thickened loop of small bowel raising possibility of mild ileitis resulting in a partial mall bowel obstruction. Colonic diverticulosis without evidence of acute diverticulitis. Normal appendix. Other findings per report. 11/27/2018: Colonoscopy notes are reviewed performed by Dr. Navarro demonstrated diverticulosis of the sigmoid colon. Stricture of the mid ileum with dilation. No specimens were collected. On exam/interview today, he reports that he is feeling better than he did when he went to the emergency department yesterday. He states that symptoms including abdominal pain in his mid abdomen began around noon 06/13/2020. He states this worsened throughout the day. He states eventually he became nauseated and then vomited. He also became faint. He states prior to this he experienced constipation for approximately 2 to 3 days. His typical pattern of bowel movements are daily and formed. He will occasionally use MiraLAX as needed. Today he reports decreased abdominal pain. He states that he has worsened throat pain. He does have an NG tube intact and draining in the left nare. The NG tube is draining yellow secretions. He denies any noted melena or hematochezia in his stool. He states that he did began having diarrhea in the emergency department yesterday. Denies any significant dietary changes at home. He has had multiple small bowel obstructions in the past. He reports at least 5-6. There was, concern for inflammatory bowel disease specifically Crohn's with previous colonoscopy. The patient has had subsequent testing including SC antibodies which were negative and biopsies demonstrated acute inflammation. Prior abdominal surgical history includes a left inguinal hernia repair approximately 40 years ago. The patient is a lifetime non-smoker. He reports secondhand smoke exposures from his parents were still living at home. Denies use of alcohol. Denies use of recreational drugs including marijuana. He is retired. 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 He is and has 1 adult child that does not live in the area. Allergies Allergy/AdvReac Type Severity Reaction Status Date / Time No Known Drug Allergies Allergy Verified 06/11/20 08:17 Home Medications Medication Instructions Recorded Confirmed Type multivitamin 1 tab PO QAM 08/17/18 06/13/20 History famotidine 20 mg tablet 20 mg PO DAILY 12/12/19 06/13/20 History levothyroxine 150 mcg tablet 150 mcg PO QAM #90 tab 12/29/19 06/13/20 Rx dutasteride 0.5 mg capsule 0.5 mg PO DAILY #90 cap 05/23/20 06/13/20 Rx tamsulosin 0.4 mg capsule 0.4 mg PO HS #90 cap 05/23/20 06/13/20 Rx omeprazole 20 mg capsule,delayed 20 mg PO BID #60 cap 06/11/20 06/13/20 Rx release Patient History Medical History (Updated 06/14/20 @ 00:23 by Juani Oliver DO) Acute pain of right foot Arthritis Benign prostatic hyperplasia with urinary obstruction Chronic steroid use Diverticulosis Dysmetabolic syndrome X GERD (gastroesophageal reflux disease) History of asthma History of colon polyps History of gastric ulcer History of gastrointestinal ulcer History of hyperthyroidism History of kidney disease History of viral infection Hx of Clostridium difficile infection Hx of renal calculi Hx of small bowel obstruction Hypothyroidism Ileum ulcer Irritable bowel syndrome (IBS) Low back pain Nausea and vomiting after administration of anesthetic agent Need for hepatitis C screening test Prostate cancer diagnosed 06/2018--per pt just monitoring for now Renal insufficiency Right nephrolithiasis Surgical History History of colonoscopy History of esophagogastroduodenoscopy (EGD) History of hernia repair 1988 History of left inguinal hernia repair History of lithotripsy x2 History of prostate biopsy x2--1 benign and now 2nd malignant History of tooth extraction Family History Father , afe 56 Myocardial infarction Cardiac disorder Diabetes FHx: cholecystectomy Hypertension Gallbladder disease Heart disease Mother , age 76 Family history of diabetes mellitus Cardiac disorder Diabetes FHx: cholecystectomy Gallbladder disease Heart disease Brother , [place] at age 60 Family history of diabetes mellitus Family hx colonic polyps Cardiac disorder Diabetes Gallbladder disease Cancer Brother Age: 74 FHx: cholecystectomy Hypertension Myocardial infarction Colonic polyp Stroke Heart disease Daughter Age: 48 No problems noted. Uncle , of prostate cancer at 78. Diagnosed at 70. Had a seed implant. Prostate cancer Other Hearing loss Denies family history of Ovarian cancer Coronary heart disease No family history of adverse response to anesthesia No family history of bleeding disorder Allergies Breast cancer Lung cancer Colorectal cancer Asthma Social History Smoking Status: Never smoker Second Hand Exposure: No; Hx Alcohol Use: No Hx Substance Use: No Preferred Language: Israeli Communication Ability: Effective Visual Impairment: Limited Hearing Ability: Hard of Hearing Bundle Cutter Required: No Beliefs That Will Affect Care: None marital status: Current Living Situation: Spouse current occupational status: retired Other Information That Helps Us Care for You: No Feels Safe at Home: Yes Safety Concerns: Feels Safe At This Time Childhood Exposure to Second-Hand Smoke: Yes caffeine: Yes Dental Care, Regularly: Yes Physical Activity Frequency: Does not Exercise Physical Activity Frequency Comment: LIMITED BY PHYSICAL CONDITION Seatbelt Use: always Sunscreen Use: Yes Assistive Devices: None Review of Systems Review of Systems: All systems reviewed & are unremarkable except as noted in Subjective Physical Exam Constitutional: WD/WN, vitals as above + obese ENMT: Nose: no external nose abnormality Neck: normal visual inspection Respiratory: normal respiratory effort, lungs clear to auscultation Cardiovascular: RRR, no murmur, no edema Gastrointestinal (Abdomen): Inspection/Auscultation: abdomen normal to inspection and normal bowel sounds Percussion/Palpation: + abdomen tender (generalized mild tenderness with palpation) and abdomen soft; no guarding and abdomen not rigid Musculoskeletal: Extremities: no cyanosis and no clubbing Psychiatric: A+Ox3, euthymic affect Results & Data ([facility]) Vital Signs (Past 12 Hours) Vital Signs Temp Pulse Pulse Pulse Resp BP BP 06/14/20 08:11 36.8 C 86 18 06/14/20 06:05 06/14/20 04:11 06/14/20 03:15 06/14/20 02:37 06/14/20 02:31 06/14/20 02:00 36.6 C 84 14 107/76 06/14/20 01:33 78 18 111/87 06/14/20 00:24 81 20 06/13/20 22:42 79 18 BP Pulse Ox 06/14/20 08:11 116/79 92 06/14/20 06:05 91 06/14/20 04:11 93 06/14/20 03:15 94 06/14/20 02:37 94 06/14/20 02:31 95 06/14/20 02:00 92 06/14/20 01:33 95 06/14/20 00:24 111/87 91 06/13/20 22:42 156/83 H 95 Laboratory Results - last 24 hr 06/13/20 06/13/2006/13/21 21:20 21:20 21:25 WBC 12.81 H RBC 5.99 Hgb 17.5 POC Hgb 17.7 Hct 50.8 POC Hct 52 MCV 84.8 MCH 29.2 MCHC 34.4 RDW Std Deviation 40.5 RDW Coeff of Bryan 13.2 Plt Count 191 MPV 9.7 Immature Gran % (Auto) 0.3 Neut % (Auto) 82.7 Lymph % (Auto) 10.6 Kimball % (Auto) 5.6 Eos % (Auto) 0.6 Baso % (Auto) 0.2 Neut # (Auto) 10.58 H Lymph # (Auto) 1.36 Kimball # (Auto) 0.72 H Eos # (Auto) 0.08 Baso # (Auto) 0.03 Immature Gran # (Auto) 0.04 H POC Sodium 139 Sodium 139 POC Potassium 3.6 Potassium 3.5 POC Chloride 107 Chloride 108 H Carbon Dioxide 23 POC Total CO2 23 L Anion Gap 9.0 POC Anion Gap 14.0 L POC BUN 19 H BUN 17 Creatinine 1.23 POC Creatinine 1.1 Est Cr Clr Drug Dosing 66.5 Est GFR ( Amer) 67.6 Est GFR (Non-Af Amer) 58.3 BUN/Creatinine Ratio 14.0 Glucose 123 H POC Glucose (other) 130 H Calcium 9.9 POC Ioniz Calcium Pedro 1.22 Phosphorus 3.1 Magnesium 2.3 Total Bilirubin 0.8 Direct Bilirubin 0.2 AST 24 ALT 39 Alkaline Phosphatase 107 Total Protein 7.8 Albumin 4.0 Lipase 211 Stl C. diff Tox B Gene COVID-19 Eval Order SARS-CoV-2, RNA, NAAT 06/13/20 06/13/20 06/14/20 23:15 23:15 01:30 WBC RBC Hgb POC Hgb Hct POC Hct MCV MCH MCHC RDW Std Deviation RDW Coeff of Bryan Plt Count MPV Immature Gran % (Auto) Neut % (Auto) Lymph % (Auto) Kimball % (Auto) Eos % (Auto) Baso % (Auto) Neut # (Auto) Lymph # (Auto) Kimball # (Auto) Eos # (Auto) Baso # (Auto) Immature Gran # (Auto) POC Sodium Sodium POC Potassium Potassium POC Chloride Chloride Carbon Dioxide POC Total CO2 Anion Gap POC Anion Gap POC BUN BUN Creatinine POC Creatinine Est Cr Clr Drug Dosing Est GFR ( Amer) Est GFR (Non-Af Amer) BUN/Creatinine Ratio Glucose POC Glucose (other) Calcium POC Ioniz Calcium Pedro Phosphorus Magnesium Total Bilirubin Direct Bilirubin AST ALT Alkaline Phosphatase Total Protein Albumin Lipase Stl C. diff Tox B Gene Negative Cdiff Gene COVID-19 Eval Order Covid19 IDNow atMWVC SARS-CoV-2, RNA, NAAT NEGATIVE 06/14/20 09:03 WBC 7.90 RBC 5.93 Hgb 17.1 POC Hgb Hct 50.3 POC Hct MCV 84.8 MCH 28.8 MCHC 34.0 RDW Std Deviation 41.8 RDW Coeff of Bryan 13.6 Plt Count 198 MPV 9.7 Immature Gran % (Auto) 0.1 Neut % (Auto) 82.3 Lymph % (Auto) 12.4 Kimball % (Auto) 5.1 Eos % (Auto) 0.0 Baso % (Auto) 0.1 Neut # (Auto) 6.50 Lymph # (Auto) 0.98 L Kimball # (Auto) 0.40 Eos # (Auto) 0.00 Baso # (Auto) 0.01 Immature Gran # (Auto) 0.01 POC Sodium Sodium POC Potassium Potassium POC Chloride Chloride Carbon Dioxide POC Total CO2 Anion Gap POC Anion Gap POC BUN BUN Creatinine POC Creatinine Est Cr Clr Drug Dosing Est GFR ( Amer) Est GFR (Non-Af Amer) BUN/Creatinine Ratio Glucose POC Glucose (other) Calcium POC Ioniz Calcium Pedro Phosphorus Magnesium Total Bilirubin Direct Bilirubin AST ALT Alkaline Phosphatase Total Protein Albumin Lipase Stl C. diff Tox B Gene COVID-19 Eval Order SARS-CoV-2, RNA, NAAT
[2020-06-14] MEDS: FAMOTIDINE 20 MG in SYRINGE 3 ML IV SCH (10:24)
--- NOTE | 2020-06-14 13:15 | Hospitalist Progress Note ---
Date of Service June 14, 2020 Assessment & Plan (1) Small bowel obstruction: Pawel Johnson is a 70 y/o w/ hx of SBO who presents w/ 2 days of diffuse abd pain, N/V, and found to have partial SBO. No flatus. Small BM prior to arrival. Stable. Small bowel obstruction - initial presentation of diffuse abd pain, N, V, lack of flatus, minimal BMs - leukocytosis 12.81 on admission, resolved - No flatus. Small BM prior to arrival. - prior surgeries: L inguinal hernia repair 1988. Denies hx appendectomy. Surgery-> increased risk for adhesions, one risk factor for bowel obstructions. - hx mid ileal stricture s/p dilation by Dr. Navarro 10/2018. - colonoscopy "2014, diverticulosis and hepatic flexure lipoma-biopsy pending. Repeat in 10 years" - On physical exam this AM, had hypoactive bowel sounds in all quadrants - GI consult recommendations: Continue supportive care and if resolves then f/u with Dr. Navarro as outpt to determine if to repeat colo and /or send to colorectal surgery for resection of ileal stricture. - improving after NGT placement. - IVF, NPO - IV pain med - surgery consulted: recommends nonoperative management at this time - continue NGT suction. container at 770 cc this evening. rate of output has decreased vs earlier sore throat - patient has had onging throat pain and had recent ENT scope. per patient, was told he had irritation from GERD. discomfort increased after the NG tube insertion - given provided hx, more likely mechanical-induced irritation vs mass, hematoma, or infection - prescribed Chloraseptic spray prn for symptom relief. this is not helping much. - added tylenol IV 1000mg q12h prn for moderate pain BPH - Flomax 0.4 mg qhs - no new urinary symptoms prostate cancer - hx of, no recent active tx hypothyroidism - continue home Synthroid 150 GERD - famotidine 20mg IV - Protonix 40mg PO FEN/GI: LR 100mL/hr. dvt ppx: lovenox 40 mg SQ q24 code: full dispo: med surg. continue NG suction, not yet ready for dispo home. (2) GERD (gastroesophageal reflux disease): (3) Prostate cancer: (4) BPH (benign prostatic hyperplasia): (5) Sore throat: Admission and Anticipated Discharge Date Admission Date: June 14, 2020 Supervising Physician Co-Signing Physician Notes Resident Physician Supervision Note: I independently interviewed and examined the patient and verified the hamlin history and physical, reviewed labs and image studies, discussed the case with the resident Dr. Tucker and agree with the findings and care plan. Subjective Brief hx: 70 y/o M w/ hx of prostate cancer, BPH, IBS, prior SBOs who presented w/ 2 days of diffuse pressure-like abd pain and distention. He had nausea and emesis of gastric content. Not on blood thinners. Endorses several instances of SBO in past 5 years. Dilation procedure of mid ileal stricture 10/[address] Navarro. ED course: NG decompression. Patient was initially hypoxic on room air. Is thought that the patient's hypoxia, drowsiness, and nonreactive pupils are due to his morphine administration. Patient was placed on supplemental oxygen 4L for desat to the mid-upper 80s, w/ min of 82. Vital signs stable. Imaging show a small bowel obstruction. Labs show leukocytosis of 12.8. Patient is not on home home O2, though he states that he sats in the upper 80s. Overnight subjective Pain level is moderate 3/10. Has had sore throat for 2 months, worsened after placement of NG tube. Chloraseptic w/ some relief. PM recheck Abd pain is minimal. Passing BMs. Throat hurts and Chloraseptic not helping much. Review of Systems Review of Systems: Constitutional: Denies fever, chills ENT: + sore throat Cardiovascular: Denies chest pain Respiratory: Denies shortness of breath Gastrointestinal: + abd pain, denies diarrhea Genitourinary: Denies urinary symptoms including dysuria Neurological: + headache, not new Physical Exam Physical Exam: General: Grossly A&O. Chronically ill appearing. Cooperative. HEENT: Atraumatic, normocephalic. EOMI Pulm: CTAB. -wheezes, -rales, -rhonchi. No respiratory distress. Cardiac: RRR, -mrg. No LE edema. Abdominal: Soft, minimal distension. Mild TTP RLQ and LLQ. + hypoactive bowel sounds, improved on PM recheck Results & Data Results & Data ([facility]) Vital Signs (Past 12 Hours) Vital Signs Temp Pulse Pulse Resp BP BP BP 06/14/20 08:11 36.8 C 86 18 116/79 06/14/20 06:05 06/14/20 04:11 06/14/20 03:15 06/14/20 02:37 06/14/20 02:31 06/14/20 02:00 36.6 C 84 14 107/76 06/14/20 01:33 78 18 111/87 Pulse Ox 06/14/20 08:11 92 06/14/20 06:05 91 06/14/20 04:11 93 06/14/20 03:15 94 06/14/20 02:37 94 06/14/20 02:31 95 06/14/20 02:00 92 06/14/20 01:33 95 Resident Activity Tracking Resident Involvement: Resident Care Provided Care Provided: Adult Hospital Medicine (1) BPH (benign prostatic hyperplasia) Lower urinary tract symptom presence: unspecified whether lower urinary tract symptoms present Qualified Code(s): N40.0 - Benign prostatic hyperplasia without lower urinary tract symptoms (2) GERD (gastroesophageal reflux disease) Esophagitis presence: esophagitis presence not specified Qualified Code(s): K21.9 - Gastro-esophageal reflux disease without esophagitis
[2020-06-14] MEDS ORDERED: ACETAMINOPHEN 1,000 MG/100 ML VIAL IV PRN ×2 (18:50→18:56)
[2020-06-14] MEDS: TAMSULOSIN HCL 0.4 MG CAP PO SCH (21:10)
[2020-06-15] MEDS: LEVOTHYROXINE SODIUM 150 MCG TABLET PO SCH (05:40)
[2020-06-15] MEDS: ENOXAPARIN INJ 40 MG/0.4 ML SYR SQ SCH (05:40)
[2020-06-15 07:07] LABS: Basophils # (auto) 0.03 K/uL (0-0.2); Basophils % (auto) 0.5 %; Eosinophils # (auto) 0.11 K/uL (0-0.5); Hematocrit (blood only) 47.6 % (42-52); Hemoglobin 15.9 g/dL (14.0-18.0); Immature Granulocytes # (auto) 0.01 K/uL (0.00-0.02); Immature Granulocytes % (auto) 0.2 %; Lymphocytes # (auto) 1.15 K/uL (1.2-3.4); Lymphocytes % (auto) 20.5 %; Mean Corpuscular Hemoglobin 28.8 pg (25-34); Mean Corpuscular Hgb Conc 33.4 g/dL (32-36); Mean Corpuscular Volume 86.2 fL (80-100); Mean Platelet Volume 9.4 fL (7.4-10.4); Monocytes # (auto) 1.06 K/uL (0.11-0.59); Monocytes % (auto) 18.9 %; Neutrophils # (auto) 3.24 K/uL (1.4-6.5); Neutrophils % (auto) 57.9 %; Platelet Count 172 K/uL (130-400); RDW Coefficient of Variation 13.6 % (11.5-14.5); RDW Standard Deviation 42.8 fL (36.4-46.3); Red Blood Count 5.52 M/uL (4.7-6.1)
--- NOTE | 2020-06-15 07:27 | Surgery Progress Note ---
Date of Service June 15, 2020 Assessment & Plan (1) Small bowel obstruction: We will remove NG tube and try some clear liquids Patient understands that the NG tube may need to be replaced GI team discussed follow-up with Dr. Navarro Apparently also Dr. Tovar discussed with patient possible need for colorectal surgery at some point Dr. Lawrence covering over the weekend Admission and Anticipated Discharge Date Admission Date: June 14, 2020 Subjective Patient with NG tube in place draining minimal fluid which is clear Passing flatus and had bowel movements yesterday Would like to try liquids Physical Exam Physical Exam: His abdomen is soft with some bowel sounds minimal tenderness Constitutional: well developed; no acute distress Eyes: + anicteric sclerae Respiratory: normal respiratory effort; no respiratory distress Cardiovascular: Rate/Rhythm: regular rate Skin: no rashes, warm and dry Neurologic: awake Psychiatric: Orientation: alert Results & Data ([facility]) Vital Signs (Past 12 Hours) Vital Signs Temp Pulse Resp BP Pulse Ox 06/14/20 23:15 36.9 C 71 14 131/78 93 PG Care Time/CCT Total # of Minutes Spent Total Time Spent with Patient: Total time spent is greater than 50% in coordination of care (as documented) at patient's floor/unit and/or counseling patient: Coding Level of Care Code 13513 Subseq Hosp Care Lvl 3 Diagnoses Small bowel obstruction K56.609
[2020-06-15] MEDS ORDERED: COUGH DROP (SUGAR FREE) LOZ 24 LOZ/1 BOX BUCCAL PRN (07:39)
[2020-06-15 07:47] LABS: Albumin Globulin Ratio 0.9 (0.9-2); Albumin Level 3.3 gm/dl (3.4-5.0); BUN Creatinine Ratio 24.2 (10-20); Bilirubin,Total 0.9 mg/dl (0.2-1); Calcium 8.8 mg/dl (8.5-10.1); Creatinine Clr Calc Pharmacy 70.3 ml/min; Est GFR (African American) 74.8; Est GFR (Non-African American) 64.6; Globulin 3.5 gm/dl (2.5-4.0); Potassium 3.8 mmol/L (3.5-5.1); Total Protein 6.8 gm/dl (6.4-8.2)
[2020-06-15] MEDS: LACTATED RINGER'S 1,000 ML IV SCH (07:54)
--- NOTE | 2020-06-15 08:36 | Gastroenterology Progress Note ---
Date of Service June 15, 2020 Assessment & Plan (1) Small bowel obstruction: SBO: Likely at known ileal stricture. Patient is improved this morning. NGT out this morning. Slowly advance diet as tolerated. Continue supportive care and if resolves, follow-up with Dr. Navarro as an outpatient to determine if to repeat colonoscopy and/or referral to colorectal surgery for resection of ileal stricture Please refer to supervising physician addendum for further recommendations. Admission and Anticipated Discharge Date Admission Date: June 14, 2020 Subjective Patient awake, alert, and oriented. NGT was taken out this morning. Patient reports he is feeling much better with it out. States he continues to have throat pain. Clear liquid diet ordered for this morning. Patient denies abdominal pain, nausea, vomiting. + flatus. +BM yesterday. Review of Systems Review of Systems: All systems reviewed & are unremarkable except as noted in Subjective Physical Exam Constitutional: WD/WN, vitals as above + obese ENMT: Nose: no external nose abnormality Neck: normal visual inspection Respiratory: normal respiratory effort, lungs clear to auscultation Cardiovascular: RRR, no murmur, no edema Gastrointestinal (Abdomen): Inspection/Auscultation: abdomen normal to inspection and normal bowel sounds Percussion/Palpation: abdomen soft; abdomen nontender, no guarding and abdomen not rigid Musculoskeletal: Extremities: no cyanosis and no clubbing Psychiatric: A+Ox3, euthymic affect Results & Data ([facility]) Vital Signs (Past 12 Hours) Vital Signs Temp Pulse Resp BP BP Pulse Ox 06/15/20 07:46 36.6 C 65 16 122/82 92 06/14/20 23:15 36.9 C 71 14 131/78 93 Abnormal Lab Results 06/14/20 06/15/20 06/15/20 09:03 06:43 06:43 WBC 7.90 5.60 RBC 5.93 5.52 Hgb 17.1 15.9 Hct 50.3 47.6 MCV 84.8 86.2 MCH 28.8 28.8 MCHC 34.0 33.4 RDW Std Deviation 41.8 42.8 RDW Coeff of Bryan 13.6 13.6 Plt Count 198 172 MPV 9.7 9.4 Immature Gran % (Auto) 0.1 0.2 Neut % (Auto) 82.3 57.9 Lymph % (Auto) 12.4 20.5 [place] % (Auto) 5.1 18.9 Eos % (Auto) 0.0 2.0 Baso % (Auto) 0.1 0.5 Neut # (Auto) 6.50 3.24 Lymph # (Auto) 0.98 L 1.15 L [place] # (Auto) 0.40 1.06 H Eos # (Auto) 0.00 0.11 Baso # (Auto) 0.01 0.03 Immature Gran # (Auto) 0.01 0.01 Sodium 139 Potassium 3.8 Chloride 106 Carbon Dioxide 29 Anion Gap 4.0 BUN 27 H D Creatinine 1.13 Est Cr Clr Drug Dosing 70.3 Est GFR ( Amer) 74.8 Est GFR (Non-Af Amer) 64.6 BUN/Creatinine Ratio 24.2 H Glucose 101 H Calcium 8.8 Total Bilirubin 0.9 AST 19 ALT 25 Alkaline Phosphatase 81 Total Protein 6.8 Albumin 3.3 L Globulin 3.5 Albumin/Globulin Ratio 0.9
[2020-06-15] MEDS: AVODART~ORDER AWAITING ACTION SCH ×3 (09:01→23:56)
[2020-06-15] MEDS: PANTOprazole 40 MG TAB PO SCH (09:02)
[2020-06-15] MEDS: FAMOTIDINE 20 MG in SYRINGE 3 ML IV SCH (10:21)
--- NOTE | 2020-06-15 13:19 | Progress Notes ---
DATE: 06/15/2020 Progress note with Jacque Vieira: I reviewed the patient's chart and spoken to the patient, examined his abdomen and reviewed his labs and x-rays. The patient presented with recurrent small-bowel obstruction from a distal ileal stricture that he has had recurrently over the last 5 years. He did have a colonoscopy with [id number] balloon dilation of the ileal stricture in 2019 that lasted about a year and a half. At this point, the patient is starting to improve, his nasogastric tube was removed today as he is passing gas and stool and he is tolerating clear liquids. His abdomen is relatively soft and nontender. We did discuss that he is getting frustrated with recurrence of this situation and is willing to talk to the colorectal surgeons as an outpatient once he is discharged about considering definitive ileal surgery. This can be arranged as an outpatient once he is discharged.
--- NOTE | 2020-06-15 15:36 | Electrocardiogram Report ---
Test Reason : Blood Pressure : / mmHG Vent. Rate : 062 BPM Atrial Rate : 062 BPM P-R Int : 216 ms QRS Dur : 098 ms QT Int : 400 ms P-R-T Axes : 033 -67 026 degrees QTc Int : 406 ms Sinus rhythm with 1st degree A-V block Left axis deviation Inferior infarct , age undetermined Abnormal ECG When compared with ECG of 01-FEB-2019 09:33, Borderline criteria for Lateral infarct are no longer Present Inferior infarct is now Present ST elevation now present in Inferior leads Confirmed by Pawel Pinedo ([id number]) on 06/15/2020 3:36:00 PM Referred By: REFERRED SELF Confirmed By:Pawel Pinedo
[2020-06-15] MEDS ORDERED: ACETAMINOPHEN SUSP 325 MG/10.15 ML UDC PO PRN ×2 (18:26→18:27)
--- NOTE | 2020-06-15 18:46 | Hospitalist Progress Note ---
Date of Service June 15, 2020 Assessment & Plan (1) Small bowel obstruction: Pawel Johnson is a 70 y/o w/ hx of SBO who presented to [facility] w/ 2 days of diffuse abd pain, N/V, and found to have partial SBO. NGT x 2 days, since removed 06/15/20 AM after improvement in symptoms. Stable. Small bowel obstruction - 5 yr hx of recurrence. 2018 balloon dilation of ileal stricture provided 1.5 yrs of symptomatic relief - initial presentation of diffuse abd pain, N, V, lack of flatus, minimal BMs - leukocytosis 12.81 on admission, resolved - prior surgeries: L inguinal hernia repair 1988. Denies hx appendectomy. Surgery-> increased risk for adhesions, one risk factor for bowel obstructions. - hx mid ileal stricture s/p dilation by Dr. Navarro 10/2018. - colonoscopy "2014, diverticulosis and hepatic flexure lipoma" - NGT decompression upon arrival, since removed 06/15 AM. tolerating and not complaining of pain after NGT removal - GI consult recommendations 06/15: Removed NG tube. Advance diet as tolerated. Continue supportive care and if resolves then f/u with Dr. Navarro as outpt to determine if to repeat colo and /or send to colorectal surgery for resection of ileal stricture. outpatient f/u can discuss w/ colorectal surgeons about considering definitive ileal surgery because of recurrence of SBO. - surgery consulted on admission: recommended nonoperative management at time of consult - IVF decreased to 50 mL/hr 06/15. - prelim stool cultures at 24 hous neg as of 06/15 Hypoxia - O2 requirement 4L for first day likely 2/2 abdominal distension. 06/15 weaned to 2L. sore throat, improved after removal of NG tube - patient has had ongoing throat pain and had recent ENT scope. per patient, was told he had irritation from GERD. discomfort increased after the NG tube insertion - given provided hx, more likely mechanical-induced irritation vs mass, hematoma, or infection - prescribed Chloraseptic spray prn for symptom relief. this is not helping much. - tylenol IV 1000mg q12h prn for moderate pain. 06/15 switched to PO tylenol 650 suspension prn. BPH - Flomax 0.4 mg qhs - no new urinary symptoms prostate cancer - hx of, no recent active tx hypothyroidism - continue home Synthroid 150 GERD - famotidine 20mg IV - Protonix 40mg PO FEN/GI: LR 100mL/hr. clear liquid diet (will likely 06/16/20 AM) dvt ppx: lovenox 40 mg SQ q24 code: full dispo: med surg. NGT d/c'd 06/15/20 AM (2) GERD (gastroesophageal reflux disease): (3) Prostate cancer: (4) BPH (benign prostatic hyperplasia): (5) Sore throat: Admission and Anticipated Discharge Date Admission Date: June 14, 2020 Supervising Physician Co-Signing Physician Notes Resident Physician Supervision Note: I independently interviewed and examined the patient and verified the hamlin history and physical, reviewed labs and image studies, discussed the case with the resident Dr. Tucker and agree with the findings and care plan. Subjective Tolerated clear liquid diet. Throat feels better after ng removed this AM. On 3.75L O2 this AM. No abd pain. Denies new complaints. + BMs and flatus. Review of Systems Review of Systems: Constitutional: Denies fever, chills, Cardiovascular: Denies chest pain, palpitations Respiratory: Denies shortness of breath Gastrointestinal: Denies abdominal pain, nausea, vomiting Genitourinary: Denies urinary symptoms including dysuria Musculoskeletal: Denies weakness Neurological: Denies headache Physical Exam Physical Exam: General: Grossly A&O. NAD. Cooperative. HEENT: Atraumatic, normocephalic. Pulm: CTAB. -wheezes, -rales, -rhonchi. No respiratory distress. Cardiac: RRR, -mrg. Abdominal: Mildly distended (slightly more than yesterday evening). Soft. Nontender. Hypoactive bowel sounds. Increased bowel sounds during PM check. Results & Data Results & Data ([facility]) Vital Signs (Past 12 Hours) Vital Signs Temp Pulse Resp BP BP Pulse Ox 06/15/20 15:57 36.9 C 57 L 16 138/88 95 06/15/20 07:46 36.6 C 65 16 122/82 92 Resident Activity Tracking Resident Involvement: Resident Care Provided Care Provided: Adult Hospital Medicine (1) BPH (benign prostatic hyperplasia) Lower urinary tract symptom presence: unspecified whether lower urinary tract symptoms present Qualified Code(s): N40.0 - Benign prostatic hyperplasia without lower urinary tract symptoms (2) GERD (gastroesophageal reflux disease) Esophagitis presence: esophagitis presence not specified Qualified Code(s): K21.9 - Gastro-esophageal reflux disease without esophagitis
[2020-06-15] MEDS: TAMSULOSIN HCL 0.4 MG CAP PO SCH (20:22)
[2020-06-16] MEDS: LACTATED RINGER'S 1,000 ML IV SCH (01:16)
[2020-06-16] MEDS: LEVOTHYROXINE SODIUM 150 MCG TABLET PO SCH (06:08)
[2020-06-16] MEDS: ENOXAPARIN INJ 40 MG/0.4 ML SYR SQ SCH (06:08)
[2020-06-16 06:21] LABS: Basophils # (auto) 0.02 K/uL (0-0.2); Basophils % (auto) 0.4 %; Eosinophils # (auto) 0.15 K/uL (0-0.5); Eosinophils % (auto) 2.7 %; Hematocrit (blood only) 46.7 % (42-52); Hemoglobin 15.7 g/dL (14.0-18.0); Immature Granulocytes # (auto) 0.01 K/uL (0.00-0.02); Immature Granulocytes % (auto) 0.2 %; Lymphocytes # (auto) 1.54 K/uL (1.2-3.4); Lymphocytes % (auto) 27.5 %; Mean Corpuscular Hemoglobin 28.8 pg (25-34); Mean Corpuscular Hgb Conc 33.6 g/dL (32-36); Mean Corpuscular Volume 85.5 fL (80-100); Mean Platelet Volume 9.5 fL (7.4-10.4); Monocytes # (auto) 0.72 K/uL (0.11-0.59); Monocytes % (auto) 12.9 %; Neutrophils # (auto) 3.16 K/uL (1.4-6.5); Neutrophils % (auto) 56.3 %; Platelet Count 160 K/uL (130-400); RDW Coefficient of Variation 13.1 % (11.5-14.5); RDW Standard Deviation 40.8 fL (36.4-46.3); Red Blood Count 5.46 M/uL (4.7-6.1)
[2020-06-16 06:54] LABS: BUN Creatinine Ratio 17.4 (10-20); Calcium 8.8 mg/dl (8.5-10.1); Est GFR (African American) 88.9; Est GFR (Non-African American) 76.7; Potassium 3.8 mmol/L (3.5-5.1)
[2020-06-16] MEDS: AVODART~ORDER AWAITING ACTION SCH ×2 (08:18→16:52)
[2020-06-16] MEDS: FAMOTIDINE 20 MG in SYRINGE 3 ML IV SCH (08:25)
[2020-06-16] MEDS: PANTOprazole 40 MG TAB PO SCH (08:25)
--- NOTE | 2020-06-16 08:26 | Surgery Progress Note ---
Date of Service June 16, 2020 Assessment & Plan (1) Small bowel obstruction: Patient here with SBO NGT removed yesterday and patient has been tolerating clear liquids He currently denies n/v/abdominal pain. Has been having + bowel function Okay to continue to advance diet as tolerates GI saw and evaluated patient and recommended follow up with GI and/or surgery down the road Okay to discharge from our standpoint if tolerates a regular diet We will sign off, please call with any questions/concerns as above. doing well. gracy diet. ok for d/c. would be happy to see pt as out- pt to discuss possible laparoscopic ileocectomy in the future. call if needed/any concerns. Admission and Anticipated Discharge Date Admission Date: June 14, 2020 Subjective Patient states he is feeling well. Has been tolerating clears. Denies n/v/abdominal pain. States he is passing flatus and BM's. Has been ambulating the halls frequently. Physical Exam Physical Exam: awake/alert Constitutional: well developed and well nourished; no acute distress Gastrointestinal (Abdomen): Inspection/Auscultation: abdomen not distended Percussion/Palpation: abdomen soft; abdomen nontender Results & Data ([facility]) Vital Signs (Past 12 Hours) Vital Signs Temp Pulse Resp BP Pulse Ox 06/16/20 07:52 36.7 C 71 16 130/82 90 06/15/20 23:00 37.0 C 69 16 144/95 H 91 PG Care Time/CCT Total # of Minutes Spent Total Time Spent with Patient: Total time spent is greater than 50% in coordination of care (as documented) at patient's floor/unit and/or counseling patient: Coding Level of Care Code 13256 Subseq Hosp Care Lvl 2 Diagnoses Small bowel obstruction K56.609
--- NOTE | 2020-06-16 12:19 | Progress Notes ---
DATE: 06/16/2020 The patient is doing well with his nasogastric tube out. He tolerated clear liquids last night for dinner and breakfast this morning. He is passing gas and had a small bowel movement last night and this morning. He does feel a little distended still. His vital signs are normal. He is afebrile. O2 saturation is 93% on room air. On exam, his abdomen is still little distended and tympanitic in the upper abdomen, but it is very soft and nontender. IMPRESSION: The patient has a bowel obstruction, probably from his ileal stricture. We will advance him to a low-fiber diet for lunch and if he tolerates that, he can probably be managed as an outpatient. We will arrange for him to see colorectal surgery as an outpatient to consider resecting that strictured segment of the ileum.
--- NOTE | 2020-06-16 15:53 | Discharge Summary ---
Date of Service June 16, 2020 Admission HPI Per Admitting Provider Pawel Johnson is a 70yo C male with history of prior SBO presenting with nausea, vomiting, abdominal pain. Symptoms similar to prior SBO. No flatus. Small BM prior to arrival. Patient having NGT placed in ER. Admission Exam Per Admitting Provider General: patient resting comfortably, NAD, non-toxic in appearance, AA&O x 4 Skin: warm, dry, intact, no rashes or lesions HEENT: NC/AT, PERRL, EOMI, anicteric sclera, conjunctiva without injection, external ear normal to inspection and nontender, nares patent, moist mucus membranes, dentition intact, no oropharyngeal lesions, neck supple, trachea midline, no LAD, no thyromegaly, no JVD Heart: +S1/S2, regular, no m/r/g Lungs: equal air entry bilaterally, no rales/rhonchi/wheezes Abd: +BS diminished, soft, diffusely tender with some voluntary guarding, no rebound, no masses/organomegaly/ascites Ext: warm, 2+ pulses in UE/LE bilaterally, no clubbing/cyanosis or edema Neuro: nonfocal, patient AA&O x 4, speech intact, no facial droop, moving all extremities on command with equal strength 5/5 Principal Diagnosis Small bowel obstruction Discharge Exam Constitutional WD/WN, vitals as above + obese; no acute distress Respiratory normal respiratory effort, lungs clear to auscultation Auscultation: no crackles, no rales, no rhonchi and no wheezes Cardiovascular RRR, no murmur, no edema Heart Sounds: normal S1 and normal S2; no gallop, no murmur and no cardiac rub Gastrointestinal (Abdomen) normal bowel sounds, soft, nontender, no hepatosplenomegaly Skin no rashes, warm and dry Psychiatric A+Ox3, euthymic affect Discharge Data Allergies Allergy/AdvReac Type Severity Reaction Status Date / Time No Known Drug Allergies Allergy Verified 06/11/20 08:17 Consultations 06/13/20 22:54 ED Decision to Admit Stat 06/14/20 02:14 Consult General Surgery Routine 06/14/20 06:26 Consult Gastroenterology Routine Ordered Studies 06/13/20 21:17 CT abd pelvis IV con only Urgent Hospital Course (1) Small bowel obstruction: Pawel Johnson is a 70 y/o w/ hx of SBO who presented to [facility] w/ 2 days of diffuse abd pain, N/V. The patient has a 5-year history of SBO recurrence. In October 2018, a balloon dilation of ileal stricture provided 1.5 yrs of symptomatic relief. SBO During this admission, he was found to have a partial SBO on abdominal CT. He had a NGT placed for 2 days, which was removed on 06/15/20 after improvement in symptoms. Diet was advanced as tolerated until he was able to tolerate regular diet with no symptoms. Surgery and Gastroenterology were both consulted and recommended advancement of diet and subsequent discharge if he tolerated oral intake well. Both services recommended outpatient discussion of surgical intervention to remove segment with ileal stricture. At time of discharge a stool culture showed no growth to date at 48 hours. Hypoxia Patient had an O2 requirement of 4L NC for first day of admission likely 2/2 abdominal distension. He was eventually weaned to 2L. Before discharge, a 2-step test administered by Respiratory Therapy found no oxygen requirements for him and he was able to be discharged without supplementation. Hypoxia likely from atelectasis and postural. Code: full Dispo: Home/Self Care (2) GERD (gastroesophageal reflux disease): (3) Prostate cancer: (4) BPH (benign prostatic hyperplasia): (5) Sore throat: Total Time Total Time Spent Total Time Spent (In Minutes): see Attending attestation Discharge Plan Discharge Items Patient Disposition: Home - Self-Care Reason For Visit: SBO Discharge Diagnosis: SBO Activity: Per Instructions section Non-emergency contact: Primary Care Provider Call non-emergency contact if: your symptoms worsen, your pain is concerning for you and your temperature is above 101 Follow-up/Referrals: Robin Cazares CRNP [Primary Care Provider] - Robin Lawrence DO [Surgeon] - Diet: Heart Healthy Addtl Attending Provider Instructions: You came to [facility] due to nausea, vomiting, and abdominal pain. An abdominal CT sc an was obtained, which showed a partial small bowel obstruction. As such a nasogastric tube was placed and your diet was initially held. As you progressed and improved, your NG tube was removed and your diet was advanced as tolerated until you were able to consume a regular diet with no symptoms. You were seen by our Surgery service, who recommended that you follow up an outpatient to discuss surgical intervention in the future to remove your ileal stricture. Additionally, you were seen by Gastroenterology who also recommended management as an outpatient with future discussion of surgical intervention. Please follow up with your primary care provider to discuss your hospitalization and get any referrals you may need. Please follow up with your branch services manager as well to discuss the possibility of surgical intervention in the future. Pending Studies at Discharge: No Stand-Alone Forms: My [facility], [place] [employer], Smoking Cessation Medications and DC Order Prescriptions: Continued levothyroxine [Synthroid] 150 mcg tablet 150 mcg PO QAM Qty: 90 RF: 3 omeprazole 20 mg capsule,delayed release(DR/EC) 20 mg PO BID Qty: 60 RF: 3 tamsulosin [Flomax] 0.4 mg capsule 0.4 mg PO HS Qty: 90 RF: 3 dutasteride 0.5 mg capsule 0.5 mg PO DAILY Qty: 90 RF: 3 famotidine 20 mg tablet 20 mg PO DAILY RF: 0 Hold Instructions: replaced with ppi multivitamin Tablet 1 tab PO QAM RF: 0 Discharge Orders: Discharge Order (Routine); Ordered 06/16/20 Ordered By: Stephon Bautista/Other Patient Handouts: Understanding Deep Vein Thrombosis, Small Bowel Obstruction Admission Data Admit Date/Time: 06/14/20 11:24 Attending Provider: Elisa Pickett Admit Provider: Juani Oliver Primary Care Provider: Robin Cazares Other Providers: Juani Oliver ; Monty Hoyos ; Fly Navarro Other Interventions: Discharge Summary Assessment (RN) Last Done: 06/16/20 16:09 Supervising Physician Co-Signing Physician Notes Resident Physician Supervision Note: I independently interviewed and examined the patient and verified the hamlin history and physical, reviewed labs and image studies, discussed the case with the resident Dr. Graham and agree with the findings and care plan. Resident Activity Tracking Resident Involvement: Resident Care Provided Care Provided: Adult Hospital Medicine
== END 2020-06-16 17:03 | disposition home or self-care (01) | DRG 390 ==
LOC: 3N 21:08 → ED 21:08 → SUATTDRO 06-14 00:19 → 3N 06-14 01:33

== ENCOUNTER 2024-04-04 06:07 | Observation (INO) ==
[2024-04-04] MEDS: ONDANSETRON INJ 2 MG/ML 2 ML VIAL IV STA (06:22)
--- NOTE | 2024-04-04 06:29 | Emergency Department Note ---
Impression & Plan Abdominal pain, Syncope, Diarrhea, Pneumonia, Hypoxia ED Provider Note NAME: FRANCISCO VALENCIA AGE: 73 SEX: M : 1950 ARRIVES VIA: Ambulance INFORMANT: Patient, ED PROVIDER(S): Matthew Hook DO CHIEF COMPLAINT: Abdominal pain HPI: The patient is a 73-year-old male who presented to the emergency department for abdominal pain. The patient arrived via ambulance. The patient started having nausea vomiting and loose stools this morning. He had approximately 3 loose stools. He denies having any chest pain. He denies having any shortness of breath but he was noted to be hypoxic prior to arrival. He was placed on supplemental oxygen. He received Zofran as well as a small IV fluid bolus by the prehospital personnel. The patient reportedly had a syncopal episode prior to arrival. There was no reported trauma. The patient denies having any headache or neck pain. The patient denies having any black or tarry stools. He states his pain at this time is mild. ROS: See above HPI for pertinent positives & negatives. A total of 10 systems reviewed and were otherwise negative. PAST MEDICAL HISTORY: See Below PAST SURGICAL HISTORY: See Below FAMILY HISTORY: See Below SOCIAL HISTORY: See Below HOME MEDICATIONS: See Below ALLERGIES: See Below VITALS: See Below PHYSICAL EXAMINATION: GENERAL: The patient is awake and alert. The patient is nonanxious appearing. EYES: The conjunctivae are clear. The pupils are round and reactive. EARS, NOSE, MOUTH AND THROAT: The nose is without any evidence of any deformity. NECK: The neck is nontender and supple. RESPIRATORY: Normal respiratory effort is noted there is no evidence of wheezing rhonchi or rales CARDIOVASCULAR: Regular rate and rhythm noted there no murmurs rubs or gallops normal S1 normal S2. GASTROINTESTINAL: The abdomen is soft and nondistended. There is lower abdominal tenderness to palpation. There is no significant guarding or rigidity. MUSCULOSKELETAL/EXTREMITIES: There is no evidence of gross deformity full range of motion is noted in the hips and shoulders. SKIN: There is no obvious evidence of any rash. There are no petechiae, pallor or cyanosis noted. NEUROLOGIC: Patient is awake alert and oriented x3. Speech is clear. Strength is symmetric. MEDICAL DECISION MAKING: The patient is a 73-year-old male who presented to the emergency department with multiple complaints. The patient mostly was complaining of nausea vomiting as well as abdominal pain. He did have some loose stools. The patient was also found to be hypoxic. I discussed the patient's laboratory and radiographic studies with him. It is possible his radiographic studies are consistent with pneumonia. For this reason he was treated with IV antibiotics. The patient was reevaluated multiple times. Given his findings I did discuss his condition with the on-call [facility] hospitalist. They have agreed to evaluate the patient in the emergency department for further management and disposition. Triage Nursing notes reviewed. Prior medical records reviewed Vital Signs: reviewed and remarkable for hypoxia Differential diagnosis: Etiologies such as appendicitis, diverticulitis, obstruction, inflammatory bowel disease, renal colic, PUD, biliary pathology, pancreatitis, mesenteric ischemia, aortic pathology, infections, genitourinary, UTI, perforated viscus, as well as others were entertained. ER treatment provided: See below Diagnostics interpreted by me: ECG: EKG was obtained in the emergency department. My interpretation is sinus rhythm at 77 bpm. First-degree AV block is noted. Poor R wave progression was noted with nonspecific ST segment abnormalities. This was compared to a tracing from January 10, 2023. No changes were noted. Cardiac Monitoring: An order was placed for continuous cardiac monitoring. The monitor shows a rate of 84 bpm with sinus rhythm. Laboratory studies: As stated above and show below. Imaging studies: See below. Radiographic imaging was reviewed by myself Consultation(s): I discussed this case with Dr. Cervantes who is on-call for the [facility]. Past Med/Surg History Problem List (Updated 04/04/24 @ 10:59 by Deborah Mendoza PA-C) Enteritis Hypoxia (Acute) Pneumonia (Acute) Diarrhea (Acute) Syncope (Acute) Abdominal pain (Acute) Cyst of joint of right hand Aneurysmal bone cyst of right hand History of left knee replacement BPH (benign prostatic hyperplasia) (Chronic) Hypothyroid (Chronic) Chronic pain of left knee (Acute) GERD (gastroesophageal reflux disease) (Chronic) Elevated PSA Hearing difficulty Neoplasm of prostate, malignant Osteopenia of thigh Right nephrolithiasis Arthritis (Acute) Chronic steroid use Sinus bradycardia Renal insufficiency (Chronic) History of kidney disease (Chronic) Dysmetabolic syndrome X (Chronic) Irritable bowel syndrome (IBS) (Chronic) Diverticulosis (Chronic) pt denies h/o diverticulitis Medical History Mild mitral regurgitation LVH (left ventricular hypertrophy) moderate, 2019 echo Ileum ulcer History of gastric ulcer History of colon polyps Nausea and vomiting after administration of anesthetic agent with initial surgery in 1980s, denies additional issues since Prostate cancer diagnosed 06/2018--as of 07/03/21 pt states currently still just monitoring for now History of Clostridium difficile colitis Septic shock Hx of Clostridium difficile infection tx no longer has per pt Hx of renal calculi pt believes may have cyst on right kidney Hx of small bowel obstruction multiple, last > 1 yr ago, d/t ileal scarring per pt Surgical History History of kidney surgery History of lithotripsy x2 History of colonoscopy History of esophagogastroduodenoscopy (EGD) History of prostate biopsy multiple--malignant History of tooth extraction History of left inguinal hernia repair H/O esophagogastroduodenoscopy H/O colonoscopy "2014, diverticulosis and hepatic flexure lipoma-biopsy pending. Repeat in 10 years " Family History Father , afe 56 Diabetes Heart disease Cardiac disorder Myocardial infarction FHx: cholecystectomy Hypertension Gallbladder disease Mother , age 76 Diabetes Family history of diabetes mellitus Heart disease Cardiac disorder FHx: cholecystectomy Gallbladder disease Brother , [place] at age 60 Diabetes Family history of diabetes mellitus Cardiac disorder Family hx colonic polyps Cancer Gallbladder disease Brother Age: 77 Heart disease Myocardial infarction FHx: cholecystectomy Hypertension Colonic polyp Stroke Daughter Age: 52 No problems noted. Uncle , of prostate cancer at 78. Diagnosed at 70. Had a seed implant. Prostate cancer Brother Prostate cancer, Onset Age: 76 Other Hearing loss No family history of adverse response to anesthesia Denies family history of Ovarian cancer Coronary heart disease No family history of bleeding disorder Allergies Breast cancer Lung cancer Colorectal cancer Asthma Social History Smoking Status: Never smoker Second Hand Exposure: Yes (parents both smoked); Do You Dip or Chew Tobacco: No; Hx Alcohol Use: No Hx Substance Use: No Preferred Language: Georgian Communication Ability: Effective Visual Impairment: Limited Hearing Ability: Hard of Hearing Land Leasing Examiner Required: No Beliefs That Will Affect Care: None marital status: Current Living Situation: Spouse current occupational status: retired Feels Safe at Home: Yes Childhood Exposure to Second-Hand Smoke: Yes Diet: regular Diet Comment: regular caffeine: Yes during the past year weight has: remained stable Dental Care, Regularly: Yes Physical Activity Frequency: 1-2 Times per Week Physical Activity Frequency Comment: LIMITED BY PHYSICAL CONDITION Seatbelt Use: always Sunscreen Use: Yes Assistive Devices: None Allergies Allergies Allergy/AdvReac Type Severity Reaction Status Date / Time No Known Drug Allergies Allergy 0 Verified 02/24/24 09:46 Home Meds Home Medications Medication Instructions Recorded Confirmed multivitamin 1 tab PO QAM 08/17/18 04/04/24 acetaminophen 500 mg capsule 1,000 mg PO TID PRN Pain 01/11/23 04/04/24 acyclovir 5 % topical cream 1 applic topical 5XD PRN .flare up 01/11/23 04/04/24 dutasteride 0.5 mg capsule 0.5 mg PO DAILY 04/04/24 04/04/24 Previous Rx's Medication Instructions Recorded betamethasone valerate 0.1 % 1 applic topical DAILY PRN skin 08/13/22 topical cream irritation #15 grams tamsulosin 0.4 mg capsule (Flomax) 0.4 mg PO HS #90 caps 06/29/23 levothyroxine 150 mcg tablet 150 mcg PO QAM #90 tabs 01/28/24 (Synthroid) famotidine 20 mg tablet 20 mg PO QAM #90 tabs 02/15/24 triamcinolone acetonide 0.1 % 1 applic topical DAILY PRN rash 02/24/24 topical ointment #30 grams valacyclovir 1 gram tablet 2,000 mg (2 x 1 gram) PO BID PRN 02/24/24 cold sores 1 day #4 tabs Results & Data (ED) Vital Signs Vital Signs - 24 hr 04/04/24 06:10 04/04/24 06:11 04/04/24 06:18 Temperature 36.4 C L Temperature Source Oral Pulse Rate 80 75 Pulse Rate [Left Apical] Pulse Rhythm [Left Apical] Pulse Strength [Left Apical] Respiratory Rate 18 Respiratory Effort / Characteristics Respiratory Depth Normal Respiratory Pattern Blood Pressure 113/78 Blood Pressure [Right Arm] Blood Pressure Mean 89 Blood Pressure Mean [Right Arm] Blood Pressure Position [Right Arm] Pulse Oximetry 89 L 94 Oxygen Delivery Method Room Air Nasal Cannula Oxygen Flow Rate 2 Sepsis Recent Fever Within 48 Hours No Sepsis New/Unexplained Change in Mental Status No Sepsis Action Taken by Nursing No Action Required 04/04/24 06:30 04/04/24 09:00 04/04/24 10:16 Temperature Temperature Source Pulse Rate 84 Pulse Rate [Left Apical] 89 83 Pulse Rhythm [Left Apical] Regular Pulse Strength [Left Apical] Normal Respiratory Rate 20 17 Respiratory Effort / Characteristics Non-Labored Non-Labored Spontaneous Respiratory Depth Normal Normal Respiratory Pattern Regular Blood Pressure Blood Pressure [Right Arm] 116/73 139/87 Blood Pressure Mean Blood Pressure Mean [Right Arm] 87 104 Blood Pressure Position [Right Arm] Semi-fowlers Pulse Oximetry 93 92 Oxygen Delivery Method Room Air Nasal Cannula Oxygen Flow Rate 2 2 Sepsis Recent Fever Within 48 Hours Sepsis New/Unexplained Change in Mental Status Sepsis Action Taken by Jail Medications Current Medication List: was personally reviewed by me Laboratory Data Attestation: I reviewed the patient's lab results. 04/04/24 06:20 04/04/24 07:06 Lab Results 04/04/24 04/04/24 04/04/24 Range/Units 06:20 07:06 07:16 WBC 12.02 H (4.8-10.8) K/ul RBC 6.27 H (4.70-6.10) M/uL Hgb 17.2 (14.0-18.0) g/dl Hct 52.3 H (42.0-52.0) % MCV 83.4 (80.0-100.0) fL MCH 27.4 (25.0-34.0) pg MCHC 32.9 (32.0-36.0) g/dL RDW Std Deviation 41.3 (36.4-46.3) fL RDW Coeff of Bryan 13.7 (11.5-14.5) % Plt Count 217 (130-400) K/uL MPV 9.0 L (9.4-12.4) fL Immature Gran % (Auto) 0.4 % Neut % (Auto) 85.4 % Lymph % (Auto) 8.8 % Trego % (Auto) 4.6 % Eos % (Auto) 0.4 % Baso % (Auto) 0.4 % Neut # (Auto) 10.26 H (1.40-6.50) K/uL Lymph # (Auto) 1.06 L (1.20-3.40) K/uL Trego # (Auto) 0.55 (0.11-0.59) K/uL Eos # (Auto) 0.05 (0.00-0.50) K/uL Baso # (Auto) 0.05 (0.00-0.20) K/uL Immature Gran # (Auto) 0.05 (0.01-0.20) K/uL Sodium 141 (136-145) mmol/L Potassium TNP 4.1 Chloride 105 (98-107) mmol/L Carbon Dioxide 27 (21-32) mmol/L Anion Gap 9 (3-11) BUN 18 (6-23) mg/dl Creatinine 1.29 (0.6-1.4) mg/dl Est Cr Clr Drug Dosing 58.5 ml/min eGFR 57.82 BUN/Creatinine Ratio 14.0 (10-20) Glucose 147 H (70-99(Fasting)) mg/dl Calcium 10.1 (8.6-10.3) mg/dl Magnesium 2.1 (1.7-2.4) mg/dl Total Bilirubin 0.7 (0.2-1.0) mg/dl AST TNP 25 ALT 19 (7-52) U/L Alkaline Phosphatase 88 (34-104) U/L Troponin I High Sens 3.3 (0-20) pg/ml Total Protein 7.9 (6.0-8.3) gm/dl Albumin 4.3 (3.4-5.0) gm/dl Globulin 3.6 (2.5-4.0) gm/dl Albumin/Globulin Ratio 1.2 (0.9-2) Lipase 47 (11-82) U/L Procalcitonin (0-0.5) ng/ml Urine Color Urine Appearance (Clear) Urine pH (4.5-7.5) Ur Specific [place] (1.000-1.030) Urine Protein (Negative) Urine Glucose (UA) (Negative) Urine Ketones (Negative) Urine Blood (Negative) Urine Nitrite (Negative) Urine Bilirubin (Negative) Urine Urobilinogen (Negative) Ur Leukocyte Esterase (Negative) Urine WBC (Auto) (0-5) /hpf Urine RBC (Auto) (0-2) /hpf U Hyaline Cast (Auto) (0-2) /lpf U Epithel Cells (Auto) (0-2) /hpf Urine Bacteria (Auto) (None Seen) Stl C. cayetanensis PCR Not Detected (NotDetected) Stool Rotavirus A PCR Not Detected (NotDetected) Stl Adenov F 40/41 PCR Not Detected (NotDetected) Stool Astrovirus (PCR) Not Detected (NotDetected) Stool Campylobacter PCR Not Detected (NotDetected) Stl C. diff Tox B Gene Negative Cdiff Gene (Neg) Stool Cryptosporidium PCR Not Detected (NotDetected) Stl E.coli Shiga Tox PCR Not Detected (NotDetected) Stl Enterotoxigenic E PCR Not Detected (NotDetected) Stool EPEC (PCR) Not Detected (NotDetected) Stool EAEC (PCR) Not Detected (NotDetected) Stl E. histolytica PCR Not Detected (NotDetected) Stool Giardia Lamblia PCR Not Detected (NotDetected) Stool Salmonella PCR Not Detected (NotDetected) Stool Sapovirus (PCR) Not Detected (NotDetected) Stl P. shigelloides PCR Not Detected (NotDetected) Stl Shigella/EIEC PCR Not Detected (NotDetected) St Y.enterocolitica PCR Not Detected (NotDetected) Stool Vibrio (PCR) Not Detected (NotDetected) Stl Vibrio cholerae PCR Not Detected (NotDetected) Stl Norovirus GI/GII PCR Not Detected (NotDetected) 04/04/24 04/04/24 Range/Units 09:24 10:42 WBC (4.8-10.8) K/ul RBC (4.70-6.10) M/uL Hgb (14.0-18.0) g/dl Hct (42.0-52.0) % MCV (80.0-100.0) fL MCH (25.0-34.0) pg MCHC (32.0-36.0) g/dL RDW Std Deviation (36.4-46.3) fL RDW Coeff of Bryan (11.5-14.5) % Plt Count (130-400) K/uL MPV (9.4-12.4) fL Immature Gran % (Auto) % Neut % (Auto) % Lymph % (Auto) % Trego % (Auto) % Eos % (Auto) % Baso % (Auto) % Neut # (Auto) (1.40-6.50) K/uL Lymph # (Auto) (1.20-3.40) K/uL Trego # (Auto) (0.11-0.59) K/uL Eos # (Auto) (0.00-0.50) K/uL Baso # (Auto) (0.00-0.20) K/uL Immature Gran # (Auto) (0.01-0.20) K/uL Sodium (136-145) mmol/L Potassium Chloride (98-107) mmol/L Carbon Dioxide (21-32) mmol/L Anion Gap (3-11) BUN (6-23) mg/dl Creatinine (0.6-1.4) mg/dl Est Cr Clr Drug Dosing ml/min eGFR BUN/Creatinine Ratio (10-20) Glucose (70-99(Fasting)) mg/dl Calcium (8.6-10.3) mg/dl Magnesium (1.7-2.4) mg/dl Total Bilirubin (0.2-1.0) mg/dl AST ALT (7-52) U/L Alkaline Phosphatase (34-104) U/L Troponin I High Sens (0-20) pg/ml Total Protein (6.0-8.3) gm/dl Albumin (3.4-5.0) gm/dl Globulin (2.5-4.0) gm/dl Albumin/Globulin Ratio (0.9-2) Lipase (11-82) U/L Procalcitonin 0.16 (0-0.5) ng/ml Urine Color Yellow Urine Appearance Clear (Clear) Urine pH 5.0 (4.5-7.5) Ur Specific [place] > 1.045 H (1.000-1.030) Urine Protein 1+ H (Negative) Urine Glucose (UA) Negative (Negative) Urine Ketones Negative (Negative) Urine Blood Negative (Negative) Urine Nitrite Negative (Negative) Urine Bilirubin Negative (Negative) Urine Urobilinogen Negative (Negative) Ur Leukocyte Esterase Negative (Negative) Urine WBC (Auto) 0-5 (0-5) /hpf Urine RBC (Auto) 0-2 (0-2) /hpf U Hyaline Cast (Auto) 6-10 H (0-2) /lpf U Epithel Cells (Auto) 0-2 (0-2) /hpf Urine Bacteria (Auto) None Seen (None Seen) Stl C. cayetanensis PCR (NotDetected) Stool Rotavirus A PCR (NotDetected) Stl Adenov F 40/41 PCR (NotDetected) Stool Astrovirus (PCR) (NotDetected) Stool Campylobacter PCR (NotDetected) Stl C. diff Tox B Gene (Neg) Stool Cryptosporidium PCR (NotDetected) Stl E.coli Shiga Tox PCR (NotDetected) Stl Enterotoxigenic E PCR (NotDetected) Stool EPEC (PCR) (NotDetected) Stool EAEC (PCR) (NotDetected) Stl E. histolytica PCR (NotDetected) Stool Giardia Lamblia PCR (NotDetected) Stool Salmonella PCR (NotDetected) Stool Sapovirus (PCR) (NotDetected) Stl P. shigelloides PCR (NotDetected) Stl Shigella/EIEC PCR (NotDetected) St Y.enterocolitica PCR (NotDetected) Stool Vibrio (PCR) (NotDetected) Stl Vibrio cholerae PCR (NotDetected) Stl Norovirus GI/GII PCR (NotDetected) Administered Medications Discontinued Medications Ceftriaxone Sodium (Rocephin) 2,000 mg in 50 mls @ 100 mls/hr IV NOW STA Stop: 04/04/24 09:55 Last Admin: 04/04/24 10:32 Dose: 100 mls/hr Documented By: BEAU Ioversol (Optiray 320 125ml) 112 ml IV ONCE ONE Stop: 04/04/24 07:55 Last Admin: 04/04/24 07:54 Dose: 112 ml Documented By: VELMA Ondansetron HCl (Ondansetron Inj 2 Mg/Ml 2 Ml Vial) 4 mg IV NOW STA Stop: 04/04/24 06:12 Last Admin: 04/04/24 06:22 Dose: 4 mg Documented By: KHURRAM Imaging Data Attestation: I personally reviewed and interpreted this imaging study as follows: My Impression: CT of the abdomen and pelvis was obtained in the emergency department. My interpretation is no free air or signs of bowel obstruction, final report below. CT of the chest was obtained. My interpretation is no free air, bilateral lower lobe filtrates were noted, final report below. Radiologist's Impression: Abdomen/Pelvis CT 04/04/24 06:[address] WITH IV CONTRAST HISTORY: Acute transabdominal pain with nausea and vomiting abd pain amd syncope TECHNIQUE: Multiaxial CT images of the abdomen and pelvis were performed following the IV administration of 112 cc of Optiray, A dose lowering technique was utilized adhering to the principles of ALARA. COMPARISON STUDY: CT chest of same day, CT abdomen and pelvis January 10, 2023 FINDINGS: Linear bibasilar consolidation suggestive of atelectasis. Trace pericardial effusion. Coronary artery calcifications. No pneumoperitoneum. Unremarkable spleen, mildly atrophic pancreas and adrenal glands. Unremarkable gallbladder and liver. Patency of the attic and portal veins. Cysts of the kidneys measuring up to 8.7 cm on the right and 8.4 cm on the left. Cortical thinning of the kidneys. 5 mm nonobstructing calculus of the superior pole right kidney. No ureteral calculi or hydronephrosis. Decompressed urinary bladder with mild wall thickening. Prostatomegaly. Small fat filled right inguinal hernia. Atherosclerosis of the aorta. No pathologically enlarged lymph nodes. No bowel obstruction. The majority of the large bowel is fluid-filled. Trace free pelvic fluid. Colonic diverticulosis. 1.9 cm submucosal lipoma ascending colon. Nondilated fluid-filled loops of small bowel. The appendix is not definitively seen. Tiny fat filled umbilical hernia. Tarlov cysts of the sacrum. No acute fracture. IMPRESSION: 1. No bowel obstruction or pneumoperitoneum. 2. Fluid-filled nondilated loops of large and small bowel suggestive of enteritis with diarrheal illness. 3. Right nephrolithiasis. No hydronephrosis. 4. Colonic diverticulosis. 5. Additional findings as above. ACT 112: Negative or not required by law. The above report was generated using voice recognition software. It may contain grammatical, syntax or spelling errors. Electronically signed by: Fam Pierre M.D. 04/04/2024 8:48 AM Chest CTA 04/04/24 06:26 CT ANGIOGRAPHY OF THE CHEST, PULMONARY EMBOLUS PROTOCOL CLINICAL HISTORY: Abdominal pain. Syncopal episode. COMPARISON STUDY: Chest CT January 27, 2019. Chest radiograph performed earlier today. TECHNIQUE: Following IV administration of 112 mL of Optiray, helical axial images of the chest were obtained utilizing the pulmonary embolus protocol. Maximal intensity projections and sagittal and coronal reformats were viewed on an independent 3D workstation. IV contrast was administered without complication. Automated exposure control was utilized for the study. A dose lowering technique was utilized adhering to the principles of ALARA. CT DOSE: 2390.51 mGy.cm FINDINGS: No pulmonary emboli are identified. The heart is mildly enlarged. A left lobe thyroid goiter shown on CT of January 27, 2019. No pneumothorax or pleural effusion is present. Bilateral lower lobe, right middle lobe and lingular opacities are similar to CT of January 27, 2019. Central airways are patent. There are no suspicious pulmonary nodules. There is no definite consolidation to suggest pneumonia. There is no evidence of the abdomen and pelvis CT will be reported separately IMPRESSION: 1. No pulmonary emboli identified. 2. Bilateral lower lobe, right middle lobe and lingular opacities, similar to CT of January 27, 2019. Atelectasis is favored. Although less likely, pneumonia could appear similar. ACT 112: Negative or not required by law. Electronically signed by: Alan Russell M.D. 04/04/2024 8:33 AM Chest X-Ray 04/04/24 07:09 EXAM: XR chest 1V portable CLINICAL HISTORY: SYNCOPE PORTABLE BME TECHNIQUE: X-ray image of the chest is obtained in AP projection. COMPARISON: Previous x-ray dated 01/10/2023. FINDINGS: Pulmonary Parenchyma: Inadequate breathing during the X-ray. Mild blunting of the right CP angle could be due to subpleural atelectasis or mild pleural effusion. No evidence of lobar consolidation Heart and Mediastinum: Heart size is limited on this projection. No mediastinal widening or masses. No hilar or mediastinal lymphadenopathy. Bony Thorax: Bony thorax appears intact without fractures or deformities. Soft Tissues: Soft tissues overlying the chest wall are unremarkable. IMPRESSION: 1. Mild blunting of the right CP angle could be due to subpleural atelectasis or mild pleural effusion. Sonographic correlation is advised. 2. The rest of the findings are stable in comparison with 01/10/2023. Electronically signed by Russ Gustafson 04-04-2024 08:10 AM Discharge Plan Visit Data Chief Complaint: Abdominal Pain Stated Complaint: Abdominal Pain, Syncope, N/V/D ED Provider: Matthew Hook Discharge Problem: Abdominal pain, Syncope, Diarrhea, Pneumonia, Hypoxia Patient Disposition: Being Evaluated by Hospitalist Forms Stand Alone Forms: [facility] Prescriptions Prescriptions: No Action tamsulosin [Flomax] 0.4 mg capsule 0.4 mg PO HS Qty: 90 3RF levothyroxine [Synthroid] 150 mcg tablet 150 mcg PO QAM Qty: 90 1RF famotidine 20 mg tablet 20 mg PO QAM Qty: 90 1RF Hold Instructions: replaced with ppi betamethasone valerate 0.1 % cream 1 applic topical DAILY PRN (Reason: skin irritation) Qty: 15 2RF valacyclovir 1 gram tablet 2,000 mg PO BID PRN (Reason: cold sores) 1 Days Qty: 4 2RF triamcinolone acetonide 0.1 % ointment 1 applic topical DAILY PRN (Reason: rash) Qty: 30 5RF multivitamin Tablet 1 tab PO QAM acetaminophen 500 mg capsule 1,000 mg PO TID PRN (Reason: Pain) Rx Instructions: Take 3 times per day to lessen pain. acyclovir 5 % cream 1 applic topical 5XD PRN (Reason: .flare up) dutasteride 0.5 mg capsule 0.5 mg PO DAILY Rx Instructions: TAKE 1 CAPSULE BY MOUTH EVERY DAY Referrals Referrals: Robin Cazares CRNP [Primary Care Provider] - Discharge Problem: Abdominal pain Qualifiers: Abdominal location: lower abdomen, unspecified Qualified Code(s): R10.30 - Lower abdominal pain, unspecified Syncope Qualifiers: Syncope type: unspecified Qualified Code(s): R55 - Syncope and collapse Diarrhea Qualifiers: Diarrhea type: unspecified type Qualified Code(s): R19.7 - Diarrhea, unspecified Pneumonia Qualifiers: Pneumonia type: due to unspecified organism Laterality: unspecified laterality Lung location: unspecified part of lung Qualified Code(s): J18.9 - Pneumonia, unspecified organism
[2024-04-04 06:37] LABS: Basophils # (auto) 0.05 K/uL (0.00-0.20); Basophils % (auto) 0.4 %; Eosinophils # (auto) 0.05 K/uL (0.00-0.50); Eosinophils % (auto) 0.4 %; Hematocrit (blood only) 52.3 % (42.0-52.0); Hemoglobin 17.2 g/dl (14.0-18.0); Immature Granulocytes # (auto) 0.05 K/uL (0.01-0.20); Immature Granulocytes % (auto) 0.4 %; Lymphocytes # (auto) 1.06 K/uL (1.20-3.40); Lymphocytes % (auto) 8.8 %; Mean Corpuscular Hemoglobin 27.4 pg (25.0-34.0); Mean Corpuscular Hgb Conc 32.9 g/dL (32.0-36.0); Mean Corpuscular Volume 83.4 fL (80.0-100.0); Monocytes # (auto) 0.55 K/uL (0.11-0.59); Monocytes % (auto) 4.6 %; Neutrophils # (auto) 10.26 K/uL (1.40-6.50); Neutrophils % (auto) 85.4 %; Platelet Count 217 K/uL (130-400); RDW Coefficient of Variation 13.7 % (11.5-14.5); RDW Standard Deviation 41.3 fL (36.4-46.3); Red Blood Count 6.27 M/uL (4.70-6.10); White Blood Count 12.02 K/ul (4.8-10.8)
[2024-04-04 07:00] LABS: Alanine Aminotransferase 19 U/L (7-52); Albumin Globulin Ratio 1.2 (0.9-2); Albumin Level 4.3 gm/dl (3.4-5.0); Alkaline Phosphatase 88 U/L (34-104); Anion Gap 9 (3-11); Bilirubin,Total 0.7 mg/dl (0.2-1.0); Blood Urea Nitrogen 18 mg/dl (6-23); Calcium 10.1 mg/dl (8.6-10.3); Carbon Dioxide 27 mmol/L (21-32); Chloride 105 mmol/L (98-107); Creatinine Clr Calc Pharmacy 58.5 ml/min; Globulin 3.6 gm/dl (2.5-4.0); Glucose 147 mg/dl (70-99(Fasting)); Lipase 47 U/L (11-82); Magnesium 2.1 mg/dl (1.7-2.4); Sodium 141 mmol/L (136-145); Total Protein 7.9 gm/dl (6.0-8.3)
[2024-04-04 07:03] LABS: Troponin I High Sensitivity 3.3 pg/ml (0-20)
[2024-04-04 07:37] LABS: Potassium 4.1 mmol/L (3.5-5.1)
[2024-04-04] MEDS: OPTIRAY 320 125ml IV ONE (07:54)
--- NOTE | 2024-04-04 08:11 | XRay Report ---
EXAM: XR chest 1V portable CLINICAL HISTORY: SYNCOPE PORTABLE BME TECHNIQUE: X-ray image of the chest is obtained in AP projection. COMPARISON: Previous x-ray dated 01/10/2023. FINDINGS: Pulmonary Parenchyma: Inadequate breathing during the X-ray. Mild blunting of the right CP angle could be due to subpleural atelectasis or mild pleural effusion. No evidence of lobar consolidation Heart and Mediastinum: Heart size is limited on this projection. No mediastinal widening or masses. No hilar or mediastinal lymphadenopathy. Bony Thorax: Bony thorax appears intact without fractures or deformities. Soft Tissues: Soft tissues overlying the chest wall are unremarkable. IMPRESSION: 1. Mild blunting of the right CP angle could be due to subpleural atelectasis or mild pleural effusion. Sonographic correlation is advised. 2. The rest of the findings are stable in comparison with 01/10/2023. Electronically signed by Russ Gustafson 04-04-2024 08:10 AM
--- NOTE | 2024-04-04 08:35 | CT Scan Report ---
CT ANGIOGRAPHY OF THE CHEST, PULMONARY EMBOLUS PROTOCOL CLINICAL HISTORY: Abdominal pain. Syncopal episode. COMPARISON STUDY: Chest CT January 27, 2019. Chest radiograph performed earlier today. TECHNIQUE: Following IV administration of 112 mL of Optiray, helical axial images of the chest were o btained utilizing the pulmonary embolus protocol. Maximal intensity projections and sagittal and cor onal reformats were viewed on an independent 3D workstation. IV contrast was administered without co mplication. Automated exposure control was utilized for the study. A dose lowering technique was ut ilized adhering to the principles of ALARA. CT DOSE: 2390.51 mGy.cm FINDINGS: No pulmonary emboli are identified. The heart is mildly enlarged. A left lobe thyroid goit er shown on CT of January 27, 2019. No pneumothorax or pleural effusion is present. Bilateral lower lo be, right middle lobe and lingular opacities are similar to CT of January 27, 2019. Central airways ar e patent. There are no suspicious pulmonary nodules. There is no definite consolidation to suggest pn eumonia. There is no evidence of the abdomen and pelvis CT will be reported separately IMPRESSION: 1. No pulmonary emboli identified. 2. Bilateral lower lobe, right middle lobe and lingular opacities, similar to CT of January 27, 2019. Atelectasis is favored. Although less likely, pneumonia could appear similar. ACT 112: Negative or not required by law. Electronically signed by: Alan Russell M.D. 04/04/2024 8:33 AM
[2024-04-04 08:50] LABS: Adenovirus F 40/41 PCR Not Detected (NotDetected); Astrovirus PCR Not Detected (NotDetected); Campylobacter PCR Not Detected (NotDetected); Cryptosporidium PCR Not Detected (NotDetected); Cyclospora cayetanensis PCR Not Detected (NotDetected); Entamoeba histolytica PCR Not Detected (NotDetected); Enteroaggregative E.coli(EAEC) Not Detected (NotDetected); Enteropathogenic E.coli (EPEC) Not Detected (NotDetected); Enterotoxigenic E.coli (ETEC) Not Detected (NotDetected); Giardia lamblia PCR Not Detected (NotDetected); Norovirus GI/GII PCR Not Detected (NotDetected); Plesiomonas shigelloides PCR Not Detected (NotDetected); Rotavirus A PCR Not Detected (NotDetected); Salmonella PCR Not Detected (NotDetected); Sapovirus PCR Not Detected (NotDetected); Shiga-like Toxin E.coli (STEC) Not Detected (NotDetected); Shigella/Enteroinvasive E.coli Not Detected (NotDetected); Vibrio cholerae PCR Not Detected (NotDetected); Vibrio species PCR Not Detected (NotDetected); Yersinia enterocolitica PCR Not Detected (NotDetected)
--- NOTE | 2024-04-04 08:51 | CT Scan Report ---
ABDOMEN AND PELVIS CT WITH IV CONTRAST HISTORY: Acute transabdominal pain with nausea and vomiting abd pain amd syncope TECHNIQUE: Multiaxial CT images of the abdomen and pelvis were performed following the IV administrat ion of 112 cc of Optiray, A dose lowering technique was utilized adhering to the principles of ALARA . COMPARISON STUDY: CT chest of same day, CT abdomen and pelvis January 10, 2023 FINDINGS: Linear bibasilar consolidation suggestive of atelectasis. Trace pericardial effusion. Coron bharat artery calcifications. No pneumoperitoneum. Unremarkable spleen, mildly atrophic pancreas and adr enal glands. Unremarkable gallbladder and liver. Patency of the attic and portal veins. Cysts of the kidneys measuring up to 8.7 cm on the right and 8.4 cm on the left. Cortical thinning of the kidneys. 5 mm nonobstructing calculus of the superior pole right kidney. No ureteral calculi or hydronephrosis. Decompressed urinary bladder with mild wall thickening. Prostatomegaly. Small fat sam led right inguinal hernia. Atherosclerosis of the aorta. No pathologically enlarged lymph nodes. No b owel obstruction. The majority of the large bowel is fluid-filled. Trace free pelvic fluid. Colonic d iverticulosis. 1.9 cm submucosal lipoma ascending colon. Nondilated fluid-filled loops of small bowel . The appendix is not definitively seen. Tiny fat filled umbilical hernia. Tarlov cysts of the sacrum . No acute fracture. IMPRESSION: 1. No bowel obstruction or pneumoperitoneum. 2. Fluid-filled nondilated loops of large and small bowel suggestive of enteritis with diarrheal illn ess. 3. Right nephrolithiasis. No hydronephrosis. 4. Colonic diverticulosis. 5. Additional findings as above. ACT 112: Negative or not required by law. The above report was generated using voice recognition software. It may contain grammatical, syntax o r spelling errors. Electronically signed by: Fam Pierre M.D. 04/04/2024 8:48 AM
[2024-04-04 09:57] LABS: Appearance Urine Clear (Clear); Bacteria Urine Automated None Seen (None Seen); Bilirubin Urine Negative (Negative); Blood Urine Negative (Negative); Color Urine Yellow; Epithelial Cell Urine Auto 0-2 /hpf (0-2); Glucose Urine UA Negative (Negative); Ketones Urine Negative (Negative); Leukocyte Esterase Urine Negative (Negative); Nitrite Urine Negative (Negative); Protein Urine 1+ (Negative); RBC Urine Automated 0-2 /hpf (0-2); Specific Gravity Urine > 1.045 (1.000-1.030); Urobilinogen Urine Negative (Negative); WBC Urine Automated 0-5 /hpf (0-5)
--- NOTE | 2024-04-04 10:07 | History & Physical Report ---
Date of Service April 04, 2024 Assessment & Plan (1) Enteritis: Plan: Patient with abdominal pain, diarrhea, nausea, and vomiting History of IBD - stool cultures and C. difficile negative on admission - Electrolytes within normal limits - VSS, afebrile - Mild leukocytosis with neutrophil predominance - CT of abdomen/pelvis showed enteritis consistent with diarrheal illness - Zofran and Imodium as needed - Tolerating oral fluids, continue with oral hydration - trial Regular diet for lunch - AM CBC, BMP, and Mg (2) Hypoxia: Plan: asymptomatic Aspiration pneumonia vs residual atelectasis - episode of 87% on room air on ER admission - Currently on 2L O2 via nasal cannula - CTA showed b/l LL and RML atelectasis; Similar but less severe than previous CTA in 2019 in which patient was diagnosed with pneumonia - Mild leukocytosis, afebrile - Rocephin given in ED - procal negative - will defer further abx at this time as Rocephin coverage for 24 hrs, asymptomatic, and negative procal.; likely to discharge in AM - Wean off oxygen as tolerated - Incentive spirometry Q1H (3) Syncope: Plan: patient with presyncopal episode while having a bowel movement 04/04 Vasovagal versus hypovolemia - EKG on admission showed sinus rhythm with first-degree AV block, consistent with previous - will defer head CT and echocardiogram at this time as patient did not fully syncopize - Monitor on telemetry Plan Chronic stable diagnoses: BPH/ prostate cancer - Appointment Thursday for recent PSA, continue home medications Flomax and dutasteride GERD - continue famotidine Hypothyroidism - continue levothyroxine VTE ppx: SCDs Diet: Regular Code status: Full Dispo: Obs - med surg/ tele - likely to discharge home in morning if tolerates diet Completed patient education of current condition and management was provided. All questions that the patient asked were answered, and patient demonstrated complete understanding. The patient was discussed with Dr. Shipley at the time of the admission/consult. Admission and Anticipated Discharge Date Admission Date: 04/04/24 History of Present Illness Chief Complaint: Nausea and Diarrhea Primary Care Provider: MOSES Reyes Patient is a 73 y/o male with a PMHx of IBD, BPH, prostate cancer, GERD, multiple bowel obstructions, osteoarthritis, and hypothyroidism. He presents today due to ongoing lower abdominal pain, diarrhea, nausea, vomiting. He has had lower abdominal pain for the past week, along with groin and left buttock pain, that worsened last night after dinner. He has been using a walker at home due to the abdominal pain. He has had increased diarrhea for the past week that has worsened this morning. he has new onset nausea and vomiting that also began this morning. He had a presyncopal episode while going to the bathroom this morning when she felt cool and clammy; His stated that he looked pale - At this point he called EMS. He has had 3 episodes of diarrhea since admission to the ER. His vomiting has subsided with Zofran. He takes Imodium at home for his chronic diarrhea which seems to help; he last took it yesterday morning. He has been taking his temperatures at home and has had no fever. He currently has minimal symptoms, states his abdominal pain is almost gone. The ER was concern for possible pneumonia due to his CT. 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 He currently denies dyspnea, cough, sputum production. He states that he has chronic dyspnea on exertion and feels that his oxygen is normally low, he has never had home oxygen testing. Patient denies fever, chills, dizziness, lightheadedness, rhinorrhea, sore throat, cough, sputum production, dyspnea, chest pain, melena, bloody stools, dysuria, difficulty urinating, hematuria, edema. He denies history of diabetes and previous VTE. He does not use oxygen at baseline. He did not take his home medications this morning; ordered on admission. He wishes to be full code at this time. He has no history of nicotine, alcohol, or drug use. Allergies Allergy/AdvReac Type Severity Reaction Status Date / Time No Known Drug Allergies Allergy 0 Verified 02/24/24 09:46 Home Medications Medication Instructions Recorded Confirmed Type multivitamin 1 tab PO QAM 08/17/18 04/04/24 History betamethasone valerate 0.1 % 1 applic topical DAILY PRN skin 08/13/22 04/04/24 Rx topical cream irritation #15 grams acetaminophen 500 mg capsule 1,000 mg PO TID PRN Pain 01/11/23 04/04/24 History acyclovir 5 % topical cream 1 applic topical 5XD PRN .flare up 01/11/23 04/04/24 History tamsulosin 0.4 mg capsule (Flomax) 0.4 mg PO HS #90 caps 06/29/23 04/04/24 Rx levothyroxine 150 mcg tablet 150 mcg PO QAM #90 tabs 01/28/24 04/04/24 Rx (Synthroid) famotidine 20 mg tablet 20 mg PO QAM #90 tabs 02/15/24 04/04/24 Rx triamcinolone acetonide 0.1 % 1 applic topical DAILY PRN rash 02/24/24 04/04/24 Rx topical ointment #30 grams valacyclovir 1 gram tablet 2,000 mg (2 x 1 gram) PO BID PRN 02/24/24 04/04/24 Rx cold sores 1 day #4 tabs dutasteride 0.5 mg capsule 0.5 mg PO DAILY 04/04/24 04/04/24 History Past Med/Surg History Problem List (Updated 04/04/24 @ 10:59 by Deborah Mendoza PA-C) Enteritis Hypoxia (Acute) Pneumonia (Acute) Diarrhea (Acute) Syncope (Acute) Abdominal pain (Acute) Cyst of joint of right hand Aneurysmal bone cyst of right hand History of left knee replacement BPH (benign prostatic hyperplasia) (Chronic) Hypothyroid (Chronic) Chronic pain of left knee (Acute) GERD (gastroesophageal reflux disease) (Chronic) Elevated PSA Hearing difficulty Neoplasm of prostate, malignant Osteopenia of thigh Right nephrolithiasis Arthritis (Acute) Chronic steroid use Sinus bradycardia Renal insufficiency (Chronic) History of kidney disease (Chronic) Dysmetabolic syndrome X (Chronic) Irritable bowel syndrome (IBS) (Chronic) Diverticulosis (Chronic) pt denies h/o diverticulitis Medical History Mild mitral regurgitation LVH (left ventricular hypertrophy) moderate, 2019 echo Ileum ulcer History of gastric ulcer History of colon polyps Nausea and vomiting after administration of anesthetic agent with initial surgery in 1980s, denies additional issues since Prostate cancer diagnosed 06/2018--as of 07/03/21 pt states currently still just monitoring for now History of Clostridium difficile colitis Septic shock Hx of Clostridium difficile infection tx no longer has per pt Hx of renal calculi pt believes may have cyst on right kidney Hx of small bowel obstruction multiple, last > 1 yr ago, d/t ileal scarring per pt Surgical History History of kidney surgery History of lithotripsy x2 History of colonoscopy History of esophagogastroduodenoscopy (EGD) History of prostate biopsy multiple--malignant History of tooth extraction History of left inguinal hernia repair H/O esophagogastroduodenoscopy H/O colonoscopy "2014, diverticulosis and hepatic flexure lipoma-biopsy pending. Repeat in 10 years " Family History Father , afe 56 Diabetes Heart disease Cardiac disorder Myocardial infarction FHx: cholecystectomy Hypertension Gallbladder disease Mother , age 76 Diabetes Family history of diabetes mellitus Heart disease Cardiac disorder FHx: cholecystectomy Gallbladder disease Brother , [place] at age 60 Diabetes Family history of diabetes mellitus Cardiac disorder Family hx colonic polyps Cancer Gallbladder disease Brother Age: 77 Heart disease Myocardial infarction FHx: cholecystectomy Hypertension Colonic polyp Stroke Daughter Age: 52 No problems noted. Uncle , of prostate cancer at 78. Diagnosed at 70. Had a seed implant. Prostate cancer Brother Prostate cancer, Onset Age: 76 Other Hearing loss No family history of adverse response to anesthesia Denies family history of Ovarian cancer Coronary heart disease No family history of bleeding disorder Allergies Breast cancer Lung cancer Colorectal cancer Asthma Social History Smoking Status: Never smoker Second Hand Exposure: No; Do You Dip or Chew Tobacco: No; Tobacco Cessation Education Requested by Patient: No Hx Alcohol Use: No Hx Substance Use: No Preferred Language: [place] Communication Ability: Effective Visual Impairment: Limited Hearing Ability: Hard of Hearing 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 Beliefs That Will Affect Care: None marital status: Current Living Situation: Spouse current occupational status: retired Other Information That Helps Us Care for You: No Feels Safe at Home: Yes Safety Concerns: Feels Safe At This Time Childhood Exposure to Second-Hand Smoke: Yes Diet: regular Diet Comment: regular caffeine: Yes during the past year weight has: remained stable Dental Care, Regularly: Yes Physical Activity Frequency: 1-2 Times per Week Physical Activity Frequency Comment: LIMITED BY PHYSICAL CONDITION Seatbelt Use: always Sunscreen Use: Yes Assistive Devices: None Review of Systems Review of Systems: See HPI Physical Exam Physical Exam: The patient is awake, alert and oriented 3, well developed and well nourished, normocephalic and atraumatic, in no acute distress. Non-toxic appearing. HEENT- EOMI, mucous membranes dry. Hearing grossly intact. Heart-normal S1 and S2. No murmurs, rubs or gallops. Lungs-clear bilaterally, no respiratory distress, no accessory muscle use. Abdomen-normal bowel sounds and soft. No ascites noted. Mildly tender to RLQ and LLQ. Extremities- no clubbing, cyanosis, or edema. Rheumatologic-normal range of motion. Psychiatric-normal affect. Results & Data Results & Data Vital Signs (Past 12 Hours) Vital Signs Temp Pulse Pulse Resp BP BP Pulse Ox 04/04/24 09:00 83 17 139/87 92 04/04/24 06:30 89 20 116/73 93 04/04/24 06:18 94 04/04/24 06:11 36.4 C L 75 18 113/78 89 L 04/04/24 06:10 80 O2 Del Method O2 Flow Rate 04/04/24 09:00 Nasal Cannula 2 04/04/24 06:30 Room Air 2 04/04/24 06:18 Nasal Cannula 2 04/04/24 06:11 Room Air 04/04/24 06:10 Code Status & VTE Plan Code Status Full code VTE Prophylaxis Plan VTE Prophylaxis will be ordered: Yes Supervising Physician Co-Signing Physician Notes I personally saw and examined the patient. I independently reviewed the labs, EKG, imaging, problem list, medication list, past medical history and family history. I verified all hamlin points and agree with Deborah Mendoza PA-C with the following exceptions and/or additions: 73 year old male presents to the ER with lower abdominal pain, diarrhea, nausea and vomiting. Presyncopal episode at home while walking to the bathroom. He feels much improved since admission when see on . O/E HS RRR, no murmurs, Chest CTAB, Abdo SNT, No CVA tenderness A/P Enteritis - Known IBS, ondansetron, Imodium PRN, tolerating regular diet, stool PCR negative, monitor overnight given presyncopal episode although episode appears mostly resolved following admission earlier in the day Mild hypoxia - some changes on CT (treated for PNA with comparison CT but appears improved from this). Chest CTAB. Do not suspect pneumonia on admission. Incentive spirometer. PG Care Time/CCT Total # of Minutes Spent Total Time Spent with Patient: Total time spent is greater than 50% in coordination of care (as documented) at patient's floor/unit and/or counseling patient: Coding Level of Care Code 70042 INT INP/OBS CARE 2/55MIN Diagnoses Enteritis K52.9 Hypoxia R09.02 Syncope R55 Syncope type: unspecified (3) Syncope Syncope type: unspecified Qualified Code(s): R55 - Syncope and collapse
[2024-04-04] MEDS: cefTRIAXone SODIUM 2,000 MG/50 ML BAG IV STA (10:32)
[2024-04-04] MEDS ORDERED: ONDANSETRON INJ 2 MG/ML 2 ML VIAL IV PRN (10:33)
[2024-04-04] MEDS ORDERED: LOPERAMIDE HCL 2 MG CAP PO PRN (10:33)
[2024-04-04] MEDS ORDERED: ACETAMINOPHEN 325 MG TAB PO PRN (10:38)
--- NOTE | 2024-04-04 15:10 | Electrocardiogram Report ---
Test Reason : Blood Pressure : */* mmHG Vent. Rate : 77 BPM Atrial Rate : 77 BPM P-R Int : 220 ms QRS Dur : 88 ms QT Int : 414 ms P-R-T Axes : 34 257 -3 degrees QTcB Int : 468 ms Sinus rhythm with 1st degree A-V block Inferior infarct (cited on or before 10-Jan-2023) Possible Anterior infarct , age undetermined Abnormal ECG When compared with ECG of 10-Jan-2023 21:00, Borderline criteria for Anterior infarct are now Present Confirmed by aMtthew Singh ([id number]) on 04/04/2024 3:10:19 PM Referred By: Confirmed By: Matthew Singh
[2024-04-04] MEDS: FAMOTIDINE 20 MG TAB PO SCH (17:16)
[2024-04-04] MEDS: FINASTERIDE 5 MG TAB PO SCH (17:16)
[2024-04-04] MEDS: LEVOTHYROXINE SODIUM 150 MCG TABLET PO SCH (17:16)
[2024-04-04] MEDS: TAMSULOSIN HCL 0.4 MG CAP PO SCH (20:39)
[2024-04-05 03:56] VITALS: RESP 18
[2024-04-05 06:38] LABS: Hematocrit (blood only) 46.1 % (42.0-52.0); Hemoglobin 15.1 g/dl (14.0-18.0); Mean Corpuscular Hemoglobin 27.8 pg (25.0-34.0); Mean Corpuscular Hgb Conc 32.8 g/dL (32.0-36.0); Mean Corpuscular Volume 84.9 fL (80.0-100.0); Platelet Count 186 K/uL (130-400); RDW Coefficient of Variation 13.8 % (11.5-14.5); RDW Standard Deviation 42.5 fL (36.4-46.3); Red Blood Count 5.43 M/uL (4.70-6.10); White Blood Count 6.54 K/ul (4.8-10.8)
[2024-04-05 07:04] LABS: BUN Creatinine Ratio 20.9 (10-20); Calcium 9.1 mg/dl (8.6-10.3); Creatinine Clr Calc Pharmacy 58.5 ml/min; Potassium 3.8 mmol/L (3.5-5.1)
[2024-04-05 10:54] VITALS: BP 119/78; PULSE 85; TEMP 97.2; O2SAT 92
--- NOTE | 2024-04-05 12:49 | XRay Report ---
XR chest 2V PA/lateral CLINICAL HISTORY: f/u possible PNA vs atelectasis,hypoxemia COMPARISON STUDY: Chest radiograph and chest CT April 04, 2024. FINDINGS: There is no pneumothorax or pleural effusion. There is no evidence for pulmonary edema. Mil d cardiomegaly is again noted. Lower lung linear densities are unchanged and favor atelectasis. There is no consolidation to suggest pneumonia. IMPRESSION: 1. No change in lower lung linear densities suggestive of atelectasis. No consolidation to suggest pn eumonia. 2. Stable cardiomegaly. No evidence for pulmonary edema. ACT 112: Negative or not required by law. Electronically signed by: Alan Russell M.D. 04/05/2024 12:47 PM
--- NOTE | 2024-04-05 13:15 | Discharge Summary ---
Discharge Summary Date of Service April 05, 2024 Principal Dx & Hospital Course #1 = Principal Diagnosis (1) Enteritis: Patient with abdominal pain, diarrhea, nausea, and vomiting that presented acutely after visiting with his daughter and her family over the weekend. He also ate tuna fish from [employer]. Perhaps viral GE vs food poisoning Stool Bio[employer] and C. diff here negative CT abd/pel with enteritis but otherwise nothing acute History of IBS-D He was hydrated, and was tolerating a regular diet prior to discharge, feeling much better Presyncope from dehydration resolved (2) Hypoxia: asymptomatic- episode of 87% on room air on ER admission and was placed on 2L O2 via nasal cannula CTA chest showed b/l LL and RML atelectasis; Similar but less severe than previous CTA in 2018 in which patient was diagnosed with pneumonia Mild leukocytosis likely from gastroenteritis as above is now resolved, afebrile Rocephin given in ED, but procal negative and not likely PNA-no further antibiotics given Repeat CXR PA/LAT 04/05 improved but still with some atelectasis Was treated with ICS 2 step walk test demonstrated POx 90% at rest, 91% with exercise, no supplemental O2 needed F/u with PULM as outpt if desired/referred by PCP (3) Syncope: patient with presyncopal episode while having a bowel movement 04/04 Vasovagal versus hypovolemia-now resolved. Is ambulating the halls without any problems on day of discharge EKG on admission showed sinus rhythm with first-degree AV block, consistent with previous No arrhythmias on tele Plan Chronic stable diagnoses: BPH/ prostate cancer - Appointment Thursday for recent PSA, continue home medications Flomax and dutasteride GERD - continue famotidine Hypothyroidism - recent TSH normal, continue levothyroxine VTE ppx: SCDs Code status: Full Dispo: dc to home Notes For Next Care Provider Consider PULM referral for abnormal chest CT and CXR findings Medication Changes From Visit None Admission HPI Per Admitting Provider Patient is a 73 y/o male with a PMHx of IBD, BPH, prostate cancer, GERD, multiple bowel obstructions, osteoarthritis, and hypothyroidism. He presents today due to ongoing lower abdominal pain, diarrhea, nausea, vomiting. He has had lower abdominal pain for the past week, along with groin and left buttock pain, that worsened last night after dinner. He has been using a walker at home due to the abdominal pain. He has had increased diarrhea for the past week that has worsened this morning. he has new onset nausea and vomiting that also began this morning. He had a presyncopal episode while going to the bathroom this morning when she felt cool and clammy; His stated that he looked pale - At this point he called EMS. He has had 3 episodes of diarrhea since admission to the ER. His vomiting has subsided with Zofran. He takes Imodium at home for his chronic diarrhea which seems to help; he last took it yesterday morning. He has been taking his temperatures at home and has had no fever. He currently has minimal symptoms, states his abdominal pain is almost gone. The ER was concern for possible pneumonia due to his CT. 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 He currently denies dyspnea, cough, sputum production. He states that he has chronic dyspnea on exertion and feels that his oxygen is normally low, he has never had home oxygen testing. Patient denies fever, chills, dizziness, lightheadedness, rhinorrhea, sore throat, cough, sputum production, dyspnea, chest pain, melena, bloody stools, dysuria, difficulty urinating, hematuria, edema. He denies history of diabetes and previous VTE. He does not use oxygen at baseline. He did not take his home medications this morning; ordered on admission. He wishes to be full code at this time. He has no history of nicotine, alcohol, or drug use. Discharge Exam Constitutional WD/WN, vitals as above Respiratory normal respiratory effort, lungs clear to auscultation Cardiovascular RRR, no murmur, no edema Gastrointestinal (Abdomen) normal bowel sounds, soft, nontender, no hepatosplenomegaly Psychiatric A+Ox3, euthymic affect Discharge Plan Discharge Items Patient Disposition: Home - Self-Care Reason For Visit: ENTERITIS, HYPOXIA Discharge Diagnosis: Gastroenteritis-viral vs food poisoning Hypoxemia-resolved Condition on Discharge: Good Activity: Resume your previous activity Non-emergency contact: Primary Care Provider Call non-emergency contact if: you have any medication questions and your symptoms worsen Follow-up/Referrals: Robin Cazares CRNP [Primary Care Provider] - 04/12/24 8:20 am Diet: Regular Addtl Attending Provider Instructions: Please continue to stay hydrated. You likely had either food poisoning or a viral gastroenteritis which is now improved. Your lungs have some chronic areas that are squished down called atelectasis. They appear similar to a CT scan of the chest you had from 2019 and may be related to old scarring. This does tend to make your oxygen levels low normal, but you had a walking test and do not need to use any supplemental oxygen. Pending Studies at Discharge: No Stand-Alone Forms: [facility], Smoking Cessation Medications and DC Order Prescriptions: Continued tamsulosin [Flomax] 0.4 mg capsule 0.4 mg PO HS Qty: 90 3RF levothyroxine [Synthroid] 150 mcg tablet 150 mcg PO QAM Qty: 90 1RF famotidine 20 mg tablet 20 mg PO QAM Qty: 90 1RF Hold Instructions: replaced with ppi betamethasone valerate 0.1 % cream 1 applic topical DAILY PRN (Reason: skin irritation) Qty: 15 2RF valacyclovir 1 gram tablet 2,000 mg PO BID PRN (Reason: cold sores) 1 Days Qty: 4 2RF triamcinolone acetonide 0.1 % ointment 1 applic topical DAILY PRN (Reason: rash) Qty: 30 5RF multivitamin Tablet 1 tab PO QAM acetaminophen 500 mg capsule 1,000 mg PO TID PRN (Reason: Pain) Rx Instructions: Take 3 times per day to lessen pain. acyclovir 5 % cream 1 applic topical 5XD PRN (Reason: .flare up) dutasteride 0.5 mg capsule 0.5 mg PO DAILY Rx Instructions: TAKE 1 CAPSULE BY MOUTH EVERY DAY Discharge Orders: Discharge Order (Routine); Ordered 04/05/24 Ordered By: Mechelle Metcalf Admission Data Admit Date/Time: 04/04/24 10:42 Attending Provider: Mechelle Metcalf Admit Provider: Zechariah Shipley Primary Care Provider: Robin Cazares Other Providers: Zechariah Shipley Hospital Stay Data Consultations 04/04/24 09:58 ED Decision to Admit Stat Diagnostic Imagining Performed 04/04/24 06:26 CT abd pelvis IV con only Stat CT angio chest PE protocol Stat Pending Results Patient Have Any Pending Studies at Discharge: No Discharge Instructions Given to Patient (Per Discharging Provider) Please continue to stay hydrated. You likely had either food poisoning or a viral gastroenteritis which is now improved. Your lungs have some chronic areas that are squished down called atelectasis. They appear similar to a CT scan of the chest you had from 2019 and may be related to old scarring. This does tend to make your oxygen levels low normal, but you had a walking test and do not need to use any supplemental oxygen. Total Time Total Time Spent Total Time Spent (In Minutes): 35 min Total Time Includes: Examination of the Patient, Discharge Planning and Medication Reconciliation Coding Level of Care Code 85283 INP/OBS DISCH >30 MIN Diagnoses Enteritis K52.9 Hypoxia R09.02 Syncope R55 Syncope type: unspecified
== END 2024-04-05 14:38 | disposition home or self-care (01) ==
LOC: ED 06:07 → 2N 06:07 → SUATTDRO 10:42 → 2N 12:30